=== PATIENT | female | born 1960 | race Caucasian/White ===

== ENCOUNTER 2016-07-19 10:26 | Day surgery (SDC) | payer MEDICARE, MEDICAID ==
[~2016-07-19] VITALS: Ht 152.4 cm; Wt 102.0 kg
[~2016-07-19 10:26] MED LIST: AMLO10 PO; ASPI1TAB69 PO; BUME1TAB PO; CALC667T PO; GABA100C4 PO; GLIP10TA6 PO; HYDR-3288 PO; ISOS10TA3 PO; LIPI20TA PO; METO25TA3 PO; SYNT88TA PO; ZOLP5TAB3 PO
[2016-07-19 11:06] VITALS: BP 187/70; PULSE 64; RESP 20; TEMP 98.4; O2SAT 90
[2016-07-19] MEDS ORDERED: ceFAZolin 1,000 MG/NS 100 ML IV SCH ×2 (11:30)
[2016-07-19] MEDS ORDERED: SODIUM CHLORIDE 5 ML FLUSH PRN IVF (11:30)
[2016-07-19] MEDS ORDERED: ceFAZolin 2 GM PREMIX 50 ML IV SCH (11:45)
[2016-07-19] MEDS ORDERED: MIDAZOLAM HCL 5 MG/5 ML VIAL ONE (12:39)
[2016-07-19] MEDS ORDERED: fentaNYL CITRATE 250 MCG/5 ML AMP ONE (12:39)
[2016-07-19] MEDS ORDERED: LIDOCAINE 1%/EPINEPHrine 1:100,000 SOLN 20 ML VIAL ONE (12:51)
--- NOTE | 2016-07-19 13:19 | PD.RAD ---
Post Procedure Progress Note Pre Procedure Diagnosis: (1) Acute kidney failure Post Procedure Diagnosis: (1) Acute kidney failure Procedure Date: Jul 19, 2016 Supervising Radiologist: Juan Smith Anesthesia: Conscious Sedation Plan of Activity Patient to Unit: Nursing Unit Patient Condition: Good See PACS Report for procedural detail/treatment Central Venous Access Device Procedure 1 Internal Jugular Hemodialysis Catheter Tunneled Exchange dual lumen Juan Smith MD Jul 19, 2016 13:19
[2016-07-19 13:25] VITALS: BP 150/55; PULSE 57; RESP 20; TEMP 98.2; O2SAT 92
[2016-07-19] MEDS ORDERED: HEPARIN SODIUM - IV 10,000 UNITS/10 ML VIAL IVF PRN (13:30)
[2016-07-19] MEDS ORDERED: SODIUM CHLORIDE 0.9% FLUSH 5 ML FLUSH IVF PRN (13:30)
[2016-07-19 13:40] VITALS: BP 157/92; PULSE 55; RESP 20; O2SAT 92
[2016-07-19 14:10] VITALS: BP 152/79; PULSE 58; RESP 20; O2SAT 94
--- NOTE | 2016-07-19 14:33 | RADRPT ---
EXAM DATE/TIME: 07/19/2016 12:32 INDICATIONS : Patient with history of ESRD in need of dialysis catheter exchange. MEDICAL HISTORY : ESRD, HTN, Diabetes, CAD, PVD, HLD, Hypothyroidism SURGICAL HISTORY : Permcath placement and removal, Right BKA ENCOUNTER: Subsequent ACUITY: 2 days PAIN SCORE: 0/10 FLUORO TIME: 0.7 minutes SEDATION TIME: 30minutes MEDICATION(S): 1.) 1 mg midazolam (Versed) IV 2.) 50 mcg fentanyl (Sublimaze) IV DEVICE(S): 1.) 15 Polish dual lumen 27 cm Turner II Plus catheter PROCEDURE: CENTRAL VENOUS CATHETER REPLACEMENT, LT 1. Fluoroscopically guided central venous catheter exchange. The risks, benefits and alternatives to the procedure were explained and verbal and written consent w as obtained. The site was prepped in sterile fashion. Full sterile technique was used, including ca p, mask, sterile gloves and gown and a large sterile sheet. Hand hygiene and 2% chlorhexidine and/or betadine/alcohol prep was utilized per protocol for cutaneous antisepsis. The skin and subcutaneous tissues were infiltrated with local anesthetic solution. With fluoroscopic guidance the previously placed central venous catheter was exchanged for the prescr ibed catheter as above. Post procedure image demonstrates satisfactory position of the tube. The cath eter was sutured in place. CONCLUSION: Uncomplicated venous catheter change as above. Juan Smith MD on July 19, 2016 at 14:32 Board Certified Radiologist. This report was verified electronically.
[2016-07-19 14:40] VITALS: BP 141/55; PULSE 61; RESP 20; O2SAT 94
[2016-07-19] MEDS ORDERED: SODIUM CHLORIDE 5 ML FLUSH BID IVF SCH (21:00)
== END 2016-07-19 15:05 | disposition home or self-care (01) ==
LOC: HROP 10:26 → HRIP 10:26 → HROP 15:05
PROVIDERS: ATTEND Internal Medicine Nephrology
DX: Z49.01 Encounter for fitting and adjustment of extracorporeal dialysis catheter (principal); N18.6 End stage renal disease; E11.9 Type 2 diabetes mellitus without complications; I10 Essential (primary) hypertension; Z99.2 Dependence on renal dialysis
CPT/HCPCS: 36558; 76937; 77001; 99152; 99153; C1750; C1769; J0690; J1644; J2250; J3010

== ENCOUNTER → 2016-09-01 | Outpatient (CLI) | payer MEDICARE, MEDICAID ==
[~2016-09-01] MED LIST changes: +ASPI81CH7 PO; +OXYC-392 PO
[2016-09-01 11:06] LABS: AUTOMATED NEUTROPHIL # 4.6 TH/MM3 (1.8-7.7); BASOPHIL # 0.1 TH/MM3 (0-0.2); BASOPHIL % 0.6 % (0.0-2.0); EOSINOPHIL # 0.3 TH/MM3 (0-0.4); EOSINOPHIL % 3.6 % (0.0-4.0); HEMATOCRIT 35.7 % (35.0-46.0); HEMO FLAGS DIFF FINAL; LYMPH % 33.9 % (9.0-44.0); LYMPHOCYTE # 2.9 TH/MM3 (1.0-4.8); MEAN CELL VOLUME 91.6 FL (80.0-100.0); MEAN CORPUSCULAR HEMOGLOBIN 29.6 PG (27.0-34.0); MEAN CORPUSCULAR HGB CONC 32.4 % (32.0-36.0); MONO % 8.9 % (0.0-8.0); PLATELET COUNT 214 TH/MM3 (150-450); RED CELL DISTRIBUTION WIDTH 14.2 % (11.6-17.2); WHITE BLOOD COUNT 8.6 TH/MM3 (4.0-11.0)
[2016-09-01 11:09] LABS: PROTHROMBIN TIME - PATIENT 10.8 SEC (9.8-11.6)
[2016-09-01 11:26] LABS: BICARBONATE 27.6 MEQ/L (21.0-32.0)
== END ==
LOC: CPRE 10:25
PROVIDERS: ATTEND Surgery
DX: Z01.812 Encounter for preprocedural laboratory examination (principal); N18.6 End stage renal disease
CPT/HCPCS: 36415; 80048; 85025; 85610

== ENCOUNTER 2016-09-07 03:53 | Emergency (ER) | payer MEDICARE, MEDICAID ==
[~2016-09-07] VITALS: Ht 152.4 cm; Wt 100.3 kg
[~2016-09-07 03:53] MED LIST changes: -ASPI81CH7 PO; -OXYC-392 PO
[2016-09-07 04:02] VITALS: BP 144/58; PULSE 58; RESP 16; TEMP 98; O2SAT 97
--- NOTE | 2016-09-07 04:24 | PD ---
HPI Chief Complaint: Bleeding Time Seen by Provider: 04:01 Travel History International Travel<30 days: No Contact w/Intl Traveler<30days: No Traveled to known affect area: No History of Present Illness HPI 55-year-old female with end-stage renal disease on dialysis, has a left subclavian permacath, is post to get a fistula done tomorrow, presents to the ER today because the cap loosened on her permacath overnight while she was sleeping and she had a significant amount of bleeding onto her bed. She reports being lightheaded currently. She denies any chest pains, shortness of breath, or any other symptoms. Modifying Factors: None Associated Signs & Symptoms: Bleeding from permacath secondary to loosened cap Risk Factors: None PFSH Past Medical History Anemia: Yes Arthritis: Yes (HANDS, TOES, FEET) Autoimmune Disease: No Cancer: No Cardiac Catheterization: No Cardiovascular Problems: No High Cholesterol: No Diabetes: Yes Patient Takes Glucophage: No Diminished Hearing: No Endocrine: No Genitourinary: No Hepatitis: No Hiatal Hernia: No Hypertension: Yes Immune Disorder: No Musculoskeletal: Yes (ARTHRITIS) Neurologic: No Psychiatric: No Reproductive: No Respiratory: No Myocardial Infarction: No Pneumonia: Yes Renal Failure: Yes Sleep Apnea: Yes Thyroid Disease: Yes Tetanus Vaccination: < 5 Years Influenza Vaccination: Yes PNEUMOCCOCAL Vaccine (Year): 2 Menopausal: Yes : 2 Para: 2 Miscarriage: 0 : 0 Tubal Ligation: Yes Past Surgical History Abdominal Surgery: No AICD: No Body Medical Devices: CAHT. LEFT CHEST Cardiac Surgery: No Section: Yes (X2) Coronary Artery Bypass Graft: No Ear Surgery: No Endocrine Surgery: No Eye Surgery: No Genitourinary Surgery: No Gynecologic Surgery: Yes (2 C-SECT.,) Joint Replacement: No Oral Surgery: No Pacemaker: No Thoracic Surgery: Yes (AV CATH X4 LEFT CHEST) Other Surgery: Yes (RIGHT FOOT AMPUTATION DECEMBER 2013) Social History Alcohol Use: No Tobacco Use: No (QUIT 1988) Substance Use: No Allergies-Medications (Allergen,Severity, Reaction): Coded Allergies: Vancomycin (Verified Allergy, Severe, KIDNEY INJURY, 09/07/16) PER Jasmin BROWN MD, DO NOT USE VANCO. SEVERE KIDNEY INJURY. Morphine (Unverified Allergy, Intermediate, 09/07/16) "ITCHING EVERYWHERE" Reported Meds & Prescriptions Reported Meds & Active Scripts Active Lipitor (Atorvastatin Calcium) 20 Mg Tab 20 Mg PO HS 30 Days Reported Calcium Acetate (Phosphate Binder) 667 Mg Tab 667 Mg PO TID Zolpidem (Zolpidem Tartrate) 5 Mg Tab 10 Mg PO HS PRN Metoprolol Tartrate 25 Mg Tab 25 Mg PO BID Bumetanide 1 Mg Tab 2 Mg PO BID Synthroid (Levothyroxine Sodium) 88 Mcg Tab 0.137 Mcg PO DAILY [place] (Hydrocodone-Acetaminophen) 7.5-325 mg Tab 2 Tab PO Q6H PRN Isosorbide Mononitrate 10 Mg Tab 10 Mg PO DAILY Take 2 doses 7 hours apart. Glipizide 10 Mg Tab 10 Mg PO BIDAC Take 30 minutes before a meal Aspirin 81 Mg Tabdr 81 Mg PO DAILY Norvasc (Amlodipine Besylate) 10 Mg Tab 10 Mg PO DAILY Gabapentin 100 Mg Cap 600 Mg PO HS Review of Systems Except as stated in HPI: all other systems reviewed are Neg Physical Exam Narrative GENERAL: Well-nourished, well-developed middle age white female patient in no acute distress. SKIN: Warm and dry. HEAD: Normocephalic. EYES: No scleral icterus. No injection or drainage. NECK: Supple, trachea midline. Left sided permacath appears to be in place. CARDIOVASCULAR: Regular rate and rhythm without murmurs, gallops, or rubs. RESPIRATORY: Breath sounds equal bilaterally. No accessory muscle use. GASTROINTESTINAL: Abdomen soft, non-tender, nondistended. MUSCULOSKELETAL: No cyanosis, or edema. BACK: Nontender without obvious deformity. No CVA tenderness. Data Data Last Documented VS Vital Signs Date Time Temp Pulse Resp B/P Pulse Ox O2 Delivery O2 Flow Rate FiO2 09/07/16 04:02 98.0 58 16 144/58 97 Orders Complete Blood Count With Diff (09/07/16 04:01) Basic Metabolic Panel (Bmp) (09/07/16 04:01) Prothrombin Time / Inr (Pt) (09/07/16 04:01) Act Partial Throm Time (Ptt) (09/07/16 04:01) Type And Screen (09/07/16 04:01) Potassium, Serum (K) (09/07/16 05:57) Labs Laboratory Tests Test 09/07/16 04:35 White Blood Count 11.3 TH/MM3 Red Blood Count 3.82 MIL/MM3 Hemoglobin 11.4 GM/DL Hematocrit 35.2 % Mean Corpuscular Volume 92.2 FL Mean Corpuscular Hemoglobin 29.7 PG Mean Corpuscular Hemoglobin 32.3 % Concent Red Cell Distribution Width 14.3 % Platelet Count 190 TH/MM3 Mean Platelet Volume 8.2 FL Neutrophils (%) (Auto) 74.4 % Lymphocytes (%) (Auto) 17.5 % Monocytes (%) (Auto) 6.5 % Eosinophils (%) (Auto) 1.3 % Basophils (%) (Auto) 0.3 % Neutrophils # (Auto) 8.4 TH/MM3 Lymphocytes # (Auto) 2.0 TH/MM3 Monocytes # (Auto) 0.7 TH/MM3 Eosinophils # (Auto) 0.1 TH/MM3 Basophils # (Auto) 0.0 TH/MM3 CBC Comment DIFF FINAL Differential Comment Prothrombin Time 10.6 SEC Prothromb Time International 1.0 RATIO Ratio Activated Partial 25.2 SEC Thromboplast Time Sodium Level 140 MEQ/L Potassium Level 5.9 MEQ/L Chloride Level 107 MEQ/L Carbon Dioxide Level 24.7 MEQ/L Anion Gap 8 MEQ/L Blood Urea Nitrogen 35 MG/DL Creatinine 4.04 MG/DL Estimat Glomerular Filtration 11 ML/MIN Rate Random Glucose 154 MG/DL Calcium Level 8.9 MG/DL Blood Type A POSITIVE Antibody Screen NEGATIVE MDM Medical Decision Making Medical Screen Exam Complete: Yes Emergency Medical Condition: Yes Medical Record Reviewed: Yes Interpretation(s) Laboratory Tests Test 09/07/16 04:35 White Blood Count 11.3 TH/MM3 (4.0-11.0) Red Blood Count 3.82 MIL/MM3 (4.00-5.30) Hemoglobin 11.4 GM/DL (11.6-15.3) Neutrophils (%) (Auto) 74.4 % (16.0-70.0) Neutrophils # (Auto) 8.4 TH/MM3 (1.8-7.7) Potassium Level 5.9 MEQ/L (3.5-5.1) Blood Urea Nitrogen 35 MG/DL (7-18) Creatinine 4.04 MG/DL (0.50-1.00) Estimat Glomerular Filtration 11 ML/MIN (>89) Rate Random Glucose 154 MG/DL (74-106) Differential Diagnosis Permacath malfunction, bleedingrule out anemia Narrative Course H&H is stable in the ER. Her lab work shows a hemolyzed potassium. Potassium was be sent. BUN/creatinine creatinine is elevated but this is likely to be secondary to her chronic renal issues. Physician Communication Physician Communication Case is signed out to Dr. Howard at 7 AM pending repeat potassium. If unremarkable, patient can be released with follow-up to dialysis. Diagnosis Primary Impression: Encounter for dialysis catheter care Condition: Stable Gary Toscano MD Sep 07, 2016 04:24
[2016-09-07 04:52] LABS: AUTOMATED NEUTROPHIL # 8.4 TH/MM3 (1.8-7.7); BASOPHIL % 0.3 % (0.0-2.0); EOSINOPHIL # 0.1 TH/MM3 (0-0.4); EOSINOPHIL % 1.3 % (0.0-4.0); HEMATOCRIT 35.2 % (35.0-46.0); HEMO FLAGS DIFF FINAL; LYMPH % 17.5 % (9.0-44.0); MEAN CELL VOLUME 92.2 FL (80.0-100.0); MEAN CORPUSCULAR HEMOGLOBIN 29.7 PG (27.0-34.0); MEAN CORPUSCULAR HGB CONC 32.3 % (32.0-36.0); MONO % 6.5 % (0.0-8.0); NEUT % 74.4 % (16.0-70.0); PLATELET COUNT 190 TH/MM3 (150-450); RED BLOOD COUNT 3.82 MIL/MM3 (4.00-5.30); RED CELL DISTRIBUTION WIDTH 14.3 % (11.6-17.2); WHITE BLOOD COUNT 11.3 TH/MM3 (4.0-11.0)
[2016-09-07 04:58] LABS: APTT (PATIENT) 25.2 SEC (24.3-30.1); PROTHROMBIN TIME - PATIENT 10.6 SEC (9.8-11.6)
[2016-09-07 05:12] LABS: BICARBONATE 24.7 MEQ/L (21.0-32.0)
[2016-09-07 05:23] LABS: POTASSIUM 5.9 MEQ/L (3.5-5.1)
[2016-09-07 07:45] VITALS: BP 142/63; PULSE 56; RESP 19; O2SAT 100
[2016-09-07 08:30] VITALS: BP 142/63; PULSE 50; RESP 16; O2SAT 9
--- NOTE | 2016-09-07 08:56 | PD ---
Physical Exam Narrative GENERAL: Well-nourished, well-developed patient. SKIN: Warm and dry. HEAD: Normocephalic and atraumatic. EYES: No injection or drainage. ENT: No nasal drainage noted. NECK: Supple, trachea midline. CARDIOVASCULAR: Regular rate and rhythm RESPIRATORY: no increased effort. No accessory muscle use. NEUROLOGICAL: Awake and alert. Motor and sensory grossly within normal limits. Normal speech. Data Data Last Documented VS Vital Signs Date Time Temp Pulse Resp B/P Pulse Ox O2 Delivery O2 Flow Rate FiO2 09/07/16 09:15 95 Room Air 09/07/16 09:00 55 18 156/67 09/07/16 08:30 2 09/07/16 04:02 98.0 Orders Complete Blood Count With Diff (09/07/16 04:01) Basic Metabolic Panel (Bmp) (09/07/16 04:01) Prothrombin Time / Inr (Pt) (09/07/16 04:01) Act Partial Throm Time (Ptt) (09/07/16 04:01) Type And Screen (09/07/16 04:01) Potassium, Serum (K) (09/07/16 05:57) ^ Blood Flow Rate (09/07/16 12:20) ^ Dialysate Flow Rate (09/07/16 12:20) ^ Dialyzer (09/07/16 12:20) ^ Concentrate (09/07/16 12:20) ^ Acid Concentrate (09/07/16 12:20) ^ Length Of Dialysis (09/07/16 12:20) ^ Frequency Of Dialysis (09/07/16 12:20) ^ Dialysis Obtain (09/07/16 12:20) ^ Needle Size (09/07/16 12:20) ^ Dialysis Schedule (09/07/16 12:20) Resp Oxygen Brendan C Titrat 1-4 L (09/07/16 ) ^ Dialysis Weight (09/07/16 12:20) ^ Obtain As Needed (09/07/16 12:20) Sodium Chlor 0.9% 1000 Ml Inj (Ns 1000 M (09/07/16 12:20) Heparin Inj (Heparin Inj) (09/07/16 12:30) Sodium Chlor 0.9% 1000 Ml Inj (Ns 1000 M (09/07/16 12:20) Sodium Chlor 0.9% 1000 Ml Inj (Ns 1000 M (09/07/16 12:20) Mannitol Inj (Mannitol Inj) (09/07/16 12:30) Albumin 25% Inj (Albumin 25% Inj) (09/07/16 12:30) Sodium Chloride 0.9% Flush (Ns Flush) (09/07/16 12:30) Heparin Inj (Heparin Inj) (09/07/16 12:30) Gentamicin (Dialysis) Inj (Gentamicin (D (09/07/16 12:30) Ondansetron Inj (Zofran Inj) (09/07/16 12:30) Acetaminophen (Tylenol) (09/07/16 12:30) Diphenhydramine (Benadryl) (09/07/16 12:30) Nitroglycerin Sl (Nitrostat Sl) (09/07/16 12:30) Clonidine (Catapres) (09/07/16 12:30) Gelatin 12 Mm/7 Mm Top (Gelfoam 12 Mm/7 (09/07/16 12:30) Labs Laboratory Tests Test 09/07/16 09/07/16 04:35 09:40 White Blood Count 11.3 TH/MM3 Red Blood Count 3.82 MIL/MM3 Hemoglobin 11.4 GM/DL Hematocrit 35.2 % Mean Corpuscular Volume 92.2 FL Mean Corpuscular Hemoglobin 29.7 PG Mean Corpuscular Hemoglobin 32.3 % Concent Red Cell Distribution Width 14.3 % Platelet Count 190 TH/MM3 Mean Platelet Volume 8.2 FL Neutrophils (%) (Auto) 74.4 % Lymphocytes (%) (Auto) 17.5 % Monocytes (%) (Auto) 6.5 % Eosinophils (%) (Auto) 1.3 % Basophils (%) (Auto) 0.3 % Neutrophils # (Auto) 8.4 TH/MM3 Lymphocytes # (Auto) 2.0 TH/MM3 Monocytes # (Auto) 0.7 TH/MM3 Eosinophils # (Auto) 0.1 TH/MM3 Basophils # (Auto) 0.0 TH/MM3 CBC Comment DIFF FINAL Differential Comment Prothrombin Time 10.6 SEC Prothromb Time International 1.0 RATIO Ratio Activated Partial 25.2 SEC Thromboplast Time Sodium Level 140 MEQ/L Potassium Level 5.9 MEQ/L 4.8 MEQ/L Chloride Level 107 MEQ/L Carbon Dioxide Level 24.7 MEQ/L Anion Gap 8 MEQ/L Blood Urea Nitrogen 35 MG/DL Creatinine 4.04 MG/DL Estimat Glomerular Filtration 11 ML/MIN Rate Random Glucose 154 MG/DL Calcium Level 8.9 MG/DL Blood Type A POSITIVE Antibody Screen NEGATIVE MDM Supervised Visit with MACEY: No Interpretation(s) CBC & BMP Diagram 09/07/16 04:35 Narrative Course Lab called about additional re-collect at 850 and I personally talked with them. They stated that it was above 6 with hemolysis and that it would need to be very collected again. They will come to re-collect and I will discuss with her photo offset printer as she is not due for dialysis again until as she is having a fistula surgery on her next dialysis stay of Tuesday. patient to have dialysis here on second floor and then will go home, Patient denies any new complaints, all questions answered. Patient knows that follow up is incumbent on them and to return to the emergency room immediately if new or worsening symptoms develop. Patient given strict return precautions, vitals reviewed and are normal, agrees to further workup as an outpatient. Physician Communication Physician Communication dr vivas gave me transfer report about recollect potassium dr rivera states at 855 will try to arrange dialysis for today and call me back when I discussed case with him dr rivera states patient will have dialysis on second floor here and then go home, no need for recollect potassium Diagnosis Primary Impression: Encounter for dialysis catheter care Additional Impression: Hyperkalemia Patient Instructions: General Instructions Additional Instruction: return as needed, follow with primary tomorrow for recheck Med/Other Pt SpecificInfo: No Change to Meds Disposition: 01 DISCHARGE HOME (after dialysis) Condition: Stable Luciana Howard MD Sep 07, 2016 08:56
[2016-09-07 09:00] VITALS: BP 156/67; PULSE 55; RESP 18; O2SAT 92
[2016-09-07 09:15] VITALS: O2SAT 95
[2016-09-07] MEDS ORDERED: SODIUM CHLOR 0.9% 1000 ML INJ 1,000 ML IV PRN ×3 (12:20)
[2016-09-07] MEDS ORDERED: MANNITOL 12.5 GM/50 ML VIAL IV PRN (12:30)
[2016-09-07] MEDS ORDERED: ONDANSETRON HCL 4 MG/2 ML VIAL IV PRN (12:30)
[2016-09-07] MEDS ORDERED: ACETAMINOPHEN 325 MG TAB PO PRN (12:30)
[2016-09-07] MEDS ORDERED: SODIUM CHLORIDE 0.9% FLUSH 5 ML FLUSH IVF PRN (12:30)
[2016-09-07] MEDS ORDERED: GELATIN 12 MM/7 MM FOAM TOP PRN (12:30)
[2016-09-07] MEDS ORDERED: HEPARIN SODIUM - IV 10,000 UNITS/10 ML VIAL IVF PRN (12:30)
[2016-09-07] MEDS ORDERED: diphenhydrAMINE HCL 25 MG CAP PO PRN (12:30)
[2016-09-07] MEDS ORDERED: NITROGLYCERIN 0.4 MG SL 25 TABS/BTL SL PRN (12:30)
[2016-09-07] MEDS ORDERED: cloNIDine HCL 0.1 MG TAB PO PRN (12:30)
[2016-09-07] MEDS ORDERED: HEPARIN SODIUM - IV 10,000 UNITS/10 ML VIAL PRN (12:30)
[2016-09-07] MEDS ORDERED: ALBUMIN HUMAN 25% 25 GM/100 ML BAGP IV PRN (12:30)
[2016-09-07] MEDS ORDERED: GENTAMICIN SULFATE (DIALYSIS USE ONLY) 20 MG/2 ML VIAL IV PRN (12:30)
== END 2016-09-07 14:43 | disposition home or self-care (01) ==
LOC: NEPC 03:53 → NEDAMB 14:43
DX: T82.41XA Breakdown (mechanical) of vascular dialysis catheter, initial encounter (principal); I12.0 Hypertensive chronic kidney disease with stage 5 chronic kidney disease or end stage renal disease; E11.22 Type 2 diabetes mellitus with diabetic chronic kidney disease; N18.6 End stage renal disease; Z99.2 Dependence on renal dialysis
CPT/HCPCS: 80048; 84132; 85025; 85610; 85730; 86850; 86900; 86901; 96374; 99284; G0257; 90935

== ENCOUNTER → 2016-09-08 | Day surgery (SDC) | payer MEDICARE, MEDICAID ==
[~2016-09-08] VITALS: Ht 152.4 cm; Wt 100.3 kg
[~2016-09-08] MED LIST changes: +*HYDROmorphone PF 1 MG VIAL PERIprocedural Use ONLY ONE; +ACETAMINOPHEN/HYDROcodone 325 MG/5 MG TAB PO PRN; +ASPI81CH7 PO; +BUPIVACAINE/EPINEPHRINE 0.5% PF 30 ML VIAL ONE; +FAMOTIDINE 20 MG/2 ML VIAL ONE; +HEPARIN SODIUM - IV 10,000 UNITS/10 ML VIAL ONE; +HEPARIN SODIUM - SQ 10,000 UNITS/ML VIAL ONE; +INSULIN HUMAN REGULAR 1,000 UNITS/10 ML VIAL SQ PRN; +LACTATED RINGER'S 1000 ML IV SCH; +METOPROLOL TARTRATE 25 MG TAB PO PRN; +MIDAZOLAM HCL 2 MG/2 ML VIAL ONE; +MORPHINE SULFATE 4 MG/ML INJ IV PRN; +NEOSTIGMINE 3 MG/3 ML SYR IV ONE; +ONDANSETRON HCL 4 MG/2 ML VIAL IV PUSH ONE; +OXYC-392 PO; +PHENYLEPH/NS 1000 MCG/10 ML SYR IV ONE; +PROPOFOL 200 MG/20 ML AMP IV ONE; +PROTAMINE SULFATE 50 MG/5 ML VIAL ONE; +Post-op Orders (for Pharmacy) MISC OTHER ONE; +SODIUM CHLORID 0.9% 500 ML IV SCH; +SODIUM CHLORIDE 0.9% FLUSH 5 ML FLUSH IV FLUSH PRN; +SODIUM CHLORIDE 0.9% FLUSH 5 ML FLUSH IV FLUSH SCH; +ceFAZolin 2 GM PREMIX 50 ML ONE; +ePHEDrine/NS 25 MG/5 ML SYR IV ONE
[2016-09-08 07:14] VITALS: BP 149/68; PULSE 54; RESP 18; TEMP 98.8; O2SAT 98
--- NOTE | 2016-09-08 07:48 | PD.VS.PN ---
Pre-operative Note Pre-operative diagnosis: ESRD need for HD access Planned procedure: LEFT brachiocephalic AVF Interval History: no changes that would preclude OR Labs: K pending Hct 35 plt 190 Blood: none needed Orders: npo Post-operative destination: PACU Operative site marked: Yes Consent: Informed consent has been obtained from Dori Spencer. I have explained the procedure in detail and discussed the risks, benefits, and potential complications. All questions have been answered. Patient contact information: daughter Nickolas Kim Sonia HOLLAND Sep 08, 2016 07:48
--- NOTE | 2016-09-08 09:37 | HHI.PR ---
Immediate Post Op Note Procedure Date: Sep 08, 2016 Pre Op Diagnosis: ESRD, need for HD access Post Op Diagnosis: ESRD, need for HD access Surgeon: Nickolas Kim Metal Milling Machine Operator(s): none Procedure: L brachiocephalic AVF Findings: 3mm vein, 2mm artery Complications: none + thrill and good Doppler signal at wrist at conclusion of case Specimen(s) removed: none Estimated blood loss: 25 mL Anesthesia: General Drains: None Fluids: 400 mL IVF Patient to: PACU Date/Time of Procedure: SEE SURGICAL CARE RECORD Nickolas Kim MD Sep 08, 2016 09:37
--- NOTE | 2016-09-08 10:41 | PD.VS.PN ---
Subjective POD #: 0 Procedure(s): L brachiocephalic AVF Subjective/Hospital Course resting comfortably, appropriate arm tenderness, hand ok Objective Vitals/I&O Date Time Temp Pulse Resp B/P Pulse Ox O2 Delivery O2 Flow Rate FiO2 09/08/16 07:14 98.8 54 18 149/68 98 09/08/16 09/08/16 09/08/16 07:00 15:00 23:00 Intake Total 450 ml Output Total 25 ml Balance 425 ml Exam: L UE incision c/d/i Tough to feel thrill but deep Hand warm Laboratory Laboratory Tests Test 09/08/16 07:28 Potassium Level 4.4 Assessment and Plan Plan s/p L BC AVF, doing well Discharge Planning today if feels ok I discussed this with patient pre-op and in PACU as well as the daughter. Nickolas Kim MD Sep 08, 2016 10:41
[2016-09-08 11:45] VITALS: BP 122/43; PULSE 50; RESP 16; TEMP 98.8; O2SAT 98
--- NOTE | 2016-09-09 10:27 | MP ---
cc: BERRY KIM MD DATE OF SURGERY 09/08/2016 PREOPERATIVE DIAGNOSIS End-stage renal disease needs dialysis access POSTOPERATIVE DIAGNOSIS End-stage renal disease needs dialysis access PROCEDURE Left brachiocephalic arteriovenous fistula ATTENDING SURGEON Berry Kim MD RESIDENT SURGEON None ANESTHESIA General INDICATIONS Ms. Spencer is a 55 year-old lady with end-stage renal disease who needs dialysis access. Preoperative imaging suggested she had adequate cephalic vein and she is right handed. She is taken to the operating room for this. DESCRIPTION OF PROCEDURE Informed consent was obtained from the patient. She was taken to the operating room, placed supine on the operating room table and appropriate time out was taken to assure the patient identify, operative site and planned procedure. The administration of two grams of Kefzol was initiated prior to the skin incision and will be discontinued after a single preoperative dose. Everyone in the room agreed with the time out and we proceeded. The left arm was prepped and draped and a transverse incision was made in the antecubital area and carried down through the subcutaneous tissue with electrocautery. The cephalic vein was identified and dissected free for several centimeters. The cephalic vein was dissected free, marked for orientation distally. It was clamped with a right angle, transected. The proximal end was temporarily clamped with Solitario bulldog and the distal end was oversewn with 3-0 silk. The brachial artery was identified in the medial aspect of the incision and dissected free for several centimeters. The patient was systemically heparinized with 3000 units of IV heparin. Proximal and distal control of the brachial artery obtained with profunda clamps and a longitudinal arteriotomy was made with an 11 blade and extended with Arvilla scissors. The cephalic vein was spatulated and sewn end-to-side with running 6-0 Prolene sutures. At the conclusion, this was flushed and noted to be hemostatic. There was a nice thrill in the fistula and a nice Doppler signal in the wrist. The wounds were made hemostatic and closed with 2-0 Polysorb, 3-0 Polysorb and 4-0 Monocryl. Prior to closing the wound, the wound was infiltrated with Marcaine. There were no complications. The sponge and needle counts were correct at the end of the case and I was present for the entire procedure. MD HAYLIE Bravo/WILLIAM /10:06 AM /9:56 AM MTDD
== END | disposition home or self-care (01) ==
LOC: HSDC 06:17
PROVIDERS: ATTEND Surgery
DX: N18.6 End stage renal disease (principal); Z99.2 Dependence on renal dialysis; Z94.0 Kidney transplant status; Z94.83 Pancreas transplant status
CPT/HCPCS: 01844; 36415; 36821; 84132; J0690; J1170; J1644; J2250; J2370; J2405; J2710; J2720; J3010

== ENCOUNTER 2016-12-08 09:40 | Observation (INO) | payer MEDICARE, MEDICAID ==
[~2016-12-08] VITALS: Ht 152.4 cm; Wt 106.2 kg
[~2016-12-08 09:40] MED LIST changes: -*HYDROmorphone PF 1 MG VIAL PERIprocedural Use ONLY ONE; -ACETAMINOPHEN/HYDROcodone 325 MG/5 MG TAB PO PRN; -ASPI81CH7 PO; -BUPIVACAINE/EPINEPHRINE 0.5% PF 30 ML VIAL ONE; -FAMOTIDINE 20 MG/2 ML VIAL ONE; -HEPARIN SODIUM - IV 10,000 UNITS/10 ML VIAL ONE; -HEPARIN SODIUM - SQ 10,000 UNITS/ML VIAL ONE; -INSULIN HUMAN REGULAR 1,000 UNITS/10 ML VIAL SQ PRN; -LACTATED RINGER'S 1000 ML IV SCH; -METOPROLOL TARTRATE 25 MG TAB PO PRN; -MIDAZOLAM HCL 2 MG/2 ML VIAL ONE; -MORPHINE SULFATE 4 MG/ML INJ IV PRN; -NEOSTIGMINE 3 MG/3 ML SYR IV ONE; -ONDANSETRON HCL 4 MG/2 ML VIAL IV PUSH ONE; -OXYC-392 PO; -PHENYLEPH/NS 1000 MCG/10 ML SYR IV ONE; -PROPOFOL 200 MG/20 ML AMP IV ONE; -PROTAMINE SULFATE 50 MG/5 ML VIAL ONE; -Post-op Orders (for Pharmacy) MISC OTHER ONE; -SODIUM CHLORID 0.9% 500 ML IV SCH; -SODIUM CHLORIDE 0.9% FLUSH 5 ML FLUSH IV FLUSH PRN; -SODIUM CHLORIDE 0.9% FLUSH 5 ML FLUSH IV FLUSH SCH; -ceFAZolin 2 GM PREMIX 50 ML ONE; -ePHEDrine/NS 25 MG/5 ML SYR IV ONE
[2016-12-08] MEDS ORDERED: ASPI81CH7 PO (10:30)
[2016-12-08 10:31] VITALS: BP 136/60; PULSE 49; RESP 20; TEMP 99; O2SAT 96
[2016-12-08 10:46] LABS: AUTOMATED NEUTROPHIL # 4.6 TH/MM3 (1.8-7.7); BASOPHIL # 0.1 TH/MM3 (0-0.2); BASOPHIL % 0.7 % (0.0-2.0); EOSINOPHIL # 0.3 TH/MM3 (0-0.4); EOSINOPHIL % 3.2 % (0.0-4.0); HEMO FLAGS DIFF FINAL; LYMPHOCYTE # 2.3 TH/MM3 (1.0-4.8); MEAN CELL VOLUME 98.1 FL (80.0-100.0); MEAN CORPUSCULAR HGB CONC 31.6 % (32.0-36.0); MONO % 10.3 % (0.0-8.0); NEUT % 56.8 % (16.0-70.0); PLATELET COUNT 222 TH/MM3 (150-450); RED BLOOD COUNT 3.77 MIL/MM3 (4.00-5.30); RED CELL DISTRIBUTION WIDTH 15.1 % (11.6-17.2); WHITE BLOOD COUNT 8.1 TH/MM3 (4.0-11.0)
[2016-12-08 10:51] LABS: BACTERIA, URINE RARE /hpf; BLOOD, URINE MOD (NEG); COMMENT (UR) CULT NOT INDICATED; CULTURE IF INDICATED CULT NOT INDICATED; GLUCOSE,URINE NEG (NEG); HYALINE CAST, URINE 1 /lpf (RARE); KETONE, URINE NEG (NEG); MUCUS URINE FEW /lpf (OCC); NITRITE,URINE NEG (NEG); PH, URINE 5.5 (5.0-8.5); SQUAMOUS EPITHELIAL CELL URINE 9 /hpf (0-5); URINE COLOR YELLOW (YELLW/STRAW)
--- NOTE | 2016-12-08 10:52 | RADRPT ---
EXAM DATE/TIME: 12/08/2016 10:10 [facility] COMPARISON: CHEST SINGLE AP, May 01, 2016, 13:57. INDICATIONS : Evaluate for pneumonia, pneumothorax, and communicable disease. Preop for left permacath. MEDICAL HISTORY : Hypertension. Peripheral vascular disease. Hypothyroidism. Hyperlipidemia. SURGICAL HISTORY : section. Tubal ligation. ENCOUNTER: Subsequent ACUITY: 1 day PAIN SCORE: 0/10 LOCATION: Bilateral chest FINDINGS: A single view of the chest demonstrates the lungs to be symmetrically aerated without evidence of mas s, infiltrate or effusion. The heart is mildly enlarged. A dialysis catheter overlies the left chest. Osseous structures are intact. CONCLUSION: Mild cardiomegaly. Clear lungs. Augusto Cárdenas Jr., MD on December 08, 2016 at 10:47 Board Certified Radiologist. This report was verified electronically.
[2016-12-08 10:54] LABS: APTT (PATIENT) 47.8 SEC (24.3-30.1)
[2016-12-08 11:00] LABS: BICARBONATE 26.2 MEQ/L (21.0-32.0); POTASSIUM 4.9 MEQ/L (3.5-5.1)
[2016-12-08] MEDS ORDERED: LACTATED RINGER'S 1000 ML IV PRN (11:00)
[2016-12-08] MEDS ORDERED: INSULIN HUMAN REGULAR 1,000 UNITS/10 ML VIAL SQ PRN (11:00)
[2016-12-08] MEDS ORDERED: CHLORHEXIDINE GLUCONATE 2 % 1 PACK (2 CLOTHS) TOPICAL PRN (11:00)
[2016-12-08] MEDS ORDERED: SODIUM CHLORID 0.9% 500 ML IV PRN (11:00)
[2016-12-08] MEDS ORDERED: METOPROLOL TARTRATE 25 MG TAB PO PRN (11:00)
[2016-12-08] MEDS ORDERED: POVIDONE IODINE 5% (ANTISEPSIS KIT) 4 APPLICATIONS EACH NARE PRN (11:00)
[2016-12-08] MEDS ORDERED: PROTAMINE SULFATE 50 MG/5 ML VIAL ONE (11:34)
[2016-12-08] MEDS ORDERED: THROMBIN (TOPICAL) 20,000 UNIT SPRAY KIT ONE (11:34)
[2016-12-08] MEDS ORDERED: BUPIVACAINE/EPINEPHRINE 0.5% PF 30 ML VIAL ONE (11:34)
[2016-12-08] MEDS ORDERED: HEPARIN SODIUM - IV 10,000 UNITS/10 ML VIAL ONE (11:34)
[2016-12-08] MEDS ORDERED: ePHEDrine/NS 25 MG/5 ML SYR IV ONE (12:00)
[2016-12-08] MEDS ORDERED: PROPOFOL 200 MG/20 ML AMP IV ONE (12:00)
[2016-12-08] MEDS ORDERED: ONDANSETRON HCL 4 MG/2 ML VIAL IV PUSH ONE (12:00)
[2016-12-08] MEDS ORDERED: FAMOTIDINE 20 MG/2 ML VIAL ONE (12:33)
[2016-12-08] MEDS ORDERED: MIDAZOLAM HCL 2 MG/2 ML VIAL ONE (12:33)
--- NOTE | 2016-12-08 13:13 | HHI.HP ---
History of Present Illness Chief Complaint: nonmaturing L UE AVF History of Present Illness 56 yo female with ESRD currently on HD; had L BC AVF placed 09/08/16 but it is deep and there is proximal stenosis. Never been used. Past/Family/Social History Past Medical History ESRD DM HTN MICHELET Past Surgical History L BC AVF Social History nonsmoker Family History NC Home Medications Active Scripts Atorvastatin (Lipitor)20 Mg Tab20 Mg PO HS 30 Days Ref 1 Prov:Manjula Daniels 04/04/16 Reported Medications Aspirin (Aspirin Children's)81 Mg Chew81 Mg PO DAILY Ref 0 12/08/16 Calcium Acetate (Phosphate Binder) 667 Mg Mvh160 Mg PO TID #90 TAB Ref 0 06/21/16 Zolpidem 5 Mg Tab10 Mg PO HS PRN (INSOMNIA) Ref 0 06/19/16 Metoprolol Tartrate 25 Mg Tab25 Mg PO BID #60 TAB Ref 0 06/19/16 Bumetanide 1 Mg Tab2 Mg PO BID #60 TAB Ref 0 06/19/16 Levothyroxine (Synthroid)88 Mcg Tab0.137 Mcg PO DAILY #30 TAB Ref 0 06/19/16 Hydrocodone-Acetaminophen ([place])7.5-325 mg Tab2 Tab PO Q6H PRN (PAIN) Ref 0 06/19/16 Isosorbide Mononitrate 10 Mg Tab10 Mg PO DAILY #60 TAB Take 2 doses 7 hours apart. 06/19/16 Glipizide 10 Mg Tab10 Mg PO BIDAC #60 TAB Ref 0 Take 30 minutes before a meal 06/19/16 Amlodipine (Norvasc)10 Mg Tab10 Mg PO DAILY #30 TAB Ref 0 06/19/16 Gabapentin 100 Mg Xng185 Mg PO HS 04/25/13 Coded Allergies: Vancomycin (Verified Allergy, Severe, KIDNEY INJURY, 12/08/16) PER Jasmin BROWN MD, DO NOT USE VANCO. SEVERE KIDNEY INJURY. Morphine (Unverified Allergy, Intermediate, 12/08/16) "ITCHING EVERYWHERE" Review of Systems Constitutional: DENIES: Fever, Chills, Change in appetite Cardiovascular: DENIES: Chest pain Physical Exam Vitals/I&O Date Time Temp Pulse Resp B/P Pulse Ox O2 Delivery O2 Flow Rate FiO2 12/08/16 10:31 99.0 49 20 136/60 96 Neuro: slightly somnolent, responsive appropriately though HEENT: NC/AT Neck: no JVD Heart: reg rate Lungs: nonlabored Abdomen: soft, NT Vascular: L UE BC AVF incision intact; pulsatile proximally Laboratory Tests Test 12/08/16 10:20 White Blood Count 8.1 Red Blood Count 3.77 Hemoglobin 11.7 Hematocrit 37.0 Mean Corpuscular Volume 98.1 Mean Corpuscular Hemoglobin 31.0 Mean Corpuscular Hemoglobin 31.6 Concent Red Cell Distribution Width 15.1 Platelet Count 222 Mean Platelet Volume 7.8 Neutrophils (%) (Auto) 56.8 Lymphocytes (%) (Auto) 29.0 Monocytes (%) (Auto) 10.3 Eosinophils (%) (Auto) 3.2 Basophils (%) (Auto) 0.7 Neutrophils # (Auto) 4.6 Lymphocytes # (Auto) 2.3 Monocytes # (Auto) 0.8 Eosinophils # (Auto) 0.3 Basophils # (Auto) 0.1 CBC Comment DIFF FINAL Differential Comment Prothrombin Time 11.0 Prothromb Time International 1.0 Ratio Activated Partial 47.8 Thromboplast Time Urine Color YELLOW Urine Turbidity HAZY Urine pH 5.5 Urine Specific [place] 1.014 Urine Protein 100 Urine Glucose (UA) NEG Urine Ketones NEG Urine Occult Blood MOD Urine Nitrite NEG Urine Bilirubin NEG Urine Urobilinogen LESS THAN 2.0 Urine Leukocyte Esterase SMALL Urine RBC 5 Urine WBC 4 Urine Squamous Epithelial 9 Cells Urine Amorphous Sediment RARE Urine Bacteria RARE Urine Hyaline Casts 1 Urine Mucus FEW Microscopic Urinalysis Comment CULT NOT INDICATED Sodium Level 141 Potassium Level 4.9 Chloride Level 106 Carbon Dioxide Level 26.2 Anion Gap 9 Blood Urea Nitrogen 36 Creatinine 3.36 Estimat Glomerular Filtration 14 Rate Random Glucose 184 Calcium Level 9.0 Blood Type A POSITIVE Antibody Screen NEGATIVE Last 48 hours Impressions Chest X-Ray 12/08/16 1006 Signed Impressions: Service Date/Time: Thursday, December 08, 2016 10:10 - CONCLUSION: Mild cardiomegaly. Clear lungs. Augusto Cárdenas Jr., MD Assessment and Plan Plan to OR for L UE access revision Nickolas Kim MD Dec 08, 2016 13:13
[2016-12-08] MEDS ORDERED: SODIUM CHLOR 0.9% 250 ML INJ 250 ML ONE (13:19)
[2016-12-08] MEDS ORDERED: VANCOMYCIN HCL 1000 MG VIAL ONE (13:19)
[2016-12-08] MEDS ORDERED: MORPHINE SULFATE 4 MG/ML INJ IV PRN (13:45)
[2016-12-08] MEDS ORDERED: PILL SPLITTER OTHER PRN (14:15)
[2016-12-08] MEDS ORDERED: ZOLPIDEM TARTRATE 10 MG TAB PO PRN (14:15)
--- NOTE | 2016-12-08 14:54 | HHI.PR ---
Immediate Post Op Note Procedure Date: Dec 08, 2016 Pre Op Diagnosis: nonmaturing L UE AVF Post Op Diagnosis: nonmaturing L UE AVF Surgeon: Nickolas Kim Master Automotive Technician(s): Jackie Chapman Procedure: L UE Access revision (patch angioplasty and superficialization) Findings: sclerotic proximal AVF, patched without difficulty Additional Information: + signal at wrist at conclusion of case Complications: none Specimen(s) removed: none Estimated blood loss: 30mL Anesthesia: General Fluids: 400mL IVF Patient to: PACU Patient Condition: Good Implant/Devices: SEE IMPLANT LOG (if applicable) Date/Time of Procedure: SEE SURGICAL CARE RECORD Nickolas Kim MD Dec 08, 2016 14:54
[2016-12-08] MEDS ORDERED: DO NOT ADM ANY ANTICOAGULANT DRUGS PRN (15:24)
[2016-12-08] MEDS ORDERED: *ENALAPRILAT 1.25 MG/ML VIAL PERIprocedural Use ONLY ONE (15:42)
[2016-12-08] MEDS ORDERED: *morphine SULFATE 8 MG/ML PERIprocedure ONLY ONE ×2 (15:55→16:33)
[2016-12-08] MEDS ORDERED: *diphenhydrAMINE HCL 50 MG/ML VIAL PERIprocedural Use ONLY ONE (15:55)
[2016-12-08] MEDS: glipiZIDE 10 MG TAB PO SCH (16:00)
[2016-12-08] MEDS ORDERED: SODIUM CHLOR 0.9% 1000 ML INJ 1,000 ML IV PRN ×3 (16:39)
[2016-12-08] MEDS ORDERED: MANNITOL 12.5 GM/50 ML VIAL IV PRN (16:45)
[2016-12-08] MEDS ORDERED: ACETAMINOPHEN 325 MG TAB PO PRN (16:45)
[2016-12-08] MEDS ORDERED: SODIUM CHLORIDE 0.9% FLUSH 10 ML FLUSH IV FLUSH PRN (16:45)
[2016-12-08] MEDS ORDERED: cloNIDine HCL 0.1 MG TAB PO PRN (16:45)
[2016-12-08] MEDS ORDERED: NITROGLYCERIN 0.4 MG SL 25 TABS/BTL SL PRN (16:45)
[2016-12-08] MEDS ORDERED: GELATIN 12 MM/7 MM FOAM TOP PRN (16:45)
[2016-12-08] MEDS ORDERED: ALBUMIN HUMAN 25% 25 GM/100 ML BAGP IV PRN (16:45)
[2016-12-08] MEDS ORDERED: diphenhydrAMINE HCL 25 MG CAP PO PRN (16:45)
[2016-12-08] MEDS ORDERED: ONDANSETRON HCL 4 MG/2 ML VIAL IV PRN (16:45)
[2016-12-08] MEDS ORDERED: GENTAMICIN SULFATE (DIALYSIS USE ONLY) 20 MG/2 ML VIAL IV PRN (16:45)
[2016-12-08] MEDS ORDERED: HEPARIN SODIUM - IV 10,000 UNITS/10 ML VIAL PRN (16:45)
[2016-12-08] MEDS ORDERED: HEPARIN SODIUM - IV 10,000 UNITS/10 ML VIAL IVF PRN (16:45)
--- NOTE | 2016-12-08 17:16 | PD.CONS ---
HPI Service Nephrology Consult Requested By Reason for Consult ESRD on HD Primary Care Physician Clifton Hernandez M.D. History of Present Illness This is a 56 y/o female who was admitted for left AVF revison/second step. She has a hx of ESRD on HD TTS. Also has HTN, anemia, metabolic bone disorder, and secondary hyperparathyroidism. She is seen in the PACU. Her heart rate is in 40s , the PACU nurse reports in preop she was also in sinus abhi. It is noted her Permcath was being used for IVF administration. She has no complaints today. The AVF (left brachiocephalic) has wound vac in place therefore a thrill and bruit were not able to be detected. We were consulted for dialysis management. She is a full code. (Ekta Vega) Review of Systems Constitutional: COMPLAINS OF: Fatigue Musculoskeletal: COMPLAINS OF: Muscle aches (Ekta Vega) Past Family Social History Allergies: Coded Allergies: Vancomycin (Verified Allergy, Severe, KIDNEY INJURY, 12/08/16) PER Jasmin BROWN MD, DO NOT USE VANCO. SEVERE KIDNEY INJURY. Morphine (Unverified Allergy, Intermediate, 12/08/16) "ITCHING EVERYWHERE" Past Medical History ESRD on HD TTS DM II HTN MICHELET hypothyroidism anemia metabolic bone disorder secondary hyperparathyroidism Past Surgical History left brachiocephalic AVF (10/2016) with revision/second step 12/08/16 right BKA PermCath placement (multiple) cesarian x 2 Reported Medications Atorvastatin (Lipitor)20 Mg Tab20 Mg PO HS 30 Days Ref 1 Aspirin (Aspirin Children's)81 Mg Chew81 Mg PO DAILY Ref 0 Calcium Acetate (Phosphate Binder) 667 Mg [id number] Mg PO TID #90 TAB Ref 0 Zolpidem 5 Mg Tab10 Mg PO HS PRN (INSOMNIA) Ref 0 Metoprolol Tartrate 25 Mg Tab25 Mg PO BID #60 TAB Ref 0 Bumetanide 1 Mg Tab2 Mg PO BID #60 TAB Ref 0 Levothyroxine (Synthroid)88 Mcg Tab0.137 Mcg PO DAILY #30 TAB Ref 0 Hydrocodone-Acetaminophen ([employer])7.5-325 mg Tab2 Tab PO Q6H PRN (PAIN) Ref 0 Isosorbide Mononitrate 10 Mg Tab10 Mg PO DAILY #60 TAB Take 2 doses 7 hours apart. Glipizide 10 Mg Tab10 Mg PO BIDAC #60 TAB Ref 0 Take 30 minutes before a meal Amlodipine (Norvasc)10 Mg Tab10 Mg PO DAILY #30 TAB Ref 0 Gabapentin 100 Mg [id number] Mg PO HS Active Ordered Medications Current Medications Medications (Trade) Dose Ordered Sig/Ezekiel Route Start Time Stop Time Status Last Admin Lactated Ringer's 1,000 ml @ 30 mls/hr Q24H PRN IV 12/08/16 11:00 12/11/16 10:59 (NS 500 ml Inj) 500 ml @ 30 mls/hr [id number] PRN IV 12/08/16 11:00 12/11/16 10:59 (Roxicodone) 5 mg Q4H PRN PO 12/08/16 13:45 (Morphine Inj) 2 mg Q1H PRN IV 12/08/16 13:45 UNV (Heparin Inj) 5,000 units Q8H SQ 12/08/16 13:45 UNV (Norvasc) 10 mg DAILY PO 12/09/16 09:00 (Aspirin Chew) 81 mg DAILY PO 12/09/16 09:00 (Lipitor) 20 mg HS PO 12/08/16 21:00 (Bumetanide) 2 mg BID PO 12/08/16 21:00 (Phoslo) 667 mg TID PO 12/08/16 18:00 (Neurontin) 600 mg HS PO 12/08/16 21:00 (Glucotrol) 10 mg BIDAC PO 12/08/16 16:00 (Ismo) 10 mg DAILY PO 12/09/16 09:00 (Synthroid) 0.137 mcg DAILY PO 12/09/16 09:00 UNV (Lopressor) 25 mg BID PO 12/08/16 21:00 (Ambien) 10 mg HS PRN PO 12/08/16 14:15 (Protonix) 20 mg DAILY PO 12/09/16 09:00 (Pill Splitter) 1 ea UNSCH PRN OTHER 12/08/16 14:15 Miscellaneous Information ALL NURSING DEPARTME... UNSCH PRN .XX 12/08/16 15:24 12/09/16 15:23 (NS 1000 ml Inj) 1,000 ml @ 0 mls/hr Q0M PRN IV 12/08/16 16:39 UNV Heparin Sodium (Porcine) 8000 units 8,000 units UNSCH PRN IVF 12/08/16 16:45 UNV Sodium Chloride 1,000 ml @ 200 mls/hr Q5H PRN IV 12/08/16 16:39 UNV (NS 1000 ml Inj) 1,000 ml @ 0 mls/hr Q0M PRN IV 12/08/16 16:39 UNV (Mannitol Inj) 12.5 gm UNSCH PRN IV 12/08/16 16:45 UNV (Albumin 25% Inj) 25 gm UNSCH PRN IV 12/08/16 16:45 UNV (NS Flush) 5 ml UNSCH PRN IV FLUSH 12/08/16 16:45 UNV (Heparin Inj) UNSCH PRN .XX 12/08/16 16:45 UNV (Gentamicin (Dialysis) Inj) 20 mg UNSCH PRN IV 12/08/16 16:45 UNV (Zofran Inj) 4 mg UNSCH PRN IV 12/08/16 16:45 UNV (Tylenol) 650 mg UNSCH PRN PO 12/08/16 16:45 UNV (Benadryl) 25 mg UNSCH PRN PO 12/08/16 16:45 UNV (Nitrostat Sl) 0.4 mg UNSCH PRN SL 12/08/16 16:45 UNV (Catapres) 0.1 mg UNSCH PRN PO 12/08/16 16:45 UNV (Gelfoam 12 Mm/7 Mm Top) 1 foam UNSCH PRN TOP 12/08/16 16:45 UNV Family History no hx of renal impairment Social History no smoking or ETOH by history , lives with has right BKA, she uses wheelchair 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 (Ekta Vega) Physical Exam Vital Signs Vital Signs Date Time Temp Pulse Resp B/P Pulse Ox O2 Delivery O2 Flow Rate FiO2 12/08/16 16:45 44 15 125/53 98 Nasal Cannula 2 12/08/16 16:30 44 16 139/58 97 Nasal Cannula 2 12/08/16 16:15 44 16 140/59 97 Nasal Cannula 2 12/08/16 16:00 46 16 132/62 97 Nasal Cannula 2 12/08/16 15:45 48 14 141/65 99 Nasal Cannula 2 12/08/16 15:30 53 14 210/84 98 Nasal Cannula 2 12/08/16 15:21 97.6 56 14 149/84 98 Simple Mask 12/08/16 10:31 99.0 49 20 136/60 96 Physical Exam Obese, disheveled Middle aged female sitting up in bed awake, oriented x 3, no neuro deficit noted, poor dentition CV: S1/S2, RRR no murmurs or rubs Lungs: CTA bilaterally, no coughing or wheezing Abd: obese, soft, non tender Ext: right BKA, healed: no edema noted Skin: intact Laboratory Laboratory Tests Test 12/08/16 10:20 White Blood Count 8.1 Red Blood Count 3.77 Hemoglobin 11.7 Hematocrit 37.0 Mean Corpuscular Volume 98.1 Mean Corpuscular Hemoglobin 31.0 Mean Corpuscular Hemoglobin 31.6 Concent Red Cell Distribution Width 15.1 Platelet Count 222 Mean Platelet Volume 7.8 Neutrophils (%) (Auto) 56.8 Lymphocytes (%) (Auto) 29.0 Monocytes (%) (Auto) 10.3 Eosinophils (%) (Auto) 3.2 Basophils (%) (Auto) 0.7 Neutrophils # (Auto) 4.6 Lymphocytes # (Auto) 2.3 Monocytes # (Auto) 0.8 Eosinophils # (Auto) 0.3 Basophils # (Auto) 0.1 CBC Comment DIFF FINAL Differential Comment Prothrombin Time 11.0 Prothromb Time International 1.0 Ratio Activated Partial 47.8 Thromboplast Time Urine Color YELLOW Urine Turbidity HAZY Urine pH 5.5 Urine Specific [place] 1.014 Urine Protein 100 Urine Glucose (UA) NEG Urine Ketones NEG Urine Occult Blood MOD Urine Nitrite NEG Urine Bilirubin NEG Urine Urobilinogen LESS THAN 2.0 Urine Leukocyte Esterase SMALL Urine RBC 5 Urine WBC 4 Urine Squamous Epithelial 9 Cells Urine Amorphous Sediment RARE Urine Bacteria RARE Urine Hyaline Casts 1 Urine Mucus FEW Microscopic Urinalysis Comment CULT NOT INDICATED Sodium Level 141 Potassium Level 4.9 Chloride Level 106 Carbon Dioxide Level 26.2 Anion Gap 9 Blood Urea Nitrogen 36 Creatinine 3.36 Estimat Glomerular Filtration 14 Rate Random Glucose 184 Calcium Level 9.0 Blood Type A POSITIVE Antibody Screen NEGATIVE (Ekta Vega) Result Diagram: 12/08/16 1020 12/08/16 1020 Imaging Last 72 hours Impressions Chest X-Ray 12/08/16 1006 Signed Impressions: Service Date/Time: Thursday, December 08, 2016 10:10 - CONCLUSION: Mild cardiomegaly. Clear lungs. Augusto Cárdenas Jr., MD (Ekta Vega) Assessment and Plan Problem List: (1) ESRD (end stage renal disease) Plan: resume TTS HD schedule, due tomorrow, no indication for extra treatment no acute renal/dialysis concerns her Permcath was used during the surgery, I have asked them to place peripheral IV and the HD nurses will dwell the catheter with gentamicin and heparin avoid using PermCath for anything other than HD unless it is an emergency avoid IVF, stop current fluids infusing Hb acceptable, epogen not required if cleared by surgery she can be discharged after dialysis, stable from renal perspective (2) Metabolic bone disease Plan: on Calcium Acetate with meals (3) Type 2 diabetes mellitus Plan: continue insulin, maintain glucose 140-180 mg/dL (4) Hypertension Plan: resume home medications, titrate to effectiveness (5) Asymptomatic bradycardia Plan: monitor rate I stopped the Metoprolol (Ekta Vega) Assessment and Plan patient was seen and examined. Agree with above assessment and plan. Dialysis on before discharge. (Ti Jalloh MD) Ekta Vega Dec 08, 2016 17:16 Ti Jalloh MD Dec 10, 2016 16:41
[2016-12-08 17:30] VITALS: PULSE 42
[2016-12-08] MEDS: CALCIUM ACETATE 667 MG CAP PO SCH (18:00)
[2016-12-08] MEDS ORDERED: CALCIUM ACETATE 667 MG CAP PO SCH (18:00)
[2016-12-08 18:25] LABS: BICARBONATE 26.3 MEQ/L (21.0-32.0); POTASSIUM 5.2 MEQ/L (3.5-5.1)
--- NOTE | 2016-12-08 19:54 | PD.VS.PN ---
Subjective POD #: 0 Procedure(s): L UE Access revision Subjective/Hospital Course doing well, wants more food, no nausea Pain at incision controlled Objective Vitals/I&O Date Time Temp Pulse Resp B/P Pulse Ox O2 Delivery O2 Flow Rate FiO2 12/08/16 17:30 42 12/08/16 17:00 43 16 124/55 98 Nasal Cannula 2 12/08/16 16:45 44 15 125/53 98 Nasal Cannula 2 12/08/16 16:30 44 16 139/58 97 Nasal Cannula 2 12/08/16 16:15 44 16 140/59 97 Nasal Cannula 2 12/08/16 16:00 46 16 132/62 97 Nasal Cannula 2 12/08/16 15:45 48 14 141/65 99 Nasal Cannula 2 12/08/16 15:30 53 14 210/84 98 Nasal Cannula 2 12/08/16 15:21 97.6 56 14 149/84 98 Simple Mask 12/08/16 10:31 99.0 49 20 136/60 96 Exam: L UE skin vac intact Hand ok Laboratory Laboratory Tests Test 12/08/16 12/08/16 10:20 16:45 White Blood Count 8.1 Red Blood Count 3.77 Hemoglobin 11.7 Hematocrit 37.0 Mean Corpuscular Volume 98.1 Mean Corpuscular Hemoglobin 31.0 Mean Corpuscular Hemoglobin 31.6 Concent Red Cell Distribution Width 15.1 Platelet Count 222 Mean Platelet Volume 7.8 Neutrophils (%) (Auto) 56.8 Lymphocytes (%) (Auto) 29.0 Monocytes (%) (Auto) 10.3 Eosinophils (%) (Auto) 3.2 Basophils (%) (Auto) 0.7 Neutrophils # (Auto) 4.6 Lymphocytes # (Auto) 2.3 Monocytes # (Auto) 0.8 Eosinophils # (Auto) 0.3 Basophils # (Auto) 0.1 CBC Comment DIFF FINAL Differential Comment Prothrombin Time 11.0 Prothromb Time International 1.0 Ratio Activated Partial 47.8 Thromboplast Time Urine Color YELLOW Urine Turbidity HAZY Urine pH 5.5 Urine Specific [place] 1.014 Urine Protein 100 Urine Glucose (UA) NEG Urine Ketones NEG Urine Occult Blood MOD Urine Nitrite NEG Urine Bilirubin NEG Urine Urobilinogen LESS THAN 2.0 Urine Leukocyte Esterase SMALL Urine RBC 5 Urine WBC 4 Urine Squamous Epithelial 9 Cells Urine Amorphous Sediment RARE Urine Bacteria RARE Urine Hyaline Casts 1 Urine Mucus FEW Microscopic Urinalysis Comment CULT NOT INDICATED Sodium Level 141 143 Potassium Level 4.9 5.2 Chloride Level 106 108 Carbon Dioxide Level 26.2 26.3 Anion Gap 9 9 Blood Urea Nitrogen 36 38 Creatinine 3.36 3.44 Estimat Glomerular Filtration 14 14 Rate Random Glucose 184 155 Calcium Level 9.0 8.3 Blood Type A POSITIVE Antibody Screen NEGATIVE Assessment and Plan Plan BMP ok Plan for HD in a.m. - appreciate nephrology help D/C after HD Discharge Planning tomorrow midday after HD Nickolas Kim MD Dec 08, 2016 19:54
[2016-12-08 20:00] VITALS: BP 112/64; PULSE 46; RESP 20; TEMP 98.3; O2SAT 98
[2016-12-08] MEDS: BUMETANIDE 1 MG TAB PO SCH (20:49)
[2016-12-08] MEDS ORDERED: METOPROLOL TARTRATE 25 MG TAB PO SCH (21:00)
[2016-12-08] MEDS ORDERED: GABAPENTIN 300 MG CAP PO SCH (21:00)
[2016-12-08] MEDS ORDERED: ATORVASTATIN 20 MG TAB PO SCH (21:00)
[2016-12-08 22:20] VITALS: O2SAT 96
[2016-12-09] VITALS (7 sets, daily range): BP systolic 103–123; BP diastolic 45–54; PULSE 50–58; RESP 18–20; TEMP 98.7–99.1; O2SAT 94–99
[2016-12-09] MEDS: HYDROmorphone HCL PF 1 MG/ML VIAL IV PRN ×3 (01:55→09:35)
[2016-12-09 05:56] LABS: HEMATOCRIT 35.1 % (35.0-46.0); MEAN CELL VOLUME 97.9 FL (80.0-100.0); MEAN CORPUSCULAR HEMOGLOBIN 30.7 PG (27.0-34.0); MEAN CORPUSCULAR HGB CONC 31.3 % (32.0-36.0); PLATELET COUNT 198 TH/MM3 (150-450); RED BLOOD COUNT 3.59 MIL/MM3 (4.00-5.30); RED CELL DISTRIBUTION WIDTH 15.2 % (11.6-17.2); REVIEW FLAG FINAL; WHITE BLOOD COUNT 9.5 TH/MM3 (4.0-11.0)
[2016-12-09 06:10] LABS: BICARBONATE 24.9 MEQ/L (21.0-32.0); POTASSIUM 5.6 MEQ/L (3.5-5.1)
[2016-12-09] MEDS: glipiZIDE 10 MG TAB PO SCH (07:00)
--- NOTE | 2016-12-09 07:52 | PD.VS.PN ---
Subjective POD #: 1 Procedure(s): L UE Access revision Subjective/Hospital Course pain controlled hand ok feels ready for d/c Objective Vitals/I&O Date Time Temp Pulse Resp B/P Pulse Ox O2 Delivery O2 Flow Rate FiO2 12/09/16 07:45 94 Nasal Cannula 2.00 12/09/16 05:40 16 12/09/16 04:30 98.7 50 18 103/51 99 12/09/16 04:00 50 12/09/16 00:20 50 12/09/16 00:00 99.1 50 18 123/45 99 12/08/16 22:20 96 Nasal Cannula 2.00 12/08/16 20:00 98.3 46 20 112/64 98 12/08/16 20:00 46 12/08/16 17:30 42 12/08/16 17:00 43 16 124/55 98 Nasal Cannula 2 12/08/16 16:45 44 15 125/53 98 Nasal Cannula 2 12/08/16 16:30 44 16 139/58 97 Nasal Cannula 2 12/08/16 16:15 44 16 140/59 97 Nasal Cannula 2 12/08/16 16:00 46 16 132/62 97 Nasal Cannula 2 12/08/16 15:45 48 14 141/65 99 Nasal Cannula 2 12/08/16 15:30 53 14 210/84 98 Nasal Cannula 2 12/08/16 15:21 97.6 56 14 149/84 98 Simple Mask 12/08/16 10:31 99.0 49 20 136/60 96 Exam: L UE incision covered with skin VAC Hand ok Good strength Laboratory Laboratory Tests Test 12/08/16 12/08/16 12/09/16 10:20 16:45 05:30 White Blood Count 8.1 9.5 Red Blood Count 3.77 3.59 Hemoglobin 11.7 11.0 Hematocrit 37.0 35.1 Mean Corpuscular Volume 98.1 97.9 Mean Corpuscular Hemoglobin 31.0 30.7 Mean Corpuscular Hemoglobin 31.6 31.3 Concent Red Cell Distribution Width 15.1 15.2 Platelet Count 222 198 Mean Platelet Volume 7.8 7.9 Neutrophils (%) (Auto) 56.8 Lymphocytes (%) (Auto) 29.0 Monocytes (%) (Auto) 10.3 Eosinophils (%) (Auto) 3.2 Basophils (%) (Auto) 0.7 Neutrophils # (Auto) 4.6 Lymphocytes # (Auto) 2.3 Monocytes # (Auto) 0.8 Eosinophils # (Auto) 0.3 Basophils # (Auto) 0.1 CBC Comment DIFF FINAL Differential Comment Prothrombin Time 11.0 Prothromb Time International 1.0 Ratio Activated Partial 47.8 Thromboplast Time Urine Color YELLOW Urine Turbidity HAZY Urine pH 5.5 Urine Specific [place] 1.014 Urine Protein 100 Urine Glucose (UA) NEG Urine Ketones NEG Urine Occult Blood MOD Urine Nitrite NEG Urine Bilirubin NEG Urine Urobilinogen LESS THAN 2.0 Urine Leukocyte Esterase SMALL Urine RBC 5 Urine WBC 4 Urine Squamous Epithelial 9 Cells Urine Amorphous Sediment RARE Urine Bacteria RARE Urine Hyaline Casts 1 Urine Mucus FEW Microscopic Urinalysis Comment CULT NOT INDICATED Sodium Level 141 143 142 Potassium Level 4.9 5.2 5.6 Chloride Level 106 108 106 Carbon Dioxide Level 26.2 26.3 24.9 Anion Gap 9 9 11 Blood Urea Nitrogen 36 38 42 Creatinine 3.36 3.44 4.41 Estimat Glomerular Filtration 14 14 10 Rate Random Glucose 184 155 117 Calcium Level 9.0 8.3 8.3 Blood Type A POSITIVE Antibody Screen NEGATIVE Hematology Comments Phosphorus Level 5.8 Assessment and Plan Plan HD this morning, then DC f/u 12/24 Pt to remove skin VAC in 5 day Discharge Planning tomorrow midday after HD Nickolas Kim MD Dec 09, 2016 07:52
[2016-12-09] MEDS: CALCIUM ACETATE 667 MG CAP PO SCH (08:10)
[2016-12-09] MEDS: BUMETANIDE 1 MG TAB PO SCH (08:11)
[2016-12-09] MEDS ORDERED: PANTOPRAZOLE SOD 20 MG DELAYED RELEASE TAB PO SCH (09:00)
[2016-12-09] MEDS ORDERED: ISOSORBIDE MONONITRATE 20 MG TAB PO SCH (09:00)
[2016-12-09] MEDS ORDERED: ASPIRIN 81 MG CHEW TAB PO SCH (09:00)
[2016-12-09] MEDS ORDERED: LEVOTHYROXINE SODIUM 88 MCG TAB PO SCH (09:00)
[2016-12-09] MEDS ORDERED: INFLUENZA VIRUS VACCINE (QUADRIVALENT) 0.5 ML SYR IM ONE (10:00)
[2016-12-09] MEDS ORDERED: OXYC-392 PO (10:32)
--- NOTE | 2016-12-09 10:40 | PD.VS.DC ---
Discharge Summary Admission Date: Dec 08, 2016 at 17:29 Discharge Date: Dec 09, 2016 Admission Diagnosis: (1) ESRD (end stage renal disease) (2) AVF (arteriovenous fistula) Discharge Diagnosis: (1) AVF (arteriovenous fistula) Status: Acute (2) End stage renal disease on dialysis Status: Acute Brief History from admission 56 yo female with ESRD currently on HD; had L BC AVF placed 09/08/16 but it is deep and there is proximal stenosis. Never been used. Procedure(s): L UE Access revision Significant Findings GENERAL: A&OX3, NAD, GCS15 SKIN: Warm and dry/ [place] wound vac intact to left UE, no hematoma CARDIOVASCULAR: +S1,S2 RRR RESPIRATORY: BS CTA + palpable L radial pulse BUE warm with motor intact Negative hand pain Hand with motor intact Laboratory Tests Test 12/08/16 12/08/16 12/09/16 10:20 16:45 05:30 Red Blood Count 3.77 MIL/MM3 3.59 MIL/MM3 (4.00-5.30) (4.00-5.30) Mean Corpuscular Hemoglobin 31.6 % 31.3 % Concent (32.0-36.0) (32.0-36.0) Monocytes (%) (Auto) 10.3 % (0.0-8.0) Activated Partial 47.8 SEC Thromboplast Time (24.3-30.1) Urine Turbidity HAZY (CLEAR) Urine Protein 100 mg/dL (NEG-TRACE) Urine Occult Blood MOD (NEG) Urine Leukocyte Esterase SMALL (NEG) Urine RBC 5 /hpf (0-3) Urine Bacteria RARE /hpf (NONE) Urine Mucus FEW /lpf (OCC) Blood Urea Nitrogen 36 MG/DL (7-18) 38 MG/DL (7-18) 42 MG/DL (7-18) Creatinine 3.36 MG/DL 3.44 MG/DL 4.41 MG/DL (0.50-1.00) (0.50-1.00) (0.50-1.00) Estimat Glomerular Filtration 14 ML/MIN (>89) 14 ML/MIN (>89) 10 ML/MIN (>89) Rate Random Glucose 184 MG/DL 155 MG/DL 117 MG/DL (74-106) (74-106) (74-106) Potassium Level 5.2 MEQ/L 5.6 MEQ/L (3.5-5.1) (3.5-5.1) Chloride Level 108 MEQ/L (98-107) Calcium Level 8.3 MG/DL 8.3 MG/DL (8.5-10.1) (8.5-10.1) Hemoglobin 11.0 GM/DL (11.6-15.3) Phosphorus Level 5.8 MG/DL (2.5-4.9) Hospital Course: Pt with ESRD on HD Hx of L BC AVF placed 09/08/16 L UE access revision done Pt w/o complications Allergies Coded Allergies Type Severity Reaction Last Updated Verified Vancomycin Allergy Severe KIDNEY INJURY 12/08/16 Yes Morphine Allergy Intermediate 12/08/16 No Recent Impressions Chest X-Ray 12/08/16 1006 Signed Impressions: Service Date/Time: Thursday, December 08, 2016 10:10 - CONCLUSION: Mild cardiomegaly. Clear lungs. Augusto Cárdenas Jr., MD / 06:00 18:00 06:00 18:00 06:00 18:00 Intake Total 720 ml Output Total 100 ml Balance 620 ml Intake Oral 720 ml Output Urine Total 100 ml # Voids 1 # Bowel Movements 0 Laboratory Tests Test 12/08/16 12/08/16 12/09/16 10:20 16:45 05:30 White Blood Count 8.1 TH/MM3 9.5 TH/MM3 Red Blood Count 3.77 MIL/MM3 3.59 MIL/MM3 Hemoglobin 11.7 GM/DL 11.0 GM/DL Hematocrit 37.0 % 35.1 % Mean Corpuscular Volume 98.1 FL 97.9 FL Mean Corpuscular Hemoglobin 31.0 PG 30.7 PG Mean Corpuscular Hemoglobin 31.6 % 31.3 % Concent Red Cell Distribution Width 15.1 % 15.2 % Platelet Count 222 TH/MM3 198 TH/MM3 Mean Platelet Volume 7.8 FL 7.9 FL Neutrophils (%) (Auto) 56.8 % Lymphocytes (%) (Auto) 29.0 % Monocytes (%) (Auto) 10.3 % Eosinophils (%) (Auto) 3.2 % Basophils (%) (Auto) 0.7 % Neutrophils # (Auto) 4.6 TH/MM3 Lymphocytes # (Auto) 2.3 TH/MM3 Monocytes # (Auto) 0.8 TH/MM3 Eosinophils # (Auto) 0.3 TH/MM3 Basophils # (Auto) 0.1 TH/MM3 CBC Comment DIFF FINAL Differential Comment Prothrombin Time 11.0 SEC Prothromb Time International 1.0 RATIO Ratio Activated Partial 47.8 SEC Thromboplast Time Urine Color YELLOW Urine Turbidity HAZY Urine pH 5.5 Urine Specific [place] 1.014 Urine Protein 100 mg/dL Urine Glucose (UA) NEG mg/dL Urine Ketones NEG mg/dL Urine Occult Blood MOD Urine Nitrite NEG Urine Bilirubin NEG Urine Urobilinogen LESS THAN 2.0 MG/DL Urine Leukocyte Esterase SMALL Urine RBC 5 /hpf Urine WBC 4 /hpf Urine Squamous Epithelial 9 /hpf Cells Urine Amorphous Sediment RARE Urine Bacteria RARE /hpf Urine Hyaline Casts 1 /lpf Urine Mucus FEW /lpf Microscopic Urinalysis Comment CULT NOT INDICATED Sodium Level 141 MEQ/L 143 MEQ/L 142 MEQ/L Potassium Level 4.9 MEQ/L 5.2 MEQ/L 5.6 MEQ/L Chloride Level 106 MEQ/L 108 MEQ/L 106 MEQ/L Carbon Dioxide Level 26.2 MEQ/L 26.3 MEQ/L 24.9 MEQ/L Anion Gap 9 MEQ/L 9 MEQ/L 11 MEQ/L Blood Urea Nitrogen 36 MG/DL 38 MG/DL 42 MG/DL Creatinine 3.36 MG/DL 3.44 MG/DL 4.41 MG/DL Estimat Glomerular Filtration 14 ML/MIN 14 ML/MIN 10 ML/MIN Rate Random Glucose 184 MG/DL 155 MG/DL 117 MG/DL Calcium Level 9.0 MG/DL 8.3 MG/DL 8.3 MG/DL Blood Type A POSITIVE Antibody Screen NEGATIVE Hematology Comments Phosphorus Level 5.8 MG/DL Procedure Category Date Status Time Complete Blood Count LAB 12/08/16 Complete With Diff 10:06 Basic Metabolic Panel LAB 12/08/16 Complete (Bmp) 10:06 Prothrombin Time / LAB 12/08/16 Complete Inr (Pt) 10:06 Act Partial Throm LAB 12/08/16 Complete Time (Ptt) 10:06 Type And Screen BBK 12/08/16 Complete 10:06 Urinalysis - C+S If LAB 12/08/16 Complete Indicated 10:06 Chest, Single Ap RADDIAG 12/08/16 Resulted 10:06 Lactated Ringer's MED 12/08/16 Complete 1000 Ml Inj (Lr 1000 M 11:00 Sodium Chlorid 0.9% MED 12/08/16 Complete 500 Ml Inj (Ns 500 M 11:00 Metoprolol Tartrate MED 12/08/16 Complete (Lopressor) 11:00 Povidone Iod 5% MED 12/08/16 In Process Antisepsis Kit 11:00 Chlorhexidine 2% MED 12/08/16 In Process Cloth (Chlorhexidine 11:00 Insulin Human Regular MED 12/08/16 In Process Inj (Novolin R Inj 11:00 Heparin Inj (Heparin MED 12/08/16 Complete Inj) 11:34 Bupivacaine-Epi Pf MED 12/08/16 Complete 0.5% Inj (Sensorcaine 11:34 Thrombin Top [place] MED 12/08/16 Complete (Thrombin Top [place]) 11:34 Protamine Sulfate Inj MED 12/08/16 Complete (Protamine Sulfate 11:34 Midazolam Inj (Versed MED 12/08/16 Complete Inj) 12:33 Famotidine Inj MED 12/08/16 Complete (Pepcid Inj) 12:33 Vancomycin Inj MED 12/08/16 Complete (Vancomycin Inj) 13:19 Sodium Chlor 0.9% 250 MED 12/08/16 Complete Ml Inj (Ns 250 Ml 13:19 Fentanyl Inj MED 12/08/16 Complete (Fentanyl Inj) 13:30 Code Status CODE 12/08/16 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 / [facility] 12/08/16 In Process Telemetry 13:39 Activity Oob Ad Agnes [facility] 12/08/16 In Process 13:39 Notify Parameters [facility] 12/08/16 In Process 13:39 ^ Precautions [facility] 12/08/16 In Process 13:39 Diet Heart Healthy DIET 12/08/16 Complete Lunch Basic Metabolic Panel LAB 12/09/16 Complete (Bmp) 06:00 Cbc No Diff, Includes LAB 12/09/16 Complete Plts 06:00 Consult Nephrology CONS 12/08/16 Transmitted Oxycodone (Roxicodone) MED 12/08/16 In Process 13:45 Morphine Inj MED 12/08/16 Pending (Morphine Inj) 13:45 Amlodipine (Norvasc) MED 12/09/16 In Process 09:00 Aspirin Chew (Aspirin MED 12/09/16 In Process Chew) 09:00 Atorvastatin (Lipitor) MED 12/08/16 In Process 21:00 Bumetanide MED 12/08/16 In Process (Bumetanide) 21:00 Calcium Acetate MED 12/08/16 Complete (Phoslo) 18:00 Glipizide (Glucotrol) MED 12/08/16 In Process 16:00 Isosorbide MED 12/09/16 In Process Mononitrate (Ismo) 09:00 Levothyroxine MED 12/09/16 Pending (Synthroid) 09:00 Metoprolol Tartrate MED 12/08/16 Complete (Lopressor) 21:00 Pantoprazole MED 12/09/16 In Process (Protonix) 09:00 Zolpidem (Ambien) MED 12/08/16 In Process 14:15 Gabapentin (Neurontin) MED 12/08/16 In Process 21:00 Pill Splitter (Pill MED 12/08/16 In Process Splitter) 14:15 (Hub Use Only)Inp Phy CONS 12/08/16 Transmitted Cons/Ref Place In Observation ADMITTING 12/08/16 Transmitted *Enalaprilat Inj MED 12/08/16 Complete (*Vasotec Inj 15:42 *Morphine Inj MED 12/08/16 Complete (*Morphine Inj 15:55 *Diphenhydramine Inj MED 12/08/16 Complete (*Benadryl Inj Lanny 15:55 Misc Nursing MED 12/08/16 In Process Information 15:24 *Morphine Inj MED 12/08/16 Complete (*Morphine Inj 16:33 Blood Flow Rate [facility] 12/08/16 In Process 16:39 Dialysate Flow Rate [facility] 12/08/16 In Process 16:39 Dialyzer [facility] 12/08/16 In Process 16:39 Concentrate [facility] 12/08/16 In Process 16:39 Acid Concentrate [facility] 12/08/16 In Process 16:39 Length Of Dialysis [facility] 12/08/16 In Process 16:39 Frequency Of Dialysis [facility] 12/08/16 In Process 16:39 Dialysis Obtain [facility] 12/08/16 In Process 16:39 Needle Size [facility] 12/08/16 In Process 16:39 Dialysis Schedule [facility] 12/08/16 In Process 16:39 Resp Oxygen Brendan C RSP 12/08/16 Logged Titrat 1-4 L Dialysis Weight [facility] 12/08/16 In Process 16:39 ^ Obtain As Needed [facility] 12/08/16 In Process 16:39 Sodium Chlor 0.9% MED 12/08/16 In Process 1000 Ml Inj (Ns 1000 M 16:39 Heparin Inj (Heparin MED 12/08/16 In Process Inj) 16:45 Sodium Chlor 0.9% MED 12/08/16 In Process 1000 Ml Inj (Ns 1000 M 16:39 Sodium Chlor 0.9% MED 12/08/16 In Process 1000 Ml Inj (Ns 1000 M 16:39 Mannitol Inj MED 12/08/16 In Process (Mannitol Inj) 16:45 Albumin 25% Inj MED 12/08/16 In Process (Albumin 25% Inj) 16:45 Sodium Chloride 0.9% MED 12/08/16 In Process Flush (Ns Flush) 16:45 Heparin Inj (Heparin MED 12/08/16 In Process Inj) 16:45 Gentamicin (Dialysis) MED 12/08/16 In Process Inj (Gentamicin (D 16:45 Ondansetron Inj MED 12/08/16 In Process (Zofran Inj) 16:45 Acetaminophen MED 12/08/16 In Process (Tylenol) 16:45 Diphenhydramine MED 12/08/16 In Process (Benadryl) 16:45 Nitroglycerin Sl MED 12/08/16 In Process (Nitrostat Sl) 16:45 Clonidine (Catapres) MED 12/08/16 In Process 16:45 Gelatin 12 Mm/7 Mm MED 12/08/16 In Process Top (Gelfoam 12 Mm/7 16:45 Sds Pre Op Care SDSC 12/08/16 Complete Phosphorus (Po4) LAB 12/09/16 Complete 06:00 Calcium Acetate MED 12/08/16 In Process (Phoslo) 18:00 Basic Metabolic Panel LAB 12/08/16 Complete (Bmp) 18:00 Class Iv [facility] 12[facility]16 Complete MIN General/Pacu [facility] 12/08/16 Complete Post Anesthesia Oxygen [facility] 12/08/16 Complete Diet Regular Basic DIET 12/08/16 Complete Dinner Heparin Inj (Heparin MED 12/10/16 In Process Inj) 02:00 Influenza (Quad) MED 12/09/16 Complete Vaccine Inj (Flu 10:00 Hydromorphone Pf Inj MED 12/09/16 In Process (Dilaudid Pf Inj) 01:00 Diet Regular Basic DIET 12/09/16 Transmitted Breakfast Attending Discharge DISCHARGE 12/09/16 Transmitted Order Vital Signs Date Time Temp Pulse Resp B/P Pulse Ox O2 Delivery O2 Flow Rate FiO2 12/09/16 07:45 94 Nasal Cannula 2.00 12/09/16 07:00 53 12/09/16 07:00 98.7 53 19 119/54 98 12/09/16 05:40 16 12/09/16 04:30 98.7 50 18 103/51 99 12/09/16 04:00 50 12/09/16 00:20 50 12/09/16 00:00 99.1 50 18 123/45 99 12/08/16 22:20 96 Nasal Cannula 2.00 12/08/16 20:00 98.3 46 20 112/64 98 12/08/16 20:00 46 12/08/16 17:30 42 12/08/16 17:00 43 16 124/55 98 Nasal Cannula 2 12/08/16 16:45 44 15 125/53 98 Nasal Cannula 2 12/08/16 16:30 44 16 139/58 97 Nasal Cannula 2 12/08/16 16:15 44 16 140/59 97 Nasal Cannula 2 12/08/16 16:00 46 16 132/62 97 Nasal Cannula 2 12/08/16 15:45 48 14 141/65 99 Nasal Cannula 2 12/08/16 15:30 53 14 210/84 98 Nasal Cannula 2 12/08/16 15:21 97.6 56 14 149/84 98 Simple Mask 12/08/16 10:31 99.0 49 20 136/60 96 Discharge Condition: Good Discharge Disposition: Discharge Home Discharge Instructions: Pt will be d/c with wound vac in place Pt will have wound vac removed in our out patient clinic on Tuesday12/13/16 Pt will keep post up F/U appointment on 12/24/16 @1100 Any questions or concerns: Call [facility] at [facility] [phone] Mercedes Stanton Dec 09, 2016 10:40
--- NOTE | 2016-12-09 10:43 | HHI.NPPN ---
Subjective Complaints: Obesity General Problems: Anemia Renal Failure: Chronic Interval History Seen in route to dialysis. She is to be discharged after treatment. (Ekta Vega) Review of Systems Musculoskeletal MS Remarks some pain left arm (Ekta Vega) Objective Data Data 12/08/16 12/09/16 19:00 07:00 Intake Total 720 ml Output Total 100 ml Balance 620 ml Intake Oral 720 ml Output Urine Total 100 ml # Voids 1 # Bowel Movements 0 Vital Signs Date Time Temp Pulse Resp B/P Pulse Ox O2 Delivery O2 Flow Rate FiO2 12/09/16 07:45 94 Nasal Cannula 2.00 12/09/16 07:00 53 12/09/16 07:00 98.7 53 19 119/54 98 12/09/16 05:40 16 12/09/16 04:30 98.7 50 18 103/51 99 12/09/16 04:00 50 12/09/16 00:20 50 12/09/16 00:00 99.1 50 18 123/45 99 12/08/16 22:20 96 Nasal Cannula 2.00 12/08/16 20:00 98.3 46 20 112/64 98 12/08/16 20:00 46 12/08/16 17:30 42 12/08/16 17:00 43 16 124/55 98 Nasal Cannula 2 12/08/16 16:45 44 15 125/53 98 Nasal Cannula 2 12/08/16 16:30 44 16 139/58 97 Nasal Cannula 2 12/08/16 16:15 44 16 140/59 97 Nasal Cannula 2 12/08/16 16:00 46 16 132/62 97 Nasal Cannula 2 12/08/16 15:45 48 14 141/65 99 Nasal Cannula 2 12/08/16 15:30 53 14 210/84 98 Nasal Cannula 2 12/08/16 15:21 97.6 56 14 149/84 98 Simple Mask (Ekta Vega) -: 12/09/16 0530 12/09/16 0530 Physical Exam General Appearance: Well Developed, Well Nourished, Comfortable (Ekta Vega) Throat Throat Exam: Oral Mucosa [place] & Moist (Ekta Vega) Pulmonary Resp Exam: Clear Bilaterally, Breath Sounds Equal (Ekta Vega) Cardiology CV Exam: Regular, Normal Sinus Rhythm (Ekta Vega) Gastrointestinal/Abdomen GI Exam: Soft, Non-Tender, Bowel Sounds Present (Ekta Vega) Musculoskeletal MS Exam: Normal Gait, Normal Tone, Good Strength MS Remarks hx of right BKA (Ekta Vega) Integumentary Skin Exam: Warm, Dry Skin Remarks left AC with wound vac (Ekta Vega) Extremeties Extremities Exam: No Edema, Pedal Pulses Palpable (Ekta Vega) Neurologic Neuro Exam: Alert, Awake, Oriented, Speech Clear, Moving All Extremities ( Ekta Vega) Assessment/Plan Discussed Condition With: Patient Assessment Summary: Anemia of CKD Problem List: (1) ESRD (end stage renal disease) Plan: due for dialysis today K 5.6, to be dialyzed on a 1K bach has Permcath for HD s/p revision of left arm AVF, to follow with vascular in 5 days, wound vac is in place she can resume outpatient HD beginning on Tuesday, stable from renal perspective (2) Metabolic bone disease Plan: on Calcium Acetate with meals (3) Type 2 diabetes mellitus Plan: continue insulin, maintain glucose 140-180 mg/dL (4) Hypertension Plan: resume home medications, titrate to effectiveness (5) Asymptomatic bradycardia Plan: persistent bradycardia, she should not be on a beta jessika Plan cleared for discharge today (Ekta Vega) Plan patient was seen and examined. Agree with above assessment. Underwent revision of AVF. (Ti Jalloh MD) Ekta Vega Dec 09, 2016 10:43 Ti Jalloh MD Dec 10, 2016 16:44
--- NOTE | 2016-12-09 13:26 | MP ---
cc: BERRY KIM MD DATE OF SURGERY 12/08/2016 PREOPERATIVE DIAGNOSIS Non-maturation of left upper extremity arteriovenous fistula. POSTOPERATIVE DIAGNOSIS Non-maturation of left upper extremity arteriovenous fistula. PROCEDURE Left upper extremity arteriovenous fistula revision (patch angioplasty proximally and superficialization). ATTENDING PHYSICIAN Berry Kim MD [employer] REPAIRER SURGEON Jackie Chapman ANESTHESIA General INDICATIONS Mrs. Spencer is a 56-year-old female with a history of end-stage renal disease currently getting dialyzed. She had a left brachiocephalic arteriovenous fistula placed several weeks ago and there was a proximal stenosis. Additionally, because of the patient's body habitus, the fistula is quite deep and she is brought to the operating room for revision. DESCRIPTION OF PROCEDURE Informed consent obtained from the patient. She was taken to the operating room, placed supine on the operating room table and an appropriate time-out was taken to ensure the patient's identity, operative site and planned procedure. The administration of a gram of vancomycin was initiated prior to the skin incision and will be discontinued after a single preoperative dose. Vancomycin was chosen because of the patient's end-stage renal disease. Everyone in the room agreed with the time-out and we proceeded. Her left arm was prepped and draped and an incision was made over the course of the fistula in the mid upper arm, carried down through the subcutaneous tissue with electrocautery. The cephalic vein was identified and dissected free. Side branches were ligated with 3-0 silk. We dissected the cephalic vein back to the proximal aspect and there was a clear stenosis. The patient was systemically heparinized with 3000 units of IV heparin. Proximal and distal control of fistula around the stenosis was obtained with profunda clamps and a longitudinal venotomy was made with an 11 blade and extended with [place] scissors. A bovine pericardial patch was brought up onto the field and sewn to the patch with running 6-0 Prolene sutures. At the completion it was flushed and noted to be hemostatic. There were repair sutures made. There was a nice thrill in the fistula. The entire fistula was then superficialized by closing a deeper layer of subcutaneous tissue with running 2-0 Polysorb suture and then a more superficial layer of 3-0 Polysorb interrupted suture and 4-0 Monocryl to close the skin. The wound was infiltrated with Marcaine and a sterile skin Vac dressing was placed. The patient was then awoken from anesthesia and transferred to the Recovery Room in stable condition. Prior to closing in the wound, there was a nice Doppler signal in the wrist and a nice Doppler signal in the fistula. The heparin was reversed with protamine. There were no complications. I was present and scrubbed for the entire procedure. MD HAYLIE Bravo/WILLIAM /8:00 PM /1:03 PM
[2016-12-10] MEDS ORDERED: HEPARIN SODIUM - SQ 10,000 UNITS/ML VIAL SQ SCH (02:00)
== END 2016-12-09 14:48 | disposition home or self-care (01) ==
LOC: HCVO 09:40 → HSDI 13:41 → UNDOADMIN 13:41 → EDSTATUS 14:30 → HSDI 17:29 → HCVR 17:29 → HCIS 12-09 10:20
PROVIDERS: ADMIT Surgery; ATTEND Surgery
DX: T82.858A Stenosis of other vascular prosthetic devices, implants and grafts, initial encounter (principal); I12.0 Hypertensive chronic kidney disease with stage 5 chronic kidney disease or end stage renal disease; N18.6 End stage renal disease; D63.1 Anemia in chronic kidney disease; E11.22 Type 2 diabetes mellitus with diabetic chronic kidney disease; R00.1 Bradycardia, unspecified; E03.9 Hypothyroidism, unspecified; E88.89 Other specified metabolic disorders; Y83.2 Surgical operation with anastomosis, bypass or graft as the cause of abnormal reaction of the patient, or of later complication, without mention of misadventure at the time of the procedure; E66.9 Obesity, unspecified; Z68.42 Body mass index [BMI] 45.0-49.9, adult; Z89.511 Acquired absence of right leg below knee; Z88.1 Allergy status to other antibiotic agents; Z88.5 Allergy status to narcotic agent; Z79.82 Long term (current) use of aspirin; Z79.84 Long term (current) use of oral hypoglycemic drugs
CPT/HCPCS: 36832; 71010; 76937; 80048; 81001; 84100; 85025; 85027; 85610; 85730; 86850; 86900; 86901; 96374; 96375; 96376; G0257; G0378; J1170; J1200; J1580; J1644; J2250; J2270; J2405; J2720; J3010; J3370; J7030; J7050; 90935

== ENCOUNTER 2017-01-29 13:04 | Emergency (ER) | payer OTHER, MEDICARE, MEDICAID ==
[~2017-01-29 13:04] MED LIST changes: -ASPI1TAB69 PO; +ASPI81CH7 PO; -HYDR-3288 PO; +OXYC-392 PO
[2017-01-29 13:16] VITALS: BP 188/77; PULSE 100; RESP 20; TEMP 98.4; O2SAT 96
[2017-01-29] MEDS ORDERED: HYDR1SOL6 (13:30)
[2017-01-29] MEDS ORDERED: HYDR-3580 PO (13:30)
[2017-01-29 13:35] VITALS: BP 121/72
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
[2017-01-29] MEDS ORDERED: ACETAMINOPHEN 325 MG TAB PO ONE (13:45)
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
[2017-01-29 15:03] VITALS: RESP 18
== END 2017-01-29 15:17 | disposition home or self-care (01) ==
LOC: PHED 13:04
DX: S20.211A Contusion of right front wall of thorax, initial encounter (principal); R00.0 Tachycardia, unspecified; N18.6 End stage renal disease; E11.9 Type 2 diabetes mellitus without complications; I12.0 Hypertensive chronic kidney disease with stage 5 chronic kidney disease or end stage renal disease; E07.9 Disorder of thyroid, unspecified; Z99.2 Dependence on renal dialysis; Z79.84 Long term (current) use of oral hypoglycemic drugs; Z89.511 Acquired absence of right leg below knee; Z86.2 Personal history of diseases of the blood and blood-forming organs and certain disorders involving the immune mechanism; Z87.39 Personal history of other diseases of the musculoskeletal system and connective tissue; V89.2XXA Person injured in unspecified motor-vehicle accident, traffic, initial encounter
CPT/HCPCS: 71101; 99283

== ENCOUNTER 2017-02-15 09:47 | Observation (INO) | payer MEDICARE, MEDICAID ==
[~2017-02-15] VITALS: Ht 152.4 cm; Wt 106.7 kg
[2017-02-15 09:47] VITALS: BP 138/63; PULSE 55; RESP 17; TEMP 98.1; O2SAT 56
[~2017-02-15 09:47] MED LIST changes: +HYDR1SOL6; -OXYC-392 PO
[2017-02-15 09:50] VITALS: O2SAT 100
--- NOTE | 2017-02-15 10:04 | PD ---
HPI Chief Complaint: altered mental status Time Seen by Provider: 10:04 Travel History International Travel<30 days: No Contact w/Intl Traveler<30days: No Traveled to known affect area: No History of Present Illness HPI 56-year-old female came to the emergency room brought by EMS since she was feeling weak and lethargic and missed her dialysis this morning. Patient has end-stage renal disease and hemodialysis dependent. Her last dialysis was Tuesday. She has not been feeling good. Patient says she feels dehydrated. She indeed look dehydrated. She keeps dozing off in the middle of the sentence. Vital signs are stable. Patient denies of any pain anywhere. Blood sugar was within normal limits en route. She told me that her physician office specialist was Dr. Jalloh. Patient kept having myoclonic jerks while she was trying to answer her questions and in between the sleep. [facility] Past Medical History Narrative Medical List of her past medical, surgical, social and family history is reviewed from the nursing note. Anemia: Yes Arthritis: Yes (HANDS, TOES, FEET) Autoimmune Disease: No Cancer: No Cardiac Catheterization: No Cardiovascular Problems: No High Cholesterol: No Diabetes: Yes Dialysis: Yes (tues thur sats) Diminished Hearing: No Endocrine: No Genitourinary: No Hepatitis: No Hiatal Hernia: No Hypertension: Yes Immune Disorder: No Musculoskeletal: Yes (ARTHRITIS) Neurologic: No Psychiatric: No Reproductive: No Respiratory: No Myocardial Infarction: No Pneumonia: Yes Renal Failure: Yes Sleep Apnea: Yes Thyroid Disease: Yes PNEUMOCCOCAL Vaccine (Year): 2 Menopausal: Yes : 2 Para: 2 Miscarriage: 0 : 0 Tubal Ligation: Yes Past Surgical History Abdominal Surgery: No AICD: No Body Medical Devices: CAHT. LEFT CHEST Cardiac Surgery: No Section: Yes (X2) Coronary Artery Bypass Graft: No Ear Surgery: No Endocrine Surgery: No Eye Surgery: No Genitourinary Surgery: No Gynecologic Surgery: Yes (2 C-SECT.,) Joint Replacement: No Oral Surgery: No Pacemaker: No Thoracic Surgery: Yes (AV CATH X4 LEFT CHEST) Other Surgery: Yes (RIGHT FOOT AMPUTATION DECEMBER 2013) Social History Alcohol Use: No Tobacco Use: No (QUIT 1988) Substance Use: No Allergies-Medications (Allergen,Severity, Reaction): Coded Allergies: vancomycin (Verified Allergy, Severe, KIDNEY INJURY, 02/15/17) PER Jasmin BROWN MD, DO NOT USE VANCO. SEVERE KIDNEY INJURY. morphine (Verified Allergy, Intermediate, 02/15/17) "ITCHING EVERYWHERE" Comments List of her allergies reviewed from the nursing note. Reported Meds & Prescriptions Reported Meds & Active Scripts Active Lipitor (Atorvastatin Calcium) 20 Mg Tab 20 Mg PO HS 30 Days Reported Hydrocodon-Acetamin 7.5-325/15 (Hydrocodone/Acetaminophen) 15 Ml Solution Aspirin Children's (Aspirin) 81 Mg Chew 81 Mg PO DAILY Calcium Acetate (Phosphate Binder) 667 Mg Tab 667 Mg PO TID Zolpidem (Zolpidem Tartrate) 5 Mg Tab 10 Mg PO HS PRN Bumetanide 1 Mg Tab 2 Mg PO BID Synthroid (Levothyroxine Sodium) 88 Mcg Tab 0.137 Mcg PO DAILY Isosorbide Mononitrate 10 Mg Tab 10 Mg PO DAILY Take 2 doses 7 hours apart. Glipizide 10 Mg Tab 10 Mg PO BIDAC Take 30 minutes before a meal Norvasc (Amlodipine Besylate) 10 Mg Tab 10 Mg PO DAILY Narrative Medication List of her home medications reviewed from the nursing note. Review of Systems Except as stated in HPI: all other systems reviewed are Neg Physical Exam Narrative GENERAL: Lethargic, answering questions appropriately, slightly slurred speech, myoclonic jerks SKIN: Focused skin assessment warm/dry. Pale, pealing skin HEAD: Atraumatic. Normocephalic. EYES: Pupils equal and round. No scleral icterus. Bilateral conjunctival injection. No eye discharge ENT: No nasal bleeding or discharge. Dry lips and mucous membrane, coated tongue NECK: Trachea midline. No JVD. CARDIOVASCULAR: Regular rate and rhythm. No murmur appreciated. RESPIRATORY: No accessory muscle use. Clear to auscultation. Breath sounds equal bilaterally. GASTROINTESTINAL: Abdomen soft, non-tender, nondistended. Hepatic and splenic margins not palpable. MUSCULOSKELETAL: No obvious deformities. No clubbing. No cyanosis. No edema. NEUROLOGICAL: Lethargic, GCS of 14. No obvious cranial nerve deficits. Motor grossly within normal limits. Normal speech. PSYCHIATRIC: Appropriate mood and affect; insight and judgment normal. Data Data Last Documented VS Vital Signs Date Time Temp Pulse Resp B/P Pulse Ox O2 Delivery O2 Flow Rate FiO2 02/15/17 11:00 98.1 92 18 147/86 99 Nasal Cannula 2 Orders Electrocardiogram (02/15/17 10:07) Ammonia (02/15/17 10:07) Complete Blood Count With Diff (02/15/17 10:07) Comprehensive Metabolic Panel (02/15/17 10:07) Creatine Kinase (Cpk) (02/15/17 10:07) Prothrombin Time / Inr (Pt) (02/15/17 10:07) Troponin I (02/15/17 10:07) Thyroid Stimulating Hormone (02/15/17 10:07) Urinalysis - C+S If Indicated (02/15/17 10:07) Lactic Acid Sepsis Protocol (02/15/17 10:07) Blood Culture (02/15/17 10:07) Chest, Single Ap (02/15/17 10:07) Blood Glucose (02/15/17 10:07) Ecg Monitoring (02/15/17 10:07) Iv Access Insert/Monitor (02/15/17 10:07) Oximetry (02/15/17 10:07) Sodium Chloride 0.9% Flush (Ns Flush) (02/15/17 10:15) Sodium Chlor 0.9% 1000 Ml Inj (Ns 1000 M (02/15/17 10:07) Vascular Access Team Consult/P PRN (02/15/17 11:06) Vascular Poc Ultrasound (02/15/17 ) Sodium Chlorid 0.9% 500 Ml Inj (Ns 500 M (02/15/17 11:30) Amlodipine (Norvasc) (02/16/17 09:00) Aspirin Chew (Aspirin Chew) (02/16/17 09:00) Atorvastatin (Lipitor) (02/15/17 21:00) Bumetanide (Bumetanide) (02/15/17 21:00) Calcium Acetate (Phoslo) (02/15/17 13:00) Gabapentin (Neurontin) (02/15/17 21:00) Glipizide (Glucotrol) (02/15/17 16:00) Isosorbide Mononitrate (Ismo) (02/16/17 09:00) Metoprolol Tartrate (Lopressor) (02/15/17 21:00) Place In Observation (02/15/17 ) Vital Signs (Adult) Q4H (02/15/17 11:59) Crimping Press Operator / Telemetry .CONTINUOUS (02/15/17 11:59) Diet 1800 Ada Cons Carb (02/15/17 Lunch) Diet Heart Healthy (02/15/17 Lunch) Sodium Chloride 0.9% Flush (Ns Flush) (02/15/17 12:00) Sodium Chloride 0.9% Flush (Ns Flush) (02/15/17 21:00) Basic Metabolic Panel (Bmp) (02/16/17 06:00) Complete Blood Count With Diff (02/16/17 06:00) Naloxone Inj (Narcan Inj) (02/15/17 12:00) Docusate Sodium-Senna (Lanny-Colace) (02/15/17 21:00) Magnesium Hydroxide Liq (Milk Of Magnesi (02/15/17 12:00) Sennosides (Senokot) (02/15/17 12:00) Bisacodyl Supp (Dulcolax Supp) (02/15/17 12:00) Lactulose Liq (Lactulose Liq) (02/15/17 12:00) Consult Nephrology (02/15/17 ) Admit Order (Ed Use Only) (02/15/17 12:05) Levothyroxine (Synthroid) (02/16/17 06:00) Labs Laboratory Tests Test 02/15/17 02/15/17 02/15/17 10:20 11:19 11:38 White Blood Count 8.3 TH/MM3 Red Blood Count 4.00 MIL/MM3 Hemoglobin 12.7 GM/DL Hematocrit 39.8 % Mean Corpuscular Volume 99.6 FL Mean Corpuscular Hemoglobin 31.7 PG Mean Corpuscular Hemoglobin 31.8 % Concent Red Cell Distribution Width 15.0 % Platelet Count 234 TH/MM3 Mean Platelet Volume 7.4 FL Neutrophils (%) (Auto) 71.1 % Lymphocytes (%) (Auto) 18.6 % Monocytes (%) (Auto) 8.4 % Eosinophils (%) (Auto) 1.6 % Basophils (%) (Auto) 0.3 % Neutrophils # (Auto) 5.9 TH/MM3 Lymphocytes # (Auto) 1.5 TH/MM3 Monocytes # (Auto) 0.7 TH/MM3 Eosinophils # (Auto) 0.1 TH/MM3 Basophils # (Auto) 0.0 TH/MM3 CBC Comment DIFF FINAL Differential Comment Prothrombin Time 10.8 SEC Prothromb Time International 1.0 RATIO Ratio Sodium Level 134 MEQ/L Potassium Level 4.7 MEQ/L Chloride Level 101 MEQ/L Carbon Dioxide Level 21.7 MEQ/L Anion Gap 11 MEQ/L Blood Urea Nitrogen 41 MG/DL Creatinine 9.72 MG/DL Estimat Glomerular Filtration 4 ML/MIN Rate Random Glucose 117 MG/DL Lactic Acid Level 1.5 mmol/L Calcium Level 8.7 MG/DL Total Bilirubin 0.4 MG/DL Aspartate Amino Transf 23 U/L (AST/SGOT) Alanine Aminotransferase 19 U/L (ALT/SGPT) Alkaline Phosphatase 79 U/L Total Creatine Kinase 117 U/L Troponin I 0.18 NG/ML Total Protein 7.7 GM/DL Albumin 3.7 GM/DL Thyroid Stimulating Hormone LESS THAN 3rd Gen 0.005 uIU/ML Urine Color YELLOW Urine Turbidity CLOUDY Urine pH 5.0 Urine Specific [place] 1.027 Urine Protein 100 mg/dL Urine Glucose (UA) NEG mg/dL Urine Ketones TRACE mg/dL Urine Occult Blood SMALL Urine Nitrite NEG Urine Bilirubin NEG Urine Urobilinogen 2.0 MG/DL Urine Leukocyte Esterase LARGE Urine RBC 7 /hpf Urine WBC 1 /hpf Urine Squamous Epithelial 1 /hpf Cells Urine Amorphous Sediment FEW Urine Bacteria OCC /hpf Urine Hyaline Casts 10 /lpf Urine Granular Casts 5 /lpf Microscopic Urinalysis Comment CATH-CULTURE IND Ammonia 12 MCMOL/L MDM Medical Decision Making Medical Screen Exam Complete: Yes Emergency Medical Condition: Yes Medical Record Reviewed: Yes Interpretation(s) Twelve-lead EKG was reviewed by me. Normal sinus rhythm, left axis deviation, bradycardia, left axis deviation, nonspecific ST-T wave changes, motion artifacts. Differential Diagnosis Dehydration, electrolyte abnormality, sepsis Narrative Course 12:10 PM most of the blood test results of back and within acceptable limits. Patient has elevated BUN and creatinine which is expected from her end-stage renal disease. Troponin is slightly elevated as well. Her mental status continues to be the same. She wakes up and answers questions but prefers to go back to sleep. I decided to admit her and I spoke with the hospitalist was accepted the case. I spoke with patient's daughter and son and they have been notified as well. I have put a call out for patient's physician office specialist and waiting to hear back from him so that he can be notified and dialysis can be arranged. 12:[address] Jalloh just call back and I let him know about the patient. He told me that 2 days ago the family had called to say that she was running a fever and because she has the indwelling catheter for the dialysis as per the protocol she was given IV vancomycin and Fortaz. However I did let him know that patient did not have a fever here and her white blood cell count and lactic acid are within normal range. Procedures EKG Prior to Arrival: No Diagnosis Primary Impression: Altered mental status Qualified Code: R40.0 - Somnolence Additional Impressions: Dehydration End stage renal disease Dependent on hemodialysis Admitting Information Admitting Physician Requests: Observation Scripts Carvedilol (Coreg)3.125 Mg Tab3.125 Mg PO Q12HR #60 TAB Ref 1 Prov:Manjula Daniels 02/16/17 Alan Carolina MD Feb 15, 2017 10:04
[2017-02-15] MEDS ORDERED: SODIUM CHLOR 0.9% 1000 ML INJ 1,000 ML IV SCH (10:07)
[2017-02-15] MEDS ORDERED: SODIUM CHLORIDE 0.9% FLUSH 5 ML FLUSH IV FLUSH PRN (10:15)
[2017-02-15 10:45] LABS: AUTOMATED NEUTROPHIL # 5.9 TH/MM3 (1.8-7.7); BASOPHIL % 0.3 % (0.0-2.0); EOSINOPHIL # 0.1 TH/MM3 (0-0.4); EOSINOPHIL % 1.6 % (0.0-4.0); HEMATOCRIT 39.8 % (35.0-46.0); HEMO FLAGS DIFF FINAL; LYMPH % 18.6 % (9.0-44.0); LYMPHOCYTE # 1.5 TH/MM3 (1.0-4.8); MEAN CELL VOLUME 99.6 FL (80.0-100.0); MEAN CORPUSCULAR HEMOGLOBIN 31.7 PG (27.0-34.0); MEAN CORPUSCULAR HGB CONC 31.8 % (32.0-36.0); MONO % 8.4 % (0.0-8.0); NEUT % 71.1 % (16.0-70.0); PLATELET COUNT 234 TH/MM3 (150-450); WHITE BLOOD COUNT 8.3 TH/MM3 (4.0-11.0)
[2017-02-15 10:51] LABS: PROTHROMBIN TIME - PATIENT 10.8 SEC (9.8-11.6)
[2017-02-15 10:58] LABS: ALT (GPT) 19 U/L (10-53)
[2017-02-15 11:00] VITALS: BP 147/86; PULSE 92; RESP 18; TEMP 98.1; O2SAT 99
[2017-02-15 11:00] LABS: ANION GAP 11 MEQ/L (5-15); AST (GOT) 23 U/L (15-37); BICARBONATE 21.7 MEQ/L (21.0-32.0); BLOOD UREA NITROGEN 41 MG/DL (7-18); CHLORIDE 101 MEQ/L (98-107); GLOMERULAR FILTRATION RATE 4 ML/MIN (>89); POTASSIUM 4.7 MEQ/L (3.5-5.1); SODIUM (NA) 134 MEQ/L (136-145)
[2017-02-15 11:08] LABS: ALKALINE PHOSPHATASE 79 U/L (45-117); CREATINE KINASE 117 U/L (26-192); TOTAL BILIRUBIN ADULT 0.4 MG/DL (0.2-1.0)
[2017-02-15] MEDS ORDERED: SODIUM CHLORID 0.9% 500 ML INJ 500 ML IV ONE (11:30)
[2017-02-15] MEDS ORDERED: SODIUM CHLORIDE 0.9% FLUSH 10 ML FLUSH IV FLUSH PRN ×2 (12:00→12:45)
[2017-02-15] MEDS ORDERED: MAGNESIUM HYDROXIDE SUSP 30 ML CUP PO PRN (12:00)
[2017-02-15] MEDS ORDERED: LACTULOSE SYRUP 20 GM/30 ML CUP PO PRN (12:00)
[2017-02-15] MEDS ORDERED: BISACODYL 10 MG SUPP RECTAL PRN (12:00)
[2017-02-15] MEDS ORDERED: SENNOSIDES 8.6 MG TAB PO PRN (12:00)
[2017-02-15] MEDS ORDERED: NALOXONE HCL 0.4 MG/ML AMP IV PRN (12:00)
--- NOTE | 2017-02-15 12:04 | RADRPT ---
EXAM DATE/TIME: 02/15/2017 10:23 [facility] COMPARISON: CHEST SINGLE AP, December 08, 2016, 10:10. INDICATIONS : General weakness. MEDICAL HISTORY : Renal failure, acute. SURGICAL HISTORY : Vas cath ENCOUNTER: Initial ACUITY: 1 day PAIN SCORE: 2/10 LOCATION: Bilateral chest FINDINGS: The heart is mildly prominent. The pulmonary vascular pattern is normal. The lungs are clear. Ther e is elevation of the right hemidiaphragm. A left internal jugular tunnel dialysis catheter has its tip in the right atrium. There is no pneumothorax. CONCLUSION: 1. Cardiomegaly. 2. No acute focal pulmonary infiltrate or pulmonary vascular congestion. Nickolas Toscano MD on February 15, 2017 at 11:05 Board Certified Radiologist. This report was verified electronically.
[2017-02-15] MEDS ORDERED: DEXTROSE 50% IN WATER 50 ML VIAL(D50) IV PRN (12:15)
[2017-02-15] MEDS ORDERED: GLUCAGON 1 MG/ML VIAL OTHER PRN (12:15)
[2017-02-15] MEDS ORDERED: SODIUM CHLOR 0.9% 1000 ML INJ 1,000 ML IV PRN ×3 (12:40)
--- NOTE | 2017-02-15 12:40 | PD.CONS ---
HPI Service Nephrology Consult Requested By Reason for Consult ESRD on HD Primary Care Physician Clifton Hernandez M.D. History of Present Illness This is a 56 y/o female patient who is on dialysis TTS. She came to ER after her family noticed mental status changes, and generalized twitching/ shaking. Seizure activity was not described, she did not lose consciousness. Her only newly prescribed medications are gabapentin and she is reporting Xanax. At this time she is not in distress. She has missed her outpatient HD therefore we were consulted for dialysis management. She is a full code. Othe PMH of DM II, HTN, metabolic bone disease, hypothyroidism, and hyperlipidemia. She has a Perm cath that is used for dialysis as her access in left arm is not ready for use. (Ekta Vega) Review of Systems Constitutional: COMPLAINS OF: Fatigue, Dizziness, DENIES: Weight gain, Weight loss, Change in appetite Cardiovascular: DENIES: Chest pain Gastrointestinal: DENIES: Abdominal pain Neurologic: COMPLAINS OF: Tremor, Poor Balance, DENIES: Abnormal gait, Headache, Seizures Psychiatric: COMPLAINS OF: Confusion, Mood changes (Ekta Vega) Past Family Social History Allergies: Coded Allergies: vancomycin (Verified Allergy, Severe, KIDNEY INJURY, 02/15/17) PER Jasmin BROWN MD, DO NOT USE VANCO. SEVERE KIDNEY INJURY. morphine (Verified Allergy, Intermediate, 02/15/17) "ITCHING EVERYWHERE" Past Medical History ESRD on HD TTS DM II HTN MICHELET hypothyroidism anemia metabolic bone disorder secondary hyperparathyroidism Past Surgical History left brachiocephalic AVF (10/2016) with revision/second step 12/08/16 right BKA PermCath placement (multiple) cesarian x 2 Reported Medications Lipitor (Atorvastatin Calcium) 20 Mg Tab 20 Mg PO HS 30 Days Hydrocodon-Acetamin 7.5-325/15 (Hydrocodone/Acetaminophen) 15 Ml Solution Aspirin Children's (Aspirin) 81 Mg Chew 81 Mg PO DAILY Calcium Acetate (Phosphate Binder) 667 Mg Tab 667 Mg PO TID Zolpidem (Zolpidem Tartrate) 5 Mg Tab 10 Mg PO HS PRN Metoprolol Tartrate 25 Mg Tab 25 Mg PO BID Bumetanide 1 Mg Tab 2 Mg PO BID Synthroid (Levothyroxine Sodium) 88 Mcg Tab 0.137 Mcg PO DAILY Isosorbide Mononitrate 10 Mg Tab 10 Mg PO DAILY Take 2 doses 7 hours apart. Glipizide 10 Mg Tab 10 Mg PO BIDAC Take 30 minutes before a meal Norvasc (Amlodipine Besylate) 10 Mg Tab 10 Mg PO DAILY Gabapentin 100 Mg Cap 600 Mg PO HS Active Ordered Medications Current Medications Medications (Trade) Dose Ordered Sig/Ezekiel Route Start Time Stop Time Status Last Admin IV Flush 2 ml 2 ml UNSCH PRN IV FLUSH 02/15/17 10:15 (NS 500 ml Inj) 500 ml @ 500 mls/hr BOLUS ONCE IV 02/15/17 11:30 02/15/17 12:29 02/15/17 12:12 (Norvasc) 10 mg DAILY PO 02/16/17 09:00 UNV (Aspirin Chew) 81 mg DAILY PO 02/16/17 09:00 UNV (Lipitor) 20 mg HS PO 02/15/17 21:00 UNV (Bumetanide) 2 mg BID PO 02/15/17 21:00 UNV (Phoslo) 667 mg TID PO 02/15/17 13:00 UNV (Ismo) 10 mg DAILY PO 02/16/17 09:00 UNV (Synthroid) 0.137 mcg DAILY PO 02/16/17 09:00 UNV (Lopressor) 25 mg BID PO 02/15/17 21:00 UNV (NS Flush) 2 ml UNSCH PRN IV FLUSH 02/15/17 12:00 UNV (NS Flush) 2 ml BID IV FLUSH 02/15/17 21:00 UNV (Narcan Inj) 0.4 mg UNSCH PRN IV 02/15/17 12:00 UNV (Lanny-Colace) 1 tab BID PO 02/15/17 21:00 UNV (Milk Of Magnesia Liq) 30 ml Q12H PRN PO 02/15/17 12:00 UNV (Senokot) 17.2 mg Q12H PRN PO 02/15/17 12:00 UNV (Dulcolax Supp) 10 mg DAILY PRN RECTAL 02/15/17 12:00 UNV (Lactulose Liq) 30 ml DAILY PRN PO 02/15/17 12:00 UNV (D50w (Vial) Inj) 50 ml UNSCH PRN IV 02/15/17 12:15 UNV (Glucagon Inj) 1 mg UNSCH PRN OTHER 02/15/17 12:15 UNV Family History no hx of renal disorders Social History no smoking or ETOH uses wheelchair lives with family full code disabled (Ekta Vega [place] MCDUFFIE) Physical Exam Vital Signs Vital Signs Date Time Temp Pulse Resp B/P Pulse Ox O2 Delivery O2 Flow Rate FiO2 02/15/17 09:50 100 Nasal Cannula 5 02/15/17 09:47 57 17 59 Room Air 02/15/17 09:47 98.1 55 17 138/63 56 Physical Exam Obese, disheveled Middle aged female sitting up in bed awake, oriented x 3, no neuro deficit noted, poor dentition periorbital edema noted CV: S1/S2, RRR no murmurs or rubs; Permcath on left Lungs: CTA bilaterally, no coughing or wheezing Abd: obese, soft, non tender Ext: right BKA, healed: no edema noted Skin: intact, incision healed left upper arm at site of AV HD access Laboratory Laboratory Tests Test 02/15/17 02/15/17 10:20 11:38 White Blood Count 8.3 Red Blood Count 4.00 Hemoglobin 12.7 Hematocrit 39.8 Mean Corpuscular Volume 99.6 Mean Corpuscular Hemoglobin 31.7 Mean Corpuscular Hemoglobin 31.8 Concent Red Cell Distribution Width 15.0 Platelet Count 234 Mean Platelet Volume 7.4 Neutrophils (%) (Auto) 71.1 Lymphocytes (%) (Auto) 18.6 Monocytes (%) (Auto) 8.4 Eosinophils (%) (Auto) 1.6 Basophils (%) (Auto) 0.3 Neutrophils # (Auto) 5.9 Lymphocytes # (Auto) 1.5 Monocytes # (Auto) 0.7 Eosinophils # (Auto) 0.1 Basophils # (Auto) 0.0 CBC Comment DIFF FINAL Differential Comment Prothrombin Time 10.8 Prothromb Time International 1.0 Ratio Sodium Level 134 Potassium Level 4.7 Chloride Level 101 Carbon Dioxide Level 21.7 Anion Gap 11 Blood Urea Nitrogen 41 Creatinine 9.72 Estimat Glomerular Filtration 4 Rate Random Glucose 117 Lactic Acid Level 1.5 Calcium Level 8.7 Total Bilirubin 0.4 Aspartate Amino Transf 23 (AST/SGOT) Alanine Aminotransferase 19 (ALT/SGPT) Alkaline Phosphatase 79 Total Creatine Kinase 117 Troponin I 0.18 Total Protein 7.7 Albumin 3.7 Thyroid Stimulating Hormone LESS THAN 3rd Gen 0.005 Ammonia 12 Date/Time Procedure Status Source Growth 02/15/17 11:30 Aerobic Blood Culture Received Blood Peripheral Pending 02/15/17 11:30 Anaerobic Blood Culture Received Blood Peripheral Pending (Ekta Vega) Result Diagram: 02/15/17 1020 02/15/17 1020 Assessment and Plan Problem List: (1) End stage renal disease Plan: continue TTS HD support, orders entered no acute electrolyte concerns Permcath for dialysis, her AVF is not mature as of now avoid IVF, gadolinium is contraindicated renal panel in AM (2) Type 2 diabetes mellitus Plan: her glipizide has been held, may require insulin therapy glucose goal 140-180 mg/dL (3) Hypertension Plan: home medications have been resumed follow blood pressure (4) Metabolic bone disease Plan: calcium acetate has been ordered monitor phosphorus level periodically (5) Twitching Plan: unsure of etiology she was started on gabapentin recently, she also reports Xanax being prescribed but it is not on medication list she is admitted as OBS for evaluation (Ekta Vega) Assessment and Plan patient was seen and examined. Seen at dialysis. Admitted with weakness, lethargy. Twitching is noted. Stop Gabapentin. Agree with above assessment and plan. (Ti Jalloh MD) Ekta Vega Feb 15, 2017 12:40 Ti Jalloh MD Feb 15, 2017 17:39
[2017-02-15 12:41] LABS: BACTERIA, URINE OCC /hpf; BLOOD, URINE SMALL (NEG); COMMENT (UR) CATH-CULTURE IND; CULTURE IF INDICATED CATH CULTURE IND; GLUCOSE,URINE NEG (NEG); GRANULAR CAST, URINE 5 /lpf; HYALINE CAST, URINE 10 /lpf (RARE); KETONE, URINE TRACE mg/dL (NEG); NITRITE,URINE NEG (NEG); SQUAMOUS EPITHELIAL CELL URINE 1 /hpf (0-5); URINE COLOR YELLOW (YELLW/STRAW)
[2017-02-15] MEDS ORDERED: ONDANSETRON HCL 4 MG/2 ML VIAL IV PRN (12:45)
[2017-02-15] MEDS ORDERED: cloNIDine HCL 0.1 MG TAB PO PRN (12:45)
[2017-02-15] MEDS ORDERED: HEPARIN SODIUM - IV 10,000 UNITS/10 ML VIAL IVF PRN (12:45)
[2017-02-15] MEDS ORDERED: GELATIN 12 MM/7 MM FOAM TOP PRN (12:45)
[2017-02-15] MEDS ORDERED: HEPARIN SODIUM - IV 10,000 UNITS/10 ML VIAL PRN (12:45)
[2017-02-15] MEDS ORDERED: diphenhydrAMINE HCL 25 MG CAP PO PRN (12:45)
[2017-02-15] MEDS ORDERED: NITROGLYCERIN 0.4 MG SL 25 TABS/BTL SL PRN (12:45)
[2017-02-15] MEDS ORDERED: GENTAMICIN SULFATE (DIALYSIS USE ONLY) 20 MG/2 ML VIAL IV PRN (12:45)
[2017-02-15] MEDS ORDERED: MANNITOL 12.5 GM/50 ML VIAL IV PRN (12:45)
[2017-02-15] MEDS ORDERED: ACETAMINOPHEN 325 MG TAB PO PRN (12:45)
[2017-02-15] MEDS ORDERED: ALBUMIN HUMAN 25% 25 GM/100 ML BAGP IV PRN (12:45)
--- NOTE | 2017-02-15 13:41 | EKG ---
Date Performed: 02/15/2017 Time Performed: 10:00:18 PTAGE: 56 years EKG: Baseline artifact present SINUS BRADYCARDIA MARKED LEFT AXIS DEVIATION PATTERN CONSISTENT W ITH PULMONARY DISEASE LEFT VENTRICULAR HYPERTROPHY AND ST-T CHANGE ABNORMAL ECG INTERPRETATION BASED ON A DEFAULT AGE OF 40 YEARS Compared to the PREVIOUS TRACING Rate has slowed and STT wave changes are less marked. PREVIOUS TRACIN04/20/2016 19.13 DOCTOR: Osiel Upton Interpretating Date/Time 02/15/2017 13:40:33
[2017-02-15] MEDS ORDERED: glipiZIDE 10 MG TAB PO SCH (16:00)
[2017-02-15] MEDS: INSULIN ASPART SUPPLEMENTAL SCALE SQ SCH ×2 (16:00→21:00)
--- NOTE | 2017-02-15 16:21 | HHI.HP ---
HPI Service [facility] Primary Care Physician Clifton Hernandez M.D. Admission Diagnosis dehydration, altered mental status Diagnoses: Chief Complaint: weak, altered mental status Travel History International Travel<30 Days: No Contact w/Intl Traveler <30 Da: No Traveled to Known Affected Are: No History of Present Illness This is a pleasant 56-year-old female with significant past medical history of end-stage renal disease that was restarted for a second time April 2016, she is on Tuesdays, and Tuesday. Also with past medical history of diabetes, previous right BKA, chronic pain, hypothyroid, peripheral neuropathy. Patient presented to the emergency room via EMS for altered mental status. Family indicated that the patient had been feeling weak and very lethargic and had missed dialysis this morning. Daughter indicated that she was noted twitching. endorses that she was like this for about 3 days and wasn't eating very much. Patient was evaluated in emergency room, laboratory workup was completed. BMP remarkable for elevated BUN and creatinine which is expected from her end-stage renal disease. Troponin mildly elevated. Dr. Jalloh was contacted and informed emergency room physician that the family had called him and indicated the patient was running a fever about 2 days ago. Patient has a permacath in place. She was given vancomycin and Fortaz at that time. Family denies any more fever, no chills. Patient underwent hemodialysis treatment today. She is not evaluated in her room, she is awake alert oriented 3. She is feeling better and is anxious to be discharged tomorrow morning. Denies any diarrhea, no abdominal pain, no cough, no sputum production. She still makes urine. She had cultures done in the emergency room. There was no leukocytosis, no fever on presentation. Lactic acid was normal. Urine culture is pending. She was given a 500 cc bolus. She is tolerating dinner well, no nausea, no vomiting. She was noted with myoclonic jerks while in the emergency room. No actual seizure activity noted. It appears the patient is on gabapentin which has been stopped per nephrology. Patient is admitted for further evaluation and treatment. Review of Systems Constitutional: COMPLAINS OF: Change in appetite, DENIES: Diaphoretic episodes , Fatigue, Fever, Weight gain, Weight loss, Chills, Dizziness, Night Sweats Endocrine: DENIES: Abnorml menstrual pattern, Heat/cold intolerance, Polydipsia , Polyuria, Polyphagia Eyes: DENIES: Blurred vision, Diplopia, Eye inflammation, Eye pain, Vision loss , Photosensitivity, Double Vision Ears, nose, mouth, throat: DENIES: Tinnitus, Hearing loss, Vertigo, Nasal discharge, Oral lesions, Throat pain, Hoarseness, Ear Pain, Running Nose, Epistaxis, Sinus Pain, Toothache, Odynophagia Respiratory: DENIES: Apneas, Cough, Snoring, Wheezing, Hemoptysis, Sputum production, Shortness of breath Cardiovascular: DENIES: Chest pain, Palpitations, Syncope, Dyspnea on Exertion , PND, Lower Extremity Edema, Orthopnea, Claudication Gastrointestinal: DENIES: Abdominal pain, Black stools, Bloody stools, Constipation, Diarrhea, Nausea, Vomiting, Difficulty Swallowing, Anorexia Genitourinary: DENIES: Abnormal vaginal bleeding, Dysmenorrhea, Dyspareunia, Sexual dysfunction, Urinary frequency, Urinary incontinence, Urgency, Hematuria , Dysuria, Nocturia, Vaginal discharge Musculoskeletal: COMPLAINS OF: Back pain, DENIES: Joint pain, Muscle aches, Stiffness, Joint Swelling, Neck pain Integumentary: DENIES: Abnormal pigmentation, Pruritus, Rash, Nail changes, Breast masses, Breast skin changes, Nipple discharge Hematologic/lymphatic: DENIES: Bruising, Lymphadenopathy Immunologic/allergic: DENIES: Eczema, Urticaria Neurologic: DENIES: Abnormal gait, Headache, Localized weakness, Paresthesias, Seizures, Speech Problems, Tremor, Poor Balance Psychiatric: DENIES: Anxiety, Confusion, Mood changes, Depression, Hallucinations, Agitation, Suicidal Ideation, Homicidal Ideation, Delusions Past Family Social History Past Medical History 1. CKD, was on dialysis in the past, recovered. Restarted back on HD 2015, schedule is Tuesday, , Sat. 2. History of respiratory failure in the past. 3. Diabetes 4. Hypertension 5. Hypothyroidism 6. Hyperlipidemia 7. Peripheral vascular disease 8. Cardiomyopathy echo in 2016, EF 40-45% Past Surgical History 1. History of vas cath placement 2. Right below-knee amputation 3. Revision of right below-knee amputation 4. In the past, right foot biopsy in 2012 cm and drainage of his amputation in 2012. 5. L BC AVF placed 09/08/[address] Kim. Underwent revision 12/08/2016 due to stenosis, Reported Medications Reported Meds & Active Scripts Active Lipitor (Atorvastatin Calcium) 20 Mg Tab 20 Mg PO HS 30 Days Reported Hydrocodon-Acetamin 7.5-325/15 (Hydrocodone/Acetaminophen) 15 Ml Solution Aspirin Children's (Aspirin) 81 Mg Chew 81 Mg PO DAILY Calcium Acetate (Phosphate Binder) 667 Mg Tab 667 Mg PO TID Zolpidem (Zolpidem Tartrate) 5 Mg Tab 10 Mg PO HS PRN Metoprolol Tartrate 25 Mg Tab 25 Mg PO BID Bumetanide 1 Mg Tab 2 Mg PO BID Synthroid (Levothyroxine Sodium) 88 Mcg Tab 0.137 Mcg PO DAILY Isosorbide Mononitrate 10 Mg Tab 10 Mg PO DAILY Take 2 doses 7 hours apart. Glipizide 10 Mg Tab 10 Mg PO BIDAC Take 30 minutes before a meal Norvasc (Amlodipine Besylate) 10 Mg Tab 10 Mg PO DAILY Gabapentin 100 Mg Cap 600 Mg PO HS Allergies: Coded Allergies: vancomycin (Verified Allergy, Severe, KIDNEY INJURY, 02/15/17) PER Jasmin BROWN MD, DO NOT USE VANCO. SEVERE KIDNEY INJURY. morphine (Verified Allergy, Intermediate, 02/15/17) "ITCHING EVERYWHERE" Active Ordered Medications Inpatient Medications Acetaminophen (Tylenol) 650 mg UNSCH PRN PO for headach, pain, temp > 101F; Start 02/15/17 at 12:45 Acetaminophen/ Hydrocodone Bitart ([place] 7.5-325 Mg) 1 tab Q6H PRN PO PAIN SCALE 4 TO 7; Start 02/15/17 at 18:15; Status UNV Albumin Human (Albumin 25% Inj) 25 gm UNSCH PRN IV WITH DIALYSIS; Start at 12:45 Amlodipine Besylate (Norvasc) 10 mg DAILY PO ; Start 02/16/17 at 09:00 Aspirin (Aspirin Chew) 81 mg DAILY PO ; Start 02/16/17 at 09:00 Atorvastatin Calcium (Lipitor) 20 mg HS PO ; Start 02/15/17 at 21:00 Bisacodyl (Dulcolax Supp) 10 mg DAILY PRN RECTAL SEVERE CONSITIPATION; Start at 12:00 Bumetanide (Bumetanide) 2 mg BID PO ; Start 02/15/17 at 21:00 Calcium Acetate (Phoslo) 667 mg TID PO Last administered on 02/15/17 17:42; Start 02/15/17 at 13:00 Clonidine (Catapres) 0.1 mg UNSCH PRN PO for BP > 180/100 X 2 readings; Start 02/15/17 at 12:45 Dextrose (D50w (Vial) Inj) 50 ml UNSCH PRN IV HYPOGLYCEMIA-SEE COMMENTS; Start 02/15/17 at 12:15 Diphenhydramine HCl (Benadryl) 25 mg UNSCH PRN PO for hives/itching/anaphylaxis ; Start 02/15/17 at 12:45 Gabapentin (Neurontin) 600 mg HS PO ; Start 02/15/17 at 21:00; Stop 02/15/17 at 21:00; Status DC Gelatin (Gelfoam 12 Mm/7 Mm Top) 1 foam UNSCH PRN TOP SEE LABEL COMMENTS; Start 02/15/17 at 12:45 Gentamicin Sulfate (Gentamicin (Dialysis) Inj) 20 mg UNSCH PRN IV WITH DIALYSIS Last administered on 02/15/17 13:08; Start 02/15/17 at 12:45 Glipizide (Glucotrol) 10 mg BIDAC PO ; Start 02/15/17 at 16:00; Stop 02/15/17 at 16:00; Status DC Glucagon (Glucagon Inj) 1 mg UNSCH PRN OTHER HYPOGLYCEMIA-SEE COMMENTS; Start 02/15/17 at 12:15 Heparin Sodium (Porcine) (Heparin Inj) UNSCH PRN .XX WITH DIALYSIS Last administered on 02/15/17 13:08; Start 02/15/17 at 12:45 Heparin Sodium (Porcine) 8000 units 8,000 units UNSCH PRN IVF WITH DIALYSIS; Start 02/15/17 at 12:45 Insulin Aspart (NovoLOG SUPPLEMENTAL SCALE) 1 ACHS SLIDING SCALE SQ ; Start at 16:00 Isosorbide Mononitrate (Ismo) 10 mg DAILY PO ; Start 02/16/17 at 09:00 IV Flush 2 ml 2 ml UNSCH PRN IV FLUSH FLUSH AFTER USING IV ACCESS; Start at 10:15; Stop 02/15/17 at 12:53; Status DC Lactulose (Lactulose Liq) 30 ml DAILY PRN PO SEVERE CONSITIPATION; Start at 12:00 Levothyroxine Sodium (Synthroid) 0.137 mcg DAILY PO ; Start 02/16/17 at 09:00; Status UNV Magnesium Hydroxide (Milk Of Magnmisti Liq) 30 ml Q12H PRN PO MILD - MODERATE CONSTIPATION; Start 02/15/17 at 12:00 Mannitol (Mannitol Inj) 12.5 gm UNSCH PRN IV WITH DIALYSIS; Start 02/15/17 at 12:45 Metoprolol Tartrate (Lopressor) 25 mg BID PO ; Start 02/15/17 at 21:00 Naloxone HCl (Narcan Inj) 0.4 mg UNSCH PRN IV SEE LABEL COMMENTS; Start at 12:00 Nitroglycerin (Nitrostat Sl) 0.4 mg UNSCH PRN SL CHEST PAIN; Start 02/15/17 at 12:45 Ondansetron HCl (Zofran Inj) 4 mg UNSCH PRN IV WITH DIALYSIS; Start 02/15/17 at 12:45 Senna/Docusate Sodium (Lanny-Colace) 1 tab BID PO ; Start 02/15/17 at 21:00 Sennosides (Senokot) 17.2 mg Q12H PRN PO MODERATE - SEVERE CONSTIPATION; Start 02/15/17 at 12:00 Sodium Chloride (NS 1000 ml Inj) 1,000 ml @ 0 mls/hr Q0M PRN IV WITH DIALYSIS; Start 02/15/17 at 12:40 Sodium Chloride (NS 500 ml Inj) 500 ml @ 500 mls/hr BOLUS ONCE IV Last administered on 02/15/17t 12:12; Start 02/15/17 at 11:30; Stop 02/15/17 at 12:29 ; Status DC Sodium Chloride (NS Flush) 5 ml UNSCH PRN IV FLUSH WITH DIALYSIS; Start at 12:45 Zolpidem Tartrate (Ambien) 10 mg HS PRN PO INSOMNIA; Start 02/15/17 at 18:15; Status UNV Family History Reviewed, Noncontributory Social History , has grown children Past smoking hx no ETOH No substance abuse Physical Exam Vital Signs Vital Signs Date Time Temp Pulse Resp B/P Pulse Ox O2 Delivery O2 Flow Rate FiO2 02/15/17 09:50 100 Nasal Cannula 5 02/15/17 09:47 57 17 59 Room Air 02/15/17 09:47 98.1 55 17 138/63 56 Physical Exam GENERAL: This is a well-nourished, well-developed patient, in no apparent distress. SKIN: No rashes, ecchymoses or lesions. Cool and dry. Permacath noted to the left chest wall. Site without any redness, no erythema, no drainage. HEAD: Atraumatic. Normocephalic. No temporal or scalp tenderness. EYES: Pupils equal round and reactive. Extraocular motions intact. No scleral icterus. No injection or drainage. ENT: Nose without bleeding, purulent drainage or septal hematoma. Throat without erythema, tonsillar hypertrophy or exudate. Uvula midline. Airway patent. NECK: Trachea midline. No JVD or lymphadenopathy. Supple, nontender, no meningeal signs. CARDIOVASCULAR: Regular rate and rhythm with soft murmur, no gallops, no rubs. RESPIRATORY: Clear to auscultation. Breath sounds equal bilaterally. No wheezes , rales, or rhonchi. GASTROINTESTINAL: Abdomen soft, non-tender, nondistended. No hepato-splenomegaly , or palpable masses. No guarding. MUSCULOSKELETAL: Right below the knee amputation. Left upper extremity with scar from left AV fistula formation. Incision is healing well, minimal redness. No other joint abnormality. Left pedal pulse 2+. NEUROLOGICAL: Awake, alert and oriented 3. No focal deficits. Laboratory Laboratory Tests Test 02/15/17 02/15/17 02/15/17 10:20 11:19 11:38 White Blood Count 8.3 Red Blood Count 4.00 Hemoglobin 12.7 Hematocrit 39.8 Mean Corpuscular Volume 99.6 Mean Corpuscular Hemoglobin 31.7 Mean Corpuscular Hemoglobin 31.8 Concent Red Cell Distribution Width 15.0 Platelet Count 234 Mean Platelet Volume 7.4 Neutrophils (%) (Auto) 71.1 Lymphocytes (%) (Auto) 18.6 Monocytes (%) (Auto) 8.4 Eosinophils (%) (Auto) 1.6 Basophils (%) (Auto) 0.3 Neutrophils # (Auto) 5.9 Lymphocytes # (Auto) 1.5 Monocytes # (Auto) 0.7 Eosinophils # (Auto) 0.1 Basophils # (Auto) 0.0 CBC Comment DIFF FINAL Differential Comment Prothrombin Time 10.8 Prothromb Time International 1.0 Ratio Sodium Level 134 Potassium Level 4.7 Chloride Level 101 Carbon Dioxide Level 21.7 Anion Gap 11 Blood Urea Nitrogen 41 Creatinine 9.72 Estimat Glomerular Filtration 4 Rate Random Glucose 117 Lactic Acid Level 1.5 Calcium Level 8.7 Total Bilirubin 0.4 Aspartate Amino Transf 23 (AST/SGOT) Alanine Aminotransferase 19 (ALT/SGPT) Alkaline Phosphatase 79 Total Creatine Kinase 117 Troponin I 0.18 Total Protein 7.7 Albumin 3.7 Thyroid Stimulating Hormone LESS THAN 3rd Gen 0.005 Urine Color YELLOW Urine Turbidity CLOUDY Urine pH 5.0 Urine Specific [place] 1.027 Urine Protein 100 Urine Glucose (UA) NEG Urine Ketones TRACE Urine Occult Blood SMALL Urine Nitrite NEG Urine Bilirubin NEG Urine Urobilinogen 2.0 Urine Leukocyte Esterase LARGE Urine RBC 7 Urine WBC 1 Urine Squamous Epithelial 1 Cells Urine Amorphous Sediment FEW Urine Bacteria OCC Urine Hyaline Casts 10 Urine Granular Casts 5 Microscopic Urinalysis Comment CATH-CULTURE IND Ammonia 12 Date/Time Procedure Status Source Growth 02/15/17 11:30 Aerobic Blood Culture Received Blood Peripheral Pending 02/15/17 11:30 Anaerobic Blood Culture Received Blood Peripheral Pending 02/15/17 11:19 Urine Culture Received Urine Catheterized Urine Pending Result Diagram: 02/15/17 1020 02/15/17 1020 Imaging Last Impressions Chest X-Ray 02/15/17 1007 Signed Impressions: Service Date/Time: Wednesday, February 15, 2017 10:23 - CONCLUSION: 1. Cardiomegaly. 2. No acute focal pulmonary infiltrate or pulmonary vascular congestion. Nickolas Toscano MD Assessment and Plan Problem List: (1) Altered mental status (2) Twitching (3) ESRD (end stage renal disease) (4) Dehydration (5) Anemia (6) Hypothyroidism (7) Hyperlipidemia (8) Anxiety (9) Hypertension (10) Type 2 diabetes mellitus (11) Cardiomyopathy Assessment and Plan Admit to Dr. Wynn 56-year-old female with history of end-stage renal disease on dialysis, diabetes. Presented to the emergency room with altered mental status, and twitching. Twitching, altered mental status. Likely multifactorial, possible medication induced, rule out infection, possibly due to dehydration. -Gabapentin has been stopped -Continue to monitor patient closely -The patient's mental status appears back to baseline End-stage renal disease on dialysis Appreciate nephrology input, continue with hemodialysis per schedule -Patient has a AV fistula in place, has not matured. Has a permacath in place Reported fever, none during this admission, WBC stable -Blood cultures have been completed, follow up on results -Urine culture pending -Hold off on starting antibiotics at this time Type 2 diabetes Accu-Cheks before meals and at bedtime with insulin therapy as needed -Hold glipizide at this time, random blood glucose 117. Elevated troponin, denies any chest pain Likely secondary to CKD -Monitor for any chest pain Hypertension, stable Continue home medications Hyperlipidemia, stable Continue home medication Cardiomyopathy, stable Continue home medications Home medications reviewed, initiated as indicated Plan of care has been discussed with the patient, attending and registered nurse. Further management of the patient will be dependent on the hospital course This patient was seen by myself and Dr. Wynn, this H&P is written on his behalf Problem Qualifiers (1) Altered mental status: Qualified Code: R40.0 - Somnolence (2) Anemia: Qualified Code: N18.6 - Anemia in chronic kidney disease, on chronic dialysis (3) Hypothyroidism: Qualified Code: E03.9 - Hypothyroidism, unspecified type (4) Hyperlipidemia: Qualified Code: E78.5 - Hyperlipidemia, unspecified hyperlipidemia type (5) Hypertension: Qualified Code: I10 - Essential hypertension (6) Type 2 diabetes mellitus: Qualified Code: E11.22 - Type 2 diabetes mellitus with chronic kidney disease on chronic dialysis, unspecified tip printer insulin use status (7) Cardiomyopathy: Qualified Code: I42.9 - Cardiomyopathy, unspecified type Manjula Daniels Feb 15, 2017 16:21
[2017-02-15 16:58] VITALS: BP 141/107; PULSE 70; RESP 20; TEMP 98.1; O2SAT 99
[2017-02-15] MEDS: CALCIUM ACETATE 667 MG CAP PO SCH (17:42)
[2017-02-15] MEDS ORDERED: ACETAMINOPHEN/HYDROcodone 325 MG/7.5 MG TAB PO PRN (18:15)
--- NOTE | 2017-02-15 19:59 | HP.UPD ---
H&P Update Note This is a 56-year-old female with a history of diabetes and end-stage renal disease. She was due for dialysis today. She was brought into the emergency department at [facility] with altered mental status diagnosis and chills. She was seen by the undersigned at the emergency department room E 56. She has been so nauseous she could not eat or drink for the last couple days. She is being admitted on observation, her associate drafter consulted, as been given 1 dose of daptomycin 600 mg for concern about line sepsis. full history of physical to follow Gagan Wynn MD Feb 15, 2017 19:57
[2017-02-15 20:00] VITALS: BP 132/60; PULSE 60; RESP 17; TEMP 98; O2SAT 95
[2017-02-15] MEDS ORDERED: ZOLPIDEM TARTRATE 10 MG TAB PO PRN (20:00)
[2017-02-15] MEDS ORDERED: ATORVASTATIN 20 MG TAB PO SCH (21:00)
[2017-02-15] MEDS ORDERED: DAPTOmycin INJ 600 MG in SODIUM CHLORIDE 0.9% INJ 100 ML IV ONE (21:00)
[2017-02-15] MEDS ORDERED: GABAPENTIN 100 MG CAP PO SCH (21:00)
[2017-02-15] MEDS: BUMETANIDE 1 MG TAB PO SCH (21:01)
[2017-02-15] MEDS: DOCUSATE SODIUM 50 MG/SENNA 8.6 MG TAB PO SCH (21:02)
[2017-02-15] MEDS: METOPROLOL TARTRATE 25 MG TAB PO SCH (21:02)
[2017-02-15] MEDS: SODIUM CHLORIDE 0.9% FLUSH 10 ML FLUSH IV FLUSH SCH (21:02)
[2017-02-16] VITALS: BP 129/60; PULSE 54; RESP 17; TEMP 97.9; O2SAT 94
[2017-02-16 04:30] VITALS: BP 122/55; PULSE 54; RESP 17; TEMP 97.6; O2SAT 97
[2017-02-16] MEDS ORDERED: LEVOTHYROXINE SODIUM 25 MCG TAB PO SCH (06:00)
[2017-02-16] MEDS ORDERED: LEVOTHYROXINE SODIUM 112 MCG TAB PO SCH (06:00)
[2017-02-16] MEDS: INSULIN ASPART SUPPLEMENTAL SCALE SQ SCH ×2 (06:24→10:56)
[2017-02-16 08:07] VITALS: BP 102/51; PULSE 55; RESP 20; TEMP 98.1; O2SAT 93
[2017-02-16] MEDS: METOPROLOL TARTRATE 25 MG TAB PO SCH (08:35)
[2017-02-16] MEDS: ISOSORBIDE MONONITRATE 20 MG TAB PO SCH ×2 (08:41→10:44)
[2017-02-16] MEDS: CALCIUM ACETATE 667 MG CAP PO SCH (08:50)
[2017-02-16] MEDS: BUMETANIDE 1 MG TAB PO SCH (08:51)
[2017-02-16] MEDS: DOCUSATE SODIUM 50 MG/SENNA 8.6 MG TAB PO SCH (08:51)
[2017-02-16] MEDS: SODIUM CHLORIDE 0.9% FLUSH 10 ML FLUSH IV FLUSH SCH (08:51)
[2017-02-16] MEDS ORDERED: ASPIRIN 81 MG CHEW TAB PO SCH (09:00)
[2017-02-16] MEDS ORDERED: CARVEDILOL 3.125 MG TAB PO SCH (09:15)
[2017-02-16 09:38] LABS: AUTOMATED NEUTROPHIL # 3.3 TH/MM3 (1.8-7.7); BASOPHIL % 0.6 % (0.0-2.0); EOSINOPHIL # 0.3 TH/MM3 (0-0.4); EOSINOPHIL % 4.8 % (0.0-4.0); HEMATOCRIT 31.8 % (35.0-46.0); HEMO FLAGS DIFF FINAL; LYMPH % 34.6 % (9.0-44.0); LYMPHOCYTE # 2.3 TH/MM3 (1.0-4.8); MEAN CORPUSCULAR HEMOGLOBIN 32.5 PG (27.0-34.0); MEAN CORPUSCULAR HGB CONC 33.5 % (32.0-36.0); PLATELET COUNT 185 TH/MM3 (150-450); RED BLOOD COUNT 3.28 MIL/MM3 (4.00-5.30); RED CELL DISTRIBUTION WIDTH 14.8 % (11.6-17.2); WHITE BLOOD COUNT 6.7 TH/MM3 (4.0-11.0)
[2017-02-16] MEDS ORDERED: INFLUENZA VIRUS VACCINE (QUADRIVALENT) 0.5 ML SYR IM ONE (10:00)
[2017-02-16 10:05] VITALS: PULSE 56
[2017-02-16] MEDS ORDERED: CARV3.125 PO (10:08)
--- NOTE | 2017-02-16 10:08 | HHI.DCPOC ---
Discharge Care Plan Diagnosis: (1) Altered mental status (2) Twitching Your Health Problems Are: Anxiety Difficulty with ADL Goals to Promote Your Health * To prevent worsening of your condition and complications * To maintain your health at the optimal level Directions to Meet Your Goals Take your medications as prescribed Follow your dietary instruction Follow activity as directed Keep your appointments as scheduled Take your immunizations and boosters as scheduled If your symptoms worsen call your PCP, if no PCP go to Urgent Care Center or Emergency Room Smoking is Dangerous to Your Health. Avoid second hand smoke Call the 24-hour hour crisis hotline for domestic abuse at Manjula Daniels [facility] Feb 16, 2017 10:08
--- NOTE | 2017-02-16 10:10 | HHI.PR ---
Subjective Remarks awake, oriented x 3 no dizziness no cp no sob HR 50s eating well anxious to go, has appointment with OP therapy no fever no twitching had HD yesterday Objective Objective Results - Vital Signs Date Time Temp Pulse Resp B/P Pulse Ox O2 Delivery O2 Flow Rate FiO2 02/16/17 10:05 56 02/16/17 08:07 98.1 55 20 102/51 93 02/16/17 04:30 97.6 54 17 122/55 97 02/16/17 00:00 97.9 54 17 129/60 94 02/15/17 20:00 98.0 60 17 132/60 95 02/15/17 16:58 98.1 70 20 141/107 99 02/15/17 11:00 98.1 92 18 147/86 99 Nasal Cannula 2 I/O 02/15/17 02/15/17 02/15/17 02/16/17 02/16/17 02/16/17 07:00 15:00 23:00 07:00 15:00 23:00 Intake Total 360 ml Output Total 0 ml Balance 0 ml 360 ml Intake Oral 360 ml Output Hemodialysis 0 ml # Voids 6 Result Diagram: 02/16/17 0833 02/15/17 1020 Imaging Last Impressions Chest X-Ray 02/15/17 1007 Signed Impressions: Service Date/Time: Wednesday, February 15, 2017 10:23 - CONCLUSION: 1. Cardiomegaly. 2. No acute focal pulmonary infiltrate or pulmonary vascular congestion. Nickolas Toscano MD Other Results Laboratory Tests Test 02/15/17 02/15/17 02/15/17 02/16/17 10:20 11:19 11:38 08:33 White Blood Count 8.3 6.7 Red Blood Count 4.00 3.28 Hemoglobin 12.7 10.7 Hematocrit 39.8 31.8 Mean Corpuscular Volume 99.6 97.0 Mean Corpuscular Hemoglobin 31.7 32.5 Mean Corpuscular Hemoglobin 31.8 33.5 Concent Red Cell Distribution Width 15.0 14.8 Platelet Count 234 185 Mean Platelet Volume 7.4 7.8 Neutrophils (%) (Auto) 71.1 49.0 Lymphocytes (%) (Auto) 18.6 34.6 Monocytes (%) (Auto) 8.4 11.0 Eosinophils (%) (Auto) 1.6 4.8 Basophils (%) (Auto) 0.3 0.6 Neutrophils # (Auto) 5.9 3.3 Lymphocytes # (Auto) 1.5 2.3 Monocytes # (Auto) 0.7 0.7 Eosinophils # (Auto) 0.1 0.3 Basophils # (Auto) 0.0 0.0 CBC Comment DIFF FINAL DIFF FINAL Differential Comment Prothrombin Time 10.8 Prothromb Time International 1.0 Ratio Sodium Level 134 Potassium Level 4.7 Chloride Level 101 Carbon Dioxide Level 21.7 Anion Gap 11 Blood Urea Nitrogen 41 Creatinine 9.72 Estimat Glomerular Filtration 4 Rate Random Glucose 117 Lactic Acid Level 1.5 Calcium Level 8.7 Total Bilirubin 0.4 Aspartate Amino Transf 23 (AST/SGOT) Alanine Aminotransferase 19 (ALT/SGPT) Alkaline Phosphatase 79 Total Creatine Kinase 117 Troponin I 0.18 Total Protein 7.7 Albumin 3.7 Thyroid Stimulating Hormone LESS THAN 3rd Gen 0.005 Urine Color YELLOW Urine Turbidity CLOUDY Urine pH 5.0 Urine Specific [place] 1.027 Urine Protein 100 Urine Glucose (UA) NEG Urine Ketones TRACE Urine Occult Blood SMALL Urine Nitrite NEG Urine Bilirubin NEG Urine Urobilinogen 2.0 Urine Leukocyte Esterase LARGE Urine RBC 7 Urine WBC 1 Urine Squamous Epithelial 1 Cells Urine Amorphous Sediment FEW Urine Bacteria OCC Urine Hyaline Casts 10 Urine Granular Casts 5 Microscopic Urinalysis Comment CATH-CULTURE IND Ammonia 12 Date/Time Procedure Status Source Growth 02/15/17 11:30 Aerobic Blood Culture Received Blood Peripheral Pending 02/15/17 11:30 Anaerobic Blood Culture Received Blood Peripheral Pending 02/15/17 11:19 Urine Culture Received Urine Catheterized Urine Pending ROS General: No: Fatigue, Weakness HEENT: No: Sore Throat, Dysphagia Cardiac: No: Chest Pain, Edema, Palpitations Pulmonary: No: Cough, SOB, Wheezing GI: No: Abdominal Pain, BM, Diarrhea, N/V /BINDING MACHINE OPERATOR: No: Dysuria, Urgency Neuro/MS: No: Lightheaded, Confusion Psych: No: Anxiety, Depression Skin: No: Itching, Rash Physical Exam Physical Exam GENERAL: This is a well-nourished, well-developed patient, in no apparent distress. SKIN: No rashes, ecchymoses or lesions. Cool and dry. Permacath noted to the left chest wall. Site without any redness, no erythema, no drainage. HEAD: Atraumatic. Normocephalic. No temporal or scalp tenderness. EYES: Pupils equal round and reactive. Extraocular motions intact. No scleral icterus. No injection or drainage. ENT: Nose without bleeding, purulent drainage or septal hematoma. Throat without erythema, tonsillar hypertrophy or exudate. Uvula midline. Airway patent. NECK: Trachea midline. No JVD or lymphadenopathy. Supple, nontender, no meningeal signs. CARDIOVASCULAR: Regular rate and rhythm with soft murmur, no gallops, no rubs. RESPIRATORY: Clear to auscultation. Breath sounds equal bilaterally. No wheezes , rales, or rhonchi. GASTROINTESTINAL: Abdomen soft, non-tender, nondistended. No hepato-splenomegaly , or palpable masses. No guarding. MUSCULOSKELETAL: Right below the knee amputation. Left upper extremity with scar from left AV fistula formation. Incision is healing well, minimal redness. No other joint abnormality. Left pedal pulse 2+. NEUROLOGICAL: Awake, alert and oriented 3. No focal deficits. Urinary Catheter: No Vascular Central Line Catheter: No A/P Diagnosis: (1) Altered mental status (2) Twitching (3) ESRD (end stage renal disease) (4) Dehydration (5) Anemia (6) Hypothyroidism (7) Hyperlipidemia (8) Anxiety (9) Hypertension (10) Type 2 diabetes mellitus (11) Cardiomyopathy Assessment and Plan 56-year-old female with history of end-stage renal disease on dialysis, diabetes. Presented to the emergency room with altered mental status, and twitching. Twitching, altered mental status. Likely multifactorial, possible medication induced, rule out infection, possibly due to dehydration. -back to baseline, no twitching -d/w renal, recommends to dc Gabapentin. End-stage renal disease on dialysis Appreciate nephrology input, continue with hemodialysis per schedule -Patient has a AV fistula in place, has not matured. Has a permacath in place Reported fever, none during this admission, WBC stable -Blood cultures have been completed, follow up on results -Urine culture pending -did receive one dose of Dapto, cultures negative -f/u culture with nephrology Type 2 diabetes Accu-Cheks before meals and at bedtime with insulin therapy as needed Elevated troponin, denies any chest pain Likely secondary to CKD -Monitor for any chest pain -no cp, stable Hypertension, stable Continue home medications -sangeetha moe/w Dr. Jalloh, recommends to stop Lopressor and use Coreg low dose instead Hyperlipidemia, stable Continue home medication Cardiomyopathy, stable Continue home medications stable, awake, oriented x 3 no fever ok for dc per Dr. Jalloh f/u Dr. Jalloh Diet-diabetic Activity-as tolerated d/w RN d/w Dr. Wynn d/w Dr. Jalloh d/w pt This patient was seen by myself and Dr. Wynn, this note is written on his behalf Discharge Planning 40 Problem Qualifiers (1) Altered mental status: Qualified Code: R40.0 - Somnolence (2) Anemia: Qualified Code: N18.6 - Anemia in chronic kidney disease, on chronic dialysis (3) Hypothyroidism: Qualified Code: E03.9 - Hypothyroidism, unspecified type (4) Hyperlipidemia: Qualified Code: E78.5 - Hyperlipidemia, unspecified hyperlipidemia type (5) Hypertension: Qualified Code: I10 - Essential hypertension (6) Type 2 diabetes mellitus: Qualified Code: E11.22 - Type 2 diabetes mellitus with chronic kidney disease on chronic dialysis, unspecified detention insulin use status (7) Cardiomyopathy: Qualified Code: I42.9 - Cardiomyopathy, unspecified type Manjula Daniels Feb 16, 2017 10:10
[2017-02-16 10:13] LABS: BICARBONATE 29.9 MEQ/L (21.0-32.0); POTASSIUM 3.4 MEQ/L (3.5-5.1)
--- NOTE | 2017-02-16 14:46 | HHI.NPPN ---
Subjective General Problems: Anemia Renal Failure: Chronic, End Stage Renal Disease Interval History Dialyzed yesterday without fluid removal. Her tremors have improved. Seen today at 1000. (Ekta Vega) Review of Systems Neuro Neuro Remarks shaking (Ekta Vega) Objective Data Data 02/15/17 02/16/17 18:59 06:59 Intake Total 360 ml Output Total 0 ml Balance 0 ml 360 ml Intake Oral 360 ml Output Hemodialysis 0 ml # Voids 6 Vital Signs Date Time Temp Pulse Resp B/P Pulse Ox O2 Delivery O2 Flow Rate FiO2 02/16/17 10:05 56 02/16/17 08:07 98.1 55 20 102/51 93 02/16/17 04:30 97.6 54 17 122/55 97 02/16/17 00:00 97.9 54 17 129/60 94 02/15/17 20:00 98.0 60 17 132/60 95 02/15/17 16:58 98.1 70 20 141/107 99 (Ekta Vega) -: 02/16/17 0833 02/16/17 0833 Imaging Last 72 hours Impressions Chest X-Ray 02/15/17 1007 Signed Impressions: Service Date/Time: Wednesday, February 15, 2017 10:23 - CONCLUSION: 1. Cardiomegaly. 2. No acute focal pulmonary infiltrate or pulmonary vascular congestion. Nickolas Toscano MD Tubes & Lines: Perma-Cath (Ekta Vega) Physical Exam General Appearance: No Acute Distress, Comfortable, Malnourished (Ekta Vega) Throat Throat Exam: Oral Mucosa Murdock & Moist (Ekta Vega) Pulmonary Resp Exam: Clear Bilaterally, Breath Sounds Equal (Ekta Vega) Cardiology CV Exam: Normal Sinus Rhythm, Good Perfusion, Bradycardia (Ekta Vega) Gastrointestinal/Abdomen GI Exam: Soft, Non-Tender, Bowel Sounds Present (Ekta Vega) Musculoskeletal MS Exam: Normal Tone MS Remarks right BKA (Ekta Vega) Integumentary Skin Exam: Warm, Dry Skin Remarks AVF right upper ext, + thrill/bruit (Ekta Vega) Neurologic Neuro Exam: Alert, Awake, Oriented, Speech Clear, Moving All Extremities ( Ekta Vega) Psychiatric Psych Exam: Appropriate Responses (Ekta Vega) Assessment/Plan Discussed Condition With: Patient Assessment Summary: Anemia of CKD, Hypertension, End Stage Renal Disease Problem List: (1) End stage renal disease Plan: dialyzed yesterday, no fluid removal thought she was dehydrated, given IVF in ER She is stable today, cleared for discharge Permcath for dialysis, her AVF is not mature as of now (2) Type 2 diabetes mellitus Plan: to be discharged on prior regimen, including glipizide (3) Hypertension Plan: she is bradycardic metoprolol changed to coreg, to be given at discharge (4) Metabolic bone disease Plan: resumed calcium acetate (5) Twitching Plan: advised to stop gabapentin she already feels improvement (Ekta Vega) Plan patient was seen and examined. Agree with above assessment and plan. Metoprolol changed to Carvedilol. Gabapentin to be stopped. Discussed with the patient. ( Ti Jalloh MD) Problem Qualifiers (1) Type 2 diabetes mellitus: Qualified Code: E11.22 - Type 2 diabetes mellitus with chronic kidney disease on chronic dialysis, unspecified intermodal customer service insulin use status (2) Hypertension: Qualified Code: I10 - Essential hypertension Ekta Vega Feb 16, 2017 14:46 Ti Jalloh MD Feb 16, 2017 20:08
== END 2017-02-16 11:15 | disposition home or self-care (01) ==
LOC: NEPE 09:47 → NEDA 12:07 → N05A 16:33
PROVIDERS: ADMIT Specialist; ATTEND Specialist
DX: N18.6 End stage renal disease (principal); I12.0 Hypertensive chronic kidney disease with stage 5 chronic kidney disease or end stage renal disease; E11.22 Type 2 diabetes mellitus with diabetic chronic kidney disease; D63.1 Anemia in chronic kidney disease; I42.9 Cardiomyopathy, unspecified; R41.82 Altered mental status, unspecified; G47.33 Obstructive sleep apnea (adult) (pediatric); R94.31 Abnormal electrocardiogram [ECG] [EKG]; E11.42 Type 2 diabetes mellitus with diabetic polyneuropathy; E03.9 Hypothyroidism, unspecified; E86.0 Dehydration; G25.3 Myoclonus; E88.89 Other specified metabolic disorders; F41.9 Anxiety disorder, unspecified; I73.9 Peripheral vascular disease, unspecified; R56.9 Unspecified convulsions; E78.5 Hyperlipidemia, unspecified; Z79.4 Long term (current) use of insulin; Z99.2 Dependence on renal dialysis; Z87.891 Personal history of nicotine dependence; Z89.511 Acquired absence of right leg below knee
CPT/HCPCS: 71010; 76937; 80048; 80053; 81001; 82140; 82550; 82948; 83605; 84443; 84484; 85025; 85610; 87040; 87086; 93005; 96374; 99285; G0257; G0378; J0878; J1580; J1644; J7030; J7040; 90935

== ENCOUNTER → 2017-03-30 | Day surgery (SDC) | payer MEDICARE, MEDICAID ==
[~2017-03-30] VITALS: Ht 149.9 cm; Wt 102.5 kg
[~2017-03-30] MED LIST changes: +*HYDROmorphone PF 1 MG VIAL PERIprocedural Use ONLY ONE; +ACETAMINOPHEN 1000 MG/100 ML 100 ML IV ONE; +ACETAMINOPHEN 325 MG TAB PO PRN; +ALBUMIN HUMAN 25% 25 GM/100 ML BAGP IV PRN; +BUPIVACAINE HCL PF 0.5% 30 ML VIAL ONE; +CARV3.125 PO; +CHLORHEXIDINE GLUCONATE 2 % 1 PACK (2 CLOTHS) TOPICAL PRN; +DO NOT ADM ANY ANTICOAGULANT DRUGS PRN; +FAMOTIDINE 20 MG/2 ML VIAL ONE; -GABA100C4 PO; +GELATIN 12 MM/7 MM FOAM TOP PRN; +GENTAMICIN SULFATE (DIALYSIS USE ONLY) 20 MG/2 ML VIAL OTHER PRN; +HEPARIN SODIUM - IV 10,000 UNITS/10 ML VIAL IV FLUSH PRN; +HEPARIN SODIUM - IV 10,000 UNITS/10 ML VIAL ONE; +HEPARIN SODIUM - IV 10,000 UNITS/10 ML VIAL PRN; +HEPARIN-NS/PF INJ 500 ML ONE; +INSULIN HUMAN REGULAR 1,000 UNITS/10 ML VIAL SQ PRN; +IOHEXOL 300 MG/ML 50 ML BTL (for RAD DIAG) IVCONTRAST ONE; +IOHEXOL 350 MG/ML 100 ML BTL (for RAD DIAG) IVCONTRAST ONE; +LACTATED RINGER'S 1000 ML IV PRN; +LIDOCAINE HCL 1% PF 5 ML AMPULE OTHER ONE; +MANNITOL 12.5 GM/50 ML VIAL IV PRN; -METO25TA3 PO; +METOPROLOL TARTRATE 25 MG TAB PO PRN; +MIDAZOLAM HCL 2 MG/2 ML VIAL ONE; +NITROGLYCERIN 0.4 MG SL 25 TABS/BTL SL PRN; +ONDANSETRON HCL 4 MG/2 ML VIAL IV PUSH ONE; +ONDANSETRON HCL 4 MG/2 ML VIAL IV PUSH PRN; +POVIDONE IODINE 5% (ANTISEPSIS KIT) 4 APPLICATIONS EACH NARE PRN; +PROPOFOL 200 MG/20 ML AMP IV ONE; +PROTAMINE SULFATE 50 MG/5 ML VIAL ONE; +ROCURONIUM INJ 50 MG/5 ML SYRINGE IV PUSH ONE; +SEVELAMER CARBONATE 800 MG TAB PO SCH; +SODIUM CHLOR 0.9% 1000 ML INJ 1,000 ML IV PRN; +SODIUM CHLOR 0.9% 1000 ML INJ 1,000 ML OTHER PRN; +SODIUM CHLOR 0.9% 250 ML INJ 250 ML IV ONE; +SODIUM CHLORID 0.9% 500 ML IV PRN; +SODIUM CHLORIDE 0.9% FLUSH 10 ML FLUSH IV FLUSH PRN; +SUGAMMADEX SODIUM 200 MG/2 ML VIAL IV PUSH ONE; +THROMBIN (TOPICAL) 20,000 UNIT SPRAY KIT ONE; +ceFAZolin 2 GM PREMIX 50 ML ONE; +cloNIDine HCL 0.1 MG TAB PO PRN; +diphenhydrAMINE HCL 25 MG CAP PO PRN; +ePHEDrine/NS 25 MG/5 ML SYR IV ONE
--- NOTE | 2017-03-30 11:13 | RADRPT ---
EXAM DATE/TIME: 03/30/2017 10:35 [facility] COMPARISON: CHEST SINGLE AP, February 15, 2017, 10:23. INDICATIONS : Pre op revision of fistula repair. Evaluate for pneumonia, pneumothorax, or communicable diseases. MEDICAL HISTORY : Renal failure, acute, History of ESRD, HTN, DM, CAD, PVD, hypothyroidism, hyperlipidemia SURGICAL HISTORY : section. Tubal ligation, History of permacath placement and removal, right BKA with later re vision, ENCOUNTER: Initial ACUITY: 1 day PAIN SCORE: 0/10 LOCATION: Bilateral chest FINDINGS: A single view of the chest demonstrates the lungs to be symmetrically aerated without evidence of mas s, infiltrate or effusion. Stable left IJ dialysis catheter in place. The cardiomediastinal contours are unremarkable. Osseous structures are intact. CONCLUSION: 1. No acute cardiopulmonary disease. Jamie Pitts MD on March 30, 2017 at 11:10 Board Certified Radiologist. This report was verified electronically.
[2017-03-30 11:40] LABS: AUTOMATED NEUTROPHIL # 5.6 TH/MM3 (1.8-7.7); BASOPHIL # 0.1 TH/MM3 (0-0.2); BASOPHIL % 0.7 % (0.0-2.0); EOSINOPHIL # 0.3 TH/MM3 (0-0.4); EOSINOPHIL % 3.6 % (0.0-4.0); HEMO FLAGS DIFF FINAL; LYMPH % 22.5 % (9.0-44.0); LYMPHOCYTE # 1.9 TH/MM3 (1.0-4.8); MEAN CELL VOLUME 97.4 FL (80.0-100.0); MEAN CORPUSCULAR HEMOGLOBIN 31.8 PG (27.0-34.0); MEAN CORPUSCULAR HGB CONC 32.7 % (32.0-36.0); MONO % 7.4 % (0.0-8.0); NEUT % 65.8 % (16.0-70.0); PLATELET COUNT 219 TH/MM3 (150-450); WHITE BLOOD COUNT 8.5 TH/MM3 (4.0-11.0)
[2017-03-30 11:53] LABS: APTT (PATIENT) 21.5 SEC (24.3-30.1); INTERNATIONAL NORMALIZED RATIO 0.9 RATIO; PROTHROMBIN TIME - PATIENT 10.4 SEC (9.8-11.6)
--- NOTE | 2017-03-30 12:09 | HHI.HP ---
History of Present Illness Chief Complaint: Failing L UE AVF History of Present Illness 56 yo female with L UE BC AVF, failed revision. On HD. No F/C/N/V and ready for angio/access revision. Past/Family/Social History Past Medical History MICHELET OA Hypercholesterolemia HTN DM ESRD Past Surgical History L BC AVF September 2016 Revision (proximal patch angioplasty and superficialization) December 2016 Social History - Family History NC Home Medications Active Scripts Carvedilol (Coreg) 3.125 Mg Tab, 3.125 MG PO Q12HR for Blood Pressure Management , #60 TAB 1 Refill Prov:Manjula Daniels 02/16/17 Atorvastatin (Lipitor) 20 Mg Tab, 20 MG PO HS for Cholesterol Management for 30 Days, TAB 1 Refill Prov:Manjula Daniels 04/04/16 Reported Medications Hydrocodone/Acetaminophen (Hydrocodon-Acetamin 7.5-325/15) 15 Ml Solution 01/29/17 Aspirin (Aspirin Children's) 81 Mg Chew, 81 MG PO DAILY, TAB 0 Refills 12/08/16 Calcium Acetate (Phosphate Binder) (Calcium Acetate (Phosphate Binder)) 667 Mg Tab, 667 MG PO TID for Hyperphosphatemia, #90 TAB 0 Refills 06/21/16 Zolpidem (Zolpidem) 5 Mg Tab, 10 MG PO HS Y for INSOMNIA, TAB 0 Refills 06/19/16 Bumetanide (Bumetanide) 1 Mg Tab, 2 MG PO BID, #60 TAB 0 Refills 06/19/16 Levothyroxine (Synthroid) 88 Mcg Tab, 0.137 MCG PO DAILY for Thyroid, #30 TAB 0 Refills 06/19/16 Isosorbide Mononitrate (Isosorbide Mononitrate) 10 Mg Tab, 10 MG PO DAILY for Prevent Chest Pain, #60 TAB Take 2 doses 7 hours apart. 06/19/16 Glipizide (Glipizide) 10 Mg Tab, 10 MG PO BIDAC for Blood Sugar Management, #60 TAB 0 Refills Take 30 minutes before a meal 06/19/16 Amlodipine (Norvasc) 10 Mg Tab, 10 MG PO DAILY for Blood Pressure Management, # 30 TAB 0 Refills 06/19/16 Coded Allergies: vancomycin (Verified Allergy, Severe, KIDNEY INJURY, 02/15/17) PER Jasmin BROWN MD, DO NOT USE VANCO. SEVERE KIDNEY INJURY. morphine (Verified Allergy, Intermediate, 02/15/17) "ITCHING EVERYWHERE" Review of Systems Constitutional: DENIES: Fever, Chills Cardiovascular: DENIES: Chest pain Physical Exam Vitals/I&O Date Time Temp Pulse Resp B/P (MAP) Pulse Ox O2 Delivery O2 Flow Rate FiO2 03/30/17 11:12 99.2 55 18 149/54 (85) 98 Neuro: alert, oriented HEENT: anicteric sclera Neck: No JVD Heart: reg rate, no M Lungs: clear B Vascular: + L UE thrill, small hematoma around upper arm hand ok Laboratory Tests Test 03/30/17 11:23 White Blood Count 8.5 Red Blood Count 3.80 Hemoglobin 12.1 Hematocrit 37.0 Mean Corpuscular Volume 97.4 Mean Corpuscular Hemoglobin 31.8 Mean Corpuscular Hemoglobin Concent 32.7 Red Cell Distribution Width 15.0 Platelet Count 219 Mean Platelet Volume 7.7 Neutrophils (%) (Auto) 65.8 Lymphocytes (%) (Auto) 22.5 Monocytes (%) (Auto) 7.4 Eosinophils (%) (Auto) 3.6 Basophils (%) (Auto) 0.7 Neutrophils # (Auto) 5.6 Lymphocytes # (Auto) 1.9 Monocytes # (Auto) 0.6 Eosinophils # (Auto) 0.3 Basophils # (Auto) 0.1 CBC Comment DIFF FINAL Differential Comment Prothrombin Time 10.4 Prothromb Time International Ratio 0.9 Activated Partial Thromboplast Time 21.5 Last 48 hours Impressions Chest X-Ray 03/30/17 0000 Signed Impressions: Service Date/Time: Thursday, March 30, 2017 10:35 - CONCLUSION: 1. No acute cardiopulmonary disease. Jamie Pitts MD Captor VTE Risk Assessment Caprini VTE Risk Assessment: Mod/High Risk (score >= 2) Caprini Risk Assessment Model Point Value = 1 Point Value = 2 Point Value = 3 Point Value = 5 Age 41-60 Minor surgery BMI > 25 kg/m2 Swollen legs Varicose veins or History of unexplained or recurrent spontaneous Oral contraceptives or hormone replacement Sepsis (< 1 month) Serious lung disease, including pneumonia (< 1 month) Abnormal pulmonary function Acute myocardial infarction Congestive heart failure (< 1 month) History of inflammatory bowel disease Medical patient at bed rest Age 61-74 Arthroscopic surgery Major open surgery (> 45 min) Laparoscopic surgery (> 45 min) Malignancy Confined to bed (> 72 hours) Immobilizing plaster cast Central venous access Age >= 75 History of VTE Family history of VTE Factor V Leiden Prothrombin [id number] Lupus anticoagulant Anticardiolipin antibodies Elevated serum homocysteine Heparin-induced thrombocytopenia Other congenital or acquired thrombophilia Stroke (< 1 month) Elective arthroplasty Hip, pelvis, or leg fracture Acute spinal cord injury (< 1 month) Prophylaxis Regimen Total Risk Factor Score Risk Level Prophylaxis Regimen 0-1 Low Early ambulation 2 Moderate Order ONE of the following: *Sequential Compression Device (SCD) *Heparin 5000 units SQ BID 3-4 Higher Order ONE of the following medications: *Heparin 5000 units SQ TID *Enoxaparin/Lovenox 40 mg SQ daily (WT < 150 kg, CrCl > 30 mL/min) *Enoxaparin/Lovenox 30 mg SQ daily (WT < 150 kg, CrCl > 10-29 mL/min) *Enoxaparin/Lovenox 30 mg SQ BID (WT < 150 kg, CrCl > 30 mL/min) AND/OR *Sequential Compression Device (SCD) 5 or more Highest Order ONE of the following medications: *Heparin 5000 units SQ TID (Preferred with Epidurals) *Enoxaparin/Lovenox 40 mg SQ daily (WT < 150 kg, CrCl > 30 mL/min) *Enoxaparin/Lovenox 30 mg SQ daily (WT < 150 kg, CrCl > 10-29 mL/min) *Enoxaparin/Lovenox 30 mg SQ BID (WT < 150 kg, CrCl > 30 mL/min) AND *Sequential Compression Device (SCD) Assessment and Plan Plan L UE Access revision Operative site marked To OR Nickolas Kim MD Mar 30, 2017 12:09
[2017-03-30 12:22] LABS: BICARBONATE 25.3 MEQ/L (21.0-32.0); POTASSIUM 4.8 MEQ/L (3.5-5.1)
--- NOTE | 2017-03-30 12:31 | PD.CONS ---
[facility] Service Nephrology Consult Requested By Reason for Consult ESRD on HD Primary Care Physician Clifton Hernandez M.D. History of Present Illness This is a 56 y/o female who was admitted for left AVF revison. She has a hx of ESRD on HD TTS. Also has HTN, anemia, metabolic bone disorder, and secondary hyperparathyroidism. She is seen in preparation for surgery today, has no complaints. Her dialysis was uneventful yesterday, is a full code. (Ekta Vega) Review of Systems Constitutional: DENIES: Fatigue, Weight gain, Change in appetite Musculoskeletal: DENIES: Joint pain Neurologic: DENIES: Abnormal gait (Ekta Vega) Past Family Social History Allergies: Coded Allergies: vancomycin (Verified Allergy, Severe, KIDNEY INJURY, 02/15/17) PER Jasmin BROWN MD, DO NOT USE VANCO. SEVERE KIDNEY INJURY. morphine (Verified Allergy, Intermediate, 02/15/17) "ITCHING EVERYWHERE" Past Medical History ESRD on HD TTS DM II HTN MICHELET hypothyroidism anemia metabolic bone disorder secondary hyperparathyroidism Past Surgical History left brachiocephalic AVF (10/2016) with revision/second step 12/08/16 right BKA PermCath placement (multiple) cesarian x 2 Reported Medications Carvedilol (Coreg) 3.125 Mg Tab, 3.125 MG PO Q12HR for Blood Pressure Management , #60 TAB 1 Refill Prov:Manjula Daniels 02/16/17 Atorvastatin (Lipitor) 20 Mg Tab, 20 MG PO HS for Cholesterol Management for 30 Days, TAB 1 Refill Prov:Manjula Daniels 04/04/16 Reported Medications Hydrocodone/Acetaminophen (Hydrocodon-Acetamin 7.5-325/15) 15 Ml Solution 01/29/17 Aspirin (Aspirin Children's) 81 Mg Chew, 81 MG PO DAILY, TAB 0 Refills 12/08/16 Calcium Acetate (Phosphate Binder) (Calcium Acetate (Phosphate Binder)) 667 Mg Tab, 667 MG PO TID for Hyperphosphatemia, #90 TAB 0 Refills 06/21/16 Zolpidem (Zolpidem) 5 Mg Tab, 10 MG PO HS Y for INSOMNIA, TAB 0 Refills 06/19/16 Bumetanide (Bumetanide) 1 Mg Tab, 2 MG PO BID, #60 TAB 0 Refills 06/19/16 Levothyroxine (Synthroid) 88 Mcg Tab, 0.137 MCG PO DAILY for Thyroid, #30 TAB 0 Refills 06/19/16 Isosorbide Mononitrate (Isosorbide Mononitrate) 10 Mg Tab, 10 MG PO DAILY for Prevent Chest Pain, #60 TAB Take 2 doses 7 hours apart. 06/19/16 Glipizide (Glipizide) 10 Mg Tab, 10 MG PO BIDAC for Blood Sugar Management, #60 TAB 0 Refills Take 30 minutes before a meal 06/19/16 Amlodipine (Norvasc) 10 Mg Tab, 10 MG PO DAILY for Blood Pressure Management, # 30 TAB 0 Refills 06/19/16 Active Ordered Medications Current Medications Medications (Trade) Dose Ordered Sig/Ezekiel Route Start Time Stop Time Status Last Admin Lactated Ringer's 1,000 ml @ 30 mls/hr Q24H PRN IV 03/30/17 11:00 04/02/17 10:59 Sodium Chloride 500 ml @ 30 mls/hr [id number] PRN IV 03/30/17 11:00 04/02/17 10:59 03/30/17 11:25 (Lopressor) 25 mg INTELLIGENCE SPECIALIST PRN PO 03/30/17 11:00 04/02/17 10:59 (Betadine 5% Antisepsis Kit) 1 applic INTELLIGENCE SPECIALIST PRN EACH NARE 03/30/17 11:00 04/02/17 10:59 03/30/17 11:33 (Chlorhexidine 2% Cloth) 3 pack INTELLIGENCE SPECIALIST PRN TOPICAL 03/30/17 11:00 04/02/17 10:59 03/30/17 10:40 (NovoLIN R INJ) See Protocol Table ... 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 (Ekta Vega) Physical Exam Vital Signs Vital Signs Date Time Temp Pulse Resp B/P (MAP) Pulse Ox O2 Delivery O2 Flow Rate FiO2 03/30/17 11:12 99.2 55 18 149/54 (85) 98 Physical Exam Obese, disheveled Middle aged female sitting up in bed awake, oriented x 3, no neuro deficit noted, poor dentition CV: S1/S2, RRR no murmurs or rubs Lungs: CTA bilaterally, no coughing or wheezing Abd: obese, soft, non tender Ext: right BKA, healed: no edema noted Skin: intact left arm with large healed incision PC left chest Laboratory Laboratory Tests Test 03/30/17 11:23 White Blood Count 8.5 Red Blood Count 3.80 Hemoglobin 12.1 Hematocrit 37.0 Mean Corpuscular Volume 97.4 Mean Corpuscular Hemoglobin 31.8 Mean Corpuscular Hemoglobin Concent 32.7 Red Cell Distribution Width 15.0 Platelet Count 219 Mean Platelet Volume 7.7 Neutrophils (%) (Auto) 65.8 Lymphocytes (%) (Auto) 22.5 Monocytes (%) (Auto) 7.4 Eosinophils (%) (Auto) 3.6 Basophils (%) (Auto) 0.7 Neutrophils # (Auto) 5.6 Lymphocytes # (Auto) 1.9 Monocytes # (Auto) 0.6 Eosinophils # (Auto) 0.3 Basophils # (Auto) 0.1 CBC Comment DIFF FINAL Differential Comment Prothrombin Time 10.4 Prothromb Time International Ratio 0.9 Activated Partial Thromboplast Time 21.5 Blood Urea Nitrogen 28 Creatinine 4.60 Random Glucose 200 Calcium Level 9.2 Sodium Level 136 Potassium Level 4.8 Chloride Level 104 Carbon Dioxide Level 25.3 Anion Gap 7 Estimat Glomerular Filtration Rate 10 (Ekta Vega) Result Diagram: 03/30/17 1123 03/30/17 1123 Imaging Last Impressions Chest X-Ray 03/30/17 0000 Signed Impressions: Service Date/Time: Thursday, March 30, 2017 10:35 - CONCLUSION: 1. No acute cardiopulmonary disease. Jamie Pitts MD (Ekta Vega) Assessment and Plan Problem List: (1) ESRD (end stage renal disease) ICD Codes: N18.6 - ESRD (end stage renal disease) Status: Acute Plan: We will plan to dialyze her TTS while admitted, orders entered stable from renal perspective avoid IVF obtain renal panel in AM using permcath for HD access high protein diet when able to eat (2) Anemia ICD Codes: D64.9 - Anemia, unspecified Status: Acute Plan: Hb stable no epogen required (3) Type 2 diabetes mellitus ICD Codes: E11.9 - Type 2 diabetes mellitus Status: Acute Plan: Insulin if needed maintain glucose 140-180 mg/dL while hospitalized (4) Hypertension ICD Codes: I10 - Hypertension Status: Acute Plan: resume home medications (5) Metabolic bone disease ICD Codes: E88.9 - Metabolic disorder, unspecified; M90.80 - Osteopathy in diseases classified elsewhere, unspecified site Status: Acute Plan: check phosphorus level in AM start renvela with meals (Ekta Vega) Assessment and Plan patient was seen and examined. Agree with above assessment and plan. (Ti Jalloh MD) Ekta Vega Mar 30, 2017 12:31 Ti Jalloh MD Mar 31, 2017 17:39
--- NOTE | 2017-03-30 14:28 | EKG ---
Date Performed: 03/30/2017 Time Performed: 11:27:07 PTAGE: 56 years EKG: SINUS BRADYCARDIA MARKED LEFT AXIS DEVIATION VOLTAGE CRITERIA FOR LVH MODERATE T-WAVE ABNOR MALITY ABNORMAL ECG PREVIOUS TRACING : 02/15/2017 10.00 Compared to prior tracing no significant change DOCTOR: Philip Davis Interpretating Date/Time 03/30/2017 14:26:57
--- NOTE | 2017-03-30 14:33 | HHI.PR ---
Immediate Post Op Note Procedure Date: Mar 30, 2017 Pre Op Diagnosis: failing L UE AVF Post Op Diagnosis: same Surgeon: Nickolas Kim Asphalt Paving Superintendent(s): none Procedure: 1. Thoracic aortogram w/ L UE angiogram 2. AVF SHELVING SUPERVISOR to 6mm 3. R PIPING ENGINEER Angioseal Findings: 1. 4cm long stenosis proximally, excellent result with SHELVING SUPERVISOR (6mm) 2. Focal stenosis in upper arm, SHELVING SUPERVISOR (6mm) Complications: none Specimen(s) removed: none Estimated blood loss: 10mL Anesthesia: General Drains: None Fluids: 300mL IVF Patient to: PACU Date/Time of Procedure: SEE SURGICAL CARE RECORD Nickolas Kim MD Mar 30, 2017 14:33
[2017-03-30 16:10] VITALS: BP 109/50; PULSE 53; RESP 20; TEMP 98.3; O2SAT 93
--- NOTE | 2017-03-31 06:46 | MP ---
cc: NICKOLAS KIM MD DATE OF SURGERY 03/30/2017 PREOPERATIVE DIAGNOSIS Failure of left upper extremity fistula. POSTOPERATIVE DIAGNOSIS Failure of left upper extremity fistula. PROCEDURE 1. Thoracic aortogram, left extremity angiogram. 2. Fistulogram with angioplasty of fistula x2 6 mm ATTENDING SURGEON Nickolas Kim MD ANESTHESIA General INDICATIONS Ms. Spencer is a 56-year-old female with end-stage renal disease who had a left brachiocephalic that was revised proximally. She has a residual stenosis and was taken to the operating room for surgical revision. Intraoperatively, it was found she had a focal stenosis of the anastomosis. The decision was made to attempt to angioplasty this. Upon angioplasty, we had an excellent technical result and there is no need for surgical revision. DESCRIPTION OF THE PROCEDURE Informed consent was obtained from the patient. She was taken to the operating room, placed supine on the operating table. An appropriate time-out was taken to ensure the patient's identity, operative site and planned procedure. The administration of 2 grams of Kefzol was initiated prior to the skin incision and will be discontinued after a single preoperative dose. Everyone in the room agreed with the time-out and we proceeded. Her bilateral groins and left arm were prepped and draped. A 21 gauge micropuncture needle was used to access the right common femoral artery. This was exchanged using Seldinger technique with a micropuncture sheath through which a 0.025 Glidewire was introduced and the micropuncture sheath was exchanged for a 5-Maori sheath. The Glidewire was passed into the ascending aorta and a pigtail catheter was placed over this and a thoracic aortogram was obtained. The Glidewire was reintroduced and the pigtail was exchanged for a vertebral catheter and the vertebral was used to select at the left subclavian artery and proximal brachial artery. A left upper extremity angiogram was obtained. The patient was systemically heparinized with 3000 units of IV heparin. A 0.035 Glidewire was introduced and the vertebral catheter was exchanged for a long vertebral catheter that was 120 cm in length. Using this vertebral catheter and Glidewire, we were able to navigate down the brachial artery and into the fistula itself. The Glidewire was placed in the central venous outflow of the fistula. The catheter was advanced over this and the glide was exchanged for a STORQ wire. The catheter and 5-Maori sheath were removed and the 6-Maori 90 cm sheath was introduced. Over the STORQ wire, a 5 and then 6-mm angioplasty balloon was used to angioplasty both the proximal and distal stenoses. The completion angiogram showed excellent result under recoil extravasation and there was no residual stenosis. The wire catheter and sheath were removed and the groin was closed with and Angio-Seal. There were no complications. I was present, scrubbed and performed the entire procedure. INTERPRETATION The patient has a bovine arch, but a patent left subclavian, axillary, antegrade vertebral flow and a patent brachial artery with a brachiocephalic fistula. There is a proximal stenosis and a distal stenosis both of which were successfully angioplasty without any difficulty. MD HAYLIE Bravo/WILLIAM /2:35 PM /6:33 AM
== END | disposition home or self-care (01) ==
LOC: HCVO 10:20
PROVIDERS: ATTEND Surgery
DX: T82.598A Other mechanical complication of other cardiac and vascular devices and implants, initial encounter (principal); I13.2 Hypertensive heart and chronic kidney disease with heart failure and with stage 5 chronic kidney disease, or end stage renal disease; N18.6 End stage renal disease; E11.22 Type 2 diabetes mellitus with diabetic chronic kidney disease; I50.9 Heart failure, unspecified; D64.9 Anemia, unspecified; E88.9 Metabolic disorder, unspecified
CPT/HCPCS: 01916; 36902; 71010; 75710; 80048; 85025; 85610; 85730; 86850; 86900; 86901; 93005; C1725; C1769; J0131; J0690; J1170; J1644; J2250; J2405; J2720; J3010; J7040; J7050; Q9967

== ENCOUNTER 2017-07-11 08:44 | Emergency (ER) | payer MEDICARE, MEDICAID ==
[~2017-07-11] VITALS: Ht 152.4 cm; Wt 101.0 kg
[~2017-07-11 08:44] MED LIST changes: -*HYDROmorphone PF 1 MG VIAL PERIprocedural Use ONLY ONE; -ACETAMINOPHEN 1000 MG/100 ML 100 ML IV ONE; -ACETAMINOPHEN 325 MG TAB PO PRN; -ALBUMIN HUMAN 25% 25 GM/100 ML BAGP IV PRN; -BUPIVACAINE HCL PF 0.5% 30 ML VIAL ONE; -CHLORHEXIDINE GLUCONATE 2 % 1 PACK (2 CLOTHS) TOPICAL PRN; -DO NOT ADM ANY ANTICOAGULANT DRUGS PRN; -FAMOTIDINE 20 MG/2 ML VIAL ONE; -GELATIN 12 MM/7 MM FOAM TOP PRN; -GENTAMICIN SULFATE (DIALYSIS USE ONLY) 20 MG/2 ML VIAL OTHER PRN; -HEPARIN SODIUM - IV 10,000 UNITS/10 ML VIAL IV FLUSH PRN; -HEPARIN SODIUM - IV 10,000 UNITS/10 ML VIAL ONE; -HEPARIN SODIUM - IV 10,000 UNITS/10 ML VIAL PRN; -HEPARIN-NS/PF INJ 500 ML ONE; -INSULIN HUMAN REGULAR 1,000 UNITS/10 ML VIAL SQ PRN; -IOHEXOL 300 MG/ML 50 ML BTL (for RAD DIAG) IVCONTRAST ONE; -IOHEXOL 350 MG/ML 100 ML BTL (for RAD DIAG) IVCONTRAST ONE; -LACTATED RINGER'S 1000 ML IV PRN; -LIDOCAINE HCL 1% PF 5 ML AMPULE OTHER ONE; -MANNITOL 12.5 GM/50 ML VIAL IV PRN; -METOPROLOL TARTRATE 25 MG TAB PO PRN; -MIDAZOLAM HCL 2 MG/2 ML VIAL ONE; -NITROGLYCERIN 0.4 MG SL 25 TABS/BTL SL PRN; -ONDANSETRON HCL 4 MG/2 ML VIAL IV PUSH ONE; -ONDANSETRON HCL 4 MG/2 ML VIAL IV PUSH PRN; -POVIDONE IODINE 5% (ANTISEPSIS KIT) 4 APPLICATIONS EACH NARE PRN; -PROPOFOL 200 MG/20 ML AMP IV ONE; -PROTAMINE SULFATE 50 MG/5 ML VIAL ONE; -ROCURONIUM INJ 50 MG/5 ML SYRINGE IV PUSH ONE; -SEVELAMER CARBONATE 800 MG TAB PO SCH; -SODIUM CHLOR 0.9% 1000 ML INJ 1,000 ML IV PRN; -SODIUM CHLOR 0.9% 1000 ML INJ 1,000 ML OTHER PRN; -SODIUM CHLOR 0.9% 250 ML INJ 250 ML IV ONE; -SODIUM CHLORID 0.9% 500 ML IV PRN; -SODIUM CHLORIDE 0.9% FLUSH 10 ML FLUSH IV FLUSH PRN; -SUGAMMADEX SODIUM 200 MG/2 ML VIAL IV PUSH ONE; -THROMBIN (TOPICAL) 20,000 UNIT SPRAY KIT ONE; -ceFAZolin 2 GM PREMIX 50 ML ONE; -cloNIDine HCL 0.1 MG TAB PO PRN; -diphenhydrAMINE HCL 25 MG CAP PO PRN; -ePHEDrine/NS 25 MG/5 ML SYR IV ONE
[2017-07-11 08:46] VITALS: BP 163/72; PULSE 63; RESP 16; TEMP 98.3; O2SAT 98
--- NOTE | 2017-07-11 09:26 | PD ---
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 She says she woke up this morning and is having vaginal bleeding. She is having some lower abdominal cramping pain. He has not had a period for about 5 years. She has not been sexually active for several years. There is no history of trauma and nothing is been in her vagina recently. She has had a tubal ligation. She has had section but is not aware of any other surgery. She had an amputation of her right leg in 2013 area and she has been on dialysis for 1-1/2 years. She has borderline diabetes. PFS Past Medical History Anemia: Yes Arthritis: Yes (HANDS, TOES, FEET) Autoimmune Disease: No Cancer: No Cardiac Catheterization: No Cardiovascular Problems: No High Cholesterol: No Diabetes: Yes Dialysis: Yes ([facility]) Diminished Hearing: No Endocrine: No Genitourinary: No Hepatitis: No Hiatal Hernia: No Hypertension: Yes Immune Disorder: No Musculoskeletal: Yes (ARTHRITIS) Neurologic: No Psychiatric: No Reproductive: No Respiratory: No Myocardial Infarction: No Pneumonia: Yes Renal Failure: Yes Sleep Apnea: Yes Thyroid Disease: Yes PNEUMOCCOCAL Vaccine (Year): 2 Menopausal: Yes : 2 Para: 2 Miscarriage: 0 : 0 Tubal Ligation: Yes Past Surgical History Abdominal Surgery: No AICD: No Body Medical Devices: CAHT. LEFT CHEST Cardiac Surgery: No Section: Yes (X2) Coronary Artery Bypass Graft: No Ear Surgery: No Endocrine Surgery: No Eye Surgery: No Genitourinary Surgery: No Gynecologic Surgery: Yes (2 C-SECT.,) Joint Replacement: No Oral Surgery: No Pacemaker: No Thoracic Surgery: Yes (AV CATH X4 LEFT CHEST) Other Surgery: Yes (RIGHT FOOT AMPUTATION DECEMBER 2013) Social History Alcohol Use: No Tobacco Use: No (QUIT 1988) Substance Use: No Allergies-Medications (Allergen,Severity, Reaction): Coded Allergies: vancomycin (Verified Allergy, Severe, KIDNEY INJURY, 07/11/17) PER Jasmin BROWN MD, DO NOT USE VANCO. SEVERE KIDNEY INJURY. morphine (Verified Allergy, Intermediate, 07/11/17) "ITCHING EVERYWHERE" Reported Meds & Prescriptions Reported Meds & Active Scripts Active [progestin] 10 Mg PO DAILY 5 Days Coreg (Carvedilol) 3.125 Mg Tab 3.125 Mg PO Q12HR Lipitor (Atorvastatin Calcium) 20 Mg Tab 20 Mg PO HS 30 Days Reported Hydrocodon-Acetamin 7.5-325/15 (Hydrocodone/Acetaminophen) 15 Ml Solution Aspirin Children's (Aspirin) 81 Mg Chew 81 Mg PO DAILY Calcium Acetate (Phosphate Binder) 667 Mg Tab 667 Mg PO TID Zolpidem (Zolpidem Tartrate) 5 Mg Tab 10 Mg PO HS PRN Bumetanide 1 Mg Tab 2 Mg PO BID Synthroid (Levothyroxine Sodium) 88 Mcg Tab 0.137 Mcg PO DAILY Isosorbide Mononitrate 10 Mg Tab 10 Mg PO DAILY Take 2 doses 7 hours apart. Glipizide 10 Mg Tab 10 Mg PO BIDAC Take 30 minutes before a meal Norvasc (Amlodipine Besylate) 10 Mg Tab 10 Mg PO DAILY Review of Systems General / Constitutional: No: Fever, Chills Eyes: No: Diploplia, Blurred Vision HENT: No: Headaches Respiratory: No: Cough Gastrointestinal: No: Nausea, Vomiting Genitourinary: Positive: Vaginal Bleeding, No: Frequency Musculoskeletal: No: Myalgias, Arthralgias Skin: No Rash, No Itching Neurologic: No: Weakness, Dizziness Hematologic/Lymphatic: No: Easy Bruising Physical Exam Narrative GENERAL: [-] SKIN: Focused skin assessment warm/dry. HEAD: Atraumatic. Normocephalic. EYES: Pupils equal and round. No scleral icterus. No injection or drainage. ENT: No nasal bleeding or discharge. Mucous membranes pink and moist. NECK: Trachea midline. No JVD. CARDIOVASCULAR: Regular rate and rhythm. No murmur appreciated. RESPIRATORY: No accessory muscle use. Clear to auscultation. Breath sounds equal bilaterally. GASTROINTESTINAL: Abdomen soft, non-tender, nondistended. Hepatic and splenic margins not palpable. 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 The cervical os is not seen. On bimanual exam I' m not able to feel the cervix. She has been told that her cervix is very high MUSCULOSKELETAL: No obvious deformities. No clubbing. No cyanosis. No edema. She has a right below-knee amputation NEUROLOGICAL: Awake and alert. No obvious cranial nerve deficits. Motor grossly within normal limits. Normal speech. PSYCHIATRIC: Appropriate mood and affect; insight and judgment normal. Data Data Last Documented VS Vital Signs Date Time Temp Pulse Resp B/P (MAP) Pulse Ox O2 Delivery O2 Flow Rate FiO2 07/11/17 10:03 58 17 145/58 (87) 96 Room Air 07/11/17 08:46 98.3 Orders Orders Complete Blood Count With Diff (07/11/17 09:16) Basic Metabolic Panel (Bmp) (07/11/17 09:16) Prothrombin Time / Inr (Pt) (07/11/17 09:16) Act Partial Throm Time (Ptt) (07/11/17 09:16) Type And Screen (07/11/17 09:16) Sodium Chlor 0.9% 1000 Ml Inj (Ns 1000 M (07/11/17 09:30) Ondansetron Inj (Zofran Inj) (07/11/17 09:30) Morphine Inj (Morphine Inj) (07/11/17 09:30) Morphine Inj (Morphine Inj) (07/11/17 09:30) Diphenhydramine Inj (Benadryl Inj) (07/11/17 09:30) Us Pelvis Comp W Transvaginal (07/11/17 09:16) Progesterone Inj (Progesterone Inj) (07/11/17 12:00) Labs Laboratory Tests Test 07/11/17 09:40 White Blood Count 13.6 TH/MM3 Red Blood Count 3.77 MIL/MM3 Hemoglobin 11.8 GM/DL Hematocrit 36.5 % Mean Corpuscular Volume 96.8 FL Mean Corpuscular Hemoglobin 31.3 PG Mean Corpuscular Hemoglobin Concent 32.3 % Red Cell Distribution Width 13.9 % Platelet Count 266 TH/MM3 Mean Platelet Volume 7.6 FL Neutrophils (%) (Auto) 77.0 % Lymphocytes (%) (Auto) 15.0 % Monocytes (%) (Auto) 4.7 % Eosinophils (%) (Auto) 2.2 % Basophils (%) (Auto) 1.1 % Neutrophils # (Auto) 10.6 TH/MM3 Lymphocytes # (Auto) 2.0 TH/MM3 Monocytes # (Auto) 0.6 TH/MM3 Eosinophils # (Auto) 0.3 TH/MM3 Basophils # (Auto) 0.1 TH/MM3 CBC Comment DIFF FINAL Differential Comment Prothrombin Time 10.2 SEC Prothromb Time International Ratio 1.0 RATIO Activated Partial Thromboplast Time 23.9 SEC Blood Urea Nitrogen 70 MG/DL Creatinine 6.20 MG/DL Random Glucose 225 MG/DL Calcium Level 9.2 MG/DL Sodium Level 137 MEQ/L Potassium Level 5.0 MEQ/L Chloride Level 102 MEQ/L Carbon Dioxide Level 26.0 MEQ/L Anion Gap 9 MEQ/L Estimat Glomerular Filtration Rate 7 ML/MIN MDM Medical Decision Making Medical Screen Exam Complete: Yes Emergency Medical Condition: Yes Medical Record Reviewed: Yes Differential Diagnosis Differential includes vaginal tear, postmenopausal bleeding Narrative Course Hemoglobin is 11.8. Coagulation is normal. An ultrasound was obtained. It is a limited exam as the patient did not tolerate the transvaginal exam. There is a small fibroid uterus with prominent endometrium at 10 mm. I have discussed the case with Dr. Quiles. He will follow the patient in the office. He recommends we initiate progestin 10 mg daily Diagnosis Primary Impression: Postmenopausal bleeding Referrals: Jean Claude Quiles MD Scripts [progestin] No Conflict Check 10 MG PO DAILY for 5 Days Prov: Joe Nieves MD 07/11/17 Disposition: 01 DISCHARGE HOME Condition: Stable Joe Nieves MD Jul 11, 2017 09:26
[2017-07-11] MEDS ORDERED: SODIUM CHLOR 0.9% 1000 ML INJ 1,000 ML IV SCH (09:30)
[2017-07-11] MEDS ORDERED: MORPHINE SULFATE 2 MG/ML INJ IV PUSH ONE ×2 (09:30)
[2017-07-11] MEDS ORDERED: diphenhydrAMINE HCL 50 MG/ML VIAL IV PUSH ONE (09:30)
[2017-07-11] MEDS ORDERED: ONDANSETRON HCL 4 MG/2 ML VIAL IV PUSH ONE (09:30)
[2017-07-11 09:52] LABS: AUTOMATED NEUTROPHIL # 10.6 TH/MM3 (1.8-7.7); BASOPHIL # 0.1 TH/MM3 (0-0.2); BASOPHIL % 1.1 % (0.0-2.0); EOSINOPHIL # 0.3 TH/MM3 (0-0.4); EOSINOPHIL % 2.2 % (0.0-4.0); HEMATOCRIT 36.5 % (35.0-46.0); HEMOGLOBIN 11.8 GM/DL (11.6-15.3); MEAN CELL VOLUME 96.8 FL (80.0-100.0); MEAN CORPUSCULAR HEMOGLOBIN 31.3 PG (27.0-34.0); MEAN CORPUSCULAR HGB CONC 32.3 % (32.0-36.0); MEAN PLATELET VOLUME 7.6 FL (7.0-11.0); MONO % 4.7 % (0.0-8.0); MONOCYTE # 0.6 TH/MM3 (0-0.9); PLATELET COUNT 266 TH/MM3 (150-450); RED BLOOD COUNT 3.77 MIL/MM3 (4.00-5.30); RED CELL DISTRIBUTION WIDTH 13.9 % (11.6-17.2); WHITE BLOOD COUNT 13.6 TH/MM3 (4.0-11.0)
[2017-07-11 10:03] VITALS: BP 145/58; PULSE 58; RESP 17; O2SAT 96
[2017-07-11 10:07] LABS: CALCIUM 9.2 MG/DL (8.5-10.1); PROTHROMBIN TIME - PATIENT 10.2 SEC (9.8-11.6)
[2017-07-11 10:11] LABS: CREATININE 6.2 MG/DL (0.50-1.00)
--- NOTE | 2017-07-11 11:20 | RADRPT ---
EXAM DATE/TIME: 07/11/2017 15:15 [facility] COMPARISON: No previous studies available for comparison. INDICATIONS : Bleeding for 1 day. MEDICAL HISTORY : Hypertension. Stage 5 renal disease. Dialysis. Diabetes. SURGICAL HISTORY : Tubal ligation. section. Right below knee amputation. AV cath. AV fistula, left arm. ENCOUNTER: Initial ACUITY: 1 day PAIN SCORE: 0/10 LOCATION: Bilateral pelvis MEASUREMENTS: TRANSABDOMINAL: UTERUS: 8.0 x 4.1 x 4.2 cm ENDOMETRIAL STRIPE: 10 mm RIGHT OVARY: Non visualized LEFT OVARY: 2.5 x 1.4 x 2.1 cm FINDINGS: Patient unable to tolerate transvaginal exam. UTERUS: Probable small uterine fibroid calcification with prominent endometrium RIGHT OVARY: Unable to visualize LEFT OVARY: Unremarkable MISCELLANEOUS: No free fluid. CONCLUSION: Limited exam. Patient could not tolerate transvaginal Probable small fibroid uterus with prominent endometrium at 10 mm. Rodriguez Hou MD FACR on July 11, 2017 at 11:16 Board Certified Radiologist. This report was verified electronically.
[2017-07-11] MEDS ORDERED: [UNRECOGNIZED DRUG - OTHER] PO (11:45)
[2017-07-11] MEDS ORDERED: PROGESTERONE IM ONE (12:00)
[2017-07-11] MEDS ORDERED: MEDR10TA7 PO (13:01)
[2017-07-25] MEDS ORDERED: HYDR-3580 PO (13:01)
[2017-07-25] MEDS ORDERED: ASPI-516 CHEW (13:02)
== END 2017-07-11 12:24 | disposition home or self-care (01) ==
LOC: PHED 08:44
DX: N95.0 Postmenopausal bleeding (principal); M19.90 Unspecified osteoarthritis, unspecified site; I12.0 Hypertensive chronic kidney disease with stage 5 chronic kidney disease or end stage renal disease; E11.22 Type 2 diabetes mellitus with diabetic chronic kidney disease; N18.6 End stage renal disease; Z99.2 Dependence on renal dialysis; Z87.891 Personal history of nicotine dependence; Z89.511 Acquired absence of right leg below knee
CPT/HCPCS: 76830; 76856; 80048; 85025; 85610; 85730; 86850; 86900; 86901; 96374; 96375; 99285; J1200; J2270; J2405; J7030

== ENCOUNTER 2017-07-12 11:05 | Observation (INO) | payer MEDICARE, MEDICAID ==
[~2017-07-12 11:05] MED LIST changes: +MEDR10TA7 PO; +[UNRECOGNIZED DRUG - OTHER] PO
[2017-07-12 11:06] VITALS: BP 172/68; PULSE 60; RESP 16; TEMP 99; O2SAT 96
--- NOTE | 2017-07-12 13:33 | PD ---
HPI . 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 She was seen yesterday in the [facility] ED for the same problem. Yesterday the pelvic exam was limited due to high placement of cervix. An ultrasound was limited exam as the patient did not tolerate the transvaginal exam but demonstrated a small fibroid uterus with prominent endometrial stripe at 10 mm. She was give 10mg progestin and a referral for an obgyn (Dr. Quiles). Unfortunately she reports the office informed her they are unable to take her insurance. She was scheduled for dialysis this am but the center refused to proceed due to her bleeding and she was referred here. Her last dialysis was Tuesday. The bleeding started yesterday morning when she woke up in a puddle of dark red and bright red blood per vagina. She is soaking one tampon every 30 minutes of bright red blood. She reports mild to moderate cramping but denies any other symptoms including fever/chills or abdominal pain. Her LMP was 6 years ago during which time she was experience hot flashes. Historically her periods lasted 2-3 days but were never to this degree of bleeding. She has had two c- sections and a tubal ligation but denies any other abdominal/pelvic surgery. She reports no family history of endometrial cancer or breast cancer. She reports taking no hormone products/soy, trauma, or recent intercourse. PFSH Past Medical History Anemia: Yes Arthritis: Yes (HANDS, TOES, FEET) Autoimmune Disease: No Cancer: No Cardiac Catheterization: No Cardiovascular Problems: No High Cholesterol: No Diabetes: Yes Patient Takes Glucophage: Yes (glipzide ) Dialysis: Yes ([facility]) Diminished Hearing: No Endocrine: No Genitourinary: No Hepatitis: No Hiatal Hernia: No Hypertension: Yes Immune Disorder: No Musculoskeletal: Yes (ARTHRITIS) Neurologic: No Psychiatric: No Reproductive: No Respiratory: No Myocardial Infarction: No Pneumonia: Yes Renal Failure: Yes Sleep Apnea: Yes Thyroid Disease: Yes PNEUMOCCOCAL Vaccine (Year): 2 Menopausal: Yes : 2 Para: 2 Miscarriage: 0 : 0 Tubal Ligation: Yes Past Surgical History Abdominal Surgery: No AICD: No Body Medical Devices: CAHT. LEFT CHEST Cardiac Surgery: No Section: Yes (X2) Coronary Artery Bypass Graft: No Ear Surgery: No Endocrine Surgery: No Eye Surgery: No Genitourinary Surgery: No Gynecologic Surgery: Yes (2 C-SECT.,) Joint Replacement: No Oral Surgery: No Pacemaker: No Thoracic Surgery: Yes (AV CATH X4 LEFT CHEST) Other Surgery: Yes (RIGHT BKA AMPUTATION DECEMBER 2013, Fistula left arm) Social History Alcohol Use: No Tobacco Use: No (QUIT 1988) Substance Use: No Allergies-Medications (Allergen,Severity, Reaction): Coded Allergies: vancomycin (Verified Allergy, Severe, KIDNEY INJURY, 07/12/17) PER Jasmin HERNANDEZ MD, DO NOT USE VANCO. SEVERE KIDNEY INJURY. morphine (Verified Allergy, Intermediate, 07/12/17) "ITCHING EVERYWHERE" Reported Meds & Prescriptions Reported Meds & Active Scripts Active Medroxyprogesterone Acetate 10 Mg Tab 10 Mg PO DAILY Start day 21 [progestin] 10 Mg PO DAILY 5 Days Coreg (Carvedilol) 3.125 Mg Tab 3.125 Mg PO Q12HR Lipitor (Atorvastatin Calcium) 20 Mg Tab 20 Mg PO HS 30 Days Reported Hydrocodon-Acetamin 7.5-325/15 (Hydrocodone/Acetaminophen) 15 Ml Solution Calcium Acetate (Phosphate Binder) 667 Mg Tab 667 Mg PO TID Zolpidem (Zolpidem Tartrate) 5 Mg Tab 10 Mg PO HS PRN Bumetanide 1 Mg Tab 2 Mg PO BID Synthroid (Levothyroxine Sodium) 88 Mcg Tab 0.137 Mcg PO DAILY Isosorbide Mononitrate 10 Mg Tab 10 Mg PO DAILY Take 2 doses 7 hours apart. Glipizide 10 Mg Tab 10 Mg PO BIDAC Take 30 minutes before a meal Norvasc (Amlodipine Besylate) 10 Mg Tab 10 Mg PO DAILY Review of Systems Except as stated in HPI: all other systems reviewed are Neg General / Constitutional: No: Fever, Chills Genitourinary: Positive: Pelvic Pain, Vaginal Bleeding, No: Hematuria, Dyspareunia, Discharge Physical Exam Narrative General: alert and oriented overweight middle aged female in no acute distress laying back in bed with dried blood on left foot HEENT: Atraumatic, normocephalic. Pupils equal and reactive. No injection. Hair on upper lip Cardiovascular: Regular sinus rhythm. No rubs, murmurs or gallops. Capillary refill <3 sec Pulmonary: Clear to auscultation bilaterally. No wheezes, rales, rhonchi Abdomen: Soft, tender to palpation in bilateral lower quadrants. No rebound tenderness. Skin: warm and dry Extremities: Right BKA, left foot with dried blood, fistula in left arm with good pulsation Neuro: No obvious cranial defects Data Data Last Documented VS Vital Signs Date Time Temp Pulse Resp B/P (MAP) Pulse Ox O2 Delivery O2 Flow Rate FiO2 07/12/17 11:06 99.0 60 16 172/68 (102) 96 Orders Orders Complete Blood Count With Diff (07/12/17 11:18) Basic Metabolic Panel (Bmp) (07/12/17 17:03) Consult Gynecology (07/12/17 ) Consult Nephrology (07/12/17 ) Diet Renal (07/12/17 Dinner) Labs Laboratory Tests Test 07/12/17 14:10 White Blood Count 10.4 TH/MM3 Red Blood Count 3.32 MIL/MM3 Hemoglobin 11.2 GM/DL Hematocrit 32.4 % Mean Corpuscular Volume 97.7 FL Mean Corpuscular Hemoglobin 33.6 PG Mean Corpuscular Hemoglobin Concent 34.4 % Red Cell Distribution Width 14.2 % Platelet Count 224 TH/MM3 Mean Platelet Volume 7.9 FL Neutrophils (%) (Auto) 71.2 % Lymphocytes (%) (Auto) 20.9 % Monocytes (%) (Auto) 5.6 % Eosinophils (%) (Auto) 1.8 % Basophils (%) (Auto) 0.5 % Neutrophils # (Auto) 7.4 TH/MM3 Lymphocytes # (Auto) 2.2 TH/MM3 Monocytes # (Auto) 0.6 TH/MM3 Eosinophils # (Auto) 0.2 TH/MM3 Basophils # (Auto) 0.1 TH/MM3 CBC Comment DIFF FINAL Differential Comment MDM Medical Decision Making Medical Screen Exam Complete: Yes Emergency Medical Condition: Yes Differential Diagnosis post-menopausal bleeding, endometrial cancer, uterine polyps, vaginal trauma, endometrial hyperplasia, adenomyosis, endometriosis Narrative Course Patient reported to ED with cc of profuse vaginal bleeding. She was seen yesterday in [place] for same problem. Yesterday the pelvic exam was limited due to high placement of the cervix and an transvaginal ultrasound was limited exam as the patient was unable to tolerate. It demonstrated a small fibroid uterus with prominent endometrium at 10 mm. The patient has been changing her tampon about every hour here in the emergency department. 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 Physician Communication Physician Communication Dr. Arreola or one of her partners will plan to do a D&C tomorrow. She has asked that the patient be admitted to medicine her many comorbidities. Dr. Cerrato will admit. Dr. Hernandez, nephrology, has been consulted. Diagnosis Primary Impression: Vaginal bleeding Admitting Information Admitting Physician Requests: Admit Condition: Stable Lisa Henao MD Jul 12, 2017 13:33
[2017-07-12 16:21] LABS: AUTOMATED NEUTROPHIL # 7.4 TH/MM3 (1.8-7.7); BASOPHIL # 0.1 TH/MM3 (0-0.2); BASOPHIL % 0.5 % (0.0-2.0); EOSINOPHIL # 0.2 TH/MM3 (0-0.4); EOSINOPHIL % 1.8 % (0.0-4.0); HEMATOCRIT 32.4 % (35.0-46.0); HEMOGLOBIN 11.2 GM/DL (11.6-15.3); LYMPH % 20.9 % (9.0-44.0); LYMPHOCYTE # 2.2 TH/MM3 (1.0-4.8); MEAN CELL VOLUME 97.7 FL (80.0-100.0); MEAN CORPUSCULAR HEMOGLOBIN 33.6 PG (27.0-34.0); MEAN CORPUSCULAR HGB CONC 34.4 % (32.0-36.0); MEAN PLATELET VOLUME 7.9 FL (7.0-11.0); MONO % 5.6 % (0.0-8.0); MONOCYTE # 0.6 TH/MM3 (0-0.9); NEUT % 71.2 % (16.0-70.0); PLATELET COUNT 224 TH/MM3 (150-450); RED BLOOD COUNT 3.32 MIL/MM3 (4.00-5.30); RED CELL DISTRIBUTION WIDTH 14.2 % (11.6-17.2); WHITE BLOOD COUNT 10.4 TH/MM3 (4.0-11.0)
[2017-07-12] MEDS ORDERED: NALOXONE HCL 0.4 MG/ML AMP IV PUSH PRN (17:30)
[2017-07-12] MEDS ORDERED: BISACODYL 10 MG SUPP RECTAL PRN (17:30)
[2017-07-12] MEDS ORDERED: ACETAMINOPHEN 325 MG TAB PO PRN (17:30)
[2017-07-12] MEDS ORDERED: SODIUM CHLORIDE 0.9% FLUSH 10 ML FLUSH IV FLUSH PRN (17:30)
[2017-07-12 17:44] VITALS: BP 198/78; PULSE 61; RESP 18; O2SAT 94
[2017-07-12] MEDS ORDERED: ONDANSETRON HCL 4 MG/2 ML VIAL IVP PRN (18:00)
[2017-07-12] MEDS ORDERED: LACTULOSE SYRUP 20 GM/30 ML CUP PO PRN (18:00)
--- NOTE | 2017-07-12 18:46 | HHI.HP ---
HPI Chief Complaint postmenopausal bleeding Travel History International Travel<30 Days: No Contact w/Intl Traveler<30Days: No Known Affected Area: No History of Present Illness HPI 56 yo postmenopausal female with a 2 day history of postmenopausal bleeding. She first noted bleeding yesterday and presented to [facility] ED for evaluation. She states that she was changing a soaked tampon q 30 min. She Had a TAUS (could not tolerate tvus) that noted and [id number] uterus, small fibroid, ES 10mm, ROV not seen , left ovary without abnormality. Pt was discussed w Dr. Quiles and she was started on Progesterone 10mg daily; she has had 2 doses. She continued to change pad every 30min- 1hour until she went to bed. She had very heavy bleeding at 3 am and has been changing her tampon hourly. She has not had a tampon in this last hour and has not had significant bleeding. Menarche was age 11, q 4 wk, duration of 3 days and light. Ten years ago she did have an episode of heavy VB and required a D&C. She was started on ocp after that. She went through menopause 6 years ago. Recalls having spotting for a couple of days 3 years ago; did not seek any evaluation. She denies a fam hx of uterine, ov, breast, colon cancer. Associated symptoms are cramping blq pain. She deneis sob, palpitations, fatigue. No fevers, chills , early satiety. she has not been sexually active in 10 years and has difficulty tolerating pelvic exam. She has a PMH that is significant for Renal failure, on dialysis since Apr 2016 , DM, R BKA, hypertension, hyperlipidemia, sleep apnea (not on cpap). She receives dialysis on . She did not go to dialysis today due to bleeding. BP 198/78 during pt evaluation, normal HR. Para: 2 : 2 History Past Medical History Narrative Medical Renal failure, on dialysis since Apr 2016 (previously on dialysis in 2013 after BKA due to kidney injury from vancomycin), DM, R BKA (non healing heal foot), hypertension, hyperlipidemia, sleep apnea (does not tolerate cpap). Obstetric History Obstetric History 2 ftcd Past Surgical History Narrative Surgical D&C 10 years ago, CDx2 and btl, R BKA 2013, Av fistula permacath (heart cath and cardiomyopathy on previous H&P with EF 40-45% in 2016; pt denies knowledge of cardiomyopathy or heart cath) Family History Family History: Negative Social History Alcohol Use: No Tobacco Use: No (former) Substance Abuse: No Allergies-Medications (Allergen,Severity, Reaction): Coded Allergies: vancomycin (Verified Allergy, Severe, KIDNEY INJURY, 07/12/17) PER Jasmin BROWN MD, DO NOT USE VANCO. SEVERE KIDNEY INJURY. morphine (Verified Allergy, Intermediate, 07/12/17) "ITCHING EVERYWHERE" Home Meds Active Scripts Medroxyprogesterone Acetate (Medroxyprogesterone Acetate) 10 Mg Tab, 10 MG PO DAILY for Uterine bleeding, #5 TAB 0 Refills Start day 21 Prov:Joe Nieves MD 07/11/17 [progestin] No Conflict Check, 10 MG PO DAILY for 5 Days Prov:Joe Nieves MD 07/11/17 Carvedilol (Coreg) 3.125 Mg Tab, 3.125 MG PO Q12HR for Blood Pressure Management , #60 TAB 1 Refill Prov:Manjula Daniels 02/16/17 Atorvastatin (Lipitor) 20 Mg Tab, 20 MG PO HS for Cholesterol Management for 30 Days, TAB 1 Refill Prov:Manjula Daniels 04/04/16 Reported Medications Hydrocodone/Acetaminophen (Hydrocodon-Acetamin 7.5-325/15) 15 Ml Solution 01/29/17 Aspirin (Aspirin Children's) 81 Mg Chew, 81 MG PO DAILY, TAB 0 Refills 12/08/16 Calcium Acetate (Phosphate Binder) (Calcium Acetate (Phosphate Binder)) 667 Mg Tab, 667 MG PO TID for Hyperphosphatemia, #90 TAB 0 Refills 06/21/16 Zolpidem (Zolpidem) 5 Mg Tab, 10 MG PO HS Y for INSOMNIA, TAB 0 Refills 06/19/16 Bumetanide (Bumetanide) 1 Mg Tab, 2 MG PO BID, #60 TAB 0 Refills 06/19/16 Levothyroxine (Synthroid) 88 Mcg Tab, 0.137 MCG PO DAILY for Thyroid, #30 TAB 0 Refills 06/19/16 Isosorbide Mononitrate (Isosorbide Mononitrate) 10 Mg Tab, 10 MG PO DAILY for Prevent Chest Pain, #60 TAB Take 2 doses 7 hours apart. 06/19/16 Glipizide (Glipizide) 10 Mg Tab, 10 MG PO BIDAC for Blood Sugar Management, #60 TAB 0 Refills Take 30 minutes before a meal 06/19/16 Amlodipine (Norvasc) 10 Mg Tab, 10 MG PO DAILY for Blood Pressure Management, # 30 TAB 0 Refills 06/19/16 Review of Systems General / Constitutional: No: Fever, Weight Gain, Chills, Other Eyes: No: Diploplia, Blurred Vision, Visual changes, Pain, Photophobia, Other HENT: No: Headaches, Vertigo, Dental Difficulties, Lightheadedness, Other Cardiovascular: No: Irregular Rhythm, Chest Pain or Discomfort, Palpitations, Tachycardia, Syncope, Varicosities, Edema, Cyanosis, Other Respiratory: No: Cough, Short of Breath, Wheezing, Other Gastrointestinal: Abdominal Pain, No: Nausea, Vomiting, Diarrhea, Hematemesis, Hematochezia, Constipation, Changes in Bowel Habits, Indigestion, Loss of Appetite, Other Genitourinary: Pelvic Pain, Vaginal Bleeding, No: Urgency, Frequency, Dysuria, Nocturia, Hematuria, Decreased Urinary Output, Oliguria, Hesitancy, Dribbling, Incontinence, Dyspareunia, Discharge, Menorrhagia, Other Musculoskeletal: Other (periph neuropathy) Skin: No Rash, No Itching, No Dryness, No Lumps, No Change in Pigmentation, No Change in Nails, No Alopecia, No Lesions, No Breast Lumps, No Breast Tenderness , No Breast Swelling, No Other Neurologic: Other (periph neuropathy) Hematologic/Lymphatic: No Easy Bruising, No Lymph Node Enlargement, No Other Physical Exam Vital Signs Date Time Temp Pulse Resp B/P (MAP) Pulse Ox O2 Delivery O2 Flow Rate FiO2 07/12/17 17:44 61 18 198/78 (118) 94 Room Air 07/12/17 11:06 99.0 60 16 172/68 (102) 96 Narrative GENERAL: Morbidly obese, SKIN: Warm and dry.hirsute HEAD: Normocephalic and atraumatic. EYES: No scleral icterus. No injection or drainage. ENT: No nasal drainage noted. Mucous membranes pink. Airway patent. NECK: Supple, trachea midline. CARDIOVASCULAR: Regular rate and rhythm without murmurs, gallops, or rubs. RESPIRATORY: Breath sounds equal bilaterally. No accessory muscle use. ABDOMEN/GI: Abdomen soft,min ttp w deep palpation in blq, bowel sounds present, no rebound, no guarding GENITOURINARY: External Genitalia: intact and normal in appearance. Atrophy, narrow introitus. Pt intolerant of digital exam. Min blood on gloves, no bleeding on pad EXTREMITIES: No cyanosis or edema. RBKA. left arm fistula BACK: Nontender without obvious deformity. No CVA tenderness. NEUROLOGICAL: Awake and alert. Normal speech. Caprini VTE Risk Assessment Caprini VTE Risk Assessment: Mod/High Risk (score >= 2) VTE Pharm Contraindication: High risk for bleeding Caprini Risk Assessment Model Point Value = 1 Point Value = 2 Point Value = 3 Point Value = 5 Age 41-60 Minor surgery BMI > 25 kg/m2 Swollen legs Varicose veins or History of unexplained or recurrent spontaneous Oral contraceptives or hormone replacement Sepsis (< 1 month) Serious lung disease, including pneumonia (< 1 month) Abnormal pulmonary function Acute myocardial infarction Congestive heart failure (< 1 month) History of inflammatory bowel disease Medical patient at bed rest Age 61-74 Arthroscopic surgery Major open surgery (> 45 min) Laparoscopic surgery (> 45 min) Malignancy Confined to bed (> 72 hours) Immobilizing plaster cast Central venous access Age >= 75 History of VTE Family history of VTE Factor V Leiden Prothrombin [id number] Lupus anticoagulant Anticardiolipin antibodies Elevated serum homocysteine Heparin-induced thrombocytopenia Other congenital or acquired thrombophilia Stroke (< 1 month) Elective arthroplasty Hip, pelvis, or leg fracture Acute spinal cord injury (< 1 month) Prophylaxis Regimen Total Risk Factor Score Risk Level Prophylaxis Regimen 0-1 Low Early ambulation 2 Moderate Order ONE of the following: *Sequential Compression Device (SCD) *Heparin 5000 units SQ BID 3-4 Higher Order ONE of the following medications: *Heparin 5000 units SQ TID *Enoxaparin/Lovenox 40 mg SQ daily (WT < 150 kg, CrCl > 30 mL/min) *Enoxaparin/Lovenox 30 mg SQ daily (WT < 150 kg, CrCl > 10-29 mL/min) *Enoxaparin/Lovenox 30 mg SQ BID (WT < 150 kg, CrCl > 30 mL/min) AND/OR *Sequential Compression Device (SCD) 5 or more Highest Order ONE of the following medications: *Heparin 5000 units SQ TID (Preferred with Epidurals) *Enoxaparin/Lovenox 40 mg SQ daily (WT < 150 kg, CrCl > 30 mL/min) *Enoxaparin/Lovenox 30 mg SQ daily (WT < 150 kg, CrCl > 10-29 mL/min) *Enoxaparin/Lovenox 30 mg SQ BID (WT < 150 kg, CrCl > 30 mL/min) AND *Sequential Compression Device (SCD) Data Data Vital Signs Reviewed: Yes Orders Orders Complete Blood Count With Diff (07/12/17 11:18) Basic Metabolic Panel (Bmp) (07/12/17 17:03) Consult Gynecology (07/12/17 ) Consult Nephrology (07/12/17 ) Diet Renal (07/12/17 Dinner) Admit Order (Ed Use Only) (07/12/17 ) Place In Observation (07/12/17 ) Vital Signs (Adult) Q4H (07/12/17 17:19) Activity Oob With Assistance (07/12/17 17:19) Sodium Chloride 0.9% Flush (Ns Flush) (07/12/17 17:30) Sodium Chloride 0.9% Flush (Ns Flush) (07/12/17 21:00) Acetaminophen (Tylenol) (07/12/17 17:30) Ondansetron Inj (Zofran Inj) (07/12/17 18:00) Basic Metabolic Panel (Bmp) (07/13/17 06:00) Complete Blood Count With Diff (07/13/17 06:00) Scd Bilateral/Knee High MAGUI.BID (07/12/17 17:19) Naloxone Inj (Narcan Inj) (07/12/17 17:30) Magnesium Hydroxide Liq (Milk Of Magnesi (07/12/17 21:00) Sennosides (Senokot) (07/12/17 21:00) Bisacodyl Supp (Dulcolax Supp) (07/12/17 17:30) Lactulose Liq (Lactulose Liq) (07/12/17 18:00) Tramadol (Ultram) (07/12/17 22:00) (Hub Use Only)Inp Phy Cons/Ref (07/12/17 ) (Hub Use Only)Inp Phy Cons/Ref (07/12/17 ) Labs Laboratory Tests Test 07/12/17 14:10 White Blood Count 10.4 Red Blood Count 3.32 Hemoglobin 11.2 Hematocrit 32.4 Mean Corpuscular Volume 97.7 Mean Corpuscular Hemoglobin 33.6 Mean Corpuscular Hemoglobin Concent 34.4 Red Cell Distribution Width 14.2 Platelet Count 224 Mean Platelet Volume 7.9 Neutrophils (%) (Auto) 71.2 Lymphocytes (%) (Auto) 20.9 Monocytes (%) (Auto) 5.6 Eosinophils (%) (Auto) 1.8 Basophils (%) (Auto) 0.5 Neutrophils # (Auto) 7.4 Lymphocytes # (Auto) 2.2 Monocytes # (Auto) 0.6 Eosinophils # (Auto) 0.2 Basophils # (Auto) 0.1 CBC Comment DIFF FINAL Differential Comment Assessment/Plan Problem List: (1) Postmenopausal bleeding ICD Codes: N95.0 - Postmenopausal bleeding Assessment and Plan 56 yo postmenopausal female with PMB x 2 days. She has been tentatively placed on OR schedule for EUA, HSC, and D&C as an add on case for tomorrow, npo after midnight. Will continue Progesterone. At time that I evaluated patient, bleeding seems to have decreased. Discussed alternative of in office bx, may be difficult due to pt intolerance of pelvic exam as she has been sexually inactive for 10 years and has atrophic changes. PT was taken to dialysis prior to being able to sign consents. These will need to be signed tomorrow. She will be admitted to hospitalist team to manage her comorbidities with civil engineering intern consultation. Alma Arreola MD Jul 12, 2017 18:46
[2017-07-12] MEDS ORDERED: GLUCAGON 1 MG/ML VIAL OTHER PRN (19:45)
[2017-07-12] MEDS ORDERED: ZOLPIDEM TARTRATE 10 MG TAB PO PRN (19:45)
[2017-07-12] MEDS ORDERED: DEXTROSE 50% IN WATER 50 ML VIAL(D50) IV PUSH PRN (19:45)
[2017-07-12] MEDS ORDERED: ATORVASTATIN 20 MG TAB PO SCH (21:00)
[2017-07-12] MEDS: SODIUM CHLORIDE 0.9% FLUSH 10 ML FLUSH IV FLUSH SCH (21:00)
[2017-07-12] MEDS ORDERED: MAGNESIUM HYDROXIDE SUSP 30 ML CUP PO PRN (21:00)
[2017-07-12] MEDS ORDERED: SENNOSIDES 8.6 MG TAB PO PRN (21:00)
[2017-07-12] MEDS: CARVEDILOL 3.125 MG TAB PO SCH (22:43)
[2017-07-12] MEDS: BUMETANIDE 1 MG TAB PO SCH (22:44)
[2017-07-12] MEDS: INSULIN ASPART SUPPLEMENTAL SCALE SQ SCH (22:44)
[2017-07-12] MEDS: traMADol HCL 50 MG TAB PO PRN (22:45)
[2017-07-12 23:18] VITALS: BP 127/64; PULSE 67; RESP 16; TEMP 98; O2SAT 94
--- NOTE | 2017-07-12 23:42 | HHI.HP ---
[facility] Clifton Hernandez M.D. Admission Diagnosis postmenopausal vaginal bleeding Diagnoses: (1) Postmenopausal bleeding (2) Type 2 diabetes mellitus (3) ESRD (end stage renal disease) Chief Complaint: pelvic cramping and excessive vaginal bleeding Travel History International Travel<30 Days: No Contact w/Intl Traveler <30 Da: No Traveled to Known Affected Are: No History of Present Illness Ms. Spencer is a 56-year-old female with a past medical history of end-stage renal disease on hemodialysis, diabetes mellitus, right BKA with chronic phantom pain, obstructive sleep apnea not on CPAP, hypertension, and hyperlipidemia who presented to the emergency room to be evaluated for postmenopausal excessive vaginal bleeding on 07/12/2017. The patient is seen in the CDU. She reports a 2 day history of severe vaginal bleeding with tampon saturation occurring about every 30 minutes. She attempted to have dialysis today but was unable given the amount of times he had disconnected from the machine to change her tampon. She reports that she's had accompanying feelings of lightheadedness and nausea but denies any syncope, chest pain, shortness of breath, vomiting, diarrhea, black stool, or bloody stool. She does report a history of panic attacks. She was seen and evaluated by Dr. Arreola, gynecology, and was able to undergo hemodialysis here at the hospital with 4 L fluid removed. She is a patient of Dr. Jasmin Hernandez. . Review of Systems Except as stated in HPI: all other systems reviewed are Neg Past Family Social History Past Medical History end-stage renal disease on hemodialysis, diabetes mellitus, right BKA with chronic phantom pain, obstructive sleep apnea not on CPAP, hypertension, and hyperlipidemia . Past Surgical History Right leg BKA BTL AV fistulas Vas-Cath insertion left chest . Reported Medications Reported Meds & Active Scripts Active Medroxyprogesterone Acetate 10 Mg Tab 10 Mg PO DAILY Start day 21 [progestin] 10 Mg PO DAILY 5 Days Coreg (Carvedilol) 3.125 Mg Tab 3.125 Mg PO Q12HR Lipitor (Atorvastatin Calcium) 20 Mg Tab 20 Mg PO HS 30 Days Reported Hydrocodon-Acetamin 7.5-325/15 (Hydrocodone/Acetaminophen) 15 Ml Solution Aspirin Children's (Aspirin) 81 Mg Chew 81 Mg PO DAILY Calcium Acetate (Phosphate Binder) 667 Mg Tab 667 Mg PO TID Zolpidem (Zolpidem Tartrate) 5 Mg Tab 10 Mg PO HS PRN Bumetanide 1 Mg Tab 2 Mg PO BID Synthroid (Levothyroxine Sodium) 88 Mcg Tab 0.137 Mcg PO DAILY Isosorbide Mononitrate 10 Mg Tab 10 Mg PO DAILY Take 2 doses 7 hours apart. Glipizide 10 Mg Tab 10 Mg PO BIDAC Take 30 minutes before a meal Norvasc (Amlodipine Besylate) 10 Mg Tab 10 Mg PO DAILY . Allergies: Coded Allergies: vancomycin (Verified Allergy, Severe, KIDNEY INJURY, 07/12/17) PER Jasmin HERNANDEZ MD, DO NOT USE VANCO. SEVERE KIDNEY INJURY. morphine (Verified Allergy, Intermediate, 07/12/17) "ITCHING EVERYWHERE" Active Ordered Medications Current Medications Sodium Chloride (NS Flush) 2 ml UNSCH PRN IV FLUSH FLUSH AFTER USING IV ACCESS ; Start 07/12/17 at 17:30 Sodium Chloride (NS Flush) 2 ml BID IV FLUSH ; Start 07/12/17 at 21:00 Acetaminophen (Tylenol) 650 mg Q4H PRN PO Fever, headache, pain 1-4; Start 07/12 at 17:30 Ondansetron HCl (Zofran Inj) 4 mg Q6H PRN IVP NAUSEA OR VOMITING; Start at 18:00 Naloxone HCl (Narcan Inj) 0.4 mg UNSCH PRN IV PUSH SEE LABEL COMMENTS; Start at 17:30 Magnesium Hydroxide (Milk Of Magnesia Liq) 30 ml Q12HR PRN PO Mild constipation ; Start 07/12/17 at 21:00 Sennosides (Senokot) 17.2 mg Q12H PRN PO Moderate constipation; Start 07/12/17 at 21:00 Bisacodyl (Dulcolax Supp) 10 mg DAILY PRN RECTAL SEVERE CONSITIPATION; Start at 17:30 Lactulose (Lactulose Liq) 30 ml DAILY PRN PO SEVERE CONSITIPATION; Start at 18:00 Tramadol HCl (Ultram) 50 mg Q8HR PRN PO PAIN SCALE 3 TO 5 Last administered on 07/12/17at 22:45; Start 07/12/17 at 22:00 Medroxyprogesterone Acetate (Provera) 10 mg DAILY PO ; Start 07/13/17 at 09:00 Amlodipine Besylate (Norvasc) 10 mg DAILY PO ; Start 07/13/17 at 09:00 Atorvastatin Calcium (Lipitor) 20 mg HS PO Last administered on 07/12/17at 22:43 ; Start 07/12/17 at 21:00 Bumetanide (Bumetanide) 2 mg BID PO Last administered on 07/12/17at 22:44; Start 07/12/17 at 21:00 Calcium Acetate (Phoslo) 667 mg TID PO ; Start 07/13/17 at 09:00 Carvedilol (Coreg) 3.125 mg Q12HR PO Last administered on 07/12/17at 22:43; Start 07/12/17 at 21:00 Isosorbide Mononitrate (Ismo) 10 mg DAILY PO ; Start 07/13/17 at 09:00 Levothyroxine Sodium (Synthroid) 0.112 mcg DAILY@0600 PO ; Start 07/13/17 at 06: 00 Zolpidem Tartrate (Ambien) 10 mg HS PRN PO INSOMNIA Last administered on at 22:45; Start 07/12/17 at 19:45 Dextrose (D50w (Vial) Inj) 50 ml UNSCH PRN IV PUSH HYPOGLYCEMIA-SEE COMMENTS; Start 07/12/17 at 19:45 Glucagon (Glucagon Inj) 1 mg UNSCH PRN OTHER HYPOGLYCEMIA-SEE COMMENTS; Start 07/12/17 at 19:45 Insulin Aspart (NovoLOG SUPPLEMENTAL SCALE) 1 ACHS SLIDING SCALE SQ Last administered on 07/12/17at 22:44; Start 07/12/17 at 21:00 Levothyroxine Sodium (Synthroid) 25 mcg DAILY@0600 PO ; Start 07/13/17 at 06:00 Acetaminophen/ Hydrocodone Bitart ([place] 7.5-325 Mg) 1 tab Q6H PRN PO pain 6 - 10; Start 07/12/17 at 23:45 . Family History Heart disease/PA - father, mother, sister . Social History Tobacco: Denies Alcohol: Denies Illicit Drugs: Denied . Physical Exam Vital Signs Vital Signs Date Time Temp Pulse Resp B/P (MAP) Pulse Ox O2 Delivery O2 Flow Rate FiO2 07/12/17 23:18 98.0 67 16 127/64 (85) 94 07/12/17 21:22 07/12/17 17:44 61 18 198/78 (118) 94 Room Air 07/12/17 11:06 99.0 60 16 172/68 (102) 96 Physical Exam GENERAL: This is a pale appearing female patient, in no apparent distress. SKIN: No rashes. Cool and dry. HEAD: Atraumatic. Normocephalic. EYES: No scleral icterus. No injection or drainage. ENT: Nose without bleeding, purulent drainage. NECK: Trachea midline. No JVD or lymphadenopathy. CARDIOVASCULAR: Regular rate and rhythm without murmurs, gallops, or rubs. RESPIRATORY: Clear to auscultation. Breath sounds equal bilaterally. No wheezes , rales, or rhonchi. GASTROINTESTINAL: Abdomen soft, non-tender, nondistended. No guarding. MUSCULOSKELETAL: Extremities without clubbing, cyanosis, or edema. No calf tenderness. Right BKA. NEUROLOGICAL: Awake and alert. Motor and sensory grossly within normal limits. Normal speech. . Laboratory Laboratory Tests Test 07/12/17 14:10 White Blood Count 10.4 Red Blood Count 3.32 Hemoglobin 11.2 Hematocrit 32.4 Mean Corpuscular Volume 97.7 Mean Corpuscular Hemoglobin 33.6 Mean Corpuscular Hemoglobin Concent 34.4 Red Cell Distribution Width 14.2 Platelet Count 224 Mean Platelet Volume 7.9 Neutrophils (%) (Auto) 71.2 Lymphocytes (%) (Auto) 20.9 Monocytes (%) (Auto) 5.6 Eosinophils (%) (Auto) 1.8 Basophils (%) (Auto) 0.5 Neutrophils # (Auto) 7.4 Lymphocytes # (Auto) 2.2 Monocytes # (Auto) 0.6 Eosinophils # (Auto) 0.2 Basophils # (Auto) 0.1 CBC Comment DIFF FINAL Differential Comment Result Diagram: 07/12/17 1410 Imaging Patient was unable to tolerate transvaginal ultrasound which on limited exam showed probable small fibroid uterus with prominent endometrium at 10 mm. . Caprini VTE Risk Assessment Caprini VTE Risk Assessment: Mod/High Risk (score >= 2) VTE Pharm Contraindication: High risk for bleeding Caprini Risk Assessment Model Point Value = 1 Point Value = 2 Point Value = 3 Point Value = 5 Age 41-60 Minor surgery BMI > 25 kg/m2 Swollen legs Varicose veins or History of unexplained or recurrent spontaneous Oral contraceptives or hormone replacement Sepsis (< 1 month) Serious lung disease, including pneumonia (< 1 month) Abnormal pulmonary function Acute myocardial infarction Congestive heart failure (< 1 month) History of inflammatory bowel disease Medical patient at bed rest Age 61-74 Arthroscopic surgery Major open surgery (> 45 min) Laparoscopic surgery (> 45 min) Malignancy Confined to bed (> 72 hours) Immobilizing plaster cast Central venous access Age >= 75 History of VTE Family history of VTE Factor V Leiden Prothrombin [id number] Lupus anticoagulant Anticardiolipin antibodies Elevated serum homocysteine Heparin-induced thrombocytopenia Other congenital or acquired thrombophilia Stroke (< 1 month) Elective arthroplasty Hip, pelvis, or leg fracture Acute spinal cord injury (< 1 month) Prophylaxis Regimen Total Risk Factor Score Risk Level Prophylaxis Regimen 0-1 Low Early ambulation 2 Moderate Order ONE of the following: *Sequential Compression Device (SCD) *Heparin 5000 units SQ BID 3-4 Higher Order ONE of the following medications: *Heparin 5000 units SQ TID *Enoxaparin/Lovenox 40 mg SQ daily (WT < 150 kg, CrCl > 30 mL/min) *Enoxaparin/Lovenox 30 mg SQ daily (WT < 150 kg, CrCl > 10-29 mL/min) *Enoxaparin/Lovenox 30 mg SQ BID (WT < 150 kg, CrCl > 30 mL/min) AND/OR *Sequential Compression Device (SCD) 5 or more Highest Order ONE of the following medications: *Heparin 5000 units SQ TID (Preferred with Epidurals) *Enoxaparin/Lovenox 40 mg SQ daily (WT < 150 kg, CrCl > 30 mL/min) *Enoxaparin/Lovenox 30 mg SQ daily (WT < 150 kg, CrCl > 10-29 mL/min) *Enoxaparin/Lovenox 30 mg SQ BID (WT < 150 kg, CrCl > 30 mL/min) AND *Sequential Compression Device (SCD) Assessment and Plan Problem List: (1) Postmenopausal bleeding ICD Code: N95.0 - Postmenopausal bleeding (2) ESRD (end stage renal disease) ICD Code: N18.6 - ESRD (end stage renal disease) Status: Acute (3) Type 2 diabetes mellitus ICD Code: E11.9 - Type 2 diabetes mellitus Status: Acute Assessment and Plan Ms. Spencer is a 56-year-old female with a past medical history of end-stage renal disease on hemodialysis, diabetes mellitus, right BKA with chronic phantom pain, obstructive sleep apnea not on CPAP, hypertension, and hyperlipidemia who presented to the emergency room to be evaluated for postmenopausal excessive vaginal bleeding on 07/12/2017. Postmenopausal bleeding - repeat H&H to trend; transfuse if necessary - lens generating machine tender consulted - appreciate Dr. Arreola's assistance - NPO after midnight for probable EUA with D&C - We'll continue patient's home pain medications - and evaluate effectiveness pain management End-stage renal disease on hemodialysis - Consult nephrology - assistance appreciated - Renal diet until nothing by mouth - Hemodialysis underwent here at the hospital with 4000 cc out Type 2 Diabetes Mellitus - Hold home glipizide until tolerating diet following surgery - Accu-Cheks before meals and at bedtime with low-dose NovoLog sliding scale coverage - Hypoglycemia protocol - Monitor trends and blood glucose readings and adjust treatments as indicated - Discussed with the patient DVT prophylaxis - SCDs/TEDs . Discussed Condition With patient, patient's RN, and Veronica Fountain Jul 12, 2017 23:42
[2017-07-12] MEDS ORDERED: ACETAMINOPHEN/HYDROcodone 325 MG/7.5 MG TAB PO PRN (23:45)
[2017-07-13 01:16] LABS: HEMATOCRIT 32.6 % (35.0-46.0); HEMOGLOBIN 10.9 GM/DL (11.6-15.3)
[2017-07-13 03:47] VITALS: BP 124/59; PULSE 63; RESP 16; TEMP 98.9; O2SAT 96
[2017-07-13] MEDS ORDERED: LEVOTHYROXINE SODIUM 25 MCG TAB PO SCH (06:00)
[2017-07-13] MEDS ORDERED: LEVOTHYROXINE SODIUM 112 MCG TAB PO SCH (06:00)
[2017-07-13 07:06] LABS: AUTOMATED NEUTROPHIL # 5.4 TH/MM3 (1.8-7.7); BASOPHIL % 0.4 % (0.0-2.0); EOSINOPHIL # 0.3 TH/MM3 (0-0.4); EOSINOPHIL % 3.6 % (0.0-4.0); HEMATOCRIT 34.3 % (35.0-46.0); HEMOGLOBIN 11.4 GM/DL (11.6-15.3); LYMPH % 28.7 % (9.0-44.0); LYMPHOCYTE # 2.6 TH/MM3 (1.0-4.8); MEAN CELL VOLUME 97.4 FL (80.0-100.0); MEAN CORPUSCULAR HEMOGLOBIN 32.4 PG (27.0-34.0); MEAN CORPUSCULAR HGB CONC 33.3 % (32.0-36.0); MEAN PLATELET VOLUME 7.3 FL (7.0-11.0); MONO % 7.7 % (0.0-8.0); MONOCYTE # 0.7 TH/MM3 (0-0.9); NEUT % 59.6 % (16.0-70.0); PLATELET COUNT 199 TH/MM3 (150-450); RED BLOOD COUNT 3.52 MIL/MM3 (4.00-5.30); RED CELL DISTRIBUTION WIDTH 14.2 % (11.6-17.2); WHITE BLOOD COUNT 9.1 TH/MM3 (4.0-11.0)
[2017-07-13 07:28] LABS: CREATININE 4.81 MG/DL (0.50-1.00)
[2017-07-13 07:40] VITALS: BP 112/55; PULSE 57; RESP 18; TEMP 98; O2SAT 95
[2017-07-13] MEDS: INSULIN ASPART SUPPLEMENTAL SCALE SQ SCH ×2 (08:00→12:00)
[2017-07-13] MEDS: CARVEDILOL 3.125 MG TAB PO SCH (08:55)
[2017-07-13] MEDS: traMADol HCL 50 MG TAB PO PRN (08:55)
[2017-07-13] MEDS: CALCIUM ACETATE 667 MG CAP PO SCH ×2 (08:56→14:24)
[2017-07-13] MEDS: BUMETANIDE 1 MG TAB PO SCH (08:57)
[2017-07-13] MEDS: SODIUM CHLORIDE 0.9% FLUSH 10 ML FLUSH IV FLUSH SCH (08:57)
[2017-07-13] MEDS ORDERED: medroxyPROGESTERone ACETATE 10 MG TAB PO SCH (09:00)
[2017-07-13] MEDS ORDERED: ISOSORBIDE MONONITRATE 20 MG TAB PO SCH (09:00)
[2017-07-13] MEDS ORDERED: SODIUM CHLOR 0.9% 1000 ML INJ 1,000 ML OTHER PRN ×2 (09:16)
[2017-07-13] MEDS ORDERED: SODIUM CHLOR 0.9% 1000 ML INJ 1,000 ML IV PRN (09:16)
[2017-07-13] MEDS ORDERED: ONDANSETRON HCL 4 MG/2 ML VIAL IV PUSH PRN (09:30)
[2017-07-13] MEDS ORDERED: ACETAMINOPHEN 325 MG TAB PO PRN (09:30)
[2017-07-13] MEDS ORDERED: diphenhydrAMINE HCL 25 MG CAP PO PRN ×2 (09:30→14:15)
[2017-07-13] MEDS ORDERED: cloNIDine HCL 0.1 MG TAB PO PRN (09:30)
[2017-07-13] MEDS ORDERED: HEPARIN SODIUM - IV 10,000 UNITS/10 ML VIAL IV FLUSH PRN (09:30)
[2017-07-13] MEDS ORDERED: HEPARIN SODIUM - IV 10,000 UNITS/10 ML VIAL PRN (09:30)
[2017-07-13] MEDS ORDERED: MANNITOL 12.5 GM/50 ML VIAL IV PRN (09:30)
[2017-07-13] MEDS ORDERED: GENTAMICIN SULFATE (DIALYSIS USE ONLY) 20 MG/2 ML VIAL OTHER PRN (09:30)
[2017-07-13] MEDS ORDERED: GELATIN 12 MM/7 MM FOAM TOP PRN (09:30)
[2017-07-13] MEDS ORDERED: SODIUM CHLORIDE 0.9% FLUSH 10 ML FLUSH IV FLUSH PRN ×2 (09:30→14:15)
[2017-07-13] MEDS ORDERED: ALBUMIN 25% INJ 100 ML IV PRN (09:30)
[2017-07-13] MEDS ORDERED: NITROGLYCERIN 0.4 MG SL 25 TABS/BTL SL PRN (09:30)
[2017-07-13] MEDS ORDERED: ceFAZolin 2 GM PREMIX 50 ML ONE (11:31)
[2017-07-13] MEDS ORDERED: OXYTOCIN 10 UNIT/ML AMP ONE ×2 (11:35→11:38)
[2017-07-13] MEDS ORDERED: METHYLERGONOVINE MALEATE 0.2 MG/ML VIAL ONE (11:36)
[2017-07-13] MEDS ORDERED: ONDANSETRON HCL 4 MG/2 ML VIAL IV ONE (12:00)
[2017-07-13] MEDS ORDERED: DEXAMETHASONE SOD PHOS 4 MG/ML VIAL IV ONE (12:00)
[2017-07-13] MEDS ORDERED: LIDOCAINE HCL 1% PF 5 ML SYRINGE OTHER ONE (12:00)
[2017-07-13] MEDS ORDERED: PROPOFOL 200 MG/20 ML AMP IV ONE (12:00)
[2017-07-13] MEDS ORDERED: DO NOT ADM ANY ANTICOAGULANT DRUGS PRN (12:40)
--- NOTE | 2017-07-13 12:48 | HHI.PR ---
Subjective Remarks Immediate postop note; Procedure EUA, Hysteroscopy, dilation and curettage Findings; Marked atrophic changes;NO focal abnormality seen. Pathology; endometrial biopsy EBL; 50cc Anesthesia: GA/LMA Objective Vital Signs Vital Signs Date Time Temp Pulse Resp B/P (MAP) Pulse Ox O2 Delivery O2 Flow Rate FiO2 07/13/17 07:40 98.0 57 18 112/55 (74) 95 07/13/17 03:47 98.9 63 16 124/59 (80) 96 07/12/17 23:18 98.0 67 16 127/64 (85) 94 07/12/17 21:22 07/12/17 17:44 61 18 198/78 (118) 94 Room Air I/O 07/12/17 07/12/17 07/12/17 07/13/17 07/13/17 07/13/17 07:00 15:00 23:00 07:00 15:00 23:00 Intake Total 200 ml Output Total 4000 ml 25 ml Balance -4000 ml 175 ml Intake IV Total 200 ml Output Hemodialysis 4000 ml Estimated Blood Loss 25 ml # Voids 3 Result Diagram: 07/13/17 0629 07/13/17 0629 Objective Remarks Atrophic exam, no focal abnormality seen Await pathology report. A/P Assessment and Plan Post menopausal bleeding. Continue provera 10 mg daily. Can be discharged today once SDS criteria met. Return to my office in 2 weeks.. Jean Claude Quiles MD Jul 13, 2017 12:48
[2017-07-13] MEDS ORDERED: oxyCODONE/ACETAMINOPHEN 5 MG/325 MG TAB PO PRN ×2 (13:00)
[2017-07-13] MEDS ORDERED: IBUPROFEN 600 MG TAB PO PRN (13:00)
[2017-07-13] MEDS ORDERED: *HYDROmorphone PF 1 MG VIAL PERIprocedural Use ONLY ONE (13:09)
--- NOTE | 2017-07-13 13:45 | HHI.PR ---
Subjective Remarks seen- post-op. she's resting comfortably with no distress. has mild abdominal cramps. no nausea or vomiting. d/w the RN and no post-op issues. Objective Vitals Vital Signs Date Time Temp Pulse Resp B/P (MAP) Pulse Ox O2 Delivery O2 Flow Rate FiO2 07/13/17 07:40 98.0 57 18 112/55 (74) 95 07/13/17 03:47 98.9 63 16 124/59 (80) 96 07/12/17 23:18 98.0 67 16 127/64 (85) 94 07/12/17 21:22 07/12/17 17:44 61 18 198/78 (118) 94 Room Air I/O 07/12/17 07/12/17 07/12/17 07/13/17 07/13/17 07/13/17 07:00 15:00 23:00 07:00 15:00 23:00 Intake Total 200 ml Output Total 4000 ml 25 ml Balance -4000 ml 175 ml Intake IV Total 200 ml Output Hemodialysis 4000 ml Estimated Blood Loss 25 ml # Voids 3 Result Diagram: 07/13/1762807/13/17 06 Objective Remarks GENERAL: This is a well-nourished, well-developed patient, in no apparent distress. CARDIOVASCULAR: Regular rate and regular rhythm without murmurs, gallops, or rubs. RESPIRATORY: Clear to auscultation. Breath sounds equal bilaterally. No wheezes , rales, or rhonchi. GASTROINTESTINAL: Abdomen soft, non-tender, nondistended. Normal, active bowel sounds MUSCULOSKELETAL: Extremities without clubbing, cyanosis, or edema. NEURO: Alert & Oriented x4 to person, place, time, situation. Moves all ext x4 Medications and IVs Inpatient Medications Acetaminophen (Tylenol) 650 mg UNSCH PRN PO for headach, pain, temp > 101F; Start 07/13/17 at 09:30 Acetaminophen/ Hydrocodone Bitart ([place] 7.5-325 Mg) 1 tab Q6H PRN PO pain 6 - 10; Start 07/12/17 at 23:45 Albumin Human 100 ml @ 60 mls/hr UNSCH PRN IV WITH DIALYSIS; Start 07/13/17 at 09:30 Amlodipine Besylate (Norvasc) 10 mg DAILY PO Last administered on 07/13/17at 08: 54; Start 07/13/17 at 09:00 Atorvastatin Calcium (Lipitor) 20 mg HS PO Last administered on 07/12/17at 22:43 ; Start 07/12/17 at 21:00 Bisacodyl (Dulcolax Supp) 10 mg DAILY PRN RECTAL SEVERE CONSITIPATION; Start at 17:30 Bumetanide (Bumetanide) 2 mg BID PO Last administered on 07/13/17at 08:57; Start 07/12/17 at 21:00 Calcium Acetate (Phoslo) 667 mg TID PO ; Start 07/13/17 at 09:00 Carvedilol (Coreg) 3.125 mg Q12HR PO Last administered on 07/13/17at 08:55; Start 07/12/17 at 21:00 Clonidine (Catapres) 0.1 mg UNSCH PRN PO for BP > 180/100 X 2 readings; Start 07/13/17 at 09:30 Dextrose (D50w (Vial) Inj) 50 ml UNSCH PRN IV PUSH HYPOGLYCEMIA-SEE COMMENTS; Start 07/12/17 at 19:45 Diphenhydramine HCl (Benadryl) 25 mg Q6H PRN PO ITCHING; Start 07/13/17 at 13: 00; Status UNV Gelatin (Gelfoam 12 Mm/7 Mm Top) 1 foam UNSCH PRN TOP SEE LABEL COMMENTS; Start 07/13/17 at 09:30 Gentamicin Sulfate (Gentamicin (Dialysis) Inj) 20 mg UNSCH PRN OTHER WITH DIALYSIS; Start 07/13/17 at 09:30 Glucagon (Glucagon Inj) 1 mg UNSCH PRN OTHER HYPOGLYCEMIA-SEE COMMENTS; Start 07/12/17 at 19:45 Heparin Sodium (Porcine) (Heparin Inj) UNSCH PRN .XX WITH DIALYSIS; Start 04/20 at 09:30 Ibuprofen (Motrin) 600 mg Q6H PRN PO PAIN 1-10 AND/OR FEVER >101F; Start at 13:00; Status UNV Insulin Aspart (NovoLOG SUPPLEMENTAL SCALE) 1 ACHS SLIDING SCALE SQ Last administered on 07/12/17at 22:44; Start 07/12/17 at 21:00 Isosorbide Mononitrate (Ismo) 10 mg DAILY PO Last administered on 07/13/17at 08: 56; Start 07/13/17 at 09:00 Lactated Ringer's 1,000 ml @ 125 mls/hr Q8H IV ; Start 07/13/17 at 12:48; Status UNV Lactulose (Lactulose Liq) 30 ml DAILY PRN PO SEVERE CONSITIPATION; Start at 18:00 Levothyroxine Sodium (Synthroid) 25 mcg DAILY@0600 PO Last administered on 07/13at 05:54; Start 07/13/17 at 06:00 Magnesium Hydroxide (Milk Of Magnesia Liq) 30 ml Q12HR PRN PO Mild constipation ; Start 07/12/17 at 21:00 Mannitol (Mannitol Inj) 12.5 gm UNSCH PRN IV WITH DIALYSIS; Start 07/13/17 at 09:30 Medroxyprogesterone Acetate (Provera) 10 mg DAILY PO Last administered on at 08:54; Start 07/13/17 at 09:00 Naloxone HCl (Narcan Inj) 0.4 mg UNSCH PRN IV PUSH SEE LABEL COMMENTS; Start at 17:30 Nitroglycerin (Nitrostat Sl) 0.4 mg UNSCH PRN SL CHEST PAIN; Start 07/13/17 at 09:30 Ondansetron HCl (Zofran Inj) 4 mg Q6H PRN IVP NAUSEA OR VOMITING; Start at 13:00; Status UNV Oxycodone/ Acetaminophen (Percocet 5-325 Mg) 2 tab Q4H PRN PO PAIN SCALE 6 TO 10; Start 07/13/17 at 13:00; Status UNV Sennosides (Senokot) 17.2 mg Q12H PRN PO Moderate constipation; Start 07/12/17 at 21:00 Sodium Chloride (NS Flush) 2 ml BID IV FLUSH ; Start 07/13/17 at 13:00; Status UNV Tramadol HCl (Ultram) 50 mg Q8HR PRN PO PAIN SCALE 3 TO 5 Last administered on 07/13/17at 08:55; Start 07/12/17 at 22:00 Zolpidem Tartrate (Ambien) 10 mg HS PRN PO INSOMNIA Last administered on at 22:45; Start 07/12/17 at 19:45 A/P Problem List: (1) Postmenopausal bleeding ICD Code: N95.0 - Postmenopausal bleeding (2) ESRD (end stage renal disease) ICD Code: N18.6 - ESRD (end stage renal disease) Status: Acute (3) Type 2 diabetes mellitus ICD Code: E11.9 - Type 2 diabetes mellitus Status: Acute Assessment and Plan A/P Postmenopausal bleeding s/p EUA, Hysteroscopy, dilation and curettage cleared for discharge per BILLBOARD ERECTOR and f/u as outpatient. End-stage renal disease on hemodialysis - Renal diet until nothing by mouth -HD per nephrology Type 2 Diabetes Mellitus - Hold home glipizide until tolerating diet following surgery - Accu-Cheks before meals and at bedtime with low-dose NovoLog sliding scale coverage - Hypoglycemia protocol - Monitor trends and blood glucose readings and adjust treatments as indicated - Discussed with the patient DVT prophylaxis - SCDs/TEDs Discharge Planning dc home-later today if stable. nephrology will be notified of the plan. f/u; pcp, BILLBOARD ERECTOR and nephrology. Cheko Singletary MD Jul 13, 2017 13:45
--- NOTE | 2017-07-13 13:55 | HHI.DCPOC ---
Discharge Care Plan Diagnosis: (1) Postmenopausal bleeding (2) Vaginal bleeding Goals to Promote Your Health * To prevent worsening of your condition and complications * To maintain your health at the optimal level Directions to Meet Your Goals Take your medications as prescribed Follow your dietary instruction Follow activity as directed Keep your appointments as scheduled Take your immunizations and boosters as scheduled If your symptoms worsen call your PCP, if no PCP go to Urgent Care Center or Emergency Room Smoking is Dangerous to Your Health. Avoid second hand smoke Call the 24-hour hour crisis hotline for domestic abuse at Roshni Riojas PA-C Jul 13, 2017 13:54
[2017-07-13 13:58] VITALS: BP 122/55; PULSE 59; RESP 18; TEMP 98.2; O2SAT 95
[2017-07-13] MEDS ORDERED: SODIUM CHLORIDE 0.9% FLUSH 10 ML FLUSH IV FLUSH SCH (14:15)
[2017-07-13] MEDS ORDERED: ONDANSETRON HCL 4 MG/2 ML VIAL IVP PRN (14:15)
[2017-07-13] MEDS ORDERED: LACTATED RINGER'S 1000 ML INJ 1,000 ML IV SCH (14:15)
--- NOTE | 2017-07-13 14:47 | PD.CONS ---
HPI Service Nephrology Consult Requested By Reason for Consult ESRD on HD Primary Care Physician Clifton Hernandez M.D. History of Present Illness This is a 56 y/o female patient who is on HD TTS. She was admitted for heavy vaginal bleeding, had a D&C this morning. She is seen in the ER post procedure, is eating and doing well. PMH listed below includes DM II, anemia, metabolic bone disorder. She has been cleared for discharge, is to follow up with BRAKE REPAIR SUPERVISOR after discharge. Her AVF has been used 4 times successfully, still has CVC in place on right. She had dialysis yesterday, 4 liters UF. (Ekta Vega) Review of Systems Cardiovascular: DENIES: Chest pain Gastrointestinal: DENIES: Abdominal pain Genitourinary: COMPLAINS OF: Abnormal vaginal bleeding, Dysmenorrhea, DENIES: Dyspareunia, Sexual dysfunction, Vaginal discharge (Ekta Vega) Past Family Social History Allergies: Coded Allergies: vancomycin (Verified Allergy, Severe, KIDNEY INJURY, 07/12/17) PER Jasmin BROWN MD, DO NOT USE VANCO. SEVERE KIDNEY INJURY. morphine (Verified Allergy, Intermediate, 07/12/17) "ITCHING EVERYWHERE" Past Medical History ESRD on HD TTS DM II HTN MICHELET hypothyroidism anemia metabolic bone disorder secondary hyperparathyroidism Past Surgical History D&C this admission left brachiocephalic AVF (10/2016) with revision/second step 12/08/16 right BKA PermCath placement (multiple) cesarian x 2 Reported Medications Medroxyprogesterone Acetate 10 Mg Tab 10 Mg PO DAILY Start day 21 [progestin] 10 Mg PO DAILY 5 Days Coreg (Carvedilol) 3.125 Mg Tab 3.125 Mg PO Q12HR Lipitor (Atorvastatin Calcium) 20 Mg Tab 20 Mg PO HS 30 Days Reported Hydrocodon-Acetamin 7.5-325/15 (Hydrocodone/Acetaminophen) 15 Ml Solution Aspirin Children's (Aspirin) 81 Mg Chew 81 Mg PO DAILY Calcium Acetate (Phosphate Binder) 667 Mg Tab 667 Mg PO TID Zolpidem (Zolpidem Tartrate) 5 Mg Tab 10 Mg PO HS PRN Bumetanide 1 Mg Tab 2 Mg PO BID Synthroid (Levothyroxine Sodium) 88 Mcg Tab 0.137 Mcg PO DAILY Isosorbide Mononitrate 10 Mg Tab 10 Mg PO DAILY Take 2 doses 7 hours apart. Glipizide 10 Mg Tab 10 Mg PO BIDAC Take 30 minutes before a meal Norvasc (Amlodipine Besylate) 10 Mg Tab 10 Mg PO DAILY Active Ordered Medications Current Medications Medications (Trade) Dose Ordered Sig/Ezekiel Route Start Time Stop Time Status Last Admin (Tylenol) 650 mg Q4H PRN PO 07/12/17 17:30 (Narcan Inj) 0.4 mg UNSCH PRN IV PUSH 07/12/17 17:30 (Milk Of Magnesia Liq) 30 ml Q12HR PRN PO 07/12/17 21:00 (Senokot) 17.2 mg Q12H PRN PO 07/12/17 21:00 (Dulcolax Supp) 10 mg DAILY PRN RECTAL 07/12/17 17:30 (Lactulose Liq) 30 ml DAILY PRN PO 07/12/17 18:00 (Ultram) 50 mg Q8HR PRN PO 07/12/17 22:00 07/13/17 08:55 (Provera) 10 mg DAILY PO 07/13/17 09:00 07/13/17 08:54 (Norvasc) 10 mg DAILY PO 07/13/17 09:00 07/13/17 08:54 (Lipitor) 20 mg HS PO 07/12/17 21:00 07/12/17 22:43 (Bumetanide) 2 mg BID PO 07/12/17 21:00 07/13/17 08:57 (Phoslo) 667 mg TID PO 07/13/17 09:00 07/13/17 14:24 (Coreg) 3.125 mg Q12HR PO 07/12/17 21:00 07/13/17 08:55 (Ismo) 10 mg DAILY PO 07/13/17 09:00 07/13/17 08:56 (Synthroid) 0.112 mcg DAILY@0600 PO 07/13/17 06:00 07/13/17 05:54 (Ambien) 10 mg HS PRN PO 07/12/17 19:45 07/12/17 22:45 (D50w (Vial) Inj) 50 ml UNSCH PRN IV PUSH 07/12/17 19:45 (Glucagon Inj) 1 mg UNSCH PRN OTHER 07/12/17 19:45 (NovoLOG SUPPLEMENTAL SCALE) 1 ACHS SLIDING SCALE SQ 07/12/17 21:00 07/13/17 12:00 (Synthroid) 25 mcg DAILY@0600 PO 07/13/17 06:00 07/13/17 05:54 ([place] 7.5-325 Mg) 1 tab Q6H PRN PO 07/12/17 23:45 Sodium Chloride 1,000 ml @ 0 mls/hr Q0M PRN OTHER 07/13/17 09:16 (Heparin Inj) 8,000 units UNSCH PRN IV FLUSH 07/13/17 09:30 Sodium Chloride 1,000 ml @ 200 mls/hr Q5H PRN IV 07/13/17 09:16 Sodium Chloride 1,000 ml @ 0 mls/hr Q0M PRN OTHER 07/13/17 09:16 (Mannitol Inj) 12.5 gm UNSCH PRN IV 07/13/17 09:30 Albumin Human 100 ml @ 60 mls/hr UNSCH PRN IV 07/13/17 09:30 (NS Flush) 5 ml UNSCH PRN IV FLUSH 07/13/17 09:30 (Heparin Inj) UNSCH PRN .XX 07/13/17 09:30 (Gentamicin (Dialysis) Inj) 20 mg UNSCH PRN OTHER 07/13/17 09:30 (Zofran Inj) 4 mg UNSCH PRN IV PUSH 07/13/17 09:30 (Tylenol) 650 mg UNSCH PRN PO 07/13/17 09:30 (Benadryl) 25 mg UNSCH PRN PO 07/13/17 09:30 (Nitrostat Sl) 0.4 mg UNSCH PRN SL 07/13/17 09:30 (Catapres) 0.1 mg UNSCH PRN PO 07/13/17 09:30 (Gelfoam 12 Mm/7 Mm Top) 1 foam UNSCH PRN TOP 07/13/17 09:30 Lactated Ringer's 1,000 ml @ 125 mls/hr Q8H IV 07/13/17 14:15 (NS Flush) 2 ml UNSCH PRN IV FLUSH 07/13/17 14:15 (NS Flush) 2 ml BID IV FLUSH 07/13/17 14:15 (Motrin) 600 mg Q6H PRN PO 07/13/17 13:00 UNV (Percocet 5-325 Mg) 1 tab Q4H PRN PO 07/13/17 13:00 UNV (Percocet 5-325 Mg) 2 tab Q4H PRN PO 07/13/17 13:00 UNV (Benadryl) 25 mg Q6H PRN PO 07/13/17 14:15 (Zofran Inj) 4 mg Q6H PRN IVP 07/13/17 14:15 Miscellaneous Information ALL NURSING DEPARTME... 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 (Ekta Vega) Physical Exam Vital Signs Vital Signs Date Time Temp Pulse Resp B/P (MAP) Pulse Ox O2 Delivery O2 Flow Rate FiO2 07/13/17 13:58 98.2 59 18 122/55 (77) 95 07/13/17 07:40 98.0 57 18 112/55 (74) 95 07/13/17 03:47 98.9 63 16 124/59 (80) 96 07/12/17 23:18 98.0 67 16 127/64 (85) 94 07/12/17 21:22 07/12/17 17:44 61 18 198/78 (118) 94 Room Air Physical Exam Obese, disheveled Middle aged female sitting up in bed eating awake, oriented x 3, no neuro deficit noted, poor dentition CV: S1/S2, RRR no murmurs or rubs Lungs: CTA bilaterally, no coughing or wheezing Abd: obese, soft, non tender Ext: right BKA, healed: no edema noted Skin: intact left arm with large healed incision PC right chest Laboratory Laboratory Tests Test 07/13/17 01:06 07/13/17 06:29 Hemoglobin 10.9 11.4 Hematocrit 32.6 34.3 White Blood Count 9.1 Red Blood Count 3.52 Mean Corpuscular Volume 97.4 Mean Corpuscular Hemoglobin 32.4 Mean Corpuscular Hemoglobin Concent 33.3 Red Cell Distribution Width 14.2 Platelet Count 199 Mean Platelet Volume 7.3 Neutrophils (%) (Auto) 59.6 Lymphocytes (%) (Auto) 28.7 Monocytes (%) (Auto) 7.7 Eosinophils (%) (Auto) 3.6 Basophils (%) (Auto) 0.4 Neutrophils # (Auto) 5.4 Lymphocytes # (Auto) 2.6 Monocytes # (Auto) 0.7 Eosinophils # (Auto) 0.3 Basophils # (Auto) 0.0 CBC Comment DIFF FINAL Differential Comment Blood Urea Nitrogen 54 Creatinine 4.81 Random Glucose 92 Calcium Level 9.0 Sodium Level 139 Potassium Level 3.9 Chloride Level 101 Carbon Dioxide Level 29.0 Anion Gap 9 Estimat Glomerular Filtration Rate 9 (Ekta Vega) Result Diagram: 07/13/1762807/13/17628 Assessment and Plan Problem List: (1) ESRD (end stage renal disease) ICD Codes: N18.6 - ESRD (end stage renal disease) Status: Acute Plan: TTS, had 4 liters fluid removal yesterday Cleared for discharge, has outpatient HD arrangements for tomorrow AM stable from renal perspective will be discharged with PC in place High protein diet encouraged , binders discussed Epogen not required (2) Postmenopausal bleeding ICD Codes: N95.0 - Postmenopausal bleeding Plan: s/p D&C, stable can follow with BRAKE REPAIR SUPERVISOR after discharge PRN pain control (3) Type 2 diabetes mellitus ICD Codes: E11.9 - Type 2 diabetes mellitus Status: Acute Plan: Goal 140-180 mg/dL glucose, insulin as ordered (4) Hypertension ICD Codes: I10 - Hypertension Status: Acute Plan: Continue home meds after discharge (Ekta Vega) Assessment and Plan patient was seen and examined. Agree with above assessment and plan. (Ti Jalloh MD) Ekta Vega Jul 13, 2017 14:47 Ti Jalloh MD Jul 13, 2017 18:52
--- NOTE | 2017-07-14 07:07 | MP ---
cc: ROBERT MCCOLLUM DATE OF SURGERY 07/13/2017 DATE OF 1960 PREOPERATIVE DIAGNOSIS Patient with postmenopausal bleeding, menorrhagia. PROCEDURE Exam under anesthesia, diagnostic hysteroscopy with simple endometrial curettage, endometrial biopsy. POSTOPERATIVE DIAGNOSIS Patient with postmenopausal bleeding, menorrhagia, atrophic findings. SPECIMEN Included endometrial curettings. ESTIMATED BLOOD LOSS Less than 50 cc OPERATIVE FINDINGS The patient had markedly atrophic pelvic genitalia. Cervix was serially cephalad to the apex of the vagina. Cervix was small without any focal abnormality. The endometrial cavity was atrophic in appearance, small amount of blood clot, but no evidence of a focal mass or lesion. INDICATIONS FOR THE PROCEDURE The patient was seen through the emergency department in [place] on 07/11/2017. Evaluation was limited due to patient habitus and ultrasound revealed an anteverted uterus with an endometrial stripe measuring 10 mm. The patient's hemoglobin was stable at 10-1/2. The patient was discharge on Provera daily. She returned to the [facility] emergency apartment on 07/12/2017 with similar symptoms. She is a dialysis patient, had received heparin that day for her dialysis in her AV fistula which precipitated another episode of heavy vaginal bleeding. Again, findings were the same. The patient's hemoglobin on admission was 11.2. After reviewing the options and concerns for postmenopausal bleeding, recommendation is to proceed with exam under anesthesia and hysteroscope corrected biopsy. PROCEDURE The patient was taken to the operating room. She received Ancef 2 grams prophylactically. She underwent general anesthesia with LMA placement. She was carefully positioned using candy-cane stirrups on her left lower extremity. Her right lower extremity was notable for a [id number] amputation and this was supported by the certified registered dental assistant after she was draped. After she was prepped and draped, a time-out was conducted, agreed by all present in the room. Examination was described above. A simple bivalve speculum was used to examine the cervix which was secured with a single-tooth tenaculum. Uterine sound was placed, anteverted to about 9 cm. The cervix was then dilated to accommodate a rigid 5 mm hysteroscope which was used to examine the cavity. Findings were as described above. A simple curettage of the endometrium was then performed and then the instrumentation was removed. There was no active bleeding at the end of the case and final count was correct. The patient was stable. She was taken to the recovery room on room air. MD ARASH Fisher/WILLIAM /12:50 PM /6:40 AM
== END 2017-07-13 16:11 | disposition home or self-care (01) ==
LOC: NEPD 11:05 → UNDOADMOB 17:18 → NEDA 17:18 → NEPFCDU 21:34
PROVIDERS: ADMIT Internal Medicine; ATTEND Internal Medicine
DX: N95.0 Postmenopausal bleeding (principal); N85.4 Malposition of uterus; N95.2 Postmenopausal atrophic vaginitis; I12.0 Hypertensive chronic kidney disease with stage 5 chronic kidney disease or end stage renal disease; E11.22 Type 2 diabetes mellitus with diabetic chronic kidney disease; N18.6 End stage renal disease; G47.33 Obstructive sleep apnea (adult) (pediatric); F41.0 Panic disorder [episodic paroxysmal anxiety]; E78.5 Hyperlipidemia, unspecified; E03.9 Hypothyroidism, unspecified; N25.81 Secondary hyperparathyroidism of renal origin; Z87.891 Personal history of nicotine dependence; Z99.2 Dependence on renal dialysis; Z89.511 Acquired absence of right leg below knee; Z79.899 Other long term (current) drug therapy; Z79.82 Long term (current) use of aspirin; Z88.1 Allergy status to other antibiotic agents; Z88.5 Allergy status to narcotic agent
CPT/HCPCS: 00952; 58558; 80048; 82948; 85014; 85018; 85025; 88305; 96372; 99285; G0257; G0378; J0690; J1100; J1170; J1815; J2210; J2405; J2590; 90935

== ENCOUNTER 2017-07-19 18:31 | Emergency (ER) | payer MEDICARE, MEDICAID ==
[~2017-07-19] VITALS: Ht 152.4 cm; Wt 119.2 kg
[~2017-07-19 18:31] MED LIST changes: -ASPI81CH7 PO
[2017-07-19 18:51] VITALS: BP 142/73; PULSE 58; RESP 18; TEMP 98.5; O2SAT 96
[2017-07-19] MEDS ORDERED: GABA100C4 PO (19:20)
--- NOTE | 2017-07-19 20:02 | PD ---
HPI Chief Complaint: Numbness/Tingling Time Seen by Provider: 19:47 Travel History International Travel<30 days: No Contact w/Intl Traveler<30days: No Traveled to known affect area: No History of Present Illness HPI Patient is a 48-year-old female presents emergency department for evaluation of numbness and tingling to her entire left hand which is currently nearly resolved and leaving only some minimal numbness and tingling over the pinky finger on the left. Patient states that she had dialysis today through a catheter in the left side of her chest, she states that currently she is having a fistula matured in the left arm and she states that this numbness and tingling has been going on and off ever since initial surgery some months ago. Denies any chest pain shortness of breath abdominal pain fevers cough congestion or injury. She states symptoms are moderate, started during dialysis today, for the past few hours, nearly resolved, context and associated signs symptoms as above. PFSH Past Medical History Anemia: Yes Arthritis: Yes (HANDS, TOES, FEET) Autoimmune Disease: No Cancer: No Cardiac Catheterization: No Cardiovascular Problems: Yes High Cholesterol: No Diabetes: Yes Patient Takes Glucophage: No Dialysis: Yes (verónica weeks sats) Diminished Hearing: No Endocrine: Yes Genitourinary: No Hepatitis: No Hiatal Hernia: No Hypertension: Yes Immune Disorder: No Neurologic: Yes (phantom pain) Psychiatric: No Reproductive: No Respiratory: No Myocardial Infarction: No Pneumonia: Yes Renal Failure: Yes Sleep Apnea: Yes Thyroid Disease: Yes PNEUMOCCOCAL Vaccine (Year): 2 ?: Not Menopausal: Yes : 2 Para: 2 Miscarriage: 0 : 0 Tubal Ligation: Yes Past Surgical History Abdominal Surgery: No AICD: No Body Medical Devices: CAHT. LEFT CHEST Cardiac Surgery: No Section: Yes (X2) Coronary Artery Bypass Graft: No Ear Surgery: No Endocrine Surgery: No Eye Surgery: No Genitourinary Surgery: No Gynecologic Surgery: Yes (2 C-SECT.,) Joint Replacement: No Oral Surgery: No Pacemaker: No Thoracic Surgery: Yes (AV CATH X4 LEFT CHEST) Other Surgery: Yes (RIGHT BKA AMPUTATION DECEMBER 2013, Fistula left arm) Social History Alcohol Use: No Tobacco Use: No (former) Substance Use: No Allergies-Medications (Allergen,Severity, Reaction): Coded Allergies: vancomycin (Verified Allergy, Severe, KIDNEY INJURY, 1/16/18) PER Jasmin BROWN MD, DO NOT USE VANCO. SEVERE KIDNEY INJURY. morphine (Verified Allergy, Intermediate, 07/19/17) "ITCHING EVERYWHERE" Reported Meds & Prescriptions Reported Meds & Active Scripts Active Coreg (Carvedilol) 3.125 Mg Tab 3.125 Mg PO Q12HR Lipitor (Atorvastatin Calcium) 20 Mg Tab 20 Mg PO HS 30 Days Reported Hydrocodon-Acetamin 7.5-325/15 (Hydrocodone/Acetaminophen) 15 Ml Solution Calcium Acetate (Phosphate Binder) 667 Mg Tab 667 Mg PO TID Zolpidem (Zolpidem Tartrate) 5 Mg Tab 10 Mg PO HS PRN Bumetanide 1 Mg Tab 2 Mg PO BID Synthroid (Levothyroxine Sodium) 88 Mcg Tab 0.137 Mcg PO DAILY Isosorbide Mononitrate 10 Mg Tab 10 Mg PO DAILY Take 2 doses 7 hours apart. Glipizide 10 Mg Tab 10 Mg PO BIDAC Take 30 minutes before a meal Norvasc (Amlodipine Besylate) 10 Mg Tab 10 Mg PO DAILY Gabapentin 100 Mg Cap 100 Mg PO HS Review of Systems Except as stated in HPI: all other systems reviewed are Neg Physical Exam Narrative GENERAL: Well-nourished, well-developed patient. SKIN: Focused skin assessment warm/dry. HEAD: Normocephalic. EYES: No scleral icterus. No injection or drainage. NECK: Supple, trachea midline. No JVD or lymphadenopathy. CARDIOVASCULAR: Regular rate and rhythm without murmurs, gallops, or rubs. RESPIRATORY: Breath sounds equal bilaterally. No accessory muscle use. GASTROINTESTINAL: Abdomen soft, non-tender, nondistended. MUSCULOSKELETAL: As post BKA, AV fistula present on the left brachial, patient has 5 out of 5 strength in pleat patternmaker wrist flexion and extension bilaterally. Reports subjective difference in light touch sensation to the palmar aspect of the pinkies. However this sensation is intact. Cap refill is brisk in all 4 extremities, bounding pulse in the left upper extremity, 2+ in the right. Signs of adequate perfusion. BACK: Nontender without obvious deformity. No CVA tenderness. Data Data Last Documented VS Vital Signs Date Time Temp Pulse Resp B/P (MAP) Pulse Ox O2 Delivery O2 Flow Rate FiO2 07/19/17 18:51 98.5 58 18 142/73 (96) 96 Orders Orders Oxycodone-Acetamin 5-325 Mg (Percocet (07/19/17 20:15) Ed Discharge Order (07/19/17 20:02) Oxycodone (Roxicodone) (07/19/17 20:30) [facility] Medical Decision Making Medical Screen Exam Complete: Yes Emergency Medical Condition: Yes Differential Diagnosis Diabetic neuropathy, nerve injury unlikely, fracture unlikely. Narrative Course Patient roomed emerged permit, atraumatic numbness and tingling to the left hand nearly resolved, probably secondary to chronic neuropathy, I see no evidence to support infarction nerve injury or motor dysfunction. Is no indication further workup at this time, pain medication given, she is stable for discharge to follow-up with her vascular surgeon and primary care physician. Discussed return to ED criteria. Diagnosis Primary Impression: Left hand paresthesia Disposition: 01 DISCHARGE HOME Condition: Stable Nickolas Mg MD Jul 19, 2017 20:02
[2017-07-19] MEDS ORDERED: oxyCODONE/ACETAMINOPHEN 5 MG/325 MG TAB PO ONE (20:15)
[2017-07-25] MEDS ORDERED: HYDR-3580 PO (13:01)
[2017-07-25] MEDS ORDERED: ASPI-516 CHEW (13:02)
== END 2017-07-19 20:57 | disposition home or self-care (01) ==
LOC: PHEFT 18:31
DX: R20.2 Paresthesia of skin (principal); E11.9 Type 2 diabetes mellitus without complications; I10 Essential (primary) hypertension; M13.842 Other specified arthritis, left hand; M13.841 Other specified arthritis, right hand; Z99.2 Dependence on renal dialysis; Z79.84 Long term (current) use of oral hypoglycemic drugs
CPT/HCPCS: 99282

== ENCOUNTER → 2017-07-25 | Day surgery (SDC) | payer MEDICARE, MEDICAID ==
[~2017-07-25] VITALS: Ht 152.4 cm; Wt 102.5 kg
[~2017-07-25] MED LIST changes: +*HYDROmorphone PF 1 MG VIAL PERIprocedural Use ONLY ONE; +ASPI-516 CHEW; +BUPIVACAINE HCL PF 0.5% 10 ML VIAL ONE; +CHLORHEXIDINE GLUCONATE 2 % 1 PACK (2 CLOTHS) TOPICAL PRN; +DO NOT ADM ANY ANTICOAGULANT DRUGS PRN; +FAMOTIDINE 20 MG/2 ML VIAL ONE; +GABA100C4 PO; +HEPARIN SODIUM - IV 10,000 UNITS/10 ML VIAL ONE; +HEPARIN-NS/PF INJ 500 ML ONE; +HYDR-3580 PO; +IOHEXOL 300 MG/ML 100 ML BTL (for Rad CT) OTHER ONE; +LACTATED RINGER'S 1000 ML IV PRN; +LIDOCAINE HCL 1% PF 5 ML SYRINGE OTHER ONE; -MEDR10TA7 PO; +METOPROLOL TARTRATE 25 MG TAB PO PRN; +MIDAZOLAM HCL 2 MG/2 ML VIAL ONE; +POVIDONE IODINE 5% (ANTISEPSIS KIT) 4 APPLICATIONS EACH NARE PRN; +PROPOFOL 200 MG/20 ML AMP IV ONE; +PROTAMINE SULFATE 50 MG/5 ML VIAL ONE; +SODIUM CHLORID 0.9% 500 ML IV PRN; -[UNRECOGNIZED DRUG - OTHER] PO
[2017-07-25 13:21] LABS: AUTOMATED NEUTROPHIL # 5.7 TH/MM3 (1.8-7.7); BASOPHIL # 0.1 TH/MM3 (0-0.2); BASOPHIL % 0.6 % (0.0-2.0); EOSINOPHIL # 0.3 TH/MM3 (0-0.4); EOSINOPHIL % 3.1 % (0.0-4.0); HEMATOCRIT 31.3 % (35.0-46.0); HEMOGLOBIN 10.3 GM/DL (11.6-15.3); LYMPH % 31.6 % (9.0-44.0); LYMPHOCYTE # 3.2 TH/MM3 (1.0-4.8); MEAN CELL VOLUME 97.3 FL (80.0-100.0); MEAN CORPUSCULAR HEMOGLOBIN 32.2 PG (27.0-34.0); MEAN PLATELET VOLUME 8.1 FL (7.0-11.0); MONO % 7.7 % (0.0-8.0); MONOCYTE # 0.8 TH/MM3 (0-0.9); PLATELET COUNT 253 TH/MM3 (150-450); RED BLOOD COUNT 3.21 MIL/MM3 (4.00-5.30); RED CELL DISTRIBUTION WIDTH 13.7 % (11.6-17.2)
[2017-07-25 13:34] LABS: PROTHROMBIN TIME - PATIENT 10.2 SEC (9.8-11.6)
[2017-07-25 13:43] LABS: BICARBONATE 21.1 MEQ/L (21.0-32.0); CALCIUM 8.7 MG/DL (8.5-10.1); CREATININE 5.54 MG/DL (0.50-1.00)
--- NOTE | 2017-07-25 14:10 | HHI.HP ---
History of Present Illness Chief Complaint: L UE access related hand ischemia History of Present Illness 56 yo female with ESRD currently on HD via L UE AVF. Has access related hand ischemia and hand pain at night. No motor dysfunction. Presents for angio for evaluation for decision for access salvage or ligation. Past/Family/Social History Past Medical History ESRD OA DM XOL PAD hypothyroidism Past Surgical History R BKA Social History nonsmoker Family History NC Home Medications Active Scripts Carvedilol (Coreg) 3.125 Mg Tab, 3.125 MG PO Q12HR for Blood Pressure Management , #60 TAB 1 Refill Prov:Manjula Daniels 02/16/17 Atorvastatin (Lipitor) 20 Mg Tab, 20 MG PO HS for Cholesterol Management for 30 Days, TAB 1 Refill Prov:Manjula DanielsP 04/04/16 Reported Medications Aspirin (Aspirin) 81 Mg Chew, 81 MG CHEW DAILY, TAB 0 Refills 07/25/17 Hydrocodone-Acetaminophen (Hydrocodone-Acetaminophen) 7.5 Mg-325 Mg Tab, 1 TAB PO DAILY Y for PAIN, TAB 0 Refills 07/25/17 Gabapentin (Gabapentin) 100 Mg Cap, 100 MG PO HS, #30 CAP 0 Refills 07/19/17 Calcium Acetate (Phosphate Binder) (Calcium Acetate (Phosphate Binder)) 667 Mg Tab, 667 MG PO TID for Hyperphosphatemia, #90 TAB 0 Refills 06/21/16 Zolpidem (Zolpidem) 5 Mg Tab, 10 MG PO HS Y for INSOMNIA, TAB 0 Refills 06/19/16 Bumetanide (Bumetanide) 1 Mg Tab, 2 MG PO BID, #60 TAB 0 Refills 06/19/16 Levothyroxine (Synthroid) 88 Mcg Tab, 0.137 MCG PO DAILY for Thyroid, #30 TAB 0 Refills 06/19/16 Isosorbide Mononitrate (Isosorbide Mononitrate) 10 Mg Tab, 10 MG PO DAILY for Prevent Chest Pain, #60 TAB Take 2 doses 7 hours apart. 06/19/16 Glipizide (Glipizide) 10 Mg Tab, 10 MG PO BIDAC for Blood Sugar Management, #60 TAB 0 Refills Take 30 minutes before a meal 06/19/16 Amlodipine (Norvasc) 10 Mg Tab, 10 MG PO DAILY for Blood Pressure Management, # 30 TAB 0 Refills 06/19/16 Discontinued Reported Medications Hydrocodone/Acetaminophen (Hydrocodon-Acetamin 7.5-325/15) 15 Ml Solution 01/29/17 Discontinued Scripts Medroxyprogesterone Acetate (Medroxyprogesterone Acetate) 10 Mg Tab, 10 MG PO DAILY for Uterine bleeding, #5 TAB 0 Refills Start day 21 Prov:Joe Nieves MD 07/11/17 [progestin] No Conflict Check, 10 MG PO DAILY for 5 Days Prov:Joe Nieves MD 07/11/17 Coded Allergies: vancomycin (Verified Allergy, Severe, KIDNEY INJURY, 07/19/17) PER Jasmin BROWN MD, DO NOT USE VANCO. SEVERE KIDNEY INJURY. morphine (Verified Allergy, Intermediate, 07/19/17) "ITCHING EVERYWHERE" Review of Systems Constitutional: DENIES: Weight gain, Chills Cardiovascular: DENIES: Chest pain Physical Exam Vitals/I&O Date Time Temp Pulse Resp B/P (MAP) Pulse Ox O2 Delivery O2 Flow Rate FiO2 07/25/17 12:55 99.0 58 20 117/45 (69) 98 Neuro: alert, oriented HEENT: NC/AT; anicteric sclera Neck: no JVD Heart: reg rate Lungs: clear B Abdomen: obese, NT Vascular: + L UE thrill Extremities: good strength L UE Laboratory Tests Test 07/25/17 13:10 White Blood Count 10.0 Red Blood Count 3.21 Hemoglobin 10.3 Hematocrit 31.3 Mean Corpuscular Volume 97.3 Mean Corpuscular Hemoglobin 32.2 Mean Corpuscular Hemoglobin Concent 33.0 Red Cell Distribution Width 13.7 Platelet Count 253 Mean Platelet Volume 8.1 Neutrophils (%) (Auto) 57.0 Lymphocytes (%) (Auto) 31.6 Monocytes (%) (Auto) 7.7 Eosinophils (%) (Auto) 3.1 Basophils (%) (Auto) 0.6 Neutrophils # (Auto) 5.7 Lymphocytes # (Auto) 3.2 Monocytes # (Auto) 0.8 Eosinophils # (Auto) 0.3 Basophils # (Auto) 0.1 CBC Comment DIFF FINAL Differential Comment Prothrombin Time 10.2 Prothromb Time International Ratio 1.0 Blood Urea Nitrogen 51 Creatinine 5.54 Random Glucose 153 Calcium Level 8.7 Sodium Level 137 Potassium Level 4.7 Chloride Level 106 Carbon Dioxide Level 21.1 Anion Gap 10 Estimat Glomerular Filtration Rate 8 Caprini VTE Risk Assessment Caprini VTE Risk Assessment: No/Low Risk (score <= 1) Caprini Risk Assessment Model Point Value = 1 Point Value = 2 Point Value = 3 Point Value = 5 Age 41-60 Minor surgery BMI > 25 kg/m2 Swollen legs Varicose veins or History of unexplained or recurrent spontaneous Oral contraceptives or hormone replacement Sepsis (< 1 month) Serious lung disease, including pneumonia (< 1 month) Abnormal pulmonary function Acute myocardial infarction Congestive heart failure (< 1 month) History of inflammatory bowel disease Medical patient at bed rest Age 61-74 Arthroscopic surgery Major open surgery (> 45 min) Laparoscopic surgery (> 45 min) Malignancy Confined to bed (> 72 hours) Immobilizing plaster cast Central venous access Age >= 75 History of VTE Family history of VTE Factor V Leiden Prothrombin [id number] Lupus anticoagulant Anticardiolipin antibodies Elevated serum homocysteine Heparin-induced thrombocytopenia Other congenital or acquired thrombophilia Stroke (< 1 month) Elective arthroplasty Hip, pelvis, or leg fracture Acute spinal cord injury (< 1 month) Prophylaxis Regimen Total Risk Factor Score Risk Level Prophylaxis Regimen 0-1 Low Early ambulation 2 Moderate Order ONE of the following: *Sequential Compression Device (SCD) *Heparin 5000 units SQ BID 3-4 Higher Order ONE of the following medications: *Heparin 5000 units SQ TID *Enoxaparin/Lovenox 40 mg SQ daily (WT < 150 kg, CrCl > 30 mL/min) *Enoxaparin/Lovenox 30 mg SQ daily (WT < 150 kg, CrCl > 10-29 mL/min) *Enoxaparin/Lovenox 30 mg SQ BID (WT < 150 kg, CrCl > 30 mL/min) AND/OR *Sequential Compression Device (SCD) 5 or more Highest Order ONE of the following medications: *Heparin 5000 units SQ TID (Preferred with Epidurals) *Enoxaparin/Lovenox 40 mg SQ daily (WT < 150 kg, CrCl > 30 mL/min) *Enoxaparin/Lovenox 30 mg SQ daily (WT < 150 kg, CrCl > 10-29 mL/min) *Enoxaparin/Lovenox 30 mg SQ BID (WT < 150 kg, CrCl > 30 mL/min) AND *Sequential Compression Device (SCD) Assessment and Plan Plan L UE angiogram D/C later today Discharge Planning Today Daughter [phone] Nickolas Kim MD Jul 25, 2017 14:10
--- NOTE | 2017-07-25 15:06 | HHI.PR ---
cc: Nickolas Kim MD Immediate Post Op Note Procedure Date: Jul 25, 2017 Pre Op Diagnosis: L UE access related hand ischemia Post Op Diagnosis: L UE access related hand ischemia Surgeon: Nickolas Kim Laundry Technician(s): none Procedure: 1. Thoracic aortogram 2. L UE angiogram 3. R ANTIQUE REPAIRER Angioseal Findings: 1. Patent 3 vessel arcch 2. Patent brach-ax configuration with no AVF stenosis 3. Minimal perfusion to L UE distal to brachial anastomosis Additional Information: needs surgical revision, likely proximalization (will schedule) Complications: none Specimen(s) removed: none Estimated blood loss: 10mL Anesthesia: MAC Drains: None Patient to: PACU Patient Condition: Good Implant/Devices: SEE IMPLANT LOG (if applicable) Date/Time of Procedure: SEE SURGICAL CARE RECORD Nickolas Kim MD Jul 25, 2017 15:06
[2017-07-25 17:00] VITALS: BP 108/61; PULSE 63; RESP 18; TEMP 98; O2SAT 96
--- NOTE | 2017-07-26 15:51 | MP ---
cc: NICKOLAS KIM MD DATE OF SURGERY: 07/25/2017 PREOPERATIVE DIAGNOSIS: Access related hand ischemia left upper extremity. POSTOPERATIVE DIAGNOSIS Access related hand ischemia left upper extremity. PROCEDURE 1. Thoracic aortogram. 2. Left upper extremity angiogram. 3. Right common femoral artery Angio-Seal. ATTENDING SURGEON: Nickolas Kim MD. ANESTHESIA Local with sedation. INDICATIONS Ms. Spencer is a 56-year-old lady who has a left upper extremity access. She has access related hand ischemia manifesting as rest pain. She is taken to the operating room for angiographic evaluation. There is no prior cath based imaging upon my review. DESCRIPTION OF PROCEDURE: Informed consent was obtained from the patient. She was taken to the operating room, placed supine on the operating room table. An appropriate timeout was taken to ensure the patient's identity, the operative site and planned procedure. Antibiotics were not necessary as this was a clean procedure without implantation of any foreign object. Everyone in the room agreed to time-out and we proceeded. Her bilateral groins were prepped and draped and the right groin was anesthetize with 1% lidocaine. A 21 gauge micropuncture needle was used to access the right common femoral artery. This was exchanged using Seldinger technique micropuncture sheath through which a 0.035 Glidewire was used. The micropuncture sheath was changed for a 5-Kiswahili sheath and pigtail catheter was placed over the wire into the sheath, and a pigtail catheter was advanced to the ascending aorta. A thoracic aortogram was obtained. The Glidewire was reintroduced. The pigtail was exchanged for vertebral catheter and the vertebral catheter and Glidewire was used to navigate into the subclavian, axillary, and proximal brachial arteries and left upper extremity angiogram was obtained. Wire catheter and sheath removed and the groin was closed with AngioSeal. There were no complications. I was present and scrubbed for the entire procedure. INTERPRETATION: The patient has a patent three-vessel arch without any arch occlusive disease of hemodynamic significance. The patient's subclavian, axillary and brachial arteries are widely patent. There is a brachial artery based access and the fistula appears widely patent without any stenosis nor central vein stenosis. There is minimal forearm perfusion with most of the opacification being retrograde up into the access. MD RHODA Bravo /5:57 PM /3:33 PM
== END | disposition home or self-care (01) ==
LOC: HSDC 10:38
PROVIDERS: ATTEND Surgery
DX: I99.8 Other disorder of circulatory system (principal); N18.6 End stage renal disease; M79.642 Pain in left hand; E11.22 Type 2 diabetes mellitus with diabetic chronic kidney disease; I73.9 Peripheral vascular disease, unspecified; E03.9 Hypothyroidism, unspecified; M19.90 Unspecified osteoarthritis, unspecified site; E83.39 Other disorders of phosphorus metabolism; G47.00 Insomnia, unspecified; Z89.511 Acquired absence of right leg below knee; Z79.82 Long term (current) use of aspirin
CPT/HCPCS: 01916; 36217; 75625; 80048; 85025; 85610; C1769; J1170; J1644; J2250; J3010; J7040; Q9967; J2720

== ENCOUNTER 2017-08-01 10:36 | Observation (INO) | payer MEDICARE, MEDICAID ==
[~2017-08-01] VITALS: Ht 152.4 cm; Wt 102.0 kg
[~2017-08-01 10:36] MED LIST changes: -*HYDROmorphone PF 1 MG VIAL PERIprocedural Use ONLY ONE; -BUPIVACAINE HCL PF 0.5% 10 ML VIAL ONE; +CALC1CAP PO; -CALC667T PO; -CHLORHEXIDINE GLUCONATE 2 % 1 PACK (2 CLOTHS) TOPICAL PRN; -DO NOT ADM ANY ANTICOAGULANT DRUGS PRN; -FAMOTIDINE 20 MG/2 ML VIAL ONE; -HEPARIN SODIUM - IV 10,000 UNITS/10 ML VIAL ONE; -HEPARIN-NS/PF INJ 500 ML ONE; -HYDR1SOL6; -IOHEXOL 300 MG/ML 100 ML BTL (for Rad CT) OTHER ONE; -LACTATED RINGER'S 1000 ML IV PRN; -LIDOCAINE HCL 1% PF 5 ML SYRINGE OTHER ONE; -METOPROLOL TARTRATE 25 MG TAB PO PRN; -MIDAZOLAM HCL 2 MG/2 ML VIAL ONE; -POVIDONE IODINE 5% (ANTISEPSIS KIT) 4 APPLICATIONS EACH NARE PRN; -PROPOFOL 200 MG/20 ML AMP IV ONE; -PROTAMINE SULFATE 50 MG/5 ML VIAL ONE; -SODIUM CHLORID 0.9% 500 ML IV PRN
[2017-08-01] MEDS ORDERED: INSULIN HUMAN REGULAR 1,000 UNITS/10 ML VIAL SQ PRN (12:00)
[2017-08-01] MEDS ORDERED: CHLORHEXIDINE GLUCONATE 2 % 1 PACK (2 CLOTHS) TOPICAL PRN (12:00)
[2017-08-01] MEDS ORDERED: LACTATED RINGER'S 1000 ML IV PRN (12:00)
[2017-08-01] MEDS ORDERED: METOPROLOL TARTRATE 25 MG TAB PO PRN (12:00)
[2017-08-01] MEDS ORDERED: POVIDONE IODINE 5% (ANTISEPSIS KIT) 4 APPLICATIONS EACH NARE PRN (12:00)
[2017-08-01] MEDS ORDERED: SODIUM CHLORID 0.9% 500 ML IV PRN (12:00)
[2017-08-01] MEDS ORDERED: Hemodialysis Vas Access Cath PRN NS Lock Flush IV FLUSH (13:00)
[2017-08-01] MEDS ORDERED: Hemodialysis Vas Acc Cath PRN Heparin 1000 unit/ml Flush IV FLUSH (13:00)
[2017-08-01] MEDS ORDERED: HEPARIN SODIUM - IV 10,000 UNITS/10 ML VIAL ONE (13:52)
[2017-08-01] MEDS ORDERED: BUPIVACAINE HCL PF 0.5% 10 ML VIAL ONE (13:52)
[2017-08-01] MEDS ORDERED: THROMBIN (TOPICAL) 20,000 UNIT SPRAY KIT ONE (13:52)
[2017-08-01] MEDS ORDERED: PROTAMINE SULFATE 50 MG/5 ML VIAL ONE (13:52)
[2017-08-01] MEDS ORDERED: HEPARIN-NS/PF INJ 500 ML ONE (13:52)
--- NOTE | 2017-08-01 13:55 | PD.VS.PN ---
Pre-operative Note Pre-operative diagnosis: Access related hand ischemia LEFT arm Planned procedure: L UE Access revision Interval History: PT feeling well; lyubov HD Labs: Laboratory Results Test 08/01/17 12:07 Potassium Level 4.6 MEQ/L (3.5-5.1) Blood: T&S Imaging: reviewed Orders: NPO Ancef 2g IV OCTOR Post-operative destination: PACU Operative site marked: Yes Consent: Informed consent has been obtained from Dori Spencer. I have explained the procedure in detail and discussed the risks, benefits, and potential complications. All questions have been answered. Patient contact information: [phone] Nickolas Kim MD Aug 01, 2017 13:55
[2017-08-01] MEDS ORDERED: VANCOMYCIN HCL 1000 MG VIAL ONE (14:56)
[2017-08-01] MEDS ORDERED: ZOLPIDEM TARTRATE 10 MG TAB PO PRN (16:15)
--- NOTE | 2017-08-01 16:15 | HHI.PR ---
cc: Nickolas Kim MD Immediate Post Op Note Procedure Date: Aug 01, 2017 Pre Op Diagnosis: access-related hand ischemia , ESRD Post Op Diagnosis: access-related hand ischemia , ESRD Surgeon: Nickolas Kim Crown Wheel Assembler(s): none Procedure: L UE Access revision (proximalization with 6mm PTFE) Findings: + thrill in AVG; good Doppler signal in wrist Complications: none Specimen(s) removed: none Estimated blood loss: 50mL Anesthesia: General Drains: None Fluids: 500 IVF Patient to: PACU Patient Condition: Good Implant/Devices: SEE IMPLANT LOG (if applicable) Date/Time of Procedure: SEE SURGICAL CARE RECORD Nickolas Kim MD Aug 01, 2017 16:15
[2017-08-01] MEDS ORDERED: HYDROmorphone HCL PF 2 MG/ML VIAL ONE ×2 (16:37→17:12)
[2017-08-01] MEDS ORDERED: DO NOT ADM ANY ANTICOAGULANT DRUGS PRN (17:15)
[2017-08-01] MEDS ORDERED: hydrALAZINE HCL 20 MG/ML VIAL IV PUSH PRN (17:15)
[2017-08-01] MEDS ORDERED: CALCIUM ACETATE 667 MG CAP PO SCH (18:00)
[2017-08-01 20:22] VITALS: BP 107/41; PULSE 76; RESP 18; TEMP 97.5; O2SAT 96
[2017-08-01] MEDS ORDERED: GABAPENTIN 300 MG CAP PO SCH (21:00)
[2017-08-01] MEDS ORDERED: CARVEDILOL 3.125 MG TAB PO SCH (21:00)
[2017-08-01] MEDS ORDERED: ATORVASTATIN 20 MG TAB PO SCH (21:00)
[2017-08-01] MEDS ORDERED: BUMETANIDE 1 MG TAB PO SCH (21:00)
[2017-08-01] MEDS ORDERED: RESP: ALBUTEROL 2.5 MG/3 ML NEB (PRN) INH (21:15)
[2017-08-01 21:27] VITALS: O2SAT 94
[2017-08-01] MEDS: HYDROmorphone HCL 2 MG TAB PO PRN (22:11)
[2017-08-02 00:36] VITALS: BP 118/51; PULSE 46; RESP 17; TEMP 97.2; O2SAT 99
[2017-08-02 04:09] VITALS: BP 136/59; PULSE 46; RESP 18; TEMP 97.3; O2SAT 98
[2017-08-02] MEDS: HYDROmorphone HCL 2 MG TAB PO PRN (04:43)
[2017-08-02] MEDS ORDERED: LEVOTHYROXINE SODIUM 112 MCG TAB PO SCH ×2 (06:00)
[2017-08-02] MEDS ORDERED: LEVOTHYROXINE SODIUM 25 MCG TAB PO SCH (06:00)
[2017-08-02] MEDS ORDERED: glipiZIDE 10 MG TAB PO SCH (07:00)
[2017-08-02 07:11] LABS: BICARBONATE 17.9 MEQ/L (21.0-32.0); CALCIUM 8.4 MG/DL (8.5-10.1); CREATININE 7.36 MG/DL (0.50-1.00)
[2017-08-02 08:00] VITALS: BP 130/61; PULSE 50; RESP 18; TEMP 96.7; O2SAT 99
[2017-08-02] MEDS ORDERED: SODIUM CHLOR 0.9% 1000 ML INJ 1,000 ML OTHER PRN ×2 (08:33)
[2017-08-02] MEDS ORDERED: SODIUM CHLOR 0.9% 1000 ML INJ 1,000 ML IV PRN (08:33)
[2017-08-02] MEDS ORDERED: SODIUM CHLORIDE 0.9% FLUSH 10 ML FLUSH IV FLUSH PRN (08:45)
[2017-08-02] MEDS ORDERED: ACETAMINOPHEN 325 MG TAB PO PRN (08:45)
[2017-08-02] MEDS ORDERED: HEPARIN SODIUM - IV 10,000 UNITS/10 ML VIAL IV FLUSH PRN (08:45)
[2017-08-02] MEDS ORDERED: ONDANSETRON HCL 4 MG/2 ML VIAL IV PUSH PRN (08:45)
[2017-08-02] MEDS ORDERED: MANNITOL 12.5 GM/50 ML VIAL IV PRN (08:45)
[2017-08-02] MEDS ORDERED: cloNIDine HCL 0.1 MG TAB PO PRN (08:45)
[2017-08-02] MEDS ORDERED: ALBUMIN 25% INJ 100 ML IV PRN (08:45)
[2017-08-02] MEDS ORDERED: HEPARIN SODIUM - IV 10,000 UNITS/10 ML VIAL PRN (08:45)
[2017-08-02] MEDS ORDERED: GENTAMICIN SULFATE 20 MG/2 ML VIAL OTHER PRN (08:45)
[2017-08-02] MEDS ORDERED: EPOETIN ALFA 10,000 UNITS/ML VIAL IV PUSH PRN (08:45)
[2017-08-02] MEDS ORDERED: NITROGLYCERIN 0.4 MG SL 25 TABS/BTL SL PRN (08:45)
[2017-08-02] MEDS ORDERED: diphenhydrAMINE HCL 25 MG CAP PO PRN (08:45)
[2017-08-02] MEDS ORDERED: GELATIN 12 MM/7 MM FOAM TOP PRN (08:45)
[2017-08-02] MEDS ORDERED: ISOSORBIDE DINITRATE 10 MG TAB PO SCH (09:00)
[2017-08-02] MEDS ORDERED: ASPIRIN 81 MG CHEW TAB PO SCH (09:00)
--- NOTE | 2017-08-02 09:57 | PD.VS.PN ---
Subjective POD #: 1 Procedure(s): L UE Access revision (proximalization with 6mm PTFE) Subjective/Hospital Course Pt in HD Doing well Pt reports improved hand pain Pain controlled Objective Vitals/I&O Date Time Temp Pulse Resp B/P (MAP) Pulse Ox O2 Delivery O2 Flow Rate FiO2 08/02/17 08:00 96.7 50 18 130/61 (84) 99 08/02/17 04:09 97.3 46 18 136/59 (84) 98 08/02/17 00:36 97.2 46 17 118/51 (73) 99 08/01/17 21:27 94 Nasal Cannula 4.00 08/01/17 20:22 97.5 76 18 107/41 (63) 96 08/01/17 17:45 98.3 58 13 114/54 (74) 97 Nasal Cannula 3 08/01/17 17:30 57 13 139/63 (88) 95 08/01/17 17:15 56 14 140/63 (88) 96 Nasal Cannula 3 08/01/17 17:00 51 19 156/67 (96) 98 08/01/17 16:45 55 20 174/76 (108) 94 Simple Mask 6 08/01/17 16:34 98.3 67 16 195/80 (118) 97 Simple Mask 6 08/01/17 11:57 98.6 44 18 14/55 (41) 97 08/02/17 08/02/17 08/02/17 06:59 14:59 22:59 Intake Total 360 ml Balance 360 ml Exam: GENERAL: A&Ox3,GCS 15, NAD SKIN: UE Warm and dry w/ motor intact Left UE incisions intact with surgical glue, erythema at the incision line with mild ecchymosis + thrill near L AVF Denied hand pain Laboratory Laboratory Tests Test 08/01/17 12:07 08/02/17 05:50 Potassium Level 4.6 6.3 Blood Urea Nitrogen 53 Creatinine 7.36 Random Glucose 296 Calcium Level 8.4 Sodium Level 134 Chloride Level 104 Carbon Dioxide Level 17.9 Anion Gap 12 Estimat Glomerular Filtration Rate 6 Assessment and Plan Assessment: (1) AVF (arteriovenous fistula) Status: Acute (2) End stage renal disease on dialysis Status: Acute Plan Pt s/p L UE Access revision Doing well w/ improved hand pain (LEFT) Plan D/C today after HD Arranged out pt F/U Mercedes Stanton NP [facility] [phone] Discharge Planning Today after HD Mercedes Stanton [facility] Aug 02, 2017 09:57
[2017-08-02] MEDS ORDERED: OXYC1CAP PO (10:00)
--- NOTE | 2017-08-02 10:10 | PD.VS.DC ---
Discharge Summary Admission Date: Aug 01, 2017 at 16:18 Discharge Date: Aug 02, 2017 Admission Diagnosis: (1) access related hand ischemia (2) End stage renal disease (3) AVF (arteriovenous fistula) Discharge Diagnosis: (1) AVF (arteriovenous fistula) ICD Codes: I77.0 - Arteriovenous fistula, acquired Status: Acute (2) End stage renal disease on dialysis ICD Codes: N18.6 - End stage renal disease; Z99.2 - Dependence on renal dialysis Status: Acute Brief History from admission 56/F w/ ESRD on HD Hx of access related hand ischemia times a few weeks Procedure(s): L UE Access revision (proximalization with 6mm PTFE) Significant Findings GENERAL: A&Ox3,GCS 15, NAD SKIN: UE Warm and dry w/ motor intact Left UE incisions intact with surgical glue, erythema at the incision line with mild ecchymosis + thrill near L AVF Denied hand pain Laboratory Tests Test 08/01/17 12:07 08/02/17 05:50 Blood Urea Nitrogen 53 MG/DL (7-18) Creatinine 7.36 MG/DL (0.50-1.00) Random Glucose 296 MG/DL (74-106) Calcium Level 8.4 MG/DL (8.5-10.1) Sodium Level 134 MEQ/L (136-145) Potassium Level 6.3 MEQ/L (3.5-5.1) Carbon Dioxide Level 17.9 MEQ/L (21.0-32.0) Estimat Glomerular Filtration Rate 6 ML/MIN (>89) Hospital Course: 56/F w/ ESRD on HD Hx of access related hand ischemia times a few weeks Pt S/P LEFT Upper Extremity Access Revision POD 1 Doing well Pain controlled Incisions intact + thrill near L AVF Pt w/o hand pain, reports improvement Pt to be D/C after HD Arranged out pt f/u in 2W with a surveillance WBI Allergies Coded Allergies Type Severity Reaction Last Updated Verified vancomycin Allergy Severe KIDNEY INJURY 07/19/17 Yes morphine Allergy Intermediate 07/19/17 Yes 1/28/18 1/28/18 08/01/17 08/01/17 08/02/17 08/02/17 05:59 17:59 05:59 17:59 05:59 17:59 Intake Total 500 ml 360 ml 360 ml Output Total 50 ml Balance 450 ml 360 ml 360 ml Intake Oral 360 ml 360 ml Other 500 ml Output Estimated Blood Loss 50 ml # Voids 0 1 # Bowel Movements 0 0 Laboratory Tests Test 08/01/17 12:07 08/02/17 05:50 Potassium Level 4.6 MEQ/L 6.3 MEQ/L Blood Urea Nitrogen 53 MG/DL Creatinine 7.36 MG/DL Random Glucose 296 MG/DL Calcium Level 8.4 MG/DL Sodium Level 134 MEQ/L Chloride Level 104 MEQ/L Carbon Dioxide Level 17.9 MEQ/L Anion Gap 12 MEQ/L Estimat Glomerular Filtration Rate 6 ML/MIN Orders Procedure Category Date Status Time Potassium, Serum (K) LAB 08/01/17 Complete 11:46 Lactated Ringer's MED 08/01/17 Complete 1000 Ml Inj (Lr 1000 M 12:00 Sodium Chlorid 0.9% MED 08/01/17 Complete 500 Ml Inj (Ns 500 M 12:00 Metoprolol Tartrate MED 08/01/17 Complete (Lopressor) 12:00 Povidone Iod 5% MED 08/01/17 Complete Antisepsis Kit 12:00 Chlorhexidine 2% MED 08/01/17 Complete Cloth (Chlorhexidine 12:00 Insulin Human Regular MED 08/01/17 Complete Inj (Novolin R Inj 12:00 Sodium Chloride 0.9% MED 08/01/17 In Process Flush (Ns Flush) 13:00 Heparin Inj (Heparin MED 08/01/17 In Process Inj) 13:00 Protamine Sulfate Inj MED 08/01/17 Complete (Protamine Sulfate 13:52 Heparin Inj (Heparin MED 08/01/17 Complete Inj) 13:52 Bupivacaine Pf 0.5% MED 08/01/17 Complete Inj (Marcaine Pf 0.5 13:52 Thrombin Top Mchenry MED 08/01/17 Complete (Thrombin Top Mchenry) 13:52 Heparin-Ns/Pf Inj MED 08/01/17 Complete (Heparin-Ns/Pf Inj) 13:52 Vancomycin Inj MED 08/01/17 Complete (Vancomycin Inj) 14:56 Place In Observation ADMITTING 08/01/17 Transmitted Code Status CODE 08/01/17 Transmitted 16:15 Vital Signs (Adult) MAGUI 08/01/17 Complete 16:15 Sewer Tapper / MAGUI 08/01/17 In Process Telemetry 16:15 Activity Oob Ad Agnes MAGUI 08/01/17 In Process 16:15 Notify Parameters MAGUI 08/01/17 In Process 16:15 Precautions MAGUI 08/01/17 In Process 16:15 Basic Metabolic Panel LAB 08/02/17 Complete (Bmp) 06:00 Consult Nephrology CONS 08/01/17 Transmitted Aspirin Chew (Aspirin MED 08/02/17 In Process Chew) 09:00 Oxycodone (Roxicodone) MED 08/01/17 In Process 16:15 Hydromorphone MED 08/01/17 In Process (Dilaudid) 16:15 Scd Bilateral/Knee MAGUI 08/01/17 In Process High 16:15 Amlodipine (Norvasc) MED 08/02/17 In Process 09:00 Atorvastatin (Lipitor) MED 08/01/17 In Process 21:00 Bumetanide MED 08/01/17 In Process (Bumetanide) 21:00 Calcium Acetate MED 08/01/17 In Process (Phoslo) 18:00 Carvedilol (Coreg) MED 08/01/17 In Process 21:00 Glipizide (Glucotrol) MED 08/02/17 In Process 07:00 Hydromorphone Pf Inj MED 08/01/17 Complete (Dilaudid Pf Inj) 16:37 Gabapentin (Neurontin) MED 08/01/17 In Process 21:00 Isosorbide Dinitrate MED 08/02/17 In Process (Isordil) 09:00 Levothyroxine MED 08/02/17 Complete (Synthroid) 06:00 Zolpidem (Ambien) MED 08/01/17 In Process 16:15 Levothyroxine MED 08/02/17 In Process (Synthroid) 06:00 Heparin Inj (Heparin MED 08/02/17 In Process Inj) 16:00 Levothyroxine MED 08/02/17 In Process (Synthroid) 06:00 Misc Nursing MED 08/01/17 In Process Information 17:15 (Hub Use Only)Inp Phy CONS 08/01/17 Transmitted Cons/Ref Diet Regular Basic DIET 08/01/17 Transmitted Dinner Hydralazine Inj MED 08/01/17 Complete (Apresoline Inj) 17:15 Hydromorphone Pf Inj MED 08/01/17 Complete (Dilaudid Pf Inj) 17:12 Sds Pre Op Care [facility] 08/01/17 Complete Class [facility] Complete MIN General/Pacu [facility] 08/01/17 Complete [facility] Complete Aerosol Albuterol Neb MED 08/01/17 In Process (Albuterol Neb) 21:15 Blood Flow Rate [facility] 08/02/17 In Process 08:33 Dialysate Flow Rate [facility] 08/02/17 In Process 08:33 Dialyzer [facility] 08/02/17 In Process 08:33 Concentrate [facility] 08/02/17 In Process 08:33 Acid Concentrate [facility] 08/02/17 In Process 08:33 Length Of Dialysis [facility] 08/02/17 In Process 08:33 Frequency Of Dialysis [facility] 08/02/17 In Process 08:33 Dialysis Obtain [facility] 08/02/17 In Process 08:33 Needle Size [facility] 08/02/17 In Process 08:33 Dialysis Schedule [facility] 08/02/17 In Process 08:33 Resp Oxygen Brendan C RSP 08/02/17 Logged Titrat 1-4 L Dialysis Weight [facility] 08/02/17 In Process 08:33 ^ Obtain As Needed [facility] 08/02/17 In Process 08:33 Sodium Chlor 0.9% MED 08/02/17 In Process 1000 Ml Inj (Ns 1000 M 08:33 Heparin Inj (Heparin MED 08/02/17 In Process Inj) 08:45 Sodium Chlor 0.9% MED 08/02/17 In Process 1000 Ml Inj (Ns 1000 M 08:33 Sodium Chlor 0.9% MED 08/02/17 In Process 1000 Ml Inj (Ns 1000 M 08:33 Mannitol Inj MED 08/02/17 In Process (Mannitol Inj) 08:45 Albumin 25% Inj MED 08/02/17 In Process (Albumin 25% Inj) 08:45 Sodium Chloride 0.9% MED 08/02/17 In Process Flush (Ns Flush) 08:45 Heparin Inj (Heparin MED 08/02/17 In Process Inj) 08:45 Gentamicin Inj MED 08/02/17 In Process (Gentamicin Inj) 08:45 Ondansetron Inj MED 08/02/17 In Process (Zofran Inj) 08:45 Acetaminophen MED 08/02/17 In Process (Tylenol) 08:45 Diphenhydramine MED 08/02/17 In Process (Benadryl) 08:45 Nitroglycerin Sl MED 08/02/17 In Process (Nitrostat Sl) 08:45 Clonidine (Catapres) MED 08/02/17 In Process 08:45 Epoetin Hernandez Inj MED 08/02/17 In Process (Epogen Inj) 08:45 Gelatin 12 Mm/7 Mm MED 08/02/17 In Process Top (Gelfoam 12 Mm/7 08:45 Attending Discharge DISCHARGE 08/02/17 Transmitted Order Vital Signs Date Time Temp Pulse Resp B/P (MAP) Pulse Ox O2 Delivery O2 Flow Rate FiO2 08/02/17 08:00 96.7 50 18 130/61 (84) 99 08/02/17 04:09 97.3 46 18 136/59 (84) 98 08/02/17 00:36 97.2 46 17 118/51 (73) 99 08/01/17 21:27 94 Nasal Cannula 4.00 08/01/17 20:22 97.5 76 18 107/41 (63) 96 08/01/17 17:45 98.3 58 13 114/54 (74) 97 Nasal Cannula 3 08/01/17 17:30 57 13 139/63 (88) 95 08/01/17 17:15 56 14 140/63 (88) 96 Nasal Cannula 3 08/01/17 17:00 51 19 156/67 (96) 98 08/01/17 16:45 55 20 174/76 (108) 94 Simple Mask 6 08/01/17 16:34 98.3 67 16 195/80 (118) 97 Simple Mask 6 08/01/17 11:57 98.6 44 18 14/55 (41) 97 Discharge Condition: Good Discharge Disposition: Discharge Home Discharge Instructions: Resume a dialysis diet Activities as tolerated NO heavy lifting (LEFT upper extremity) over a gallon of milk for 10 days May shower then lightly pat dry incisions leave incisions open to air Do not apply any creams or ointments to incisions as it may loosen the surgical glue Call to report any increased redness, drainage, swelling or hand pain You were prescribed a narcotic pain medication that may causes constipation- Take with an over the counter stool softener Any questions or concerns: Call [facility] [phone] Mercedes Stanton Aug 02, 2017 10:10
--- NOTE | 2017-08-02 10:16 | PD.CONS ---
HPI Service Nephrology Consult Requested By Reason for Consult ESRD on HD Primary Care Physician Clifton Hernandez M.D. History of Present Illness This is our 56 y/o dialysis patient who has had multiple revisions of her left upper extremity AVF. She had ischemic pain in her hand therefore require vascular intervention. She has a Permcath on the left for HD. Other PMH is listed below includes anemia, DM II, and HTN. She is seen during dialysis (on a 1K), noted to be hyperkalemic today, and is scheduled to be discharged after treatment. She is a full code. (Ekta Vega) Review of Systems Constitutional: COMPLAINS OF: Fatigue Musculoskeletal: COMPLAINS OF: Joint pain, Muscle aches, Stiffness (Ekta Vega) Past Family Social History Allergies: Coded Allergies: vancomycin (Verified Allergy, Severe, KIDNEY INJURY, 07/19/17) PER Jasmin BROWN MD, DO NOT USE VANCO. SEVERE KIDNEY INJURY. morphine (Verified Allergy, Intermediate, 07/19/17) "ITCHING EVERYWHERE" Past Medical History ESRD on HD TTS DM II HTN MICHELET hypothyroidism anemia metabolic bone disorder secondary hyperparathyroidism Past Surgical History recent D&C this admission left brachiocephalic AVF (10/2016) with revision/second step 12/08/16 right BKA PermCath placement (multiple) cesarian x 2 Reported Medications Coreg (Carvedilol) 3.125 Mg Tab 3.125 Mg PO Q12HR Lipitor (Atorvastatin Calcium) 20 Mg Tab 20 Mg PO HS 30 Days Reported Hydrocodon-Acetamin 7.5-325/15 (Hydrocodone/Acetaminophen) 15 Ml Solution Aspirin Children's (Aspirin) 81 Mg Chew 81 Mg PO DAILY Calcium Acetate (Phosphate Binder) 667 Mg Tab 667 Mg PO TID Zolpidem (Zolpidem Tartrate) 5 Mg Tab 10 Mg PO HS PRN Bumetanide 1 Mg Tab 2 Mg PO BID Synthroid (Levothyroxine Sodium) 88 Mcg Tab 0.137 Mcg PO DAILY Isosorbide Mononitrate 10 Mg Tab 10 Mg PO DAILY Take 2 doses 7 hours apart. Glipizide 10 Mg Tab 10 Mg PO BIDAC Take 30 minutes before a meal Norvasc (Amlodipine Besylate) 10 Mg Tab 10 Mg PO DAILY Active Ordered Medications Current Medications Medications (Trade) Dose Ordered Sig/Ezekiel Route Start Time Stop Time Status Last Admin (NS Flush) 5 ml UNSCH PRN IV FLUSH 08/01/17 13:00 (Heparin Inj) 2,000 units UNSCH PRN IV FLUSH 08/01/17 13:00 (Aspirin Chew) 81 mg DAILY PO 08/02/17 09:00 (Roxicodone) 5 mg Q4H PRN PO 08/01/17 16:15 (Dilaudid) 2 mg Q4H PRN PO 08/01/17 16:15 08/02/17 04:43 (Heparin Inj) 5,000 units Q8H SQ 08/02/17 16:00 (Norvasc) 10 mg DAILY PO 08/02/17 09:00 (Lipitor) 20 mg HS PO 08/01/17 21:00 08/01/17 22:10 (Bumetanide) 2 mg BID PO 08/01/17 21:00 08/01/17 22:11 (Phoslo) 2,001 mg TID PO 08/01/17 18:00 (Coreg) 3.125 mg Q12HR PO 08/01/17 21:00 08/01/17 22:11 (Neurontin) 300 mg HS PO 08/01/17 21:00 08/01/17 22:11 (Glucotrol) 10 mg BIDAC PO 08/02/17 07:00 08/02/17 05:35 (Isordil) 10 mg DAILY PO 08/02/17 09:00 (Ambien) 10 mg HS PRN PO 08/01/17 16:15 08/01/17 22:11 (Synthroid) 25 mcg DAILY@0600 PO 08/02/17 06:00 08/02/17 05:34 (Synthroid) 112 mcg DAILY@0600 PO 08/02/17 06:00 08/02/17 05:34 Miscellaneous Information ALL NURSING DEPARTME... UNSCH PRN .XX 08/01/17 17:15 08/02/17 17:14 (Albuterol Neb) 2.5 mg Q6HR NEB PRN INH 08/01/17 21:15 08/01/17 21:27 Sodium Chloride 1,000 ml @ 0 mls/hr Q0M PRN OTHER 08/02/17 08:33 (Heparin Inj) 8,000 units UNSCH PRN IV FLUSH 08/02/17 08:45 Sodium Chloride 1,000 ml @ 200 mls/hr Q5H PRN IV 08/02/17 08:33 Sodium Chloride 1,000 ml @ 0 mls/hr Q0M PRN OTHER 08/02/17 08:33 (Mannitol Inj) 12.5 gm UNSCH PRN IV 08/02/17 08:45 Albumin Human 100 ml @ 60 mls/hr UNSCH PRN IV 08/02/17 08:45 (NS Flush) 5 ml UNSCH PRN IV FLUSH 08/02/17 08:45 (Heparin Inj) UNSCH PRN .XX 08/02/17 08:45 08/02/17 09:31 (Gentamicin Inj) 20 mg UNSCH PRN OTHER 08/02/17 08:45 (Zofran Inj) 4 mg UNSCH PRN IV PUSH 08/02/17 08:45 (Tylenol) 650 mg UNSCH PRN PO 08/02/17 08:45 (Benadryl) 25 mg UNSCH PRN PO 08/02/17 08:45 (Nitrostat Sl) 0.4 mg UNSCH PRN SL 08/02/17 08:45 (Catapres) 0.1 mg UNSCH PRN PO 08/02/17 08:45 (Epogen Inj) 10,000 units UNSCH PRN IV PUSH 08/02/17 08:45 08/02/17 09:32 (Gelfoam 12 Mm/7 Mm Top) 1 foam UNSCH PRN TOP 08/02/17 08:45 Family History Non contributory Social History former smoker; no ETOH by history , lives with has right BKA, she uses wheelchair 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 (Ekta Vega) Physical Exam Vital Signs Vital Signs Date Time Temp Pulse Resp B/P (MAP) Pulse Ox O2 Delivery O2 Flow Rate FiO2 08/02/17 08:00 96.7 50 18 130/61 (84) 99 08/02/17 04:09 97.3 46 18 136/59 (84) 98 08/02/17 00:36 97.2 46 17 118/51 (73) 99 08/01/17 21:27 94 Nasal Cannula 4.00 08/01/17 20:22 97.5 76 18 107/41 (63) 96 08/01/17 17:45 98.3 58 13 114/54 (74) 97 Nasal Cannula 3 08/01/17 17:30 57 13 139/63 (88) 95 08/01/17 17:15 56 14 140/63 (88) 96 Nasal Cannula 3 08/01/17 17:00 51 19 156/67 (96) 98 08/01/17 16:45 55 20 174/76 (108) 94 Simple Mask 6 08/01/17 16:34 98.3 67 16 195/80 (118) 97 Simple Mask 6 08/01/17 11:57 98.6 44 18 14/55 (41) 97 Physical Exam Obese, disheveled Middle aged female lying in bed receiving dialysis. awake, oriented x 3, no neuro deficit noted, poor dentition CV: S1/S2, RRR no murmurs or rubs Lungs: CTA bilaterally, no coughing or wheezing Abd: obese, soft, non tender Ext: right BKA, healed: no edema noted Skin: intact left arm with large healed incision PC left chest Laboratory Laboratory Tests Test 08/01/17 12:07 08/02/17 05:50 Potassium Level 4.6 6.3 Blood Urea Nitrogen 53 Creatinine 7.36 Random Glucose 296 Calcium Level 8.4 Sodium Level 134 Chloride Level 104 Carbon Dioxide Level 17.9 Anion Gap 12 Estimat Glomerular Filtration Rate 6 (Ekta Vega) Result Diagram: 08/02/17 0550 Assessment and Plan Problem List: (1) End stage renal disease on dialysis ICD Codes: N18.6 - End stage renal disease; Z99.2 - Dependence on renal dialysis Status: Acute Plan: Seen during dialysis today on a 1K, 350 BFR, goal 3.5L Can resume outpatient HD if discharged. Low K diet discussed. Fluid restriction advised. (2) AVF (arteriovenous fistula) ICD Codes: I77.0 - Arteriovenous fistula, acquired Status: Acute Plan: Vascular following, s/p revision Can follow outpatient (3) Type 2 diabetes mellitus ICD Codes: E11.9 - Type 2 diabetes mellitus Status: Acute Plan: Insulin as needed, maintain glucose 140-180 mg/dL. (4) Anemia ICD Codes: D64.9 - Anemia, unspecified Status: Acute Plan: Epogen with dialysis (5) Metabolic bone disease ICD Codes: E88.9 - Metabolic disorder, unspecified; M90.80 - Osteopathy in diseases classified elsewhere, unspecified site Status: Acute Plan: Advised binder compliance if discharged. Assessment and Plan She is cleared for discharge from renal perspective. We will follow in dialysis clinic. (Ekta Vega) Assessment and Plan patient was seen and examined. Agree with above assessment and plan. (Ti Jalloh MD) Ekta Vega Aug 02, 2017 10:16 Ti Jalloh MD Aug 03, 2017 08:35
[2017-08-02] MEDS ORDERED: HEPARIN SODIUM - SQ 10,000 UNITS/ML VIAL SQ SCH (16:00)
--- NOTE | 2017-08-02 22:24 | MP ---
cc: BERRY KIM DATE OF SURGERY 08/01/17 PREOPERATIVE DIAGNOSIS Left upper extremity access related hand ischemia. POSTOPERATIVE DIAGNOSIS Left upper extremity access related hand ischemia. PROCEDURE Left upper extremity access revision (proximal lesion was 6 mm PTFE) ATTENDING SURGEON Osei Kim MD ANESTHESIA General. INDICATIONS Ms. Spencer is a 56-year-old lady who has end-stage renal disease and currently on dialysis. She has a left upper extremity AV fistula and access related hand ischemia. Because of her history of PAD and a right below-knee amputation, I thought a DRIL bypass was not the best opportunity to improve her hand perfusion an so proximalization was offered. PROCEDURE IN DETAIL Informed consent was obtained from the patient. She was taken to the operating room and placed supine on the operating table. Appropriate time-out was taken to ensure the patient's identity and the operative site and planned procedure. The administration of 1 gram of vancomycin was initiated prior to the skin incision, will be discontinued after a single preoperative dose. Vancomycin was chosen because of the patient's end-stage renal disease. Everyone in the room agreed with time-out and we proceeded. Her left arm was prepped and draped. An incision was made at the proximal aspect of the upper arm carried down to the subcutaneous tissue with electrocautery. The axillary artery was identified and dissected free for several centimeters. A longitudinal incision was made over the patient's distal upper arm down at the antecubital, carried down through subcutaneous tissue with electrocautery. The proximal aspect of the brachial based access was identified, encircled with vessel loops, dissected free for several centimeters. With this access clamped, there was a nice Doppler signal in the wrist. A tunnels was created between these two and the patient was systemically heparinized. Proximal and distal control of the axillary artery was obtained with Profunda clamps and a longitudinal arteriotomy was made below the blade and extended with José Miguel scissors. A PTFE was passed through the tunnel, spatulated and sewn end-to-side with running 5-0 [place] suture. At the completion, it was flushed and noted to be hemostatic. The clamps were released from the axillary artery and a Miriam soft jaw was placed on the PTFE. This was passed through the tunnel taking caution not to twist it. The proximal aspect of the old AV graft was clamped, ligated and proximally was oversewn with 4-0 Prolene and hemo-clips. The distal end was spatulated and the PTFE was spatulated. We then sewed the new graft to the old fistula in end-to-end fashion with running 5-0 [place] suture. At the completion, it was flushed and noted to be hemostatic with a nice thrill in the fistula and a Doppler signal in the wrist. The heparin was reversed with protamine. The wounds were perforated with Marcaine, irrigated and made hemostatic and closed with 2-0 Polysorb, 3-0 Polysorb and 4-0 Monocryl. The sponge, needle counts were correct at the end of the case. I was present and scrubbed and performed the entire procedure. MD HAYLIE Bravo/ /7:13 PM /9:48 PM
== END 2017-08-02 14:42 | disposition home or self-care (01) ==
LOC: HSDC 10:36 → HSDI 16:18 → N06B 18:01
PROVIDERS: ADMIT Surgery; ATTEND Surgery
DX: T82.898A Other specified complication of vascular prosthetic devices, implants and grafts, initial encounter (principal); Z99.2 Dependence on renal dialysis; N18.6 End stage renal disease; Z89.511 Acquired absence of right leg below knee
CPT/HCPCS: 01844; 36821; 80048; 84132; 94664; G0378; J1170; J1644; J2720; J3370; J7120; J7613; Q4081; 90935; 96374; 96375; G0257

== ENCOUNTER 2017-08-21 00:43 | Emergency (ER) | payer MEDICARE, MEDICAID ==
[~2017-08-21] VITALS: Ht 152.4 cm; Wt 102.5 kg
[~2017-08-21 00:43] MED LIST changes: -HYDR-3580 PO; +OXYC1CAP PO
[2017-08-21 00:46] VITALS: BP 164/73; PULSE 65; RESP 18; TEMP 98.3; O2SAT 95
--- NOTE | 2017-08-21 01:07 | PD ---
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 They do not use a dialysis catheter in and was scheduled to come out on Tuesday. In bed at approximately 12 midnight she rolled over and found her dialysis catheter was lying in the bed. There was no bleeding, chest pain, shortness of breath, hemoptysis or any other pain. She is not on any anticoagulants. PFSH Past Medical History Anemia: Yes Arthritis: Yes (HANDS, TOES, FEET) Autoimmune Disease: No Cancer: No Cardiac Catheterization: No Cardiovascular Problems: No High Cholesterol: No Diabetes: Yes Dialysis: Yes (tues thur sats) Diminished Hearing: No Endocrine: Yes Genitourinary: No Hepatitis: No Hiatal Hernia: No Hypertension: Yes Immune Disorder: No Neurologic: Yes (phantom pain RIGHT LEG AMPUTATION, NO SENSATION IN LEFT ARM) Psychiatric: No Reproductive: No Respiratory: No Myocardial Infarction: No Pneumonia: Yes Renal Failure: Yes Sleep Apnea: Yes Thyroid Disease: Yes PNEUMOCCOCAL Vaccine (Year): 2 Menopausal: Yes : 2 Para: 2 Miscarriage: 0 : 0 Tubal Ligation: Yes Past Surgical History Abdominal Surgery: No AICD: No Body Medical Devices: CAth LEFT CHEST Cardiac Surgery: No Section: Yes (X2) Coronary Artery Bypass Graft: No Ear Surgery: No Endocrine Surgery: No Eye Surgery: No Genitourinary Surgery: No Gynecologic Surgery: Yes (2 C-SECT WITH SUBSEQUENT TUBAL., D&C) Joint Replacement: No Oral Surgery: No Pacemaker: No Thoracic Surgery: Yes (AV CATH X4 LEFT CHEST) Other Surgery: Yes (RIGHT BKA AMPUTATION DECEMBER 2013, Fistula left arm) Social History Alcohol Use: No Tobacco Use: No (former) Substance Use: No Allergies-Medications (Allergen,Severity, Reaction): Coded Allergies: vancomycin (Verified Allergy, Severe, KIDNEY INJURY, 07/19/17) PER Jasmin BROWN MD, DO NOT USE VANCO. SEVERE KIDNEY INJURY. morphine (Verified Allergy, Intermediate, 07/19/17) "ITCHING EVERYWHERE" Reported Meds & Prescriptions Reported Meds & Active Scripts Active Oxycodone (Oxycodone HCl) 5 Mg Cap 5 Mg PO Q4H PRN 7 Days Coreg (Carvedilol) 3.125 Mg Tab 3.125 Mg PO Q12HR Lipitor (Atorvastatin Calcium) 20 Mg Tab 20 Mg PO HS 30 Days Reported Calcium Acetate (Phosphate Binder) 667 Mg Cap 2,001 Mg PO TID TAKES EXTRA CAPS FOR EACH SNACK PER DAY ALSO Aspirin 81 Mg Chew 81 Mg CHEW DAILY Gabapentin 100 Mg Cap 300 Mg PO HS Zolpidem (Zolpidem Tartrate) 5 Mg Tab 10 Mg PO HS PRN Bumetanide 1 Mg Tab 2 Mg PO BID Synthroid (Levothyroxine Sodium) 88 Mcg Tab 0.137 Mcg PO DAILY Isosorbide Mononitrate 10 Mg Tab 10 Mg PO DAILY Take 2 doses 7 hours apart. Glipizide 10 Mg Tab 10 Mg PO BIDAC Take 30 minutes before a meal Norvasc (Amlodipine Besylate) 10 Mg Tab 10 Mg PO DAILY Review of Systems Except as stated in HPI: all other systems reviewed are Neg Physical Exam Narrative GENERAL: Well-nourished, well-developed patient in no apparent distress. Her vital signs are normal except for blood pressure 160/73. SKIN: Focused skin assessment warm/dry. There is no bleeding or hematoma formation around the dialysis catheter site. HEAD: Normocephalic. EYES: No scleral icterus. No injection or drainage. NECK: Supple, trachea midline. No JVD or lymphadenopathy. CARDIOVASCULAR: Regular rate and rhythm without murmurs, gallops, or rubs. RESPIRATORY: Breath sounds equal bilaterally. No accessory muscle use. Lungs clear to auscultation bilaterally. GASTROINTESTINAL: Abdomen soft, non-tender, nondistended. MUSCULOSKELETAL: No cyanosis, or edema. BACK: Nontender without obvious deformity. No CVA tenderness. Data Data Last Documented VS Vital Signs Date Time Temp Pulse Resp B/P (MAP) Pulse Ox O2 Delivery O2 Flow Rate FiO2 08/21/17 00:46 98.3 65 18 164/73 (103) 95 MDM Medical Decision Making Medical Screen Exam Complete: Yes Emergency Medical Condition: Yes Medical Record Reviewed: Yes Differential Diagnosis Dialysis catheter removal with: External bleeding, internal bleeding, pneumothorax, no complications Narrative Course The patient accidentally removed her dialysis catheter without any apparent complication. She should call her dialysis people about this Freddie morning. She should return to emergency department if she develops any bleeding, shortness of breath, fullness in her chest. She does not need her dialysis catheter, she has a shunt which is being used now for her dialysis. Additional Instructions: Call your dialysis people tomorrow morning and tell him what happened. If you have any problems, return to the emergency department. Med/Other Pt SpecificInfo: No Change to Meds Disposition: 01 DISCHARGE HOME Condition: Stable Kenton Freire MD Aug 21, 2017 01:07
== END 2017-08-21 01:35 | disposition home or self-care (01) ==
LOC: PHED 00:43
DX: E11.22 Type 2 diabetes mellitus with diabetic chronic kidney disease (principal); I12.0 Hypertensive chronic kidney disease with stage 5 chronic kidney disease or end stage renal disease; D63.1 Anemia in chronic kidney disease; N18.6 End stage renal disease; Z99.2 Dependence on renal dialysis; M19.049 Primary osteoarthritis, unspecified hand; M19.079 Primary osteoarthritis, unspecified ankle and foot; G47.30 Sleep apnea, unspecified; E07.9 Disorder of thyroid, unspecified
CPT/HCPCS: 99281

== ENCOUNTER 2017-11-23 16:19 | Inpatient (IN) | payer MEDICARE, MEDICAID ==
[~2017-11-23] VITALS: Ht 152.4 cm; Wt 105.8 kg
[2017-11-23] VITALS (7 sets, daily range): BP systolic 123–189; BP diastolic 53–85; PULSE 72–93; RESP 18–20; TEMP 101.8–103.6; O2SAT 90–98
[2017-11-23] MEDS ORDERED: SODIUM CHLOR 0.9% 1000 ML INJ 1,000 ML IV SCH (16:41)
[2017-11-23] MEDS ORDERED: ONDANSETRON ODT 4 MG TAB PO ONE (16:45)
[2017-11-23] MEDS ORDERED: ACETAMINOPHEN 325 MG TAB PO ONE (16:45)
--- NOTE | 2017-11-23 16:49 | PD ---
HPI Chief Complaint: Fever Time Seen by Provider: 16:41 Travel History International Travel<30 days: No Contact w/Intl Traveler<30days: No Traveled to known affect area: No History of Present Illness HPI 57-year-old female with history of end-stage renal disease on dialysis TRS, diabetes and hypertension. She presents for evaluation of fever. Symptoms started 2-3 days ago. Associated generalized body pain, fatigue, nausea, sore throat and dry cough. She reports that yesterday at dialysis she was given a dose of IV vancomycin and blood cultures were obtained. Registered Occupational Therapist is Dr. Jalloh. She has been seeing Dr. Sherman for a chronic wound on her left arm and she was sent here for further evaluation of the fever. Symptoms are moderate, no aggravating or relieving factors. No other complaints. PFSH Past Medical History Anemia: Yes Arthritis: Yes (HANDS, TOES, FEET) Autoimmune Disease: No Cancer: No Cardiac Catheterization: No Cardiovascular Problems: No High Cholesterol: No Diabetes: Yes Patient Takes Glucophage: No Dialysis: Yes ([facility]) Diminished Hearing: No Endocrine: Yes Gastrointestinal Disorders: No Genitourinary: Yes (DIALYSIS) Hepatitis: No Hiatal Hernia: No Hypertension: Yes Immune Disorder: No Implanted Vascular Access Dvce: No Medical other: Yes (vascath left chest) Neurologic: Yes (phantom pain RIGHT LEG AMPUTATION, NO SENSATION IN LEFT ARM) Psychiatric: No Reproductive: No Respiratory: No Myocardial Infarction: No Pneumonia: Yes Renal Failure: Yes Sleep Apnea: Yes Thyroid Disease: Yes PNEUMOCCOCAL Vaccine (Year): 2 Menopausal: Yes : 2 Para: 2 Miscarriage: 0 : 0 Tubal Ligation: Yes Past Surgical History Abdominal Surgery: No AICD: No Body Medical Devices: CAth LEFT CHEST Cardiac Surgery: No Section: Yes (X2) Coronary Artery Bypass Graft: No Ear Surgery: No Endocrine Surgery: No Eye Surgery: No Genitourinary Surgery: No Gynecologic Surgery: Yes (2 C-SECT WITH SUBSEQUENT TUBAL., D&C) Joint Replacement: No Neurologic Surgery: No Oral Surgery: No Pacemaker: No Thoracic Surgery: Yes (AV CATH X4 LEFT CHEST) Other Surgery: Yes (RIGHT BKA AMPUTATION DECEMBER 2013, Fistula left arm) Social History Alcohol Use: No Tobacco Use: No (former) Substance Use: No Allergies-Medications (Allergen,Severity, Reaction): Coded Allergies: morphine (Verified Allergy, Intermediate, 08/21/17) "ITCHING EVERYWHERE" Reported Meds & Prescriptions Reported Meds & Active Scripts Active Oxycodone (Oxycodone HCl) 5 Mg Cap 5 Mg PO Q4H PRN 7 Days Coreg (Carvedilol) 3.125 Mg Tab 3.125 Mg PO Q12HR Lipitor (Atorvastatin Calcium) 20 Mg Tab 20 Mg PO HS 30 Days Reported Calcium Acetate (Phosphate Binder) 667 Mg Cap 2,001 Mg PO TID TAKES EXTRA CAPS FOR EACH SNACK PER DAY ALSO Aspirin 81 Mg Chew 81 Mg CHEW DAILY Gabapentin 100 Mg Cap 300 Mg PO HS Zolpidem (Zolpidem Tartrate) 5 Mg Tab 10 Mg PO HS PRN Bumetanide 1 Mg Tab 2 Mg PO BID Synthroid (Levothyroxine Sodium) 88 Mcg Tab 0.137 Mcg PO DAILY Isosorbide Mononitrate 10 Mg Tab 10 Mg PO DAILY Take 2 doses 7 hours apart. Glipizide 10 Mg Tab 10 Mg PO BIDAC Take 30 minutes before a meal Norvasc (Amlodipine Besylate) 10 Mg Tab 10 Mg PO DAILY Review of Systems Except as stated in HPI: all other systems reviewed are Neg Physical Exam Narrative GENERAL: This is a chronically ill-appearing female who is in no acute distress. She is febrile. SKIN: Warm and dry. There is a chronic appearing packed wounds of the proximal left arm. There is no erythema or foul smell. HEAD: Atraumatic. Normocephalic. EYES: Pupils equal and round. No scleral icterus. No injection or drainage. ENT: No nasal bleeding or discharge. Mucous membranes pink and moist. No oral pharyngeal erythema or exudate. NECK: Trachea midline. No JVD. No lymphadenopathy. Neck supple. CARDIOVASCULAR: Regular rate and rhythm. No murmur appreciated. RESPIRATORY: No accessory muscle use. Clear to auscultation. Breath sounds equal bilaterally. No crackles. GASTROINTESTINAL: Abdomen soft, generalized tenderness to palpation. MUSCULOSKELETAL: No obvious deformities. Right BKA. Left upper extremity AV fistula in place with palpable thrill. NEUROLOGICAL: Awake and alert. No obvious cranial nerve deficits. Motor grossly within normal limits. Normal speech. PSYCHIATRIC: Appropriate mood and affect; insight and judgment normal. Data Data Last Documented VS Vital Signs Date Time Temp Pulse Resp B/P (MAP) Pulse Ox O2 Delivery O2 Flow Rate FiO2 5/23/18 19:48 78 20 123/53 (76) 95 Room Air 11/23/17 16:26 103.6 Orders Orders Sepsis Workup Initiated (11/23/17 ) Electrocardiogram (11/23/17 16:41) Complete Blood Count With Diff (11/23/17 16:41) Comprehensive Metabolic Panel (11/23/17 16:41) Lactic Acid Sepsis Protocol (11/23/17 16:41) Magnesium (Mg) (11/23/17 16:41) Lipase (11/23/17 16:41) Urinalysis - C+S If Indicated (11/23/17 16:41) Influenzae A/B Antigen (11/23/17 16:41) Blood Culture (11/23/17 16:41) Chest, Pa & Lat (11/23/17 16:41) Blood Glucose (11/23/17 16:41) Ecg Monitoring (11/23/17 16:41) Iv Access Insert/Monitor (11/23/17 16:41) Oximetry (11/23/17 16:41) Oxygen Administration (11/23/17 16:41) Acetaminophen (Tylenol) (11/23/17 16:45) Ct Abd/Pel W/O Iv Contrast (11/23/17 16:41) Sodium Chlor 0.9% 1000 Ml Inj (Ns 1000 M (11/23/17 16:41) Ondansetron Odt (Zofran Odt) (11/23/17 16:45) Acetamin-Hydrocod 325-5 Mg (Hubbard 5-325 (11/23/17 18:00) Piperacil-Tazo 2.25 Gm Premix (Zosyn 2.2 (11/23/17 18:30) Vancomycin Inj (Vancomycin Inj) (11/23/17 18:30) Urine Culture (11/23/17 17:57) Diet Diabetic (11/24/17 Breakfast) Admit Order (Ed Use Only) (11/23/17 19:50) Labs Laboratory Tests Test 11/23/17 16:50 11/23/17 17:57 White Blood Count 12.4 TH/MM3 Red Blood Count 3.69 MIL/MM3 Hemoglobin 11.6 GM/DL Hematocrit 36.0 % Mean Corpuscular Volume 97.7 FL Mean Corpuscular Hemoglobin 31.4 PG Mean Corpuscular Hemoglobin Concent 32.1 % Red Cell Distribution Width 14.3 % Platelet Count 202 TH/MM3 Mean Platelet Volume 8.2 FL Neutrophils (%) (Auto) 79.9 % Lymphocytes (%) (Auto) 10.6 % Monocytes (%) (Auto) 9.2 % Eosinophils (%) (Auto) 0.1 % Basophils (%) (Auto) 0.2 % Neutrophils # (Auto) 9.9 TH/MM3 Lymphocytes # (Auto) 1.3 TH/MM3 Monocytes # (Auto) 1.1 TH/MM3 Eosinophils # (Auto) 0.0 TH/MM3 Basophils # (Auto) 0.0 TH/MM3 CBC Comment DIFF FINAL Differential Comment Blood Urea Nitrogen 46 MG/DL Creatinine 5.67 MG/DL Random Glucose 236 MG/DL Total Protein 7.9 GM/DL Albumin 3.3 GM/DL Calcium Level 8.4 MG/DL Magnesium Level 1.9 MG/DL Alkaline Phosphatase 57 U/L Aspartate Amino Transf (AST/SGOT) 15 U/L Alanine Aminotransferase (ALT/SGPT) 16 U/L Total Bilirubin 0.5 MG/DL Sodium Level 135 MEQ/L Potassium Level 5.0 MEQ/L Chloride Level 98 MEQ/L Carbon Dioxide Level 26.2 MEQ/L Anion Gap 11 MEQ/L Estimat Glomerular Filtration Rate 8 ML/MIN Lactic Acid Level 1.7 mmol/L Lipase 217 U/L Urine Color YELLOW Urine Turbidity HAZY Urine pH 5.5 Urine Specific [place] 1.021 Urine Protein 100 mg/dL Urine Glucose (UA) NEG mg/dL Urine Ketones NEG mg/dL Urine Occult Blood TRACE Urine Nitrite NEG Urine Bilirubin NEG Urine Urobilinogen LESS THAN 2.0 MG/DL Urine Leukocyte Esterase TRACE Urine RBC 2 /hpf Urine WBC 5 /hpf Urine Squamous Epithelial Cells 17 /hpf Urine Bacteria RARE /hpf Urine Hyaline Casts 8 /lpf Microscopic Urinalysis Comment CATH-CULTURE IND MDM Medical Decision Making Medical Screen Exam Complete: Yes Emergency Medical Condition: Yes Medical Record Reviewed: Yes Differential Diagnosis Pneumonia, UTI, diverticulitis, appendicitis, pyelonephritis, sepsis Narrative Course Lab work, chest x-ray, CT abdomen and pelvis, urinalysis ordered. Blood cultures, lactic acid broad-spectrum antibiotics ordered. CBC reveals WBC count of 12.4, CMP reveals a GFR of 8, glucose 236, lactic acid within normal limits, CT abdomen and pelvis reveals a dense focal airspace consolidation in the right lung consistent with pneumonia and this would be consistent with her history of cough. The patient will be admitted for sepsis and pneumonia. Sepsis Criteria SIRS Criteria (2 or more): Temp > 100.9 or < 96.8, Heart rate over 90 Sepsis Criteria (SIRS+source): Infect source susp/known Diagnosis Primary Impression: Pneumonia Additional Impression: Sepsis Admitting Information Admitting Physician Requests: Admit Srini Frances November 23, 2017 16:49
[2017-11-23 17:05] LABS: AUTOMATED NEUTROPHIL # 9.9 TH/MM3 (1.8-7.7); BASOPHIL % 0.2 % (0.0-2.0); EOSINOPHIL % 0.1 % (0.0-4.0); HEMOGLOBIN 11.6 GM/DL (11.6-15.3); LYMPH % 10.6 % (9.0-44.0); LYMPHOCYTE # 1.3 TH/MM3 (1.0-4.8); MEAN CELL VOLUME 97.7 FL (80.0-100.0); MEAN CORPUSCULAR HEMOGLOBIN 31.4 PG (27.0-34.0); MEAN CORPUSCULAR HGB CONC 32.1 % (32.0-36.0); MEAN PLATELET VOLUME 8.2 FL (7.0-11.0); MONO % 9.2 % (0.0-8.0); MONOCYTE # 1.1 TH/MM3 (0-0.9); NEUT % 79.9 % (16.0-70.0); PLATELET COUNT 202 TH/MM3 (150-450); RED BLOOD COUNT 3.69 MIL/MM3 (4.00-5.30); RED CELL DISTRIBUTION WIDTH 14.3 % (11.6-17.2); WHITE BLOOD COUNT 12.4 TH/MM3 (4.0-11.0)
--- NOTE | 2017-11-23 17:20 | RADRPT ---
EXAM DATE: 11/23/2017 5:14 PM EDT AGE/SEX: 57 years / Female INDICATIONS: Fever. CLINICAL DATA: This is the patient's initial encounter. Patient reports that signs and symptoms have been present for 1 day and indicates a pain score of 3/10. MEDICAL/SURGICAL HISTORY: . Renal failure, acute, History of ESRD, HTN, DM, CAD, PVD, hypothyro idism, hyperlipidemia . Below knee amputation. COMPARISON: [facility] – [place], CHEST PA & LAT, 03/15/2013. . FINDINGS: PA and lateral views of the chest demonstrate the lungs to be symmetrically aerated without evidence of mass, infiltrate or effusion. The cardiomediastinal contours are unremarkable. Osseous structures are intact. CONCLUSION: No acute abnormality is seen. Electronically signed by: Hipolito Ramírez MD 11/23/2017 5:18 PM EDT
[2017-11-23 17:21] LABS: ALBUMIN 3.3 GM/DL (3.4-5.0); ALKALINE PHOSPHATASE 57 U/L (45-117); ALT (GPT) 16 U/L (10-53); AST (GOT) 15 U/L (15-37); BICARBONATE 26.2 MEQ/L (21.0-32.0); BLOOD UREA NITROGEN 46 MG/DL (7-18); CALCIUM 8.4 MG/DL (8.5-10.1); CHLORIDE 98 MEQ/L (98-107); CREATININE 5.67 MG/DL (0.50-1.00); GLOMERULAR FILTRATION RATE 8 ML/MIN (>89); GLUCOSE,RANDOM 236 MG/DL (74-106); MAGNESIUM 1.9 MG/DL (1.5-2.5); SODIUM (NA) 135 MEQ/L (136-145); TOTAL BILIRUBIN ADULT 0.5 MG/DL (0.2-1.0); TOTAL PROTEIN 7.9 GM/DL (6.4-8.2)
[2017-11-23] MEDS ORDERED: ACETAMINOPHEN/HYDROcodone 325 MG/5 MG TAB PO ONE (18:00)
[2017-11-23] MEDS ORDERED: PIPERACIL-TAZO 2.25 GM PREMIX 50 ML IV ONE (18:30)
[2017-11-23] MEDS ORDERED: VANCOMYCIN INJ 1,000 MG in SODIUM CHLOR 0.9% 250 ML INJ 250 ML IV ONE (18:30)
[2017-11-23 18:45] LABS: BACTERIA, URINE RARE /hpf; BLOOD, URINE TRACE (NEG); GLUCOSE,URINE NEG (NEG); HYALINE CAST, URINE 8 /lpf (RARE); KETONE, URINE NEG (NEG); NITRITE,URINE NEG (NEG); PH, URINE 5.5 (5.0-8.5); SQUAMOUS EPITHELIAL CELL URINE 17 /hpf (0-5); URINE COLOR YELLOW (YELLW/STRAW); URINE LEUKOCYTE ESTERASE TRACE (NEG)
[2017-11-23 18:47] LABS: BILIRUBIN, URINE NEG (NEG)
--- NOTE | 2017-11-23 19:33 | RADRPT ---
EXAM DATE: 11/23/2017 7:15 PM EDT AGE/SEX: 57 years / Female INDICATIONS: Abdominal pain CLINICAL DATA: This is the patient's initial encounter. Patient reports that signs and symptoms have been present for 1 day and indicates a pain score of 3/10. MEDICAL/SURGICAL HISTORY: Hypertension. Cardiovascular disease. Renal disease. Diabetes, ane damian, dialysis Tubal ligation. section. RADIATION DOSE: 16.99 CTDI (mGy) ; Patient body habitus COMPARISON: [facility] – [place], CT ABDOMEN & PELVIS W/O CONTRAST, 04/14/2013. . TECHNIQUE: Multiple contiguous axial images were obtained through the abdomen. Images were obtained using multiple row detector helical technique. Using dose reduction techniques, radiation dose was ke pt as low as reasonably achievable to obtain optimal diagnostic quality images. FINDINGS: LOWER LUNGS: Focal dense airspace consolidation with air bronchograms in the right lung base. LIVER: The liver has a homogeneous density without space-occupying lesion. There is no dilation of t he biliary tree. SPLEEN: Homogeneous density without enlargement. PANCREAS: Unremarkable without mass or calcification. KIDNEYS: Kidneys demonstrate symmetrical size without evidence for radiopaque renal calculi or hydro nephrosis. ADRENAL GLANDS: Unremarkable. AORTA: Melisa-aneurysmal. BOWEL/MESENTERY: The bowel loops are grossly unremarkable. The cecum and sigmoid colon have a isa l configuration. Appendix is visualized and normal in appearance. ABDOMINAL WALL: Stable large 11 x 13 cm left lateral abdominal wall and 5.2 cm right adductor muscul ature lipomas. RETROPERITONEUM: No evidence of adenopathy in the retrocrural, para-aortic, or deep pelvic regions. BLADDER: Negative completely decompressed. REPRODUCTIVE: Calcified myometrial masses consistent with calcified leiomyomas. BONY STRUCTURES: Unremarkable. CONCLUSION: 1. Dense focal airspace consolidation with air bronchograms in the right lung base consistent with p neumonia or aspiration in the appropriate clinical setting. 2. No acute CT abnormality in the abdomen or pelvis to explain patient's abdominal pain. Specificall y, no radiopaque renal calculi or obstructive uropathy. Normal appendix. 3. Stable ancillary findings, as above. Electronically signed by: Jamie Pitts MD 11/23/2017 7:31 PM EDT
[2017-11-23] MEDS ORDERED: NALOXONE HCL 0.4 MG/ML AMP IV PUSH PRN (20:00)
[2017-11-23] MEDS ORDERED: SODIUM CHLORIDE 0.9% FLUSH 10 ML FLUSH IV FLUSH PRN (20:00)
--- NOTE | 2017-11-23 20:37 | HHI.HP ---
[facility] Clifton [facility] M.D. Admission Diagnosis Pneumonia, sepsis Diagnoses: Chief Complaint: Fever Travel History International Travel<30 Days: No Contact w/Intl Traveler <30 Da: No Traveled to Known Affected Are: No Sepsis Criteria SIRS Criteria (2 or more): Temp > 100.9 or < 96.8, WBC > 20990, < 4000 or > 10 % bands Sepsis Criteria (SIRS+source): Infect source susp/known History of Present Illness Ms. Spencer is a 57-year-old female with a history of ESRD, diabetes mellitus, hypertension who presents to the emergency department due to fever. Her symptoms started approximately 2-3 days ago with associated body pain, fatigue, nausea as well as sore throat with dry cough. She received 1 dose of vancomycin during dialysis on 11/22/2017. She denies any dysphagia or odynophagia that would put her at higher risk for aspiration pneumonia. Denies any changes in bowel or bladder habits. On arrival temperature 103.6F, pulse 89, respiration 20, blood pressure 189/85. WBC 12.4, lactic acid 1.7. Chest x- ray unremarkable. However, CT abdomen pelvis shows dense focal airspace consolidation with air bronchograms in the right lung base consistent with pneumonia. Of note, she has received both flu shot as well as pneumococcal vaccine. Review of Systems Except as stated in HPI: all other systems reviewed are Neg Past Family Social History Past Medical History Arthritis, ESRD, diabetes mellitus, sleep apnea, thyroid disorder. Past Surgical History , tubal ligation, right-sided below-knee amputation Reported Medications Oxycodone (Oxycodone HCl) 5 Mg Cap 5 Mg PO Q4H PRN 7 Days Coreg (Carvedilol) 3.125 Mg Tab 3.125 Mg PO Q12HR Lipitor (Atorvastatin Calcium) 20 Mg Tab 20 Mg PO HS 30 Days Reported Calcium Acetate (Phosphate Binder) 667 Mg Cap 2,001 Mg PO TID TAKES EXTRA CAPS FOR EACH SNACK PER DAY ALSO Aspirin 81 Mg Chew 81 Mg CHEW DAILY Gabapentin 100 Mg Cap 300 Mg PO HS Zolpidem (Zolpidem Tartrate) 5 Mg Tab 10 Mg PO HS PRN Bumetanide 1 Mg Tab 2 Mg PO BID Synthroid (Levothyroxine Sodium) 88 Mcg Tab 0.137 Mcg PO DAILY Isosorbide Mononitrate 10 Mg Tab 10 Mg PO DAILY Take 2 doses 7 hours apart. Glipizide 10 Mg Tab 10 Mg PO BIDAC Take 30 minutes before a meal Norvasc (Amlodipine Besylate) 10 Mg Tab 10 Mg PO DAILY Allergies: Coded Allergies: morphine (Verified Allergy, Intermediate, 08/21/17) "ITCHING EVERYWHERE" Family History Mother and sister with diabetes mellitus, father with heart disease. Social History Alcohol Use: No Tobacco Use: No (former) Substance Use: No Physical Exam Vital Signs Vital Signs Date Time Temp Pulse Resp B/P (MAP) Pulse Ox O2 Delivery O2 Flow Rate FiO2 11/23/17 20:22 20 11/23/17 20:20 101.8 11/23/17 19:48 78 20 123/53 (76) 95 Room Air 11/23/17 16:46 97 Room Air 11/23/17 16:33 Room Air 11/23/17 16:26 103.6 89 20 189/85 (119) 98 Physical Exam GENERAL: This is a well-nourished, well-developed patient, in no apparent distress. SKIN: No rashes, ecchymoses or lesions. Warm and dry. HEAD: Atraumatic. Normocephalic. No temporal or scalp tenderness. EYES: Pupils equal round and reactive. No injection or drainage. ENT: Nose without bleeding, purulent drainage or septal hematoma. Airway patent. NECK: Trachea midline. No lymphadenopathy. Supple, nontender, no meningeal signs. CARDIOVASCULAR: Regular rate and rhythm without murmurs, gallops, or rubs. No JVD. RESPIRATORY: Clear to auscultation. Breath sounds equal bilaterally. No wheezes , rales, or rhonchi. GASTROINTESTINAL: Abdomen soft, non-tender, nondistended. No guarding. MUSCULOSKELETAL: Extremities without clubbing, cyanosis, or edema. NEUROLOGICAL: Awake and alert. Cranial nerves II through XII intact. No focal neurological deficits. Normal speech. Laboratory Laboratory Tests Test 11/23/17 16:50 11/23/17 17:57 White Blood Count 12.4 Red Blood Count 3.69 Hemoglobin 11.6 Hematocrit 36.0 Mean Corpuscular Volume 97.7 Mean Corpuscular Hemoglobin 31.4 Mean Corpuscular Hemoglobin Concent 32.1 Red Cell Distribution Width 14.3 Platelet Count 202 Mean Platelet Volume 8.2 Neutrophils (%) (Auto) 79.9 Lymphocytes (%) (Auto) 10.6 Monocytes (%) (Auto) 9.2 Eosinophils (%) (Auto) 0.1 Basophils (%) (Auto) 0.2 Neutrophils # (Auto) 9.9 Lymphocytes # (Auto) 1.3 Monocytes # (Auto) 1.1 Eosinophils # (Auto) 0.0 Basophils # (Auto) 0.0 CBC Comment DIFF FINAL Differential Comment Blood Urea Nitrogen 46 Creatinine 5.67 Random Glucose 236 Total Protein 7.9 Albumin 3.3 Calcium Level 8.4 Magnesium Level 1.9 Alkaline Phosphatase 57 Aspartate Amino Transf (AST/SGOT) 15 Alanine Aminotransferase (ALT/SGPT) 16 Total Bilirubin 0.5 Sodium Level 135 Potassium Level 5.0 Chloride Level 98 Carbon Dioxide Level 26.2 Anion Gap 11 Estimat Glomerular Filtration Rate 8 Lactic Acid Level 1.7 Lipase 217 Urine Color YELLOW Urine Turbidity HAZY Urine pH 5.5 Urine Specific [place] 1.021 Urine Protein 100 Urine Glucose (UA) NEG Urine Ketones NEG Urine Occult Blood TRACE Urine Nitrite NEG Urine Bilirubin NEG Urine Urobilinogen LESS THAN 2.0 Urine Leukocyte Esterase TRACE Urine RBC 2 Urine WBC 5 Urine Squamous Epithelial Cells 17 Urine Bacteria RARE Urine Hyaline Casts 8 Microscopic Urinalysis Comment CATH-CULTURE IND Date/Time Source Procedure Growth Status 11/23/17 16:50 Blood Peripheral Aerobic Blood Culture Pending Received 11/23/17 16:50 Blood Peripheral Anaerobic Blood Culture Pending Received 11/23/17 16:50 Nasal Aspirate Influenza Types A,B Antigen (JOSÉ MANUEL) - Final NEGATIVE FOR FLU A AND B ANTIGEN.... Complete 11/23/17 17:57 Urine Catheterized Urine Urine Culture Pending Received Result Diagram: 11/23/17 1650 11/23/17 1650 Imaging Last Impressions Chest X-Ray 11/23/17 1641 Signed Impressions: CONCLUSION: No acute abnormality is seen. Abdomen/Pelvis CT 11/23/17 1641 Signed Impressions: CONCLUSION: 1. Dense focal airspace consolidation with air bronchograms in the right lung base consistent with pneumonia or aspiration in the appropriate clinical settin g. 2. No acute CT abnormality in the abdomen or pelvis to explain patient's abdom inal pain. Specifically, no radiopaque renal calculi or obstructive uropathy. N ormal appendix. 3. Stable ancillary findings, as above. Caprini VTE Risk Assessment Caprini VTE Risk Assessment: Mod/High Risk (score >= 2) Caprini Risk Assessment Model Point Value = 1 Point Value = 2 Point Value = 3 Point Value = 5 Age 41-60 Minor surgery BMI > 25 kg/m2 Swollen legs Varicose veins or History of unexplained or recurrent spontaneous Oral contraceptives or hormone replacement Sepsis (< 1 month) Serious lung disease, including pneumonia (< 1 month) Abnormal pulmonary function Acute myocardial infarction Congestive heart failure (< 1 month) History of inflammatory bowel disease Medical patient at bed rest Age 61-74 Arthroscopic surgery Major open surgery (> 45 min) Laparoscopic surgery (> 45 min) Malignancy Confined to bed (> 72 hours) Immobilizing plaster cast Central venous access Age >= 75 History of VTE Family history of VTE Factor V Leiden Prothrombin [id number] Lupus anticoagulant Anticardiolipin antibodies Elevated serum homocysteine Heparin-induced thrombocytopenia Other congenital or acquired thrombophilia Stroke (< 1 month) Elective arthroplasty Hip, pelvis, or leg fracture Acute spinal cord injury (< 1 month) Prophylaxis Regimen Total Risk Factor Score Risk Level Prophylaxis Regimen 0-1 Low Early ambulation 2 Moderate Order ONE of the following: *Sequential Compression Device (SCD) *Heparin 5000 units SQ BID 3-4 Higher Order ONE of the following medications: *Heparin 5000 units SQ TID *Enoxaparin/Lovenox 40 mg SQ daily (WT < 150 kg, CrCl > 30 mL/min) *Enoxaparin/Lovenox 30 mg SQ daily (WT < 150 kg, CrCl > 10-29 mL/min) *Enoxaparin/Lovenox 30 mg SQ BID (WT < 150 kg, CrCl > 30 mL/min) AND/OR *Sequential Compression Device (SCD) 5 or more Highest Order ONE of the following medications: *Heparin 5000 units SQ TID (Preferred with Epidurals) *Enoxaparin/Lovenox 40 mg SQ daily (WT < 150 kg, CrCl > 30 mL/min) *Enoxaparin/Lovenox 30 mg SQ daily (WT < 150 kg, CrCl > 10-29 mL/min) *Enoxaparin/Lovenox 30 mg SQ BID (WT < 150 kg, CrCl > 30 mL/min) AND *Sequential Compression Device (SCD) Assessment and Plan Problem List: (1) Sepsis ICD Code: A41.9 - Sepsis, unspecified organism Status: Acute (2) Pneumonia ICD Code: J18.9 - Pneumonia, unspecified organism Status: Acute (3) Type 2 diabetes mellitus ICD Code: E11.9 - Type 2 diabetes mellitus Status: Acute (4) ESRD (end stage renal disease) ICD Code: N18.6 - ESRD (end stage renal disease) Status: Acute Assessment and Plan Ms. Spencer is a pleasant 57-year-old female with a history of ESRD, diabetes mellitus who presents to the emergency department due to fever and chills. She reports generalized body ache but no runny nose. She also reports some dry cough. Denies any risk factors for aspiration pneumonia including dysphagia or odynophagia. CT abdomen pelvis indicated right-sided pneumonia. Sepsis (patient meets SIRS criteria with fever, leukocytosis and known infection pneumonia) Right-sided pneumonia -We will keep patient on Zosyn renally dosed. Also start azithromycin for atypical coverage. -Blood cultures pending. If fever is persistent, will consider infectious disease consultation. -Flu screen negative. However, flu screen sensitivity is around 50-70%. If fever remains persistent, consider Tamiflu. -Acetaminophen and naproxen for fever ESRD - Consult Nephrology (Dr. Jalloh) for HD. Diabetes mellitus - Sliding scale insulin and Levemir 7 units QHS. Hypertension Hyperlipidemia Hypothyroidism - Continue amlodipine 10 mg daily, atorvastatin 20 mg nightly, levothyroxine 137 mcg p.o. daily Full code. Heparin subcutaneous. Physician Certification 2 Midnight Certification Type: Admission for Inpatient Services Order for Inpatient Services The services are ordered in accordance with Medicare regulations or non- Medicare payer requirements, as applicable. In the case of services not specified as inpatient-only, they are appropriately provided as inpatient services in accordance with the 2-midnight benchmark. Estimated LOS (days): 2 days is the estimated time the patient will need to remain in the hospital, assuming treatment plan goals are met and no additional complications. Post-Hospital Plan: Home Aliza Cerrato DO November 23, 2017 20:37
[2017-11-23] MEDS ORDERED: MORPHINE SULFATE 4 MG/ML INJ IV PUSH PRN (21:00)
[2017-11-23] MEDS ORDERED: BISACODYL 10 MG SUPP RECTAL PRN (21:00)
[2017-11-23] MEDS ORDERED: SENNOSIDES 8.6 MG TAB PO PRN (21:00)
[2017-11-23] MEDS ORDERED: MAGNESIUM HYDROXIDE SUSP 30 ML CUP PO PRN (21:00)
[2017-11-23] MEDS ORDERED: LACTULOSE SYRUP 20 GM/30 ML CUP PO PRN (21:00)
[2017-11-23] MEDS ORDERED: NAPROXEN 375 MG TAB PO PRN (21:00)
[2017-11-23] MEDS: SODIUM CHLORIDE 0.9% FLUSH 10 ML FLUSH IV FLUSH SCH (21:47)
[2017-11-23] MEDS: ACETAMINOPHEN 325 MG TAB PO PRN (21:48)
[2017-11-23] MEDS: ATORVASTATIN 20 MG TAB PO SCH (21:48)
[2017-11-23] MEDS: GABAPENTIN 300 MG CAP PO SCH (21:48)
[2017-11-23] MEDS: HEPARIN SODIUM - SQ 10,000 UNITS/ML VIAL SQ SCH (21:49)
[2017-11-23] MEDS ORDERED: AZITHROMYCIN 250 MG TAB PO SCH (22:00)
[2017-11-23] MEDS: ZOLPIDEM TARTRATE 10 MG TAB PO PRN (22:45)
[2017-11-24] VITALS (10 sets, daily range): BP systolic 101–140; BP diastolic 55–99; PULSE 65–94; RESP 16–22; TEMP 97.5–101.6; O2SAT 81–100
[2017-11-24] MEDS ORDERED: DEXTROSE 50% IN WATER 50 ML VIAL(D50) IV PUSH PRN (01:30)
[2017-11-24] MEDS ORDERED: GLUCAGON 1 MG/ML VIAL OTHER PRN (01:30)
[2017-11-24] MEDS: PIPERACIL-TAZO 2.25 GM PREMIX 50 ML IV SCH ×3 (04:40→20:21)
[2017-11-24] MEDS: LEVOTHYROXINE SODIUM 25 MCG TAB PO SCH (05:11)
[2017-11-24] MEDS: LEVOTHYROXINE SODIUM 112 MCG TAB PO SCH (05:11)
[2017-11-24] MEDS ORDERED: LEVOTHYROXINE SODIUM 100 MCG TAB PO SCH (06:00)
[2017-11-24] MEDS: OSELTAMIVIR PHOSPHATE 75 MG CAP PO SCH ×2 (07:48→20:25)
[2017-11-24] MEDS: HEPARIN SODIUM - SQ 10,000 UNITS/ML VIAL SQ SCH ×2 (07:48→20:24)
[2017-11-24] MEDS: SODIUM CHLORIDE 0.9% FLUSH 10 ML FLUSH IV FLUSH SCH ×2 (07:54→20:21)
[2017-11-24] MEDS ORDERED: SODIUM CHLOR 0.9% 1000 ML INJ 1,000 ML OTHER PRN ×2 (07:55)
[2017-11-24] MEDS ORDERED: SODIUM CHLOR 0.9% 1000 ML INJ 1,000 ML IV PRN (07:55)
[2017-11-24] MEDS ORDERED: ACETAMINOPHEN 325 MG TAB PO PRN (08:00)
[2017-11-24] MEDS ORDERED: NITROGLYCERIN 0.4 MG SL 25 TABS/BTL SL PRN (08:00)
[2017-11-24] MEDS ORDERED: SODIUM CHLORIDE 0.9% FLUSH 10 ML FLUSH IV FLUSH PRN (08:00)
[2017-11-24] MEDS ORDERED: HEPARIN SODIUM - IV 10,000 UNITS/10 ML VIAL IV FLUSH PRN (08:00)
[2017-11-24] MEDS ORDERED: HEPARIN SODIUM - IV 10,000 UNITS/10 ML VIAL PRN (08:00)
[2017-11-24] MEDS ORDERED: diphenhydrAMINE HCL 25 MG CAP PO PRN (08:00)
[2017-11-24] MEDS: INSULIN ASPART SUPPLEMENTAL SCALE SQ SCH ×4 (08:00→20:27)
[2017-11-24] MEDS ORDERED: cloNIDine HCL 0.1 MG TAB PO PRN (08:00)
[2017-11-24] MEDS ORDERED: GELATIN 12 MM/7 MM FOAM TOP PRN (08:00)
[2017-11-24] MEDS ORDERED: GENTAMICIN SULFATE 20 MG/2 ML VIAL OTHER PRN (08:00)
[2017-11-24] MEDS ORDERED: MANNITOL 12.5 GM/50 ML VIAL IV PRN (08:00)
[2017-11-24] MEDS ORDERED: ALBUMIN 25% INJ 100 ML IV PRN (08:00)
[2017-11-24 08:07] LABS: AUTOMATED NEUTROPHIL # 10.4 TH/MM3 (1.8-7.7); BASOPHIL # 0.1 TH/MM3 (0-0.2); BASOPHIL % 0.5 % (0.0-2.0); HEMATOCRIT 35.1 % (35.0-46.0); HEMOGLOBIN 11.1 GM/DL (11.6-15.3); LYMPH % 10.4 % (9.0-44.0); LYMPHOCYTE # 1.4 TH/MM3 (1.0-4.8); MEAN CORPUSCULAR HEMOGLOBIN 31.4 PG (27.0-34.0); MEAN CORPUSCULAR HGB CONC 31.7 % (32.0-36.0); MEAN PLATELET VOLUME 8.5 FL (7.0-11.0); MONO % 9.2 % (0.0-8.0); MONOCYTE # 1.2 TH/MM3 (0-0.9); NEUT % 79.9 % (16.0-70.0); PLATELET COUNT 174 TH/MM3 (150-450); RED BLOOD COUNT 3.54 MIL/MM3 (4.00-5.30)
[2017-11-24 08:22] LABS: BICARBONATE 20.2 MEQ/L (21.0-32.0); CALCIUM 7.7 MG/DL (8.5-10.1); CREATININE 6.58 MG/DL (0.50-1.00)
--- NOTE | 2017-11-24 09:38 | PD.CONS ---
HPI Service Nephrology Consult Requested By Reason for Consult ESRD on HD Primary Care Physician Clifton Hernandez M.D. History of Present Illness This is a 57 y/o female with ESRD with whom we follow in outpatient setting. She noticed body aches and subjective fevers during dialysis on Tuesday , was given Vancomycin with treatment. She is admitted for pneumonia, endorsed decreased appetite, rigors, body aches and pleuritic chest pain. PMH listed below includes HTN, DM II, anemia, metabolic bone disorder. She has required multiple access revisions but her AVF left arm is working well, and is seen during dialysis today. (Ekta Vega) Review of Systems Constitutional: COMPLAINS OF: Fever, Chills, Change in appetite Respiratory: COMPLAINS OF: Cough, Shortness of breath (Ekta Vega) Past Family Social History Allergies: Coded Allergies: morphine (Verified Allergy, Intermediate, 08/21/17) "ITCHING EVERYWHERE" Past Medical History ESRD on HD TTS DM II HTN MICHELET hypothyroidism anemia metabolic bone disorder secondary hyperparathyroidism Past Surgical History D&C left brachiocephalic AVF (10/2016) with revision/second step 12/08/16 right BKA PermCath placement (multiple) with removal cesarian x 2 Reported Medications Oxycodone (Oxycodone HCl) 5 Mg Cap 5 Mg PO Q4H PRN 7 Days Coreg (Carvedilol) 3.125 Mg Tab 3.125 Mg PO Q12HR Lipitor (Atorvastatin Calcium) 20 Mg Tab 20 Mg PO HS 30 Days Calcium Acetate (Phosphate Binder) 667 Mg Cap 2,001 Mg PO TID TAKES EXTRA CAPS FOR EACH SNACK PER DAY ALSO Aspirin 81 Mg Chew 81 Mg CHEW DAILY Gabapentin 100 Mg Cap 300 Mg PO HS Zolpidem (Zolpidem Tartrate) 5 Mg Tab 10 Mg PO HS PRN Bumetanide 1 Mg Tab 2 Mg PO BID Synthroid (Levothyroxine Sodium) 88 Mcg Tab 0.137 Mcg PO DAILY Isosorbide Mononitrate 10 Mg Tab 10 Mg PO DAILY Take 2 doses 7 hours apart. Glipizide 10 Mg Tab 10 Mg PO BIDAC Take 30 minutes before a meal Norvasc (Amlodipine Besylate) 10 Mg Tab 10 Mg PO DAILY Active Ordered Medications Current Medications Medications (Trade) Dose Ordered Sig/Ezekiel Route Start Time Stop Time Status Last Admin (NS Flush) 2 ml UNSCH PRN IV FLUSH 11/23/17 20:00 (NS Flush) 2 ml BID IV FLUSH 11/23/17 21:00 11/24/17 07:54 (Tylenol) 650 mg Q4H PRN PO 11/23/17 21:00 11/23/17 21:48 (Heparin Inj) 5,000 units Q12HR SQ 11/23/17 21:00 11/24/17 07:48 (Narcan Inj) 0.4 mg UNSCH PRN IV PUSH 11/23/17 20:00 (Milk Of Magnesia Liq) 30 ml Q12HR PRN PO 11/23/17 21:00 (Senokot) 17.2 mg Q12HR PRN PO 11/23/17 21:00 (Dulcolax Supp) 10 mg DAILY PRN RECTAL 11/23/17 21:00 (Lactulose Liq) 30 ml DAILY PRN PO 11/23/17 21:00 Piperacillin Sod/ Tazobactam Sod 50 ml @ 100 mls/hr Q8H IV 11/24/17 04:00 11/24/17 04:40 (Zithromax) 500 mg Q24H PO 11/23/17 22:00 11/23/17 21:48 (Norvasc) 10 mg DAILY PO 11/24/17 09:00 (Lipitor) 20 mg HS PO 11/23/17 21:00 11/23/17 21:48 (Neurontin) 300 mg HS PO 11/23/17 21:30 11/23/17 21:48 (Ambien) 10 mg HS PRN PO 11/23/17 21:00 11/23/17 22:45 (Roxicodone) 5 mg Q6H PRN PO 11/23/17 21:00 11/24/17 05:11 (Naprosyn) 375 mg Q8H PRN PO 11/23/17 21:00 11/23/17 23:46 (Synthroid) 112 mcg DAILY@0600 PO 11/24/17 06:00 11/24/17 05:11 (Synthroid) 25 mcg DAILY@0600 PO 11/24/17 06:00 11/24/17 05:11 (D50w (Vial) Inj) 50 ml UNSCH PRN IV PUSH 11/24/17 01:30 (Glucagon Inj) 1 mg UNSCH PRN OTHER 11/24/17 01:30 (NovoLOG SUPPLEMENTAL SCALE) 1 ACHS SLIDING SCALE SQ 11/24/17 08:00 (Levemir Inj) 7 units HS SQ 11/24/17 21:00 (Tamiflu) 75 mg BID PO 11/24/17 09:00 11/29/17 08:59 11/24/17 07:48 Sodium Chloride 1,000 ml @ 0 mls/hr Q0M PRN OTHER 11/24/17 07:55 (Heparin Inj) 8,000 units UNSCH PRN IV FLUSH 11/24/17 08:00 Sodium Chloride 1,000 ml @ 200 mls/hr Q5H PRN IV 11/24/17 07:55 Sodium Chloride 1,000 ml @ 0 mls/hr Q0M PRN OTHER 11/24/17 07:55 (Mannitol Inj) 12.5 gm UNSCH PRN IV 11/24/17 08:00 Albumin Human 100 ml @ 60 mls/hr UNSCH PRN IV 11/24/17 08:00 (NS Flush) 5 ml UNSCH PRN IV FLUSH 11/24/17 08:00 (Heparin Inj) UNSCH PRN .XX 11/24/17 08:00 (Gentamicin Inj) 20 mg UNSCH PRN OTHER 11/24/17 08:00 (Tylenol) 650 mg UNSCH PRN PO 11/24/17 08:00 (Benadryl) 25 mg UNSCH PRN PO 11/24/17 08:00 (Nitrostat Sl) 0.4 mg UNSCH PRN SL 11/24/17 08:00 (Catapres) 0.1 mg UNSCH PRN PO 11/24/17 08:00 (Epogen Inj) 4,000 units UNSCH PRN IV PUSH 11/24/17 08:00 (Gelfoam 12 Mm/7 Mm Top) 1 foam UNSCH PRN TOP 11/24/17 08:00 Family History DM II, HTN multiple members Social History former smoker; no ETOH by history , lives with has right BKA, she uses wheelchair 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 (Ekta Vega) Physical Exam Vital Signs Vital Signs Date Time Temp Pulse Resp B/P (MAP) Pulse Ox O2 Delivery O2 Flow Rate FiO2 11/24/17 07:24 98.2 65 18 119/62 (81) 100 11/24/17 04:00 98.0 68 22 121/59 (79) 100 11/24/17 02:31 100.5 11/24/17 00:00 101.6 71 22 140/63 (88) 96 11/23/17 23:47 103.1 72 18 127/58 (81) 95 11/23/17 23:25 Nasal Cannula 2.00 11/23/17 23:24 103.5 18 95 11/23/17 21:42 103.1 93 20 144/78 (100) 90 11/23/17 20:22 20 11/23/17 20:20 101.8 11/23/17 19:48 78 20 123/53 (76) 95 Room Air 11/23/17 16:46 97 Room Air 11/23/17 16:33 Room Air 11/23/17 16:26 103.6 89 20 189/85 (119) 98 Physical Exam Obese, disheveled Middle aged female lying in bed receiving dialysis. Shivering awake, oriented x 3, no neuro deficit noted, poor dentition CV: S1/S2, RRR no murmurs or rubs Lungs: scattered rales and rhonchi, not on oxygen, not actively coughing Abd: obese, soft, non tender Ext: right BKA, healed: no edema noted Skin: intact left arm with large healed incision, AVF patent, accessed during HD Laboratory Laboratory Tests Test 11/23/17 16:50 11/23/17 17:57 11/24/17 06:32 White Blood Count 12.4 13.0 Red Blood Count 3.69 3.54 Hemoglobin 11.6 11.1 Hematocrit 36.0 35.1 Mean Corpuscular Volume 97.7 99.0 Mean Corpuscular Hemoglobin 31.4 31.4 Mean Corpuscular Hemoglobin Concent 32.1 31.7 Red Cell Distribution Width 14.3 14.0 Platelet Count 202 174 Mean Platelet Volume 8.2 8.5 Neutrophils (%) (Auto) 79.9 79.9 Lymphocytes (%) (Auto) 10.6 10.4 Monocytes (%) (Auto) 9.2 9.2 Eosinophils (%) (Auto) 0.1 0.0 Basophils (%) (Auto) 0.2 0.5 Neutrophils # (Auto) 9.9 10.4 Lymphocytes # (Auto) 1.3 1.4 Monocytes # (Auto) 1.1 1.2 Eosinophils # (Auto) 0.0 0.0 Basophils # (Auto) 0.0 0.1 CBC Comment DIFF FINAL DIFF FINAL Differential Comment Blood Urea Nitrogen 46 53 Creatinine 5.67 6.58 Random Glucose 236 154 Total Protein 7.9 Albumin 3.3 Calcium Level 8.4 7.7 Magnesium Level 1.9 Alkaline Phosphatase 57 Aspartate Amino Transf (AST/SGOT) 15 Alanine Aminotransferase (ALT/SGPT) 16 Total Bilirubin 0.5 Sodium Level 135 135 Potassium Level 5.0 4.9 Chloride Level 98 101 Carbon Dioxide Level 26.2 20.2 Anion Gap 11 14 Estimat Glomerular Filtration Rate 8 6 Lactic Acid Level 1.7 Lipase 217 Urine Color YELLOW Urine Turbidity HAZY Urine pH 5.5 Urine Specific [place] 1.021 Urine Protein 100 Urine Glucose (UA) NEG Urine Ketones NEG Urine Occult Blood TRACE Urine Nitrite NEG Urine Bilirubin NEG Urine Urobilinogen LESS THAN 2.0 Urine Leukocyte Esterase TRACE Urine RBC 2 Urine WBC 5 Urine Squamous Epithelial Cells 17 Urine Bacteria RARE Urine Hyaline Casts 8 Microscopic Urinalysis Comment CATH-CULTURE IND Date/Time Source Procedure Growth Status 11/23/17 16:50 Blood Peripheral Aerobic Blood Culture Pending Received 11/23/17 16:50 Blood Peripheral Anaerobic Blood Culture Pending Received 11/23/17 16:50 Nasal Aspirate Influenza Types A,B Antigen (JOSÉ MANUEL) - Final NEGATIVE FOR FLU A AND B ANTIGEN.... Complete 11/23/17 17:57 Urine Catheterized Urine Urine Culture Pending Received (Ekta Vega [facility]) Result Diagram: 11/24/17 0632 11/24/17 0632 Imaging Last 72 hours Impressions Chest X-Ray 11/23/17 1641 Signed Impressions: CONCLUSION: No acute abnormality is seen. Abdomen/Pelvis CT 11/23/17 1641 Signed Impressions: CONCLUSION: 1. Dense focal airspace consolidation with air bronchograms in the right lung base consistent with pneumonia or aspiration in the appropriate clinical settin g. 2. No acute CT abnormality in the abdomen or pelvis to explain patient's abdom inal pain. Specifically, no radiopaque renal calculi or obstructive uropathy. N ormal appendix. 3. Stable ancillary findings, as above. (Ekta Vega) Assessment and Plan Problem List: (1) ESRD (end stage renal disease) ICD Codes: N18.6 - ESRD (end stage renal disease) Status: Acute Plan: Seen during dialysis today on a 2K, 350 BFR, goal 2L Continue HD TTS Avoid IVF administration, received one liter of NS in ER Protect left arm from procedures Obtain intermittent metabolic profile. Mild acidosis is noted, should improve with dialysis. (2) Pneumonia ICD Codes: J18.9 - Pneumonia, unspecified organism Status: Acute Plan: Given vancomycin On PO Zithromax and IV Zosyn Monitor the patient clinically Flu negative, however Tamiflu started empirically blood cultures have been drawn (3) Type 2 diabetes mellitus ICD Codes: E11.9 - Type 2 diabetes mellitus Status: Acute Plan: Maintain glucose 140-180 mg/dL while hospitalized. (4) Anemia ICD Codes: D64.9 - Anemia, unspecified Status: Acute Plan: Epogen per protocol (5) Metabolic bone disease ICD Codes: E88.9 - Metabolic disorder, unspecified; M90.80 - Osteopathy in diseases classified elsewhere, unspecified site Status: Acute Plan: Calcium acetate with meals has been ordered Intermittently monitor phosphorous (6) Hypertension ICD Codes: I10 - Hypertension Status: Acute Plan: Home medications were resumed (Ekta Vega) Assessment and Plan patient was seen and examined. Agree with above assessment and plan. Dialysis TTS. Possible pneumonia, on antibiotics. (Ti Jalloh MD) Ekta Vega November 24, 2017 09:38 Ti Jalloh MD November 24, 2017 16:05
--- NOTE | 2017-11-24 11:35 | HHI.PR ---
Subjective Remarks Follow-up pneumonia. Denies shortness of breath but has generalized pain. States she was wheezing earlier. She has right BKA gets around with wheelchair or walker Objective Vitals Vital Signs Date Time Temp Pulse Resp B/P (MAP) Pulse Ox O2 Delivery O2 Flow Rate FiO2 11/24/17 07:47 97 21 11/24/17 07:24 98.2 65 18 119/62 (81) 100 11/24/17 04:00 98.0 68 22 121/59 (79) 100 11/24/17 02:31 100.5 11/24/17 00:00 101.6 71 22 140/63 (88) 96 11/23/17 23:47 103.1 72 18 127/58 (81) 95 11/23/17 23:25 Nasal Cannula 2.00 11/23/17 23:24 103.5 18 95 11/23/17 21:42 103.1 93 20 144/78 (100) 90 11/23/17 20:22 20 11/23/17 20:20 101.8 11/23/17 19:48 78 20 123/53 (76) 95 Room Air 11/23/17 16:46 97 Room Air 11/23/17 16:33 Room Air 11/23/17 16:26 103.6 89 20 189/85 (119) 98 I/O 11/23/17 11/23/17 11/23/17 11/24/17 11/24/17 11/24/17 07:00 15:00 23:00 07:00 15:00 23:00 Intake Total 1580 ml 300 ml Balance 1580 ml 300 ml Intake Oral 480 ml IV Total 1100 ml 300 ml # Voids 1 Result Diagram: 11/24/17 0632 11/24/17 0632 Imaging Last Impressions Chest X-Ray 11/23/17 1641 Signed Impressions: CONCLUSION: No acute abnormality is seen. Abdomen/Pelvis CT 11/23/17 1641 Signed Impressions: CONCLUSION: 1. Dense focal airspace consolidation with air bronchograms in the right lung base consistent with pneumonia or aspiration in the appropriate clinical settin g. 2. No acute CT abnormality in the abdomen or pelvis to explain patient's abdom inal pain. Specifically, no radiopaque renal calculi or obstructive uropathy. N ormal appendix. 3. Stable ancillary findings, as above. Objective Remarks GENERAL: This is a well-nourished, well-developed patient, in no apparent distress. SKIN: No rashes, ecchymoses or lesions. Warm and dry. CARDIOVASCULAR: Regular rate and rhythm without murmurs, gallops, or rubs. No JVD. RESPIRATORY: Clear to auscultation. Breath sounds equal bilaterally. No wheezes , rales, or rhonchi. GASTROINTESTINAL: Abdomen soft, non-tender, nondistended. No guarding. MUSCULOSKELETAL: Extremities without clubbing, cyanosis, or edema. Right BKA NEUROLOGICAL: Awake and alert. Cranial nerves II through XII intact. No focal neurological deficits. Normal speech. A/P Problem List: (1) Sepsis ICD Code: A41.9 - Sepsis, unspecified organism Status: Acute (2) Pneumonia ICD Code: J18.9 - Pneumonia, unspecified organism Status: Acute (3) Type 2 diabetes mellitus ICD Code: E11.9 - Type 2 diabetes mellitus Status: Acute (4) ESRD (end stage renal disease) ICD Code: N18.6 - ESRD (end stage renal disease) Status: Acute Assessment and Plan Ms. Spencer is a pleasant 57-year-old female with a history of ESRD, diabetes mellitus who presents to the emergency department due to fever and chills. She reports generalized body ache but no runny nose. She also reports some dry cough. Denies any risk factors for aspiration pneumonia including dysphagia or odynophagia. CT abdomen pelvis indicated right-sided pneumonia. Sepsis (patient meets SIRS criteria with fever, leukocytosis and known infection pneumonia) Right-sided pneumonia, healthcare associated pneumonia -We will keep patient on Zosyn and azithromycin for atypical coverage and Tamiflu. Obtain pneumococcal and Legionella urinary antigen -Blood cultures pending. If fever is persistent, will consider infectious disease consultation. ESRD - Consult Nephrology (Dr. Jalloh) for HD. Diabetes mellitus - Sliding scale insulin and Levemir 7 units QHS. Hypertension Hyperlipidemia Hypothyroidism - Continue amlodipine 10 mg daily, atorvastatin 20 mg nightly, levothyroxine 137 mcg p.o. daily Full code. Heparin subcutaneous. Discharge Planning Not stable for discharge still with fever Stuart Burns MD November 24, 2017 11:35
[2017-11-24] MEDS: EPOETIN ALFA 10,000 UNITS/ML VIAL IV PUSH PRN (11:48)
[2017-11-24] MEDS: AZITHROMYCIN 250 MG TAB PO SCH (12:35)
[2017-11-24] MEDS: ACETAMINOPHEN 325 MG TAB PO PRN ×2 (12:59→20:24)
[2017-11-24] MEDS ORDERED: RESP: ALBUTEROL 0.63 MG/3 ML NEB (PRN) NEB (13:15)
[2017-11-24] MEDS: CALCIUM ACETATE 667 MG CAP PO SCH ×2 (13:31→17:26)
[2017-11-24] MEDS: RESP: ALBUTEROL 2.5 MG/IPRATROPIUM 0.5 MG NEB (SCH) NEB ×2 (16:11→19:29)
[2017-11-24] MEDS: GABAPENTIN 300 MG CAP PO SCH (20:24)
[2017-11-24] MEDS: CARVEDILOL 3.125 MG TAB PO SCH (20:25)
[2017-11-24] MEDS: ATORVASTATIN 20 MG TAB PO SCH (20:25)
[2017-11-24] MEDS: ZOLPIDEM TARTRATE 10 MG TAB PO PRN (20:26)
[2017-11-24] MEDS: INSULIN DETEMIR 100 UNITS/ML VIAL SQ SCH (20:27)
[2017-11-25] VITALS (7 sets, daily range): BP systolic 110–142; BP diastolic 52–63; PULSE 61–105; RESP 18–20; TEMP 98.2–102.9; O2SAT 83–96
[2017-11-25] MEDS: PIPERACIL-TAZO 2.25 GM PREMIX 50 ML IV SCH ×2 (02:58→12:00)
[2017-11-25] MEDS: LEVOTHYROXINE SODIUM 25 MCG TAB PO SCH (05:55)
[2017-11-25] MEDS: LEVOTHYROXINE SODIUM 112 MCG TAB PO SCH (05:57)
[2017-11-25] MEDS ORDERED: LEVOTHYROXINE SODIUM 88 MCG TAB PO SCH (06:00)
[2017-11-25] MEDS: RESP: ALBUTEROL 2.5 MG/IPRATROPIUM 0.5 MG NEB (SCH) NEB ×4 (07:51→20:00)
--- NOTE | 2017-11-25 08:22 | EKG ---
Date Performed: 11/23/2017 Time Performed: 17:18:15 PTAGE: 57 years EKG: Sinus rhythm MARKED LEFT AXIS DEVIATION LEFT VENTRICULAR HYPERTROPHY AND ST-T CHANGE ABNORMAL ECG INTERPRETATION BASED ON A DEFAULT AGE OF 38 YEARS NO PREVIOUS TRACING DOCTOR: Brendon Dao Interpretating Date/Time 11/25/2017 08:16:20
[2017-11-25] MEDS: SODIUM CHLORIDE 0.9% FLUSH 10 ML FLUSH IV FLUSH SCH (09:00)
[2017-11-25] MEDS ORDERED: OSELTAMIVIR PHOSPHATE 30 MG/5 ML ORAL SYRINGE PO SCH (09:00)
[2017-11-25] MEDS: ASPIRIN 81 MG CHEW TAB CHEW SCH (09:18)
[2017-11-25] MEDS: ISOSORBIDE MONONITRATE 20 MG TAB PO SCH (09:18)
[2017-11-25] MEDS: CALCIUM ACETATE 667 MG CAP PO SCH ×3 (09:18→17:56)
[2017-11-25] MEDS: CARVEDILOL 3.125 MG TAB PO SCH (09:19)
[2017-11-25] MEDS: AZITHROMYCIN 250 MG TAB PO SCH (09:19)
[2017-11-25] MEDS: HEPARIN SODIUM - SQ 10,000 UNITS/ML VIAL SQ SCH (09:20)
[2017-11-25] MEDS: INSULIN ASPART SUPPLEMENTAL SCALE SQ SCH ×4 (09:20→21:00)
--- NOTE | 2017-11-25 09:21 | HHI.NPPN ---
Subjective Renal Failure: Chronic Interval History Feels better today. Tolerated dialysis without issues. (Ekta Vega) Review of Systems General Constitutional: Fever, Chills (Ekta Vega) Objective Data Data Vital Signs Date Time Temp Pulse Resp B/P (MAP) Pulse Ox O2 Delivery O2 Flow Rate FiO2 11/25/17 07:53 93 21 11/25/17 07:15 100.1 83 18 142/63 (89) 93 11/25/17 03:08 102.9 105 18 112/52 (72) 83 11/24/17 22:52 99.5 73 18 101/99 (100) 96 11/24/17 20:00 Room Air 21 11/24/17 19:29 100.2 86 20 117/68 (84) 87 11/24/17 19:28 97 11/24/17 15:51 97.5 85 16 125/60 (81) 95 11/24/17 13:38 18 11/24/17 13:38 18 11/24/17 13:02 101.1 94 18 118/55 (76) 95 (Ekta Vega) -: 11/24/17 0632 11/24/17 0632 Microbiology 11/24/17 Legionella Antigen, Received Pending 11/24/17 Streptococcus pneumoniae Antigen (M, Received Pending Imaging Last 72 hours Impressions Chest X-Ray 11/23/17 1641 Signed Impressions: CONCLUSION: No acute abnormality is seen. Abdomen/Pelvis CT 11/23/17 1641 Signed Impressions: CONCLUSION: 1. Dense focal airspace consolidation with air bronchograms in the right lung base consistent with pneumonia or aspiration in the appropriate clinical settin g. 2. No acute CT abnormality in the abdomen or pelvis to explain patient's abdom inal pain. Specifically, no radiopaque renal calculi or obstructive uropathy. N ormal appendix. 3. Stable ancillary findings, as above. (Ekta Vega) Physical Exam General Appearance: Well Developed, Well Nourished, Comfortable (Ekta Vega) Eyes Eye Exam: Pupils Equal, Pupils Reactive (Ekta Vega) Pulmonary Resp Exam: No Distress, Crackles, Decreased Bases (Ekta Vega) Cardiology CV Exam: Regular, Normal Sinus Rhythm, Good Perfusion (Ekta Vega) Gastrointestinal/Abdomen GI Exam: Soft, Non-Tender, Bowel Sounds Present (Ekta Vega) Musculoskeletal MS Exam: Joints Intact, Normal Tone MS Remarks s/p BKA (Ekta Vega) Integumentary Skin Exam: Clear, Warm, Dry, Intact (Ekta Vega) Extremeties Extremities Exam: No Edema, Pedal Pulses Palpable (Ekta Vega) Neurologic Neuro Exam: Alert, Awake, Oriented, Speech Clear, Moving All Extremities (Ekta Vega) Psychiatric Psych Exam: Appropriate Responses (Ekta Vega) Assessment/Plan Discussed Condition With: Patient Assessment Summary: Anemia of CKD, Proteinuria, Hypertension, Diabetes Mellitus Problem List: (1) ESRD (end stage renal disease) ICD Codes: N18.6 - ESRD (end stage renal disease) Status: Acute Plan: Continue HD TTS, due tomorrow Avoid IVF administration Protect left arm from procedures High protein diet encouraged. Cleared for discharge from renal perspective. Outpatient arrangements in place at [place]. (2) Pneumonia ICD Codes: J18.9 - Pneumonia, unspecified organism Status: Acute Plan: On PO Zithromax and IV Zosyn Monitor the patient, clinically improved Flu negative, however Tamiflu started empirically blood cultures negative to date (3) Type 2 diabetes mellitus ICD Codes: E11.9 - Type 2 diabetes mellitus Status: Acute Plan: Maintain glucose 140-180 mg/dL while hospitalized. (4) Anemia ICD Codes: D64.9 - Anemia, unspecified Status: Acute Plan: Epogen was ordered (5) Metabolic bone disease ICD Codes: E88.9 - Metabolic disorder, unspecified; M90.80 - Osteopathy in diseases classified elsewhere, unspecified site Status: Acute Plan: Calcium acetate with meals has been ordered Intermittently monitor phosphorous (6) Hypertension ICD Codes: I10 - Hypertension Status: Acute Plan: BP stable (Ekta Vega) Plan patient was seen and examined. Agree with above assessment and plan. (Ti Jalloh MD) Ekta Vega November 25, 2017 09:21 Ti Jalloh MD November 25, 2017 14:21
--- NOTE | 2017-11-25 10:21 | HHI.DCPOC ---
Discharge Care Plan Diagnosis: (1) Pneumonia Your Health Problems Are: Difficulty with ADL Exercise Tolerance Goals to Promote Your Health * To prevent worsening of your condition and complications * To maintain your health at the optimal level Directions to Meet Your Goals Take your medications as prescribed Follow your dietary instruction Follow activity as directed Keep your appointments as scheduled Take your immunizations and boosters as scheduled If your symptoms worsen call your PCP, if no PCP go to Urgent Care Center or Emergency Room Smoking is Dangerous to Your Health. Avoid second hand smoke Call the 24-hour hour crisis hotline for domestic abuse at Stuart Burns MD November 25, 2017 10:21
--- NOTE | 2017-11-25 10:26 | HHI.PR ---
Subjective Remarks Follow-up pneumonia. States she is feeling better continues to have generalized pain. She wants to sign out AGAINST MEDICAL ADVICE because she is not getting the food that she desires. Patient counseled. She is not medically stable for discharge still spiking temperature Objective Vitals Vital Signs Date Time Temp Pulse Resp B/P (MAP) Pulse Ox O2 Delivery O2 Flow Rate FiO2 11/25/17 07:53 93 21 11/25/17 07:15 100.1 83 18 142/63 (89) 93 11/25/17 03:08 102.9 105 18 112/52 (72) 83 11/24/17 22:52 99.5 73 18 101/99 (100) 96 11/24/17 20:00 Room Air 21 11/24/17 19:29 100.2 86 20 117/68 (84) 87 11/24/17 19:28 97 11/24/17 15:51 97.5 85 16 125/60 (81) 95 11/24/17 13:38 18 11/24/17 13:38 18 11/24/17 13:02 101.1 94 18 118/55 (76) 95 I/O 11/24/17 11/24/17 11/24/17 11/25/17 11/25/17 11/25/17 07:00 15:00 23:00 07:00 15:00 23:00 Intake Total 300 ml Output Total 3000 ml Balance 300 ml -3000 ml IV Total 300 ml Output Hemodialysis 3000 ml # Voids 2 Result Diagram: 11/24/17 0632 11/24/17 0632 Imaging Last Impressions Chest X-Ray 11/23/17 1641 Signed Impressions: CONCLUSION: No acute abnormality is seen. Abdomen/Pelvis CT 11/23/17 1641 Signed Impressions: CONCLUSION: 1. Dense focal airspace consolidation with air bronchograms in the right lung base consistent with pneumonia or aspiration in the appropriate clinical settin g. 2. No acute CT abnormality in the abdomen or pelvis to explain patient's abdom inal pain. Specifically, no radiopaque renal calculi or obstructive uropathy. N ormal appendix. 3. Stable ancillary findings, as above. Objective Remarks GENERAL: This is a well-nourished, well-developed patient, in no apparent distress. SKIN: No rashes, ecchymoses or lesions. Warm and dry. CARDIOVASCULAR: Regular rate and rhythm without murmurs, gallops, or rubs. No JVD. RESPIRATORY: Clear to auscultation. Breath sounds equal bilaterally. No wheezes , rales, or rhonchi. GASTROINTESTINAL: Abdomen soft, non-tender, nondistended. No guarding. MUSCULOSKELETAL: Extremities without clubbing, cyanosis, or edema. Right BKA NEUROLOGICAL: Awake and alert. Cranial nerves II through XII intact. No focal neurological deficits. Normal speech. Procedures none A/P Problem List: (1) Sepsis ICD Code: A41.9 - Sepsis, unspecified organism Status: Acute (2) Pneumonia ICD Code: J18.9 - Pneumonia, unspecified organism Status: Acute (3) Type 2 diabetes mellitus ICD Code: E11.9 - Type 2 diabetes mellitus Status: Acute (4) ESRD (end stage renal disease) ICD Code: N18.6 - ESRD (end stage renal disease) Status: Acute Assessment and Plan Ms. Spencer is a pleasant 57-year-old female with a history of ESRD, diabetes mellitus who presents to the emergency department due to fever and chills. She reports generalized body ache but no runny nose. She also reports some dry cough. Denies any risk factors for aspiration pneumonia including dysphagia or odynophagia. CT abdomen pelvis indicated right-sided pneumonia. Sepsis (patient meets SIRS criteria with fever, leukocytosis and known infection pneumonia) Right-sided pneumonia, healthcare associated pneumonia -We will keep patient on Zosyn and azithromycin for atypical coverage and Tamiflu. Negative pneumococcal and Legionella urinary antigen -Blood cultures NGTD. If fever is persistent, will consider infectious disease consultation. ESRD - Consult Nephrology (Dr. Jalloh) for HD. Diabetes mellitus - Sliding scale insulin and Levemir 7 units QHS. Hypertension Hyperlipidemia Hypothyroidism - Continue amlodipine 10 mg daily, atorvastatin 20 mg nightly, levothyroxine 137 mcg p.o. daily Full code. Heparin subcutaneous. Patient is not medically stable for discharge she continues to spike temperature. She is signing out AGAINST MEDICAL ADVICE Discharge Planning Not stable for discharge still with fever Discharge patient to home - AMA Condition on discharge: Guarded Regular Diet as tolerated Ad Agnes activity Rx written: Augmentin and Tamiflu Follow-up with primary care physician and nephrology Stuart Burns MD November 25, 2017 10:26
[2017-11-25] MEDS: ACETAMINOPHEN 325 MG TAB PO PRN (11:59)
[2017-11-25] MEDS: OSELTAMIVIR PHOSPHATE 30 MG CAP PO SCH (11:59)
[2017-11-25] MEDS: INSULIN DETEMIR 100 UNITS/ML VIAL SQ SCH (21:00)
[2017-11-26] VITALS (7 sets, daily range): BP systolic 96–158; BP diastolic 48–74; PULSE 57–90; RESP 16–18; TEMP 97.8–99; O2SAT 90–100
[2017-11-26] MEDS: SODIUM CHLORIDE 0.9% FLUSH 10 ML FLUSH IV FLUSH SCH ×3 (00:17→19:58)
[2017-11-26] MEDS: CARVEDILOL 3.125 MG TAB PO SCH ×3 (00:17→19:58)
[2017-11-26] MEDS: HEPARIN SODIUM - SQ 10,000 UNITS/ML VIAL SQ SCH ×3 (00:18→19:58)
[2017-11-26] MEDS: GABAPENTIN 300 MG CAP PO SCH ×2 (00:18→19:56)
[2017-11-26] MEDS: ATORVASTATIN 20 MG TAB PO SCH ×2 (00:18→19:57)
[2017-11-26] MEDS: ACETAMINOPHEN 325 MG TAB PO PRN ×2 (00:30→18:29)
[2017-11-26] MEDS: PIPERACIL-TAZO 2.25 GM PREMIX 50 ML IV SCH ×3 (00:48→12:45)
[2017-11-26] MEDS: LEVOTHYROXINE SODIUM 25 MCG TAB PO SCH (06:12)
[2017-11-26] MEDS: LEVOTHYROXINE SODIUM 112 MCG TAB PO SCH (06:12)
[2017-11-26 07:46] LABS: AUTOMATED NEUTROPHIL # 8.3 TH/MM3 (1.8-7.7); BASOPHIL % 0.3 % (0.0-2.0); EOSINOPHIL # 0.2 TH/MM3 (0-0.4); EOSINOPHIL % 1.4 % (0.0-4.0); HEMATOCRIT 29.8 % (35.0-46.0); HEMOGLOBIN 9.7 GM/DL (11.6-15.3); LYMPH % 17.5 % (9.0-44.0); LYMPHOCYTE # 2.1 TH/MM3 (1.0-4.8); MEAN CELL VOLUME 97.3 FL (80.0-100.0); MEAN CORPUSCULAR HEMOGLOBIN 31.5 PG (27.0-34.0); MEAN CORPUSCULAR HGB CONC 32.4 % (32.0-36.0); MEAN PLATELET VOLUME 8.7 FL (7.0-11.0); MONOCYTE # 1.3 TH/MM3 (0-0.9); NEUT % 69.8 % (16.0-70.0); PLATELET COUNT 220 TH/MM3 (150-450); RED BLOOD COUNT 3.06 MIL/MM3 (4.00-5.30); RED CELL DISTRIBUTION WIDTH 14.2 % (11.6-17.2); WHITE BLOOD COUNT 11.9 TH/MM3 (4.0-11.0)
[2017-11-26] MEDS: INSULIN ASPART SUPPLEMENTAL SCALE SQ SCH ×4 (08:00→19:57)
[2017-11-26] MEDS: RESP: ALBUTEROL 2.5 MG/IPRATROPIUM 0.5 MG NEB (SCH) NEB ×4 (08:00→19:32)
[2017-11-26] MEDS: CALCIUM ACETATE 667 MG CAP PO SCH ×3 (08:03→18:26)
[2017-11-26 08:26] LABS: BICARBONATE 27.5 MEQ/L (21.0-32.0); CALCIUM 8.6 MG/DL (8.5-10.1); CREATININE 8.24 MG/DL (0.50-1.00); MAGNESIUM 2.2 MG/DL (1.5-2.5)
[2017-11-26] MEDS ORDERED: FLUCONAZOLE 100 MG TAB PO ONE (08:30)
--- NOTE | 2017-11-26 08:31 | HHI.PR ---
Subjective Remarks Follow-up pneumonia. Still having intermittent fever though curve is better. Improving generalized aches. Denies chills, cough, shortness of breath, UTI symptoms and diarrhea. Requesting yeast medication she is complaining of vaginal itching but no discharge Objective Vitals Vital Signs Date Time Temp Pulse Resp B/P (MAP) Pulse Ox O2 Delivery O2 Flow Rate FiO2 11/26/17 07:58 98.2 90 18 158/74 (102) 96 11/26/17 03:57 99.0 64 18 112/54 (73) 93 11/25/17 23:00 101.8 76 18 113/54 (73) 95 11/25/17 19:28 99.3 61 20 110/62 (78) 94 11/25/17 15:47 98.2 64 20 118/58 (78) 94 11/25/17 11:36 102.0 79 18 120/54 (76) 96 11/25/17 09:20 Room Air I/O 11/25/17 11/25/17 11/25/17 11/26/17 11/26/17 11/26/17 07:00 15:00 23:00 07:00 15:00 23:00 Intake Total 50 ml Balance 50 ml IV Total 50 ml # Voids 2 Result Diagram: 11/26/17 0515 11/24/17 0632 Imaging Last Impressions Chest X-Ray 11/23/17 1641 Signed Impressions: CONCLUSION: No acute abnormality is seen. Abdomen/Pelvis CT 11/23/17 1641 Signed Impressions: CONCLUSION: 1. Dense focal airspace consolidation with air bronchograms in the right lung base consistent with pneumonia or aspiration in the appropriate clinical settin g. 2. No acute CT abnormality in the abdomen or pelvis to explain patient's abdom inal pain. Specifically, no radiopaque renal calculi or obstructive uropathy. N ormal appendix. 3. Stable ancillary findings, as above. Objective Remarks GENERAL: This is a well-nourished, well-developed patient, in no apparent distress. SKIN: No rashes, ecchymoses or lesions. Warm and dry. CARDIOVASCULAR: Regular rate and rhythm without murmurs, gallops, or rubs. No JVD. RESPIRATORY: Clear to auscultation. Breath sounds equal bilaterally. No wheezes , rales, or rhonchi. GASTROINTESTINAL: Abdomen soft, non-tender, nondistended. No guarding. MUSCULOSKELETAL: Extremities without clubbing, cyanosis, or edema. Right BKA NEUROLOGICAL: Awake and alert. Cranial nerves II through XII intact. No focal neurological deficits. Normal speech. Procedures none A/P Problem List: (1) Sepsis ICD Code: A41.9 - Sepsis, unspecified organism Status: Acute (2) Pneumonia ICD Code: J18.9 - Pneumonia, unspecified organism Status: Acute (3) Type 2 diabetes mellitus ICD Code: E11.9 - Type 2 diabetes mellitus Status: Acute (4) ESRD (end stage renal disease) ICD Code: N18.6 - ESRD (end stage renal disease) Status: Acute Assessment and Plan Ms. Spencer is a pleasant 57-year-old female with a history of ESRD, diabetes mellitus who presents to the emergency department due to fever and chills. She reports generalized body ache but no runny nose. She also reports some dry cough. Denies any risk factors for aspiration pneumonia including dysphagia or odynophagia. CT abdomen pelvis indicated right-sided pneumonia. Sepsis (patient meets SIRS criteria with fever, leukocytosis and known infection pneumonia) Right-sided pneumonia, healthcare associated pneumonia -We will keep patient on Zosyn and azithromycin for atypical coverage and Tamiflu. Negative pneumococcal and Legionella urinary antigen -Blood cultures NGTD. Persistent fever will consult infectious disease. -Diflucan 1 patient complaining of vaginal itching history of yeast vaginitis ESRD - Consult Nephrology (Dr. Jalloh) for HD. Diabetes mellitus - Sliding scale insulin and Levemir 7 units QHS. Hypertension Hyperlipidemia Hypothyroidism - Continue amlodipine 10 mg daily, atorvastatin 20 mg nightly, levothyroxine 137 mcg p.o. daily Full code. Heparin subcutaneous. Patient decided to stay she is not signing out AGAINST MEDICAL ADVICE Stuart Burns MD November 26, 2017 08:31
[2017-11-26] MEDS ORDERED: PILL SPLITTER OTHER PRN (08:45)
--- NOTE | 2017-11-26 10:27 | HHI.NPPN ---
Subjective Renal Failure: Chronic Review of Systems General Constitutional: Fever, Chills Objective Data Data Vital Signs Date Time Temp Pulse Resp B/P (MAP) Pulse Ox O2 Delivery O2 Flow Rate FiO2 11/26/17 08:00 Room Air 11/26/17 07:58 98.2 90 18 158/74 (102) 96 11/26/17 03:57 99.0 64 18 112/54 (73) 93 11/25/17 23:00 101.8 76 18 113/54 (73) 95 11/25/17 19:28 99.3 61 20 110/62 (78) 94 11/25/17 15:47 98.2 64 20 118/58 (78) 94 11/25/17 11:36 102.0 79 18 120/54 (76) 96 -: 11/26/17 0515 11/26/17 0515 Physical Exam General Appearance: Well Developed, Well Nourished, Comfortable Eyes Eye Exam: Pupils Equal, Pupils Reactive Pulmonary Resp Exam: No Distress, Crackles, Decreased Bases Cardiology CV Exam: Regular, Normal Sinus Rhythm, Good Perfusion Gastrointestinal/Abdomen GI Exam: Soft, Non-Tender, Bowel Sounds Present Musculoskeletal MS Exam: Joints Intact, Normal Tone Integumentary Skin Exam: Clear, Warm, Dry, Intact Extremeties Extremities Exam: No Edema, Pedal Pulses Palpable Neurologic Neuro Exam: Alert, Awake, Oriented, Speech Clear, Moving All Extremities Psychiatric Psych Exam: Appropriate Responses Assessment/Plan Discussed Condition With: Patient Assessment Summary: Anemia of CKD, Proteinuria, Hypertension, Diabetes Mellitus Problem List: (1) ESRD (end stage renal disease) ICD Codes: N18.6 - ESRD (end stage renal disease) Status: Acute Plan: Continue HD TTS, due tomorrow seen during dialysis 3 L UF Cleared for discharge from renal perspective. Outpatient arrangements in place at [place]. (2) Pneumonia ICD Codes: J18.9 - Pneumonia, unspecified organism Status: Acute Plan: On PO Zithromax and IV Zosyn Monitor the patient, clinically improved Flu negative, however Tamiflu started empirically blood cultures negative to date (3) Type 2 diabetes mellitus ICD Codes: E11.9 - Type 2 diabetes mellitus Status: Acute Plan: Maintain glucose 140-180 mg/dL while hospitalized. (4) Anemia ICD Codes: D64.9 - Anemia, unspecified Status: Acute Plan: Epogen was ordered (5) Metabolic bone disease ICD Codes: E88.9 - Metabolic disorder, unspecified; M90.80 - Osteopathy in diseases classified elsewhere, unspecified site Status: Acute Plan: Calcium acetate with meals has been ordered Intermittently monitor phosphorous (6) Hypertension ICD Codes: I10 - Hypertension Status: Acute Plan: BP stable Plan patient was seen and examined. Agree with above assessment and plan. Julisa Brush MD November 26, 2017 10:27
[2017-11-26] MEDS: EPOETIN ALFA 10,000 UNITS/ML VIAL IV PUSH PRN (11:33)
[2017-11-26] MEDS: ASPIRIN 81 MG CHEW TAB CHEW SCH (12:42)
[2017-11-26] MEDS: OSELTAMIVIR PHOSPHATE 30 MG CAP PO SCH (12:42)
[2017-11-26] MEDS: ISOSORBIDE MONONITRATE 20 MG TAB PO SCH (12:43)
[2017-11-26] MEDS: AZITHROMYCIN 250 MG TAB PO SCH (12:44)
--- NOTE | 2017-11-26 13:14 | PD.CONS ---
History of Present Illness Service Infectious disease Consult Requested By Dr Sonia Burns Reason for Consult Evaluate patient with fever and pneumonia Primary Care Physician Clifton Hernandez M.D. Diagnoses: History of Present Illness Patient seen and examined. Records reviewed. Patient is a 57-year-old female, presented to the hospital complaining of several day history of fever. She also has had some diffuse body aches, fatigue , and generalized malaise. She denies any cough or any sore throat or any kind of chest congestion. She has had some nausea but no pavel vomiting. Denies any diarrhea or any urinary problem. She mentions some abdominal pain to the ED. CT of the abdomen and pelvis did not show any intra-abdominal process, but it did show air bronchograms in the right lung base. Her admission chest x-ray did not show any acute process. LFTs were normal. Urinalysis fairly unremarkable. Urine culture has staph epidermidis. Influenza testing is negative. Urine for Legionella and pneumococcal antigen are negative. Patient was initially febrile up to 103, and her temperatures have improved. She still has temperature up to 101, but the frequency has markedly improved. Her white count also has improved. Patient currently still having body aches. Overall she is a little bit better. She has been getting Zithromax, and Zosyn, as well as Tamiflu. Infectious disease consultation has been requested to evaluate the patient. Review of Systems Constitutional: COMPLAINS OF: Fatigue, Fever, Chills Eyes: DENIES: Eye pain Ears, nose, mouth, throat: DENIES: Nasal discharge, Oral lesions, Throat pain, Ear Pain Respiratory: DENIES: Cough, Shortness of breath Cardiovascular: DENIES: Chest pain, Palpitations, Syncope, Dyspnea on Exertion Gastrointestinal: COMPLAINS OF: Abdominal pain, Nausea, DENIES: Diarrhea, Vomiting, Difficulty Swallowing Genitourinary: DENIES: Urinary frequency, Dysuria Musculoskeletal: COMPLAINS OF: Muscle aches, DENIES: Joint pain, Joint Swelling Integumentary: DENIES: Rash Hematologic/lymphatic: DENIES: Lymphadenopathy Neurologic: DENIES: Headache, Localized weakness Psychiatric: DENIES: Hallucinations Past Family Social History Allergies: Coded Allergies: morphine (Verified Allergy, Intermediate, 08/21/17) "ITCHING EVERYWHERE" Past Medical History Arthritis ESRD Diabetes mellitus Sleep apnea Thyroid disorder. Secondary hyperparathyroidism Metabolic bone disorder Hypertension Anemia Past Surgical History Tubal ligation Right below-knee amputation D&C left brachiocephalic AVF (10/2016) with revision/second step 12/08/16 PermCath placement (multiple) with removal Active Ordered Medications Current Medications Medications (Trade) Dose Ordered Sig/Ezekiel Route Start Time Stop Time Status Last Admin (NS Flush) 2 ml UNSCH PRN IV FLUSH 11/23/17 20:00 (NS Flush) 2 ml BID IV FLUSH 11/23/17 21:00 11/26/17 12:42 (Tylenol) 650 mg Q4H PRN PO 11/23/17 21:00 11/26/17 00:30 (Heparin Inj) 5,000 units Q12HR SQ 11/23/17 21:00 11/26/17 12:44 (Narcan Inj) 0.4 mg UNSCH PRN IV PUSH 11/23/17 20:00 (Milk Of Magnesia Liq) 30 ml Q12HR PRN PO 11/23/17 21:00 (Senokot) 17.2 mg Q12HR PRN PO 11/23/17 21:00 (Dulcolax Supp) 10 mg DAILY PRN RECTAL 11/23/17 21:00 (Lactulose Liq) 30 ml DAILY PRN PO 11/23/17 21:00 11/25/17 09:19 Piperacillin Sod/ Tazobactam Sod 50 ml @ 100 mls/hr Q8H IV 11/24/17 04:00 11/26/17 12:45 (Norvasc) 10 mg DAILY PO 11/24/17 09:00 11/26/17 12:44 (Lipitor) 20 mg HS PO 11/23/17 21:00 11/26/17 00:18 (Neurontin) 300 mg HS PO 11/23/17 21:30 11/26/17 00:18 (Ambien) 10 mg HS PRN PO 11/23/17 21:00 11/24/17 20:26 (Roxicodone) 5 mg Q6H PRN PO 11/23/17 21:00 11/26/17 12:42 (Synthroid) 112 mcg DAILY@0600 PO 11/24/17 06:00 11/26/17 06:12 (Synthroid) 25 mcg DAILY@0600 PO 11/24/17 06:00 11/26/17 06:12 (D50w (Vial) Inj) 50 ml UNSCH PRN IV PUSH 11/24/17 01:30 (Glucagon Inj) 1 mg UNSCH PRN OTHER 11/24/17 01:30 (NovoLOG SUPPLEMENTAL SCALE) 1 ACHS SLIDING SCALE SQ 11/24/17 08:00 11/25/17 17:56 (Levemir Inj) 7 units HS SQ 11/24/17 21:00 11/24/17 20:27 Sodium Chloride 1,000 ml @ 0 mls/hr Q0M PRN OTHER 11/24/17 07:55 (Heparin Inj) 8,000 units UNSCH PRN IV FLUSH 11/24/17 08:00 Sodium Chloride 1,000 ml @ 200 mls/hr Q5H PRN IV 11/24/17 07:55 Sodium Chloride 1,000 ml @ 0 mls/hr Q0M PRN OTHER 11/24/17 07:55 (Mannitol Inj) 12.5 gm UNSCH PRN IV 11/24/17 08:00 Albumin Human 100 ml @ 60 mls/hr UNSCH PRN IV 11/24/17 08:00 (NS Flush) 5 ml UNSCH PRN IV FLUSH 11/24/17 08:00 (Heparin Inj) UNSCH PRN .XX 11/24/17 08:00 (Gentamicin Inj) 20 mg UNSCH PRN OTHER 11/24/17 08:00 (Tylenol) 650 mg UNSCH PRN PO 11/24/17 08:00 11/25/17 03:13 (Benadryl) 25 mg UNSCH PRN PO 11/24/17 08:00 (Nitrostat Sl) 0.4 mg UNSCH PRN SL 11/24/17 08:00 (Catapres) 0.1 mg UNSCH PRN PO 11/24/17 08:00 (Epogen Inj) 4,000 units UNSCH PRN IV PUSH 11/24/17 08:00 11/26/17 11:33 (Gelfoam 12 Mm/7 Mm Top) 1 foam UNSCH PRN TOP 11/24/17 08:00 11/26/17 11:33 (Zithromax) 250 mg DAILY PO 11/24/17 13:00 11/28/17 12:59 11/26/17 12:44 (Aspirin Chew) 81 mg DAILY CHEW 11/25/17 09:00 11/26/17 12:42 (Phoslo) 2,001 mg TID PO 11/24/17 13:00 11/25/17 17:56 (Coreg) 3.125 mg Q12HR PO 11/24/17 21:00 11/26/17 00:17 (Ismo) 10 mg DAILY PO 11/25/17 09:00 11/26/17 12:43 (Duoneb Neb) 1 ampule QID NEB NEB 11/24/17 16:00 11/25/17 15:38 (Albuterol Neb) 0.63 mg Q4HR NEB PRN NEB 11/24/17 13:15 (Tamiflu) 30 mg DAILY PO 11/25/17 11:00 11/26/17 12:42 (Pill Splitter) 1 ea UNSCH PRN OTHER 11/26/17 08:45 Family History DM II, HTN Social History former smoker; no ETOH by history , lives with she uses wheelchair 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 SKIN: Warm and dry. No generalized rash, no ecchymoses and no evidence of embolic lesions. HEAD: Atraumatic. Normocephalic. No temporal wasting, or tenderness. EYES: [place] conjunctiva. No petechia or hemorrhage. Pupils equal, round and reactive to light. Extraocular movements full and intact. No scleral icterus. No injection or drainage. EARS, NOSE AND THROAT: Nose without bleeding or purulent nasal discharge. No sinus tenderness. Mucous membranes pink and moist. No oral lesions noted. No exudate. No oral thrush. NECK: Trachea midline. Supple and not tender, no meningeal signs CARDIOVASCULAR: Regular rate and rhythm. No murmurs, rubs or gallops heard RESPIRATORY: Clear to auscultation. Breath sounds equal bilaterally. No rales , wheezing or rhonchi ABDOMEN: Soft, non-tender, nondistended. Bowel sounds present and normoactive. No guarding. No rebound. No organomegaly. EXTREMITIES: No clubbing, cyanosis, or edema.No joint effusion, has good ROM. No calf tenderness. Well perfused and warm. NEUROLOGICAL: Awake and alert. Cranial nerves grossly intact. Motor grossly within normal limits. PSYCHIATRIC: Normal affect, calm and cooperative. LINE: No evidence of infection Laboratory Laboratory Tests Test 11/26/17 05:15 White Blood Count 11.9 Red Blood Count 3.06 Hemoglobin 9.7 Hematocrit 29.8 Mean Corpuscular Volume 97.3 Mean Corpuscular Hemoglobin 31.5 Mean Corpuscular Hemoglobin Concent 32.4 Red Cell Distribution Width 14.2 Platelet Count 220 Mean Platelet Volume 8.7 Neutrophils (%) (Auto) 69.8 Lymphocytes (%) (Auto) 17.5 Monocytes (%) (Auto) 11.0 Eosinophils (%) (Auto) 1.4 Basophils (%) (Auto) 0.3 Neutrophils # (Auto) 8.3 Lymphocytes # (Auto) 2.1 Monocytes # (Auto) 1.3 Eosinophils # (Auto) 0.2 Basophils # (Auto) 0.0 CBC Comment DIFF FINAL Differential Comment Blood Urea Nitrogen 57 Creatinine 8.24 Random Glucose 171 Calcium Level 8.6 Magnesium Level 2.2 Sodium Level 133 Potassium Level 4.3 Chloride Level 93 Carbon Dioxide Level 27.5 Anion Gap 13 Estimat Glomerular Filtration Rate 5 Date/Time Source Procedure Growth Status 11/23/17 16:50 Blood Peripheral Aerobic Blood Culture - Preliminary NO GROWTH IN 3 DAYS Resulted 11/23/17 16:50 Blood Peripheral Anaerobic Blood Culture - Preliminary NO GROWTH IN 3 DAYS Resulted 11/23/17 16:50 Nasal Aspirate Influenza Types A,B Antigen (JOSÉ MANUEL) - Final NEGATIVE FOR FLU A AND B ANTIGEN.... Complete 11/24/17 20:30 Urine Random Urine Legionella Antigen - Final PRESUMPTIVE NEGATIVE FOR LEGIONELLA P... Complete 11/24/17 20:30 Urine Random Urine Streptococcus pneumoniae Antigen (M - Final PRESUMPTIVE NEGATIVE FOR STREPTOCOCCU... Complete Result Diagram: 11/26/17 0515 11/26/17 0515 Imaging RADIOLOGY STUDIES/FILMS REVIEWED Last Impressions Chest X-Ray 11/23/17 1641 Signed Impressions: CONCLUSION: No acute abnormality is seen. Abdomen/Pelvis CT 11/23/17 1641 Signed Impressions: CONCLUSION: 1. Dense focal airspace consolidation with air bronchograms in the right lung base consistent with pneumonia or aspiration in the appropriate clinical settin g. 2. No acute CT abnormality in the abdomen or pelvis to explain patient's abdom inal pain. Specifically, no radiopaque renal calculi or obstructive uropathy. N ormal appendix. 3. Stable ancillary findings, as above. Assessment and Plan Assessment and Plan IMPRESSION Febrile illness, non-localizing complaints - has PNA seen on CT A/P - temps seem to be trending down UC with Staph epi ESRD on HD ?Influenza - has symptoms of flu; Ag negative (?False negative) RECOMMENDATION Change to Levaquin Give another dose of Vanco Repeat CXR Check adult resp panel Follow temps Repeat LFT Follow C/S Follow temps Monitor progress I will determine course of Abx once work-up completed I will follow along with you Thank you for this consultation Tabby Rodríguez MD November 26, 2017 13:14
[2017-11-26] MEDS ORDERED: VANCOMYCIN INJ 1,000 MG in SODIUM CHLOR 0.9% 250 ML INJ 250 ML IV ONE (13:15)
[2017-11-26 13:40] LABS: ALBUMIN 2.5 GM/DL (3.4-5.0); DIRECT BILIRUBIN ADULT 0.1 MG/DL (0.0-0.2)
[2017-11-26] MEDS: LEVOFLOXACIN 250 MG TAB PO SCH (14:05)
[2017-11-26 14:07] LABS: INDIRECT BILIRUBIN 0.2 MG/DL (0.0-0.8); TOTAL BILIRUBIN ADULT 0.3 MG/DL (0.2-1.0); TOTAL PROTEIN 6.8 GM/DL (6.4-8.2)
[2017-11-26] MEDS: INSULIN DETEMIR 100 UNITS/ML VIAL SQ SCH (20:04)
[2017-11-26] MEDS: ZOLPIDEM TARTRATE 10 MG TAB PO PRN (21:58)
[2017-11-27] VITALS: BP 120/58; PULSE 62; RESP 20; TEMP 97.8; O2SAT 93
[2017-11-27 04:00] VITALS: BP 113/54; PULSE 62; RESP 18; TEMP 98.1; O2SAT 94
[2017-11-27] MEDS: LEVOTHYROXINE SODIUM 112 MCG TAB PO SCH (05:49)
[2017-11-27] MEDS: LEVOTHYROXINE SODIUM 25 MCG TAB PO SCH (05:49)
[2017-11-27] MEDS: INSULIN ASPART SUPPLEMENTAL SCALE SQ SCH ×2 (08:00→11:54)
[2017-11-27 08:12] VITALS: BP 114/55; PULSE 56; RESP 18; TEMP 98.1; O2SAT 98
[2017-11-27] MEDS: RESP: ALBUTEROL 2.5 MG/IPRATROPIUM 0.5 MG NEB (SCH) NEB ×2 (08:28→11:38)
[2017-11-27 08:32] VITALS: O2SAT 98
[2017-11-27] MEDS: CALCIUM ACETATE 667 MG CAP PO SCH ×2 (08:53→13:45)
[2017-11-27] MEDS: CARVEDILOL 3.125 MG TAB PO SCH (08:53)
[2017-11-27] MEDS: ASPIRIN 81 MG CHEW TAB CHEW SCH (08:53)
[2017-11-27] MEDS: HEPARIN SODIUM - SQ 10,000 UNITS/ML VIAL SQ SCH (08:54)
[2017-11-27] MEDS: ISOSORBIDE MONONITRATE 20 MG TAB PO SCH (08:54)
[2017-11-27] MEDS: SODIUM CHLORIDE 0.9% FLUSH 10 ML FLUSH IV FLUSH SCH (08:57)
[2017-11-27] MEDS: OSELTAMIVIR PHOSPHATE 30 MG CAP PO SCH (09:00)
--- NOTE | 2017-11-27 09:21 | RADRPT ---
EXAM DATE: 11/27/2017 9:13 AM EDT AGE/SEX: 57 years / Female INDICATIONS: Pneumonia CLINICAL DATA: This is the patient's subsequent encounter. Patient reports that signs and symptoms h ave been present for 4 - 6 days and indicates a pain score of 0/10. MEDICAL/SURGICAL HISTORY: Hypertension. None. COMPARISON: [facility] [place] & LAT, 11/23/2017. . FINDINGS: PA and lateral views of the chest demonstrate the lungs to be symmetrically aerated without evidence of mass, infiltrate or effusion. The heart is mildly prominent but stable.. Osseous structures are in tact and stable. CONCLUSION: No acute intrathoracic disease. Stable examination. Electronically signed by: Neal Guevara MD 11/27/2017 9:20 AM EDT
[2017-11-27 10:32] LABS: BASOPHIL % 0.5 % (0.0-2.0); EOSINOPHIL # 0.3 TH/MM3 (0-0.4); HEMATOCRIT 31.1 % (35.0-46.0); HEMOGLOBIN 10.2 GM/DL (11.6-15.3); LYMPH % 25.1 % (9.0-44.0); LYMPHOCYTE # 2.2 TH/MM3 (1.0-4.8); MEAN CELL VOLUME 97.5 FL (80.0-100.0); MEAN CORPUSCULAR HEMOGLOBIN 31.9 PG (27.0-34.0); MEAN CORPUSCULAR HGB CONC 32.7 % (32.0-36.0); MEAN PLATELET VOLUME 8.6 FL (7.0-11.0); MONO % 14.2 % (0.0-8.0); MONOCYTE # 1.2 TH/MM3 (0-0.9); NEUT % 57.2 % (16.0-70.0); PLATELET COUNT 239 TH/MM3 (150-450); RED BLOOD COUNT 3.19 MIL/MM3 (4.00-5.30); WHITE BLOOD COUNT 8.7 TH/MM3 (4.0-11.0)
[2017-11-27 11:08] LABS: BICARBONATE 30.4 MEQ/L (21.0-32.0); CALCIUM 8.8 MG/DL (8.5-10.1); CREATININE 6.74 MG/DL (0.50-1.00); MAGNESIUM 2.4 MG/DL (1.5-2.5)
--- NOTE | 2017-11-27 12:24 | HHI.IDPN ---
Subjective Subjective Remarks Patient is a 57-year-old female, presented to the hospital complaining of several day history of fever. She also has had some diffuse body aches, fatigue , and generalized malaise. She denies any cough or any sore throat or any kind of chest congestion. She has had some nausea but no pavel vomiting. Denies any diarrhea or any urinary problem. She mentions some abdominal pain to the ED. CT of the abdomen and pelvis did not show any intra-abdominal process, but it did show air bronchograms in the right lung base. Her admission chest x-ray did not show any acute process. LFTs were normal. Urinalysis fairly unremarkable. Urine culture has staph epidermidis. Influenza testing is negative. Urine for Legionella and pneumococcal antigen are negative. Patient was initially febrile up to 103, and her temperatures have improved. She still has temperature up to 101, but the frequency has markedly improved. Her white count also has improved. Patient currently still having body aches. Overall she is a little bit better. She has been getting Zithromax, and Zosyn, as well as Tamiflu. Infectious disease consultation has been requested to evaluate the patient. Notes reviewed Afebrile >24 hours now Body aches much better Repeat CXR same Feels much improved LFT ok Antibiotics Levaquin Current Medications Medications (Trade) Dose Ordered Sig/Ezekiel Route Start Time Stop Time Status Last Admin (NS Flush) 2 ml UNSCH PRN IV FLUSH 11/23/17 20:00 (NS Flush) 2 ml BID IV FLUSH 11/23/17 21:00 11/27/17 08:57 (Tylenol) 650 mg Q4H PRN PO 11/23/17 21:00 11/26/17 18:29 (Heparin Inj) 5,000 units Q12HR SQ 11/23/17 21:00 11/27/17 08:54 (Narcan Inj) 0.4 mg UNSCH PRN IV PUSH 11/23/17 20:00 (Milk Of Magnesia Liq) 30 ml Q12HR PRN PO 11/23/17 21:00 (Senokot) 17.2 mg Q12HR PRN PO 11/23/17 21:00 (Dulcolax Supp) 10 mg DAILY PRN RECTAL 11/23/17 21:00 (Lactulose Liq) 30 ml DAILY PRN PO 11/23/17 21:00 11/25/17 09:19 (Norvasc) 10 mg DAILY PO 11/24/17 09:00 11/27/17 08:53 (Lipitor) 20 mg HS PO 11/23/17 21:00 11/26/17 19:57 (Neurontin) 300 mg HS PO 11/23/17 21:30 11/26/17 19:56 (Ambien) 10 mg HS PRN PO 11/23/17 21:00 11/26/17 21:58 (Roxicodone) 5 mg Q6H PRN PO 11/23/17 21:00 11/27/17 03:48 (Synthroid) 112 mcg DAILY@0600 PO 11/24/17 06:00 11/27/17 05:49 (Synthroid) 25 mcg DAILY@0600 PO 11/24/17 06:00 11/27/17 05:49 (D50w (Vial) Inj) 50 ml UNSCH PRN IV PUSH 11/24/17 01:30 (Glucagon Inj) 1 mg UNSCH PRN OTHER 11/24/17 01:30 (NovoLOG SUPPLEMENTAL SCALE) 1 ACHS SLIDING SCALE SQ 11/24/17 08:00 11/26/17 19:57 (Levemir Inj) 7 units HS SQ 11/24/17 21:00 11/26/17 20:04 Sodium Chloride 1,000 ml @ 0 mls/hr Q0M PRN OTHER 11/24/17 07:55 (Heparin Inj) 8,000 units UNSCH PRN IV FLUSH 11/24/17 08:00 Sodium Chloride 1,000 ml @ 200 mls/hr Q5H PRN IV 11/24/17 07:55 Sodium Chloride 1,000 ml @ 0 mls/hr Q0M PRN OTHER 11/24/17 07:55 (Mannitol Inj) 12.5 gm UNSCH PRN IV 11/24/17 08:00 Albumin Human 100 ml @ 60 mls/hr UNSCH PRN IV 11/24/17 08:00 (NS Flush) 5 ml UNSCH PRN IV FLUSH 11/24/17 08:00 (Heparin Inj) UNSCH PRN .XX 11/24/17 08:00 (Gentamicin Inj) 20 mg UNSCH PRN OTHER 11/24/17 08:00 (Tylenol) 650 mg UNSCH PRN PO 11/24/17 08:00 11/25/17 03:13 (Benadryl) 25 mg UNSCH PRN PO 11/24/17 08:00 (Nitrostat Sl) 0.4 mg UNSCH PRN SL 11/24/17 08:00 (Catapres) 0.1 mg UNSCH PRN PO 11/24/17 08:00 (Epogen Inj) 4,000 units UNSCH PRN IV PUSH 11/24/17 08:00 11/26/17 11:33 (Gelfoam 12 Mm/7 Mm Top) 1 foam UNSCH PRN TOP 11/24/17 08:00 11/26/17 11:33 (Aspirin Chew) 81 mg DAILY CHEW 11/25/17 09:00 11/27/17 08:53 (Phoslo) 2,001 mg TID PO 11/24/17 13:00 11/27/17 08:53 (Coreg) 3.125 mg Q12HR PO 11/24/17 21:00 11/26/17 19:58 (Ismo) 10 mg DAILY PO 11/25/17 09:00 11/27/17 08:54 (Duoneb Neb) 1 ampule QID NEB NEB 11/24/17 16:00 11/27/17 08:28 (Albuterol Neb) 0.63 mg Q4HR NEB PRN NEB 11/24/17 13:15 (Tamiflu) 30 mg DAILY PO 11/25/17 11:00 11/26/17 12:42 (Pill Splitter) 1 ea UNSCH PRN OTHER 11/26/17 08:45 (Levaquin) 250 mg Q24H PO 11/26/17 14:00 11/26/17 14:05 Lines No evid of infection Past Medical History Arthritis ESRD Diabetes mellitus Sleep apnea Thyroid disorder. Secondary hyperparathyroidism Metabolic bone disorder Hypertension Anemia Past Surgical History Tubal ligation Right below-knee amputation D&C left brachiocephalic AVF (10/2016) with revision/second step 12/08/16 PermCath placement (multiple) with removal Allergies: Coded Allergies: morphine (Verified Allergy, Intermediate, 08/21/17) "ITCHING EVERYWHERE" Objective . Vital Signs Date Time Temp Pulse Resp B/P (MAP) Pulse Ox O2 Delivery O2 Flow Rate FiO2 11/27/17 08:32 98 11/27/17 08:12 98.1 56 18 114/55 (74) 98 11/27/17 08:00 Room Air 11/27/17 04:00 98.1 62 18 113/54 (73) 94 11/27/17 04:00 Room Air 11/27/17 00:00 Room Air 11/27/17 00:00 97.8 62 20 120/58 (78) 93 11/26/17 21:27 97.8 58 18 116/56 (76) 94 11/26/17 20:39 98.6 57 18 128/58 (81) 97 11/26/17 20:30 Room Air 11/26/17 19:38 16 11/26/17 19:37 Room Air 11/26/17 19:20 95 11/26/17 16:49 97.9 62 18 108/60 (76) 100 . Laboratory Tests Test 11/26/17 05:15 11/27/17 10:00 White Blood Count 11.9 TH/MM3 8.7 TH/MM3 Red Blood Count 3.06 MIL/MM3 3.19 MIL/MM3 Hemoglobin 9.7 GM/DL 10.2 GM/DL Hematocrit 29.8 % 31.1 % Mean Corpuscular Volume 97.3 FL 97.5 FL Mean Corpuscular Hemoglobin 31.5 PG 31.9 PG Mean Corpuscular Hemoglobin Concent 32.4 % 32.7 % Red Cell Distribution Width 14.2 % 14.0 % Platelet Count 220 TH/MM3 239 TH/MM3 Mean Platelet Volume 8.7 FL 8.6 FL Neutrophils (%) (Auto) 69.8 % 57.2 % Lymphocytes (%) (Auto) 17.5 % 25.1 % Monocytes (%) (Auto) 11.0 % 14.2 % Eosinophils (%) (Auto) 1.4 % 3.0 % Basophils (%) (Auto) 0.3 % 0.5 % Neutrophils # (Auto) 8.3 TH/MM3 5.0 TH/MM3 Lymphocytes # (Auto) 2.1 TH/MM3 2.2 TH/MM3 Monocytes # (Auto) 1.3 TH/MM3 1.2 TH/MM3 Eosinophils # (Auto) 0.2 TH/MM3 0.3 TH/MM3 Basophils # (Auto) 0.0 TH/MM3 0.0 TH/MM3 CBC Comment DIFF FINAL DIFF FINAL Differential Comment Laboratory Tests Test 11/26/17 05:15 11/27/17 10:00 Blood Urea Nitrogen 57 MG/DL 50 MG/DL Creatinine 8.24 MG/DL 6.74 MG/DL Random Glucose 171 MG/DL 111 MG/DL Calcium Level 8.6 MG/DL 8.8 MG/DL Magnesium Level 2.2 MG/DL 2.4 MG/DL Sodium Level 133 MEQ/L 135 MEQ/L Potassium Level 4.3 MEQ/L 4.1 MEQ/L Chloride Level 93 MEQ/L 94 MEQ/L Carbon Dioxide Level 27.5 MEQ/L 30.4 MEQ/L Anion Gap 13 MEQ/L 11 MEQ/L Estimat Glomerular Filtration Rate 5 ML/MIN 6 ML/MIN Total Bilirubin 0.3 MG/DL Direct Bilirubin 0.1 MG/DL Indirect Bilirubin 0.2 MG/DL Aspartate Amino Transf (AST/SGOT) 15 U/L Alanine Aminotransferase (ALT/SGPT) 15 U/L Alkaline Phosphatase 51 U/L Total Protein 6.8 GM/DL Albumin 2.5 GM/DL Microbiology Date/Time Source Procedure Growth Status 11/24/17 20:30 Urine Random Urine Legionella Antigen - Final PRESUMPTIVE NEGATIVE FOR LEGIONELLA P... Complete 11/24/17 20:30 Urine Random Urine Streptococcus pneumoniae Antigen (M - Final PRESUMPTIVE NEGATIVE FOR STREPTOCOCCU... Complete Imaging Last Impressions Chest X-Ray 11/27/17 0000 Signed Impressions: CONCLUSION: No acute intrathoracic disease. Stable examination. Abdomen/Pelvis CT 11/23/17 1641 Signed Impressions: CONCLUSION: 1. Dense focal airspace consolidation with air bronchograms in the right lung base consistent with pneumonia or aspiration in the appropriate clinical settin g. 2. No acute CT abnormality in the abdomen or pelvis to explain patient's abdom inal pain. Specifically, no radiopaque renal calculi or obstructive uropathy. N ormal appendix. 3. Stable ancillary findings, as above. Physical Exam GENERAL: awake and alert, not in respiratory distress. SKIN: Warm and dry. No generalized rash, no ecchymoses and no evidence of embolic lesions. HEAD: Atraumatic. Normocephalic. No temporal wasting, or tenderness. EYES: [place] conjunctiva. No petechia or hemorrhage. Pupils equal, round and reactive to light. Extraocular movements full and intact. No scleral icterus. No injection or drainage. EARS, NOSE AND THROAT: Nose without bleeding or purulent nasal discharge. No sinus tenderness. Mucous membranes pink and moist. No oral lesions noted. NECK: Trachea midline. Supple and not tender, no meningeal signs CARDIOVASCULAR: Regular rate and rhythm. No murmurs, rubs or gallops heard RESPIRATORY: Clear to auscultation. Breath sounds equal bilaterally. No rales , wheezing or rhonchi ABDOMEN: Soft, non-tender, nondistended. Bowel sounds present and normoactive. No guarding. No rebound. No organomegaly. EXTREMITIES: No clubbing, cyanosis, or edema.No joint effusion, has good ROM. No calf tenderness. Well perfused and warm. NEUROLOGICAL: Awake and alert. Cranial nerves grossly intact. Motor grossly within normal limits. PSYCHIATRIC: Normal affect, calm and cooperative. LINE: No evidence of infection Assessment & Plan Remarks IMPRESSION Febrile illness, non-localizing complaints - has PNA seen on CT A/P - temps seem to be trending down UC with Staph epi ESRD on HD ?Influenza - has symptoms of flu; Ag negative (?False negative) RECOMMENDATION Give 7 days Levaquin OK for D/C from ID standpoint Explained plan to the patient Tabby Rodríguez MD November 27, 2017 12:24
[2017-11-27 12:25] VITALS: BP 106/53; PULSE 56; RESP 20; TEMP 98.1; O2SAT 95
--- NOTE | 2017-11-27 13:32 | HHI.PR ---
Subjective Remarks Patient says she is feeling well. Denies any chest pain or shortness of breath. Denies nausea or vomiting. Feels like going home. Objective Vital Signs Date Time Temp Pulse Resp B/P (MAP) Pulse Ox O2 Delivery O2 Flow Rate FiO2 11/27/17 08:32 98 11/27/17 08:12 98.1 56 18 114/55 (74) 98 11/27/17 08:00 Room Air 11/27/17 04:00 98.1 62 18 113/54 (73) 94 11/27/17 04:00 Room Air 11/27/17 00:00 Room Air 11/27/17 00:00 97.8 62 20 120/58 (78) 93 11/26/17 21:27 97.8 58 18 116/56 (76) 94 11/26/17 20:39 98.6 57 18 128/58 (81) 97 11/26/17 20:30 Room Air 11/26/17 19:38 16 11/26/17 19:37 Room Air 11/26/17 19:20 95 11/26/17 16:49 97.9 62 18 108/60 (76) 100 I/O 11/26/17 11/26/17 11/26/17 11/27/17 11/27/17 11/27/17 07:00 15:00 23:00 07:00 15:00 23:00 Intake Total 50 ml 50 ml 250 ml Output Total 3500 ml 450 ml Balance 50 ml -3450 ml 250 ml -450 ml IV Total 50 ml 50 ml 250 ml Output Urine Total 450 ml Hemodialysis 3500 ml Result Diagram: 11/27/17 1000 11/27/17 1000 Objective Remarks GENERAL: Patient sitting up in bed. Appears comfortable. SKIN: Warm and dry. HEAD: Normocephalic. EYES: No scleral icterus. No injection or drainage. NECK: Supple, trachea midline. No JVD. CARDIOVASCULAR: Regular rate and rhythm without murmurs, gallops, or rubs. RESPIRATORY: Breath sounds equal bilaterally. No accessory muscle use. GASTROINTESTINAL: Abdomen soft, non-tender, nondistended. MUSCULOSKELETAL: No cyanosis, or edema. BKA as before. BACK: Nontender without obvious deformity. No CVA tenderness. A/P Assessment and Plan Ms. Spencer is a pleasant 57-year-old female with a history of ESRD, diabetes mellitus who presents to the emergency department due to fever and chills. She reports generalized body ache but no runny nose. She also reports some dry cough. Denies any risk factors for aspiration pneumonia including dysphagia or odynophagia. CT abdomen pelvis indicated right-sided pneumonia. //Sepsis (patient meets SIRS criteria with fever, leukocytosis and known infection pneumonia) //Right-sided pneumonia, healthcare associated pneumonia -We will keep patient on Zosyn and azithromycin for atypical coverage and Tamiflu. Negative pneumococcal and Legionella urinary antigen -Blood cultures NGTD. Persistent fever will consult infectious disease. -Diflucan 1 patient complaining of vaginal itching history of yeast vaginitis = Urine culture was staph epidermidis. Likely contaminant. Infectious disease has approved discharge home with Levaquin to complete treatment course. Appreciate assistance. //ESRD - Consult Nephrology (Dr. Jalloh) for HD. Hemodialysis as outpatient. //Diabetes mellitus - Sliding scale insulin and Levemir 7 units QHS. //Hypertension //Hyperlipidemia //Hypothyroidism - Continue amlodipine 10 mg daily, atorvastatin 20 mg nightly, levothyroxine 137 mcg p.o. daily //Full code. Heparin subcutaneous. Discharge Planning Discharge home with Levaquin to complete treatment course. Davin Wesley MD November 27, 2017 13:32
[2017-11-27] MEDS ORDERED: LEVA250T14 PO (13:34)
--- NOTE | 2017-11-27 13:37 | HHI.DS ---
Discharge Summary Admission Date November 23, 2017 at 20:01 Discharge Date: November 27, 2017 Admitting Diagnosis Pneumonia, sepsis (1) Sepsis ICD Code: A41.9 - Sepsis, unspecified organism Status: Acute (2) Pneumonia ICD Code: J18.9 - Pneumonia, unspecified organism Status: Acute (3) Type 2 diabetes mellitus ICD Code: E11.9 - Type 2 diabetes mellitus Status: Acute (4) ESRD (end stage renal disease) ICD Code: N18.6 - ESRD (end stage renal disease) Status: Acute Procedures none Brief History - From Admission Ms. Spencer is a 57-year-old female with a history of ESRD, diabetes mellitus, hypertension who presents to the emergency department due to fever. Her symptoms started approximately 2-3 days ago with associated body pain, fatigue, nausea as well as sore throat with dry cough. She received 1 dose of vancomycin during dialysis on 11/22/2017. She denies any dysphagia or odynophagia that would put her at higher risk for aspiration pneumonia. Denies any changes in bowel or bladder habits. On arrival temperature 103.6F, pulse 89, respiration 20, blood pressure 189/85. WBC 12.4, lactic acid 1.7. Chest x- ray unremarkable. However, CT abdomen pelvis shows dense focal airspace consolidation with air bronchograms in the right lung base consistent with pneumonia. Of note, she has received both flu shot as well as pneumococcal vaccine. CBC/BMP: 11/27/17 1000 11/27/17 1000 Significant Findings Laboratory Tests Test 11/26/17 05:15 11/27/17 08:50 11/27/17 10:00 White Blood Count 11.9 TH/MM3 (4.0-11.0) Red Blood Count 3.06 MIL/MM3 (4.00-5.30) 3.19 MIL/MM3 (4.00-5.30) Hemoglobin 9.7 GM/DL (11.6-15.3) 10.2 GM/DL (11.6-15.3) Hematocrit 29.8 % (35.0-46.0) 31.1 % (35.0-46.0) Monocytes (%) (Auto) 11.0 % (0.0-8.0) 14.2 % (0.0-8.0) Neutrophils # (Auto) 8.3 TH/MM3 (1.8-7.7) Monocytes # (Auto) 1.3 TH/MM3 (0-0.9) 1.2 TH/MM3 (0-0.9) Blood Urea Nitrogen 57 MG/DL (7-18) 50 MG/DL (7-18) Creatinine 8.24 MG/DL (0.50-1.00) 6.74 MG/DL (0.50-1.00) Random Glucose 171 MG/DL (74-106) 111 MG/DL (74-106) Sodium Level 133 MEQ/L (136-145) 135 MEQ/L (136-145) Chloride Level 93 MEQ/L (98-107) 94 MEQ/L (98-107) Estimat Glomerular Filtration Rate 5 ML/MIN (>89) 6 ML/MIN (>89) Albumin 2.5 GM/DL (3.4-5.0) Imaging Last Impressions Chest X-Ray 11/27/17 0000 Signed Impressions: CONCLUSION: No acute intrathoracic disease. Stable examination. Abdomen/Pelvis CT 11/23/17 1641 Signed Impressions: CONCLUSION: 1. Dense focal airspace consolidation with air bronchograms in the right lung base consistent with pneumonia or aspiration in the appropriate clinical settin g. 2. No acute CT abnormality in the abdomen or pelvis to explain patient's abdom inal pain. Specifically, no radiopaque renal calculi or obstructive uropathy. N ormal appendix. 3. Stable ancillary findings, as above. PE at Discharge GENERAL: This is a well-nourished, well-developed patient, in no apparent distress. SKIN: No rashes, ecchymoses or lesions. Warm and dry. CARDIOVASCULAR: Regular rate and rhythm without murmurs, gallops, or rubs. No JVD. RESPIRATORY: Clear to auscultation. Breath sounds equal bilaterally. No wheezes , rales, or rhonchi. GASTROINTESTINAL: Abdomen soft, non-tender, nondistended. No guarding. MUSCULOSKELETAL: Extremities without clubbing, cyanosis, or edema. Right BKA NEUROLOGICAL: Awake and alert. Cranial nerves II through XII intact. No focal neurological deficits. Normal speech. Hospital Course Ms. Spencer is a pleasant 57-year-old female with a history of ESRD, diabetes mellitus who presents to the emergency department due to fever and chills. She reports generalized body ache but no runny nose. She also reports some dry cough. Denies any risk factors for aspiration pneumonia including dysphagia or odynophagia. CT abdomen pelvis indicated right-sided pneumonia. Patient was treated with broad-spectrum antibiotics with improvement, however continued fevers. Infectious disease was consulted, recommends treatment with Levaquin 250 mg daily for 7 days. Fevers have resolved. Urinalysis with staph epidermidis, however this is likely contaminant. For problem based summary from most recent progress note, please see below. //Sepsis (patient meets SIRS criteria with fever, leukocytosis and known infection pneumonia) //Right-sided pneumonia, healthcare associated pneumonia -We will keep patient on Zosyn and azithromycin for atypical coverage and Tamiflu. Negative pneumococcal and Legionella urinary antigen -Blood cultures NGTD. Persistent fever will consult infectious disease. -Diflucan 1 patient complaining of vaginal itching history of yeast vaginitis = Urine culture was staph epidermidis. Likely contaminant. Infectious disease has approved discharge home with Levaquin to complete treatment course. Appreciate assistance. //ESRD - Consult Nephrology (Dr. Jalloh) for HD. Hemodialysis as outpatient. //Diabetes mellitus - Sliding scale insulin and Levemir 7 units QHS. //Hypertension //Hyperlipidemia //Hypothyroidism - Continue amlodipine 10 mg daily, atorvastatin 20 mg nightly, levothyroxine 137 mcg p.o. daily //Full code. Heparin subcutaneous. Discharge Planning Discharge home with Levaquin to complete treatment course. Pt Condition on Discharge: Good Discharge Disposition: Discharge Home Discharge Time: > 30 minutes Discharge Instructions DIET: Follow Instructions for: Diabetic Diet, Renal Failure Diet Activities you can perform: Regular-No Restrictions Follow up Referrals: Nephrology - 1 Week PCP Follow-up - 1 Week New Orders: X-RAY CHEST PA & LAT - 6 Weeks New Medications: Levofloxacin (Levaquin) 250 Mg Tablet 250 MG PO Q24H for Infection for 7 Days, #7 TAB Continued Medications: Amlodipine (Norvasc) 10 Mg Tab 10 MG PO DAILY for Blood Pressure Management, #30 TAB 0 Refills Aspirin (Aspirin) 81 Mg Chew 81 MG CHEW DAILY, TAB 0 Refills Atorvastatin (Lipitor) 20 Mg Tab 20 MG PO HS for Cholesterol Management for 30 Days, TAB 1 Refill Bumetanide (Bumetanide) 1 Mg Tab 2 MG PO BID, #60 TAB 0 Refills Calcium Acetate (Phosphate Binder) (Calcium Acetate (Phosphate Binder)) 667 Mg Cap 2001 MG PO TID for Hyperphosphatemia, #270 CAP 0 Refills TAKES EXTRA CAPS FOR EACH SNACK PER DAY ALSO Carvedilol (Coreg) 3.125 Mg Tab 3.125 MG PO Q12HR for Blood Pressure Management, #60 TAB 1 Refill Gabapentin (Gabapentin) 100 Mg Cap 300 MG PO HS, #30 CAP 0 Refills Glipizide (Glipizide) 10 Mg Tab 10 MG PO BIDAC for Blood Sugar Management, #60 TAB 0 Refills Take 30 minutes before a meal Isosorbide Mononitrate (Isosorbide Mononitrate) 10 Mg Tab 10 MG PO DAILY for Prevent Chest Pain, #60 TAB Take 2 doses 7 hours apart. Levothyroxine (Synthroid) 88 Mcg Tab 0.137 MCG PO DAILY for Thyroid, #30 TAB 0 Refills Oxycodone (Oxycodone) 5 Mg Cap 5 MG PO Q4H PRN for PAIN for 7 Days, #30 CAP 0 Refills Zolpidem (Zolpidem) 5 Mg Tab 10 MG PO HS PRN for INSOMNIA, TAB 0 Refills Davin Wesley MD November 27, 2017 13:37
[2017-11-27] MEDS: LEVOFLOXACIN 250 MG TAB PO SCH (13:45)
--- NOTE | 2017-11-27 14:19 | HHI.NPPN ---
Subjective Renal Failure: Chronic Review of Systems General Constitutional: Fever, Chills Objective Data Data Vital Signs Date Time Temp Pulse Resp B/P (MAP) Pulse Ox O2 Delivery O2 Flow Rate FiO2 11/27/17 12:25 98.1 56 20 106/53 (70) 95 11/27/17 08:32 98 11/27/17 08:12 98.1 56 18 114/55 (74) 98 11/27/17 08:00 Room Air 11/27/17 04:00 98.1 62 18 113/54 (73) 94 11/27/17 04:00 Room Air 11/27/17 00:00 Room Air 11/27/17 00:00 97.8 62 20 120/58 (78) 93 11/26/17 21:27 97.8 58 18 116/56 (76) 94 11/26/17 20:39 98.6 57 18 128/58 (81) 97 11/26/17 20:30 Room Air 11/26/17 19:38 16 11/26/17 19:37 Room Air 11/26/17 19:20 95 11/26/17 16:49 97.9 62 18 108/60 (76) 100 -: 11/27/17 1000 11/27/17 1000 Physical Exam General Appearance: Well Developed, Well Nourished, Comfortable Eyes Eye Exam: Pupils Equal, Pupils Reactive Pulmonary Resp Exam: No Distress, Crackles, Decreased Bases Cardiology CV Exam: Regular, Normal Sinus Rhythm, Good Perfusion Gastrointestinal/Abdomen GI Exam: Soft, Non-Tender, Bowel Sounds Present Musculoskeletal MS Exam: Joints Intact, Normal Tone Integumentary Skin Exam: Clear, Warm, Dry, Intact Extremeties Extremities Exam: No Edema, Pedal Pulses Palpable Neurologic Neuro Exam: Alert, Awake, Oriented, Speech Clear, Moving All Extremities Psychiatric Psych Exam: Appropriate Responses Assessment/Plan Discussed Condition With: Patient Assessment Summary: Anemia of CKD, Proteinuria, Hypertension, Diabetes Mellitus Problem List: (1) ESRD (end stage renal disease) ICD Codes: N18.6 - ESRD (end stage renal disease) Status: Acute Plan: Continue HD TTS,done yesterday Cleared for discharge from renal perspective. Outpatient arrangements in place at [facility]. (2) Pneumonia ICD Codes: J18.9 - Pneumonia, unspecified organism Status: Acute Plan: On PO Zithromax and IV Zosyn Monitor the patient, clinically improved Flu negative, however Tamiflu started empirically blood cultures negative to date (3) Type 2 diabetes mellitus ICD Codes: E11.9 - Type 2 diabetes mellitus Status: Acute Plan: Maintain glucose 140-180 mg/dL while hospitalized. (4) Anemia ICD Codes: D64.9 - Anemia, unspecified Status: Acute Plan: Epogen was ordered (5) Metabolic bone disease ICD Codes: E88.9 - Metabolic disorder, unspecified; M90.80 - Osteopathy in diseases classified elsewhere, unspecified site Status: Acute Plan: Calcium acetate with meals has been ordered Intermittently monitor phosphorous (6) Hypertension ICD Codes: I10 - Hypertension Status: Acute Plan: BP stable Plan patient was seen and examined. Agree with above assessment and plan. Julisa Brush MD November 27, 2017 14:19
== END 2017-11-27 15:57 | disposition home or self-care (01) | DRG 871 ==
LOC: NEPC 16:19 → UNDOADMIN 19:52 → NEDA 19:52 → NEPFCDU 20:46 → N04A 11-26 21:45
PROVIDERS: ADMIT Internal Medicine; ATTEND Internal Medicine
PROC: 5A1D70Z Performance of Urinary Filtration, Intermittent, Less than 6 Hours Per Day (ICD-10-PCS; principal; 2017-11-24)
DX: A41.9 Sepsis, unspecified organism (principal); N18.6 End stage renal disease; E87.2 Acidosis; J18.9 Pneumonia, unspecified organism; N25.81 Secondary hyperparathyroidism of renal origin; E11.22 Type 2 diabetes mellitus with diabetic chronic kidney disease; I12.0 Hypertensive chronic kidney disease with stage 5 chronic kidney disease or end stage renal disease; B37.3 Candidiasis of vulva and vagina; Z68.42 Body mass index [BMI] 45.0-49.9, adult; G47.33 Obstructive sleep apnea (adult) (pediatric); D63.1 Anemia in chronic kidney disease; E78.5 Hyperlipidemia, unspecified; E03.9 Hypothyroidism, unspecified; M90.80 Osteopathy in diseases classified elsewhere, unspecified site; E66.9 Obesity, unspecified; M15.9 Polyosteoarthritis, unspecified; Y95 Nosocomial condition; Z79.84 Long term (current) use of oral hypoglycemic drugs; Z83.3 Family history of diabetes mellitus; Z82.49 Family history of ischemic heart disease and other diseases of the circulatory system; Z87.891 Personal history of nicotine dependence; Z88.5 Allergy status to narcotic agent; Z89.511 Acquired absence of right leg below knee; Z99.2 Dependence on renal dialysis
CPT/HCPCS: 71046; 74176; 76937; 80048; 80053; 80076; 81001; 82948; 83605; 83690; 83735; 85025; 86403; 87040; 87077; 87086; 87186; 87449; 87633; 87804; 90935; 93005; 94640; 94664; 96361; 96365; 96368; 96374; G8987-GP; G8988-GP; J1644; J1815; J2543; J3370; J7030; J7050; Q4081

== ENCOUNTER 2018-07-12 09:21 | Inpatient (IN) ==
[2018-07-12] MEDS ORDERED: Calcium Chloride Inj 1 GM/10 ML Syringe IV.PUSH ONE (09:32)
[2018-07-12] MEDS ORDERED: Sodium Bicarbonate 8.4% Inj 50 MEQ/50 ML Syringe IV.PUSH ONE (09:32)
--- NOTE | 2018-07-12 09:40 | ED ---
HPI General Chief complaint: Arrhythmia / Palpitations Stated complaint: Emergent Time Seen by Provider: 07/12/18 09:32 Source: patient and EMS Mode of arrival: EMS History of Present Illness HPI Narrative: 57 year old female with ESRD on dialysis last dialyzed 07/08/18 was in vascular clinic today for clotted fistula when she was found to be bradycardic to the 30's. Patient complains of nausea and vomiting for past 1-2 days, as well as right upper abdominal pain. MD complaint: Reports nausea and vomiting Onset (ago): day(s) Description of Diarrhea: none Location of pain: Reports RUQ Severity: moderate Quality: Reports aching Pain Consistency: constant Relieving factors: none Exacerbating factors: none Associated symptoms: Reports nausea/vomiting; Denies chest pain, cough, diaphoresis, fever/chills, shortness of breath, syncope and altered mental status Related Data Home Medications Medication Instructions Recorded Confirmed alprazolam [Xanax] 0.25 mg PO BID PRN 07/12/18 07/12/18 aspirin 81 mg PO DAILY 07/12/18 07/12/18 atorvastatin 20 mg PO DAILY 07/12/18 07/12/18 bumetanide 2 mg PO BID 07/12/18 07/12/18 carvedilol [Coreg] 12.5 mg PO DAILY 07/12/18 07/12/18 docusate sodium [Colace] 100 mg PO DAILY 07/12/18 07/12/18 ferric citrate [Auryxia] 420 mg PO TIDWM 07/12/18 07/12/18 gabapentin 100 mg PO BID 07/12/18 07/12/18 gentamicin 1 applic TOPICAL DIRECTED 07/12/18 07/12/18 glipizide 10 mg PO DAILY 07/12/18 07/12/18 hydrocodone-acetaminophen 1 tab PO DAILY PRN 07/12/18 07/12/18 isosorbide mononitrate 30 mg PO DAILY 07/12/18 07/12/18 levothyroxine 137 mcg PO DAILY 07/12/18 07/12/18 oxycodone 10 mg PO Q6H PRN 07/12/18 07/12/18 sennosides [senna] 8.6 mg PO BID PRN 07/12/18 07/12/18 zolpidem 10 mg PO HS PRN 07/12/18 07/12/18 Allergies Allergy/AdvReac Type Severity Reaction Status Date / Time morphine Allergy Intermediate itch Verified 07/10/18 04:36 vancomycin Allergy Urinary Verified 07/12/18 09:26 Freq (Inc/Dec) Review of Systems ROS Unobtainable ROS Unobtainable: unobtainable due to mental condition [facility] Medical History Medical History History of end stage renal disease (Acute) History of high blood pressure (Acute) History of renal dialysis (Acute) History of right below knee amputation (Acute) Hx of diabetes mellitus (Acute) Social History Social History Substance History: No History of Abuse Smoking Status: Former smoker Tobacco Type: Cigarettes How Often Do You Have a Drink Containing Alcohol: Never Recent Travel in [facility] within the Last 8 Weeks: No Recent Out of Country Travel within the Last 8 Weeks: No Immunization History Tetanus Immunization: >5 Years Exam Narrative Exam Narrative: GENERAL: Chronically ill appearing, no acute distress SKIN: Focused skin assessment warm/dry. HEAD: Atraumatic. Normocephalic. EYES: Pupils equal and round. No scleral icterus. No injection or drainage. ENT: No nasal bleeding or discharge. Mucous membranes pink and moist. NECK: Trachea midline. No JVD. CARDIOVASCULAR: Bradycardic, regular RESPIRATORY: No accessory muscle use. Clear to auscultation. Breath sounds equal bilaterally. GASTROINTESTINAL: Abdomen soft, tender to palpation in right upper quadrant, nondistended MUSCULOSKELETAL: Right below-knee amputation. No clubbing. No cyanosis. No edema. NEUROLOGICAL: Awake and alert. No obvious cranial nerve deficits. Motor grossly within normal limits. Normal speech. PSYCHIATRIC: Appropriate mood and affect; insight and judgment normal. Course Initial Documented Vital Signs Temperature 97.7 F 07/12/18 09:26 Pulse Rate 33 L 07/12/18 09:26 Respiratory Rate 18 07/12/18 09:26 Blood Pressure 127/64 07/12/18 09:26 Pulse Oximetry 97 07/12/18 09:26 Last Documented Vital Signs Temperature 97.7 F 07/12/18 09:26 Pulse Rate 41 L 07/12/18 10:33 Respiratory Rate 20 07/12/18 10:33 Blood Pressure 127/58 L 07/12/18 10:33 Pulse Oximetry 97 07/12/18 10:33 Medical Decision Making MDM Narrative Medical decision making narrative: 57-year-old female with end-stage renal disease on dialysis who has not had dialysis in 5 days presents for evaluation of nausea and bradycardia which on EKG is a junctional wide complex rhythm. This is most likely due to hyperkalemia which was confirmed on laboratory blood work. Patient empirically treated with bicarbonate, calcium gluconate, albuterol, insulin and dextrose. Renal consulted who recommended ICU consult for emergent dialysis catheter placement. Dr. Cárdenas from ICU placed a central line for dialysis and patient admitted to the intensive care unit for dialysis. Patient also underwent a right upper quadrant ultrasound which did not show any stones however did show small amount of pericholecystic fluid. However patient did not have an elevated white blood cell count or sonographic Pierre sign and I suspect her symptoms of nausea could be related to her hyperkalemia. We will hold off on any treatment as I do not think patient has cholecystitis. Aggregate critical care time was 60 minutes. Time to perform other separately billable procedures was not included in the critical care time. My time did not include minutes spent treating any other patients simultaneously or on activities that did not directly contribute to the patient's treatment. The services I provided to this patient were to treat and/or prevent clinically significant deterioration that could result in: 60 I provided critical care services requiring my management, as noted below: Chart data review, documentation time, medication orders and management, vital sign assessments/reviewing monitor data, ordering and reviewing lab tests, ordering and interpreting/reviewing x-rays and diagnostic studies, care of the patient and discussion of the patient with the admitting physicians. Medical Screen Exam Complete: Yes Emergency Medical Condition: Yes Lab Data Lab results reviewed: Yes I reviewed the patient's lab results. Result diagrams: 07/12/18 09:30 07/12/18 09:30 Lab Results 07/12/18 07/12/18 07/12/18 Range/Units 09:30 09:30 10:10 WBC 9.3 (4.0-11.0) th/mm3 RBC 3.43 L (4.00-5.30) mil/mm3 Hgb 11.9 (11.6-15.3) gm/dL Hct 36.9 (35.0-46.0) % MCV 107.6 H (80.0-100.0) fL MCH 34.7 H (27.0-34.0) pg MCHC 32.3 (32.0-36.0) % RDW 18.1 H (11.6-17.2) % Plt Count 71 L (150-450) th/mm3 MPV 10.2 (7.0-11.0) fL Prelim Diff (Auto) Slide review pending Neut % (Auto) 62.9 (16.0-70.0) % Lymph % (Auto) 26.1 (9.0-44.0) % [place] % (Auto) 9.2 H (0.0-8.0) % Eos % (Auto) 1.3 (0.0-4.0) % Baso % (Auto) 0.5 (0.0-2.0) % Neut # (Auto) 5.9 (1.8-7.7) th/mm3 Lymph # (Auto) 2.4 (1.0-4.8) th/mm3 [place] # (Auto) 0.9 (0.0-0.9) th/mm3 Eos # (Auto) 0.1 (0.0-0.4) th/mm3 Baso # (Auto) 0.0 (0.0-0.2) th/mm3 WBC Differential Manual diff final Seg Neuts % (Manual) 61 (16-70) % Lymphocytes % (Manual) 26 (9-44) % Monocytes % (Manual) 7 (0-8) % Eosinophils % (Manual) 3 (0-4) % Basophils % (Manual) 2 (0-2) % Myelocytes % (Man) 1 H (0-0) % Abs Neuts (Manual) 5.8 (1.8-7.7) th/mm3 Differential Comment . Platelet Estimate Low L (Normal) Platelet Morphology Normal (Normal) [place] Bodies Present H (None) Sodium 129 L (136-145) meq/L Potassium 7.3 H* (3.5-5.1) meq/L Chloride 100 (98-107) meq/L Carbon Dioxide 20.6 L (21.0-32.0) meq/L Anion Gap 8 (5-15) meq/L BUN 61 H (7-18) mg/dL Creatinine 12.63 H* (0.50-1.00) mg/dL Estimated GFR 3 L (>89) mL/min Random Glucose 57 L (74-106) mg/dL Lactic Acid 0.9 (0.4-2.0) mmol/L Calcium 9.0 (8.5-10.1) mg/dL Magnesium 2.8 H (1.5-2.5) mg/dL Total Bilirubin 0.4 (0.2-1.0) mg/dL AST 40 H (15-37) U/L ALT 25 (10-53) U/L Alkaline Phosphatase 55 (45-117) U/L Total Protein 7.2 (6.4-8.2) g/dL Albumin 3.5 (3.4-5.0) g/dL Lipase 181 (73-393) U/L Imaging Data Radiologist's impression: Gallbladder Ultrasound 07/12/18 09:32 CONCLUSION: 1. Abnormal gallbladder appearance. 2. Bidirectional flow in the main portal vein consistent with significant portal hypertension Discharge Plan Discharge Disposition Patient Disposition: ED Admit(ED Internal Use Only) Discharge Condition Condition: Critical Discharge Order Discharge Orders: ED Use Only Admit Order (Routine); Ordered 07/12/18 Ordered By: Sabine Lama Discharge Details Diagnosis: Acute hyperkalemia Physicians Team ED Provider: Sabine Lama Primary Care Provider: Clifton Hernandez Attending Provider: Blaise Esquivel Discharge Interventions Interventions: Vital Signs Last Done: 07/12/18 10:33 Status ED Status: Admitted Patient
[2018-07-12 10:00] LABS: Baso % (Auto) 0.5 % (0.0-2.0); Eos # (Auto) 0.1 th/mm3 (0.0-0.4); Eos % (Auto) 1.3 % (0.0-4.0); Hematocrit 36.9 % (35.0-46.0); Hemoglobin 11.9 gm/dL (11.6-15.3); Lymph # (Auto) 2.4 th/mm3 (1.0-4.8); Lymph % (Auto) 26.1 % (9.0-44.0); Mean Corpuscular HGB Conc 32.3 % (32.0-36.0); Mean Corpuscular Hemoglobin 34.7 pg (27.0-34.0); Mean Corpuscular Volume 107.6 fL (80.0-100.0); Mean Platelet Volume 10.2 fL (7.0-11.0); Mono # (Auto) 0.9 th/mm3 (0.0-0.9); Mono % (Auto) 9.2 % (0.0-8.0); Neut # (Auto) 5.9 th/mm3 (1.8-7.7); Neut % (Auto) 62.9 % (16.0-70.0); Platelet Count 71 th/mm3 (150-450); Red Blood Count 3.43 mil/mm3 (4.00-5.30); Red Cell Distribution Width 18.1 % (11.6-17.2); White Blood Count 9.3 th/mm3 (4.0-11.0)
[2018-07-12 10:16] LABS: Alanine Aminotransferase 25 U/L (10-53); Albumin 3.5 g/dL (3.4-5.0); Anion Gap 8 meq/L (5-15); Aspartate Aminotransferase 40 U/L (15-37); Blood Urea Nitrogen 61 mg/dL (7-18); Carbon Dioxide 20.6 meq/L (21.0-32.0); Chloride 100 meq/L (98-107); Glomerular Filtration Rate 3 mL/min (>89); Glucose,Random 57 mg/dL (74-106); Lipase 181 U/L (73-393); Magnesium 2.8 mg/dL (1.5-2.5); Sodium 129 meq/L (136-145)
[2018-07-12 10:20] LABS: Potassium 7.3 meq/L (3.5-5.1)
[2018-07-12 10:23] LABS: Alkaline Phosphatase 55 U/L (45-117); Total Protein 7.2 g/dL (6.4-8.2)
--- NOTE | 2018-07-12 10:26 | US ---
EXAM DATE: 07/12/2018 10:16 AM EST AGE/SEX: 57 years / Female INDICATIONS: Right upper quadrant pain. CLINICAL DATA: This is the patient's initial encounter. Patient reports that signs and symptoms have been present for 3 weeks and indicates a pain score of 8/10. MEDICAL/SURGICAL HISTORY: Hypertension. Diabetes. Renal disease, end stage. section. Right below knee amputation. Dialysis. COMPARISON: [facility] – [place] ABDOMEN & PELVIS W/O CONTRAST, 11/23/2017. . MEASUREMENTS: Liver:__ 18.7 cm. Common Bile Duct:__ 5mm. FINDINGS: Liver: Increased echogenicity without focal lesion or ductal dilatation. Portal Vein: Biphasic flow seen in portal vein. Common Duct: No intraluminal mass or stone visualized. Gallbladder: Minimally distended, however with wall thickening with slight pericholecystic fluid. 7 mm wall adherent focus which may be a small polyp. No definite mobile stones. Pancreas: Not well visualized. Right Kidney: Normal echogenicity and cortical thickness. No mass or hydronephrosis. Other: None. CONCLUSION: 1. Abnormal gallbladder appearance. 2. Bidirectional flow in the main portal vein consistent with significant portal hypertension Electronically signed by: Hipolito Benson MD Board Certified Radiologist 07/12/2018 10:25 AM EST
[2018-07-12 10:56] LABS: Eosinophils 3 % (0-4); Lymphocytes 26 % (9-44); Monocytes 7 % (0-8); Myelocytes 1 % (0-0)
[2018-07-12 10:57] LABS: Howell-Jolly Bodies Present; Platelet Morphology Normal (Normal)
--- NOTE | 2018-07-12 11:25 | P.PCN ---
Date of procedure: 07/12/18 Procedure: Central Line Procedure Note Right IJ 14 Macedonian 20 cm dialysis catheter Diagnosis: Severe life-threatening hyperkalemia Indications: Severe life-threatening hyperkalemia refractory to medical management Consent: Emergent Anesthesia: No anesthesia was required, 1% lidocaine locally Description of the Procedure: The patient was placed in the supine, mild- Trendelenburg position. The area was prepped and draped sterilely. A 19g needle was inserted under negative pressure aspiration and dark venous blood was obtained. A guidewire was inserted easily without resistance. A small incision was made using a #11 blade. Using a modified Seldinger technique, the dilators and 14 Macedonian, 20 cm catheter were advanced over the guidewire without resistance. All ports were aspirated and flushed, and had brisk blood return. The line was secured at the skin using 2-0 silk interrupted sutures. Suture was used instead of a non-suture StatLock device due to the size and configuration of the catheter. A Biopatch and Transparent sterile dressing were applied. There were no immediate complications noted. There was minimal EBL. The patient tolerated the procedure well. Ultrasound Guidance: Ultrasound guidance was used to identify the right internal jugular vein. The vascular anatomy was not normal. The venous anatomy of the anterior neck was quite atretic and a very small jugular vein was noted medially to the carotid artery. This vein was patent and collapsible and was followed down to the central circulation. The vessel was cannulated under direct, real-time ultrasound visualization. After placement of the guidewire, confirmation of the guidewire in the lumen of the vessel was made using ultrasound visualization, before dilation of the tract. A Chest x-ray has been ordered. I personally performed the procedure.
--- NOTE | 2018-07-12 11:25 | P.HPCC ---
History of Present Illness Service: Critical care medicine Primary Care Physician: Clifton Hernandez MD Chief Complaint: fatigue, bradycardia History of Present Illness: This is a 57-year-old female with a history of end-stage renal disease on intermittent hemodialysis who presented to her outpatient nephrology appointment today with complaints of new onset fatigue and nausea was found to have a heart rate of 30. She was emergently sent to the emergency department where she was found to have a potassium of 7.3, sodium of 129. Despite IV calcium, insulin, D50, bicarb, albuterol, she persisted in symptomatic bradycardia with a wide complex QRS. I immediately went to the bedside and evaluated the patient who complains of fatigue, nausea, lethargy, presyncope. I discussed the case with nephrology and we plan for emergent dialysis. I placed emergent right IJ dialysis catheter, see separate procedure note for details. She was moved to the intensive care unit emergently and dialyzed. The remainder of the brief review of systems is negative. Specifically she denies chest pain, shortness of breath, fever, chills, abdominal pain. Review of systems is quite limited due to her presyncope and distress from symptom medic bradycardia. Inpatient Certification: I certify that the inpatient services were ordered in accordance with Medicare regulations governing the order. This includes certification that hospital inpatient services are reasonable and necessary and in the case of services not specified as inpatient-only under 42 CFR 419.22(n), that they are appropriately provided as inpatient services in accordance to with the 2-midnight benchmark under 43 CFR 412.3(e) Review of Systems unobtainable due to mental status PMFSH - History History Provided By: Patient, Medical Record - Medical History Medical History: Medical History (Last Reviewed 07/12/18 @ 16:31 by Blaise Esquivel MD) History of end stage renal disease History of high blood pressure History of renal dialysis History of right below knee amputation Hx of diabetes mellitus - Family History Family History: Family History (Last Updated 07/12/18 @ 16:31 by Blaise Esquivel MD) Other Family history non-contributory - Social History I have reviewed the patient's Social History: Yes - Tobacco History Smoking Status: Former smoker Tobacco Type: Cigarettes - Alcohol History How Often Do You Have a Drink Containing Alcohol: Never - Substance Use History Substance History: No History of Abuse - Travel History Recent Travel in the [facility] Within the Last 8 Weeks: No Recent Travel Out of the Country Within the Last 8 Weeks: No - Immunization History Tetanus Immunization: >5 Years Medications and Allergies Active Medications: Active Medications Sodium Chloride (Ns Flush) 2 ml IV.FLUSH PRN PRN PRN Reason: FLUSH AFTER USING IV ACCESS Allergies Allergy/AdvReac Type Severity Reaction Status Date / Time morphine Allergy Intermediate itch Verified 07/10/18 04:36 vancomycin Allergy Urinary Verified 07/12/18 09:26 Freq (Inc/Dec) Home Medications Medication Instructions Recorded Confirmed Type alprazolam [Xanax] 0.25 mg PO BID PRN 07/12/18 07/12/18 History aspirin 81 mg PO DAILY 07/12/18 07/12/18 History atorvastatin 20 mg PO DAILY 07/12/18 07/12/18 History bumetanide 2 mg PO BID 07/12/18 07/12/18 History carvedilol [Coreg] 12.5 mg PO DAILY 07/12/18 07/12/18 History docusate sodium [Colace] 100 mg PO DAILY 07/12/18 07/12/18 History ferric citrate [Auryxia] 420 mg PO TIDWM 07/12/18 07/12/18 History gabapentin 100 mg PO BID 07/12/18 07/12/18 History gentamicin 1 applic TOPICAL DIRECTED 07/12/18 07/12/18 History glipizide 10 mg PO DAILY 07/12/18 07/12/18 History hydrocodone-acetaminophen 1 tab PO DAILY PRN 07/12/18 07/12/18 History isosorbide mononitrate 30 mg PO DAILY 07/12/18 07/12/18 History levothyroxine 137 mcg PO DAILY 07/12/18 07/12/18 History oxycodone 10 mg PO Q6H PRN 07/12/18 07/12/18 History sennosides [senna] 8.6 mg PO BID PRN 07/12/18 07/12/18 History zolpidem 10 mg PO HS PRN 07/12/18 07/12/18 History Results - Labs CBC & Chem 7: 07/12/18 09:30 07/12/18 13:20 Labs: Short CBC 07/12/18 Range/Units 09:30 WBC 9.3 (4.0-11.0) th/mm3 Hgb 11.9 (11.6-15.3) gm/dL Hct 36.9 (35.0-46.0) % Plt Count 71 L (150-450) th/mm3 BMP 07/12/18 09:30 Sodium 129 L Potassium 7.3 H* Chloride 100 Carbon Dioxide 20.6 L BUN 61 H Creatinine 12.63 H* Calcium 9.0 Liver Function 07/12/18 Range/Units 09:30 Total Bilirubin 0.4 (0.2-1.0) mg/dL AST 40 H (15-37) U/L ALT 25 (10-53) U/L Alkaline Phosphatase 55 (45-117) U/L Albumin 3.5 (3.4-5.0) g/dL - Imaging Impressions Gallbladder Ultrasound 07/12/18 09:32 CONCLUSION: 1. Abnormal gallbladder appearance. 2. Bidirectional flow in the main portal vein consistent with significant portal hypertension Exam Vital signs: Vital Signs 07/12/18 09:26 07/12/18 09:33 07/12/18 10:04 Temperature 36.5 C Pulse Rate 33 L 30 L 29 L Respiratory Rate 18 20 12 Blood Pressure 127/64 127/64 Pulse Oximetry 97 95 07/12/18 10:33 Temperature Pulse Rate 41 L Respiratory Rate 20 Blood Pressure 127/58 L Pulse Oximetry 97 Intake & Output 07/11/18 07/12/18 07/12/18 18:59 06:59 18:59 Weight 108.862 kg Narrative: GENERAL: Morbidly obese middle-aged female who appears older than stated age, lying in bed in distress HEENT: Normocephalic. Atraumatic. Pupils equal, round, reactive, conjugate. Mucous membranes are moist NECK: Trachea is midline. Large neck prevents accurate assessment of JVD. CHEST: Equal chest rise. Tachypneic. Nasal cannula oxygen. CARDIOVASCULAR: Bradycardic rate of 30, regular rhythm with a wide QRS complex. ABDOMEN: Morbidly obese, soft, nontender, nondistended. No guarding. MUSCULOSKELETAL: Pulses 2+. 2+ peripheral edema. NEUROLOGICAL: RASS -1/-2. In distress. Follows commands. No focal deficits. Caprini VTE Risk Assessment Caprini VTE Risk Assessment: Moderate/High Risk (score >= 2) Caprini Risk Assessment Model: Point Value = 1 Point Value = 2 Point Value = 3 Point Value = 5 Age 41-60 Minor surgery BMI > 25 kg/m2 Swollen legs Varicose veins or History of unexplained or recurrent spontaneous Oral contraceptives or hormone replacement Sepsis (< 1 month) Serious lung disease, including pneumonia (< 1 month) Abnormal pulmonary function Acute myocardial infarction Congestive heart failure (< 1 month) History of inflammatory bowel disease Medical patient at bed rest Age 61-74 Arthroscopic surgery Major open surgery (> 45 min) Laparoscopic surgery (> 45 min) Malignancy Confined to bed (> 72 hours) Immobilizing plaster cast Central venous access Age >= 75 History of VTE Family history of VTE Factor V Leiden Prothrombin [id number] Lupus anticoagulant Anticardiolipin antibodies Elevated serum homocysteine Heparin-induced thrombocytopenia Other congenital or acquired thrombophilia Stroke (< 1 month) Elective arthroplasty Hip, pelvis, or leg fracture Acute spinal cord injury (< 1 month) Prophylaxis Regimen: Total Risk Factor Score Risk Level Prophylaxis Regimen 0-1 Low Early ambulation 2 Moderate Order ONE of the following: *Sequential Compression Device (SCD) *Heparin 5000 units SQ BID 3-4 Higher Order ONE of the following medications: *Heparin 5000 units SQ TID *Enoxaparin/Lovenox 40 mg SQ daily (WT < 150 kg, CrCl > 30 mL/min) *Enoxaparin/Lovenox 30 mg SQ daily (WT < 150 kg, CrCl > 10-29 mL/min) *Enoxaparin/Lovenox 30 mg SQ BID (WT < 150 kg, CrCl > 30 mL/min) AND/OR *Sequential Compression Device (SCD) 5 or more Highest Order ONE of the following medications: *Heparin 5000 units SQ TID (Preferred with Epidurals) *Enoxaparin/Lovenox 40 mg SQ daily (WT < 150 kg, CrCl > 30 mL/min) *Enoxaparin/Lovenox 30 mg SQ daily (WT < 150 kg, CrCl > 10-29 mL/min) *Enoxaparin/Lovenox 30 mg SQ BID (WT < 150 kg, CrCl > 30 mL/min) AND *Sequential Compression Device (SCD) Assessment and Plan - Assessment and Plan Plan: Assessment: 57-year-old female with symptomatic bradycardia secondary to severe life-threatening hyperkalemia which is refractory to noninvasive medical therapies. We will proceed with emergent dialysis. Complicating acute medical conditions also include acute intravascular volume overload leading to pulmonary edema with acute hypoxemia requiring nasal cannula oxygen therapy. She remains critically ill this time. Active problems: Severe symptomatic bradycardia Presyncope Acute metabolic encephalopathy Severe life-threatening hyperkalemia, refractory to noninvasive medical therapy Acute hypoxemia requiring supplemental oxygen therapy Acute intravascular volume overload Acute pulmonary edema Acute hyponatremia secondary to hypervolemia Acute metabolic acidosis Plan: Admit ICU Place emergent dialysis catheter Emergent dialysis Volume removal with HD Send electrolytes postdialysis Continue noninvasive therapies. May require transcutaneous pacing until dialysis improves electrolytes Nephrology consultation SCDs Renal diet I have spoken with Dr. Hernandez, her home head bone grinder, who asked that we leave her temporary dialysis catheter in place and he will transition this to a permacath and evaluate and manage her thrombosed AV fistula as an outpatient. This patient remains critically ill with one or more organ systems which are or may become a threat to life. I have spent in excess of 44 minutes discontinuously in the care and management of this patient. This time is exclusive of procedures, and includes, but is not limited to, evaluation of the patient, review of the medical record, discussions with family, consultants, nursing staff, or respiratory therapy, and documentation in the medical record.
[2018-07-12] MEDS ORDERED: Acetaminophen 325 MG Tablet PO PRN ×2 (11:27→12:47)
[2018-07-12] MEDS ORDERED: Bisacodyl 10 MG Supp RECTAL PRN (11:27)
[2018-07-12] MEDS ORDERED: Dextrose 50% in Water 50 ML Vial IV.PUSH PRN (11:31)
--- NOTE | 2018-07-12 11:54 | XR ---
EXAM DATE: 07/12/2018 11:18 AM EST AGE/SEX: 57 years / Female INDICATIONS: Status post Line placement. CLINICAL DATA: This is the patient's initial encounter. Patient reports that signs and symptoms have been present for 1 day and indicates a pain score of 0/10. MEDICAL/SURGICAL HISTORY: Hypertension. None. COMPARISON: [facility] [place], CHEST PA & LAT, 11/27/2017. . FINDINGS: Dialysis catheter entering from the right IJ approach is in the right atrium. The heart is enlarged. Moderate interstitial edema is present. There is no pneumothorax. CONCLUSION: Line in right atrium. Negative for pneumothorax Electronically signed by: Rodriguez Hou MD Board Certified Radiologist 07/12/2018 11:52 AM EST
[2018-07-12] MEDS ORDERED: Insulin NovoLIN Regular Correctional Sugar Inj SQ SCH (12:00)
[2018-07-12 12:30] VITALS: TEMP 97.6
[2018-07-12] MEDS ORDERED: Gelatin 12 MM/7 MM Topical Foam TOPICAL PRN (12:47)
[2018-07-12] MEDS ORDERED: Sod Chloride 0.9% Inj 1,000 ML IV.CONT PRN (12:47)
[2018-07-12] MEDS ORDERED: Albumin Human 25% Inj 100 ML IV.SIG PRN (12:47)
[2018-07-12] MEDS ORDERED: Sod Chloride 0.9% Inj 1,000 ML OTHER PRN ×2 (12:47)
[2018-07-12] MEDS ORDERED: Heparin 10,000 UNITS/10 ML Vial (for IV use) OTHER PRN ×2 (12:47)
[2018-07-12 13:55] LABS: Activated Partial Thrombo Time 25.2 sec (23.4-31.7); INR 1.2 Ratio; Prothrombin Time 12.5 sec (9.8-11.6)
--- NOTE | 2018-07-12 14:05 | P.CONNP ---
<Mitzy Méndez - Last Filed: 07/12/18 15:02> History of Present Illness Reason for Consult: ESRD on dialysis Primary Care Provider: Clifton Hernandez MD History of Present Illness: Patient is a 57 year old female who came to the ED from Dr. Hernandez's vascular clinic when she was bradycardic in the 30's. Patient was at the clinic for a clotted AVF. Patient gets dialysis TTS at [facility]. PMH includes: ESRD on dialysis, DM, HTN. Before admission patient last dialyzed 07/08/18. EKG in ED showed a junctional wide complex rhythm. Patient's K was 7.3. Patient treated in ED with bicarbonate, calcium gluconate, albuterol, insulin and dextrose. Patient was transferred to the ICU where a VasCath was placed for dialysis. Patient was seen on dialysis, 350 ml/min, on 1K, UF goal of 3.3 L. Patient had complaints of nausea and vomiting for past 1-2 days before admission but no current complaints. Patient is a former tobacco smoker who denied alcohol and illicit drug use. Patient was mildly lethargic and wouldn't answer all questions, could not get family history. Review of Systems All other systems reviewed negative except as stated in HPI PMFSH - History History Provided By: Patient - Medical History Medical History: Medical History (Last Reviewed 07/12/18 @ 10:01 by Sabine Lama MD) History of end stage renal disease History of high blood pressure History of renal dialysis History of right below knee amputation Hx of diabetes mellitus - Tobacco History Smoking Status: Former smoker Tobacco Type: Cigarettes - Alcohol History How Often Do You Have a Drink Containing Alcohol: Never - Substance Use History Substance History: No History of Abuse - Travel History Recent Travel in the [facility] Within the Last 8 Weeks: No Recent Travel Out of the Country Within the Last 8 Weeks: No - Immunization History Tetanus Immunization: >5 Years Medications and Allergies Allergies Allergy/AdvReac Type Severity Reaction Status Date / Time morphine Allergy Intermediate itch Verified 07/10/18 04:36 vancomycin Allergy Urinary Verified 07/12/18 09:26 Freq (Inc/Dec) Home Medications Medication Instructions Recorded Confirmed Type alprazolam [Xanax] 0.25 mg PO BID PRN 07/12/18 07/12/18 History aspirin 81 mg PO DAILY 07/12/18 07/12/18 History atorvastatin 20 mg PO DAILY 07/12/18 07/12/18 History bumetanide 2 mg PO BID 07/12/18 07/12/18 History carvedilol [Coreg] 12.5 mg PO DAILY 07/12/18 07/12/18 History docusate sodium [Colace] 100 mg PO DAILY 07/12/18 07/12/18 History ferric citrate [Auryxia] 420 mg PO TIDWM 07/12/18 07/12/18 History gabapentin 100 mg PO BID 07/12/18 07/12/18 History gentamicin 1 applic TOPICAL DIRECTED 07/12/18 07/12/18 History glipizide 10 mg PO DAILY 07/12/18 07/12/18 History hydrocodone-acetaminophen 1 tab PO DAILY PRN 07/12/18 07/12/18 History isosorbide mononitrate 30 mg PO DAILY 07/12/18 07/12/18 History levothyroxine 137 mcg PO DAILY 07/12/18 07/12/18 History oxycodone 10 mg PO Q6H PRN 07/12/18 07/12/18 History sennosides [senna] 8.6 mg PO BID PRN 07/12/18 07/12/18 History zolpidem 10 mg PO HS PRN 07/12/18 07/12/18 History Active Medications: Active Medications Acetaminophen (Tylenol) 650 mg PO Q6H PRN PRN Reason: temp > 101 or pain 1-10 Acetaminophen (Tylenol) 650 mg PO UNSCH X1 PRN PRN Reason: SEE LABEL COMMENTS Albuterol (Duoneb Neb (Prn)) 1 ampul NEB Q2HR NEB PRN PRN Reason: WHEEZING Bisacodyl (Dulcolax Supp) 10 mg RECTAL DAILY PRN PRN Reason: if no BM in last 24h Chlorhexidine Gluconate (Chlorhexidine 2% Cloth) 3 pack TOPICAL DAILY@0400 NATALIIA Stop: 07/18/18 03:59 Chlorhexidine Gluconate (Chlorhexidine 2% Cloth) 3 pack TOPICAL DAILY@0400 PRN PRN Reason: Extra cloth needed Stop: 07/18/18 03:59 Clonidine HCl (Catapres) 0.1 mg PO UNSCH X1 PRN PRN Reason: SEE LABEL COMMENTS Dextrose (D50w Vial) 50 ml IV.PUSH UNSCH PRN PRN Reason: PER HYPOGLYCEMIA PROTOCOL Diphenhydramine HCl (Benadryl) 25 mg PO UNSCH PRN PRN Reason: SEE LABEL COMMENTS Epoetin Hernandez (Epogen Inj) 10,000 unit IV.PUSH UNSCH PRN PRN Reason: SEE LABEL COMMENTS Gelatin (Gelfoam 12 Mm/7 Mm Topical) 1 foam TOPICAL UNSCH PRN PRN Reason: help stop bleeding from site Gentamicin Sulfate (Gentamicin Inj) 20 mg OTHER WITH DIALYSIS PRN PRN Reason: Dwell Gentamycin Lock Glucagon (Glucagon Inj) 1 mg OTHER PRN PRN PRN Reason: for Hypoglycemia Protocol Heparin Sodium (Porcine) (Heparin Inj) 8,000 units OTHER WITH DIALYSIS PRN PRN Reason: for machine prime Heparin Sodium (Porcine) (Heparin Inj) 1,000 units OTHER WITH DIALYSIS PRN PRN Reason: Dwell Heparin to Fill Catheter Albumin Human (Flexbumin 25% Inj) 100 mls @ 60 mls/hr IV.SIG WITH DIALYSIS PRN PRN Reason: hypotension / volume replace Sodium Chloride (Ns Inj) 1,000 mls @ 0 mls/hr OTHER .Q0M PRN PRN Reason: for prime and rinse back Sodium Chloride (Ns Inj) 1,000 mls @ 200 mls/hr OTHER .Q5H PRN PRN Reason: for dialyzer flush PRN Sodium Chloride (Ns Inj) 1,000 mls @ 0 mls/hr IV.CONT .Q0M PRN PRN Reason: hypotension / volume replace Insulin Human Regular (Novolin R Correctional Sugar Inj) 0 units SQ ACHS AND 3AM NATALIIA; Protocol Last Admin: 07/12/18 11:57 Dose: Not Given Lactulose (Lactulose Liq) 30 ml PO BID NATALIIA Mannitol (Mannitol Inj) 12.5 gm IV.PUSH UNSCH PRN PRN Reason: hypotension / volume replace Nitroglycerin (Nitrostat Sl) 0.4 mg SL Q5M PRN PRN Reason: CHEST PAIN Ondansetron HCl (Zofran Inj) 4 mg IV.PUSH Q6H PRN PRN Reason: NAUSEA OR VOMITING Ondansetron HCl (Zofran Inj) 4 mg IV.PUSH UNSCH X1 PRN PRN Reason: NAUSEA OR VOMITING Polyethylene Glycol (Miralax) 17 gm PO BID NATALIIA Senna/Docusate Sodium (Lanny-Colace) 1 tab PO BID NATALIIA Sodium Chloride (Ns Flush) 2 ml IV.FLUSH UNSCH PRN PRN Reason: FLUSH AFTER USING IV ACCESS Sodium Chloride (Ns Flush) 5 ml IV.FLUSH UNSCH PRN PRN Reason: flush each lumen during HD Exam Vital signs: Vital Signs 07/12/18 09:26 07/12/18 09:33 07/12/18 10:04 Temperature 97.7 F Pulse Rate 33 L 30 L 29 L Respiratory Rate 18 20 12 Blood Pressure 127/64 127/64 Pulse Oximetry 97 95 07/12/18 10:33 07/12/18 11:22 07/12/18 11:27 Temperature Pulse Rate 41 L 33 L 32 L Respiratory Rate 20 21 21 Blood Pressure 127/58 L 151/63 H Pulse Oximetry 97 93 L 97 07/12/18 11:30 07/12/18 11:36 07/12/18 11:46 Temperature 97.6 F Pulse Rate 38 L 35 L 37 L Respiratory Rate 28 H 16 15 Blood Pressure 151/63 H 100/49 L 120/56 L Pulse Oximetry 95 95 98 07/12/18 12:00 07/12/18 12:01 07/12/18 12:16 Temperature Pulse Rate 39 L 39 L 39 L Respiratory Rate 15 15 20 Blood Pressure 112/60 124/57 L Pulse Oximetry 95 95 99 07/12/18 12:30 07/12/18 12:46 07/12/18 13:00 Temperature Pulse Rate 45 L 48 L 53 L Respiratory Rate 15 14 26 H Blood Pressure 115/57 L 125/60 Pulse Oximetry 97 97 95 07/12/18 13:01 07/12/18 13:16 Temperature Pulse Rate 53 L 53 L Respiratory Rate 31 H 12 Blood Pressure 125/61 128/59 L Pulse Oximetry 96 98 Intake & Output 07/11/18 07/12/18 07/12/18 18:59 06:59 18:59 Weight 109.5 kg Other: Date of Last Bowel Movement 07/11/18 Weight On Admission 109.5 kg Narrative: GENERAL: Lethargic, no acute distress, on dialysis. SKIN: warm/dry. HEAD: Atraumatic. Normocephalic. EYES: EOMI. No injection or drainage. ENT: No nasal bleeding or discharge. Mucous membranes pink and moist. NECK: Trachea midline. No JVD. CARDIOVASCULAR: Bradycardic, RRR. RESPIRATORY: Clear to auscultation. Breath sounds equal bilaterally. GASTROINTESTINAL: Abdomen soft, nondistended MUSCULOSKELETAL: Right below-knee amputation. No clubbing. No cyanosis. No edema. NEUROLOGICAL: No obvious cranial nerve deficits. Results - Lab Results 07/12/18 09:30 07/12/18 13:20 Most recent lab results Calcium 9.0 mg/dL (8.5-10.1) 07/12/18 09:30 Magnesium 2.8 mg/dL (1.5-2.5) H 07/12/18 09:30 Assessment and Plan - Assessment (1) ESRD (end stage renal disease) on dialysis Code(s): N18.6 - End stage renal disease; Z99.2 - Dependence on renal dialysis Status: Acute Plan: Patient usually gets dialysis TTS at [facility]. VasCath was placed for dialysis. Patient was seen on dialysis, 350 ml/min, on 1K , UF goal of 3.3 L. Avoid blood draws or BP measurements in arm with AVF. Monitor fluid and electrolytes. Monitor phosphorus intermittently. Phosphorus lab pending, may need to be started a phosphorus binder pending result. (2) Acute hyperkalemia Code(s): E87.5 - Hyperkalemia Status: Acute Plan: K was 7.3 on admission. Patient treated in ED with bicarbonate, calcium gluconate, albuterol, insulin and dextrose. Patient's K should improve with dialysis. Repeat BMP is pending. (3) Hypertension Code(s): I10 - Essential (primary) hypertension Status: Acute Plan: Monitor BP. Patient has been hypotensive and bradycardic. Patient's BP improving but still bradycardic. (4) Diabetes Code(s): E11.9 - Type 2 diabetes mellitus without complications Status: Acute Plan: Insulin coverage to maintain blood glucose levels between 140 and 180 while hospitalized. Hypoglycemia noted. <Ti Jalloh - Last Filed: 07/13/18 08:14> History of Present Illness Primary Care Provider: Clifton Hernandez MD [facility] - Medical History Medical History: Medical History (Last Reviewed 07/12/18 @ 10:01 by Sabine Lama MD) History of end stage renal disease History of high blood pressure History of renal dialysis History of right below knee amputation Hx of diabetes mellitus Exam Vital signs: Vital Signs 07/12/18 09:26 07/12/18 09:33 07/12/18 10:04 Temperature 97.7 F Pulse Rate 33 L 30 L 29 L Respiratory Rate 18 20 12 Blood Pressure 127/64 127/64 Pulse Oximetry 97 95 07/12/18 10:33 07/12/18 11:22 07/12/18 11:27 Temperature Pulse Rate 41 L 33 L 32 L Respiratory Rate 20 21 21 Blood Pressure 127/58 L 151/63 H Pulse Oximetry 97 93 L 97 07/12/18 11:30 07/12/18 11:36 07/12/18 11:46 Temperature 97.6 F Pulse Rate 38 L 35 L 37 L Respiratory Rate 28 H 16 15 Blood Pressure 151/63 H 100/49 L 120/56 L Pulse Oximetry 95 95 98 07/12/18 12:00 07/12/18 12:01 07/12/18 12:16 Temperature Pulse Rate 39 L 39 L 39 L Respiratory Rate 15 15 20 Blood Pressure 112/60 124/57 L Pulse Oximetry 95 95 99 07/12/18 12:30 07/12/18 12:46 07/12/18 13:00 Temperature Pulse Rate 45 L 48 L 53 L Respiratory Rate 15 14 26 H Blood Pressure 115/57 L 125/60 Pulse Oximetry 97 97 95 07/12/18 13:01 07/12/18 13:16 07/12/18 13:30 Temperature Pulse Rate 53 L 53 L 53 L Respiratory Rate 31 H 12 14 Blood Pressure 125/61 128/59 L 124/61 Pulse Oximetry 96 98 93 L 07/12/18 13:45 07/12/18 14:00 07/12/18 14:16 Temperature Pulse Rate 56 L 57 L 57 L Respiratory Rate 15 19 26 H Blood Pressure 130/64 136/67 128/60 Pulse Oximetry 99 95 97 07/12/18 14:34 07/12/18 14:46 07/12/18 15:00 Temperature Pulse Rate 59 L 61 62 Respiratory Rate 15 22 17 Blood Pressure 129/99 H 138/60 Pulse Oximetry 97 98 98 07/12/18 15:01 07/12/18 16:00 Temperature 97.6 F Pulse Rate 62 63 Respiratory Rate 20 45 H Blood Pressure 117/56 L Pulse Oximetry 98 88 L Intake & Output 07/12/18 07/13/18 07/13/18 18:59 06:59 18:59 Output Total 3300 / 3300 Balance -3300 / -3300 Weight 109.5 kg Output: Hemodialysis Amount 3300 / 3300 Other: Date of Last Bowel Movement 07/11/18 Weight On Admission 109.5 kg Results - Lab Results 07/12/18 09:30 07/12/18 13:20 Most recent lab results Calcium 8.2 mg/dL (8.5-10.1) L D 07/12/18 13:20 Phosphorus 2.8 mg/dL (2.5-4.9) 07/12/18 13:20 Magnesium 2.3 mg/dL (1.5-2.5) 07/12/18 13:20 Assessment and Plan - Assessment (1) ESRD (end stage renal disease) on dialysis Code(s): N18.6 - End stage renal disease; Z99.2 - Dependence on renal dialysis Status: Acute (2) Acute hyperkalemia Code(s): E87.5 - Hyperkalemia Status: Acute (3) Hypertension Code(s): I10 - Essential (primary) hypertension Status: Acute (4) Diabetes Code(s): E11.9 - Type 2 diabetes mellitus without complications Status: Acute - Attending Attestation patient was seen and examined in the ER on 07/12/17. She was bradycardic, hypotensive. Stat labs were drawn. Discussed with ER physician. Very high potassium. Stat dialysis ordered. Admitted to ICU.
[2018-07-12 14:06] LABS: Calcium 8.2 mg/dL (8.5-10.1); Carbon Dioxide 28.9 meq/L (21.0-32.0); Magnesium 2.3 mg/dL (1.5-2.5); Phosphorus 2.8 mg/dL (2.5-4.9); Potassium 3.2 meq/L (3.5-5.1)
[2018-07-12 15:21] VITALS: BP 117/56
[2018-07-12 16:39] VITALS: PULSE 63; RESP 45; O2SAT 88
--- NOTE | 2018-07-12 18:41 | ECG ---
Date Performed: 07/12/2018 Time Performed: 09:26:16 PTAGE: 57 years EKG: JUNCTIONAL ESCAPE RHYTHM MARKED LEFT AXIS DEVIATION INTRAVENTRICULAR CONDUCTION DELAY ABNOR MAL ECG PREVIOUS TRACING : 11/23/2017 17.18 Compared to previous tracing, NSR no longer present DOCTOR: Philip Davis Interpretating Date/Time 07/12/2018 18:41:25
[2018-07-12] MEDS ORDERED: Polyethylene Glycol 3350 17 GM Packet PO SCH (21:00)
[2018-07-12] MEDS ORDERED: Senna/Docusate Sodium 8.6/50 MG Tablet PO SCH (21:00)
[2018-07-13] MEDS ORDERED: Chlorhexidine Gluconate 2% 1 Pack (2 Cloths) TOPICAL SCH (04:00)
[2018-07-13] MEDS ORDERED: Chlorhexidine Gluconate 2% 1 Pack (2 Cloths) TOPICAL PRN (04:00)
[2018-07-13] MEDS ORDERED: Vitamin B Complex/Vit C/Folic Tablet PO SCH (09:00)
== END 2018-07-12 16:40 | disposition home or self-care (01) | DRG 640 ==
LOC: NEPE 09:21 → NEDA 10:27 → HIMC 11:20
PROVIDERS: ADMIT Internal Medicine Critical Care Medicine; ATTEND Internal Medicine Critical Care Medicine
CPT/HCPCS: 71010; 71045; 76705; 76937; 80048; 80053; 82948; 82962; 83605; 83690; 83735; 84100; 85025; 85610; 85730; 87641; 90772; 93005; 94664; 96372; 99283; J1580; J1644; J1815; J2360; J2405

== ENCOUNTER 2018-08-17 09:24 | Inpatient (IN) ==
[~2018-08-17 09:24] MED LIST changes: -AMLO10 PO; -ASPI-516 CHEW; -BUME1TAB PO; -CALC1CAP PO; -CARV3.125 PO; -GABA100C4 PO; -GLIP10TA6 PO; -ISOS10TA3 PO; -LIPI20TA PO; -OXYC1CAP PO; -SYNT88TA PO; -ZOLP5TAB3 PO; +[UNRECOGNIZED DRUG - OTHER] ONE
[2018-08-17] MEDS ORDERED: Metoprolol Tartrate 25 MG Tablet PO ONE (10:00)
[2018-08-17] MEDS ORDERED: Atropine 1% Opth Drops 2 ML Bottle LEFT EYE SCH (10:00)
[2018-08-17] MEDS ORDERED: Sodium Chlor 0.9% Inj 500 ML IV.CONT ONE ×2 (10:00→12:37)
[2018-08-17] MEDS ORDERED: Chlorhexidine Gluconate 2% 1 Pack (2 Cloths) TOPICAL ONE (10:00)
[2018-08-17 10:21] LABS: Baso % (Auto) 0.7 % (0.0-2.0); Eos # (Auto) 0.2 th/mm3 (0.0-0.4); Hematocrit 35.4 % (35.0-46.0); Hemoglobin 11.4 gm/dL (11.6-15.3); Lymph # (Auto) 0.7 th/mm3 (1.0-4.8); Lymph % (Auto) 14.4 % (9.0-44.0); Mean Corpuscular HGB Conc 32.2 % (32.0-36.0); Mean Corpuscular Hemoglobin 33.9 pg (27.0-34.0); Mean Corpuscular Volume 105.3 fL (80.0-100.0); Mean Platelet Volume 8.5 fL (7.0-11.0); Mono # (Auto) 0.4 th/mm3 (0.0-0.9); Mono % (Auto) 7.8 % (0.0-8.0); Neut # (Auto) 3.8 th/mm3 (1.8-7.7); Neut % (Auto) 74.1 % (16.0-70.0); Platelet Count 173 th/mm3 (150-450); Red Blood Count 3.36 mil/mm3 (4.00-5.30); Red Cell Distribution Width 17.2 % (11.6-17.2); White Blood Count 5.2 th/mm3 (4.0-11.0)
[2018-08-17] MEDS: Tropicamide 1% Opth Drops 15 ML Bottle LEFT EYE SCH ×4 (10:30→11:24)
[2018-08-17] MEDS: Phenylephrine 2.5% Opth Drops 2 ML Bottle LEFT EYE SCH ×4 (10:30→11:22)
[2018-08-17] MEDS: Cyclopentolate 1% Opth Drops 2 ML Bottle LEFT EYE SCH ×4 (10:32→11:23)
[2018-08-17] MEDS: Atropine 1% Opth Drops 5 ML Bottle LEFT EYE SCH ×4 (10:33→11:23)
[2018-08-17] MEDS ORDERED: Glycopyrrolate Inj 1 MG/5 ML Syringe IV.PUSH ONE (12:37)
[2018-08-17] MEDS ORDERED: Neostigmine Inj 5 MG/5 ML Syringe IV.PUSH ONE (12:37)
[2018-08-17] MEDS ORDERED: Lidocaine PF 1% Inj 5 ML Syringe INFILTRATN ONE (12:37)
[2018-08-17] MEDS ORDERED: Phenylephrine/NS 1000 MCG/10ML Syringe IV.PUSH ONE (12:37)
[2018-08-17] MEDS ORDERED: Sodium Chlor 0.9% Inj 250 ML IV.CONT ONE (12:37)
[2018-08-17] MEDS ORDERED: fentaNYL Citrate Inj 100 MCG/2 ML Ampul ONE (15:05)
[2018-08-17] MEDS ORDERED: *Ondansetron Inj 4 MG/2 ML Vial PERIprocedural Use ONLY ONE (15:18)
[2018-08-17] MEDS ORDERED: Acetaminophen 500 MG Tablet PO PRN (16:18)
--- NOTE | 2018-08-17 16:28 | XR ---
EXAM DATE: 08/17/2018 4:20 PM EST AGE/SEX: 57 years / Female INDICATIONS: Short of breath. CLINICAL DATA: This is the patient's initial encounter. Patient reports that signs and symptoms have been present for 1 day and indicates a pain score of 0/10. MEDICAL/SURGICAL HISTORY: . Hypertension. Diabetes mellitus type II. None. COMPARISON: [facility] [place], CHEST 1V SINGLE AP, 07/19/2018. . FINDINGS: A single AP erect portable view the chest was obtained and demonstrates new alveolar opacities throug hout both lungs. There are air bronchograms. The heart size is mildly prominent. There is no distinct effusion. The bony thorax is intact. Multiple overlying retrocardiac gram leads are present. CONCLUSION: New bilateral alveolar opacities of concern for pulmonary edema. This may be cardiogenic or noncardio genic in origin. Electronically signed by: Mansoor Dupree MD Board Certified Radiologist 08/17/2018 4:27 PM EST
--- NOTE | 2018-08-17 16:38 | MP ---
cc: Simi Brooke MD DATE OF OPERATION: 08/17/2018 PREOPERATIVE DIAGNOSES: Severe proliferative diabetic retinopathy with traction, retinal detachment, and nonclearing vitreous hemorrhage of left eye. POSTOPERATIVE DIAGNOSES: Severe proliferative diabetic retinopathy with traction, retinal detachment, and nonclearing vitreous hemorrhage of left eye. PROCEDURE: Trans-pars plana vitrectomy with membranectomy, panretinal photocoagulation and gas-fluid exchange to left eye. SURGEON: Simi Brooke MD ANESTHESIA: General endotracheal tube anesthesia. INDICATIONS: Ms. Spencer is a 57-year-old woman with a history of suspicion of severe proliferative diabetic retinopathy who developed traction detachments and vitreous hemorrhage in her left eye. Her visual acuity was counting fingers at 5 feet and she wished to proceed electively with surgery. An Avastin intravitreal injection was given a week preop to try and minimize the amount of bleeding from the neovascular fronds. The risks and benefits of surgery were discussed with the patient including the possible progression of her preexisting cataract. She wished to proceed electively. Informed consent was obtained and no guarantee was made as to visual outcome. DESCRIPTION OF PROCEDURE: She was brought to [facility] operating room #1 on the eye stretcher. Appropriate anesthesia monitoring devices were applied and she was placed under general anesthesia using of endotracheal tube. The left eye was identified as the operative site and prepped and draped in the usual sterile fashion. A lid speculum was placed. The microscope was brought around and adjusted. At this point, an appropriate timeout was called with the surgical team agreeing to the proposed surgical site and planned procedure. Using the Ignacio 23-gauge vitrectomy system, the trocar cannulas were placed 4 mm posterior to the limbus after first displacing the conjunctiva and with the beveled scleral entrance. The first one was placed at approximately 3 o'clock and verified to be in the posterior chamber. An infusion cannula was affixed to it and turned on. Two additional ones were placed in a similar fashion at 10 and 2 o'clock. The infusion had already had 3 mL of D50 added because she was phakic and diabetic. A core vitrectomy was carried out using the flat contact lens. Vitreous hemorrhage was removed. There was fibro-vascularization along the posterior hyaloid, 2 epicenters at the optic nerve in the nasal mid periphery and the superonasal mid periphery, and a large patch along the superotemporal arcade. All of these were methodically dissected using the vitrectomy cutter, the horizontal scissors and the vertical scissors along with the Carlo's pick when needed. After these epicenters were dissected, the BIOM wide-angle viewing system was used to remove the peripheral cortical vitreous and posterior hyaloid. A soft-tipped linear extrusion needle was used to vacuum preretinal hemorrhage off the retinal surface. The endolaser lighted flexible probe was used to deliver 1397 scatter laser panretinal photocoagulation around the mid periphery and remaining epicenters using a power of 300 milliwatts and 0.1 second exposure. An air-fluid exchange was performed and then the air was exchanged for a 12% mixture of C3F8 gas. The trocar cannulas were removed one by one and closed with interrupted 7-0 Vicryl, leaving the eye with good pressure and no visible air leaks. Atropine drops were placed on the cornea, followed by subconjunctival injections of Ancef 125 mg in 0.5 mL and Decadron 2 mg in 0.5 mL. The lid speculum was removed and the patient was undraped. TobraDex ointment was placed on the cornea and then the left eye was patched and shielded. The patient did have the endotracheal tube removed in the room and was positioned on her right side for her return to the recovery room. When awake and alert, she will be asked to assume face-down positioning. MD RAISA Braswell/piedad , 03:21 PM , 03:32 PM
[2018-08-17] MEDS ORDERED: *HYDROmorphone PF Inj 1 MG/ML Ampul PERIprocedural Use ONLY ONE (16:54)
[2018-08-17] MEDS ORDERED: Phenylephrine Inj 40 MG in Dextrose 5% in Water Inj 496 ML IV.CONT PRN ×2 (19:00)
--- NOTE | 2018-08-17 19:39 | P.CONCC ---
History of Present Illness Service: Critical care medicine Consult date: 08/17/18 Requesting Physician: Simi Brooke Reason for Consult: hypoxia Primary Care Provider: No Primary Care Physician Chief Complaint: shortness of breath History of Present Illness: 57yF ESRD who presented today for outpatient retinal surgery. uncomplicated procedure, but post-op had significant hypoxia requiring NRB. CXR demonstrates severe bilateral infiltrates consistent with pulmonary edema. Discussed the case with Dr. Jalloh who agrees likely volume overload requiring urgent IHD. plan to dialyze. patient states she did have IHD today with 3.5L removed. patient endorses shortness of breath but denies any additional symptoms. denies chest pain, nausea, vomiting, headache. endorses sore throat. ROS otherwise negative. Review of Systems All other systems reviewed negative except as stated in HPI PMFSH - History History Provided By: Patient - Medical History Medical History: Medical History (Last Reviewed 08/17/18 @ 20:06 by Blaise Esquivel MD) History of right below knee amputation (Acute) History of end stage renal disease History of high blood pressure History of renal dialysis Hx MRSA infection Hx of diabetes mellitus - Surgical History Surgical History: Surgical History (Last Reviewed 08/17/18 @ 20:06 by Blaise Esquivel MD) History of arteriovenous shunt Hx of section Hx of dilation and curettage - Family History Family History: Family History (Last Reviewed 08/17/18 @ 20:06 by Blaise Esquivel MD) Other Diabetes Family history non-contributory - Social History I have reviewed the patient's Social History: Yes - Tobacco History Second Hand Smoke Exposure: Yes Tobacco Use In Past 30 Days: No Smoking Status: Former smoker Tobacco Type: Cigarettes - Alcohol History How Often Do You Have a Drink Containing Alcohol: Never - Substance Use History Substance History: No History of Abuse - Travel History Recent Travel in the [place] Within the Last 8 Weeks: No Recent Travel Out of the Country Within the Last 8 Weeks: No Medications and Allergies Active Medications: Active Medications Acetaminophen (Tylenol) 500 mg PO Q4HR PRN PRN Reason: FOR PAIN SCALE 1-4 Lactated Ringer's (Lr 1000 Ml Inj) 1,000 mls @ 30 mls/hr IV.CONT .Q24H ONE Stop: 08/18/18 09:59 Last Admin: 08/17/18 10:29 Dose: Not Given Sodium Chloride (Ns Inj) 500 mls @ 30 mls/hr IV.CONT .[id number] ONE Stop: 08/18/18 02:39 Last Admin: 08/17/18 10:29 Dose: 30 mls/hr Phenylephrine HCl 40 mg/ (Dextrose) 500 mls @ 30 mls/hr IV.CONT TITRATE PRN; Protocol PRN Reason: Per Protocol Miscellaneous Information ([facility] [place] [facility]) 1 each OTHER UNSCH PRN PRN Reason: SEE LABEL COMMENTS Stop: 08/18/18 14:55 Terbutaline Sulfate (Brethine Inj) 1 mg SQ UNSCH PRN PRN Reason: For Extravasation Allergies Allergy/AdvReac Type Severity Reaction Status Date / Time morphine Allergy Intermediate itch Verified 08/17/18 10:08 vancomycin Allergy DUE TO Verified 08/16/18 12:02 KIDNEY FAILURE SHOULD NEVER TAKE PER MANAGER OUTPATIENT Home Medications Medication Instructions Recorded Confirmed Type alprazolam [Xanax] 0.25 mg PO BID PRN 07/12/18 08/17/18 History atorvastatin 20 mg PO DAILY 07/12/18 08/17/18 History bumetanide 2 mg PO BID 07/12/18 08/17/18 History docusate sodium [Colace] 100 mg PO DAILY 07/12/18 08/17/18 History gabapentin 100 mg PO BID 07/12/18 08/17/18 History glipizide 10 mg PO DAILY 07/12/18 08/17/18 History hydrocodone-acetaminophen 1 tab PO DAILY 07/12/18 08/17/18 History levothyroxine 137 mcg PO DAILY 07/12/18 08/17/18 History sennosides [senna] 8.6 mg PO DAILY PRN 07/12/18 08/17/18 History zolpidem 10 mg PO HS 07/12/18 08/17/18 History amlodipine 10 mg PO DAILY 07/19/18 08/17/18 History Physical Exam Vital signs: Vital Signs 08/17/18 10:22 08/17/18 15:17 08/17/18 15:30 Temperature 37.3 C 36.7 C Pulse Rate 87 85 75 Respiratory Rate 20 28 H 28 H Blood Pressure 109/55 L 124/58 L 105/55 L Pulse Oximetry 95 91 L 85 L 08/17/18 15:45 08/17/18 16:00 02/14/19 16:15 Temperature Pulse Rate 72 66 81 Respiratory Rate 25 H 22 22 Blood Pressure 105/52 L 90/52 L 88/47 L Pulse Oximetry 89 L 100 22 L 08/17/18 16:30 08/17/18 16:45 08/17/18 17:00 Temperature 37.3 C Pulse Rate 79 81 78 Respiratory Rate 24 22 21 Blood Pressure 86/48 L 91/53 L 99/58 L Pulse Oximetry 99 100 100 08/17/18 17:15 08/17/18 17:30 08/17/18 17:54 Temperature Pulse Rate 78 79 Respiratory Rate 21 21 Blood Pressure 93/51 L 100/57 L 117/57 L Pulse Oximetry 100 98 97 08/17/18 18:00 08/17/18 18:19 08/17/18 19:00 Temperature Pulse Rate 79 68 Respiratory Rate Blood Pressure 114/55 L 126/58 L Pulse Oximetry 99 100 96 Intake & Output 08/17/18 08/17/18 08/18/18 06:59 18:59 06:59 Intake Total 300 / 300 Balance 300 / 300 Weight 105 kg Intake: Anesthesia Amount 300 / 300 Other: Weight On Admission 105 kg Narrative: GENERAL: Middle-aged morbidly obese female, lying bed, in respiratory distress HEENT: Normocephalic. There is a patch over the left eye. Mucous membranes are moist NECK: Trachea is midline. Large neck circumference prevents the accurate assessment of JVD. CHEST: Labored. Tachypneic. Hypoxic. SPO2 95% on a nonrebreather mask. Using accessory muscles to breathe. CARDIOVASCULAR: Normal rate, regular rhythm. Appears to be sinus by telemetry. ABDOMEN: Soft, nontender, nondistended. No guarding. MUSCULOSKELETAL: Pulses 2+. 2+ peripheral edema. Evidence of remote BKA. Left arm fistula with positive thrill. NEUROLOGICAL: RASS +1. In respiratory distress. Moves all extremities and follows commands. Assessment and Plan - Assessment and Plan Plan: Assessment: 57yF POD 0 s/p left eye retinal surgery now with acute hypoxic respiratory failure secondary to volume overload. Discussed with meat puller and planned for emergent dialysis. Critically ill with new life-threatening hypoxemia. Acute hypoxic respiratory failure Pulmonary Edema- severe, acute Acute intravascular volume overload - emergent HD - likely volume overload from ESRD - Nephrology consult - NRB - wean fio2 for goal spo2 > 90% ESRD - nephrology consulted s/p retinal surgery 08/17 - management per ophthalmology - lie flat per ophtho orders. Admit to ICU. critically ill with respiratory failure. Critical care time: 40 minutes, exclusive of separately billable procedures.
[2018-08-17] MEDS ORDERED: Acetaminophen 325 MG Tablet PO PRN (19:50)
[2018-08-17] MEDS ORDERED: Sod Chloride 0.9% Inj 1,000 ML IV.CONT PRN (19:50)
[2018-08-17] MEDS ORDERED: Albumin Human 25% Inj 100 ML IV.SIG PRN (19:50)
[2018-08-17] MEDS ORDERED: Heparin 10,000 UNITS/10 ML Vial (for IV use) OTHER PRN ×2 (19:50)
[2018-08-17] MEDS ORDERED: Sod Chloride 0.9% Inj 1,000 ML OTHER PRN ×2 (19:50)
[2018-08-17] MEDS ORDERED: Gelatin 12 MM/7 MM Topical Foam TOPICAL PRN (19:50)
[2018-08-18] MEDS ORDERED: Levothyroxine 112 MCG Tablet PO SCH (06:00)
--- NOTE | 2018-08-18 07:07 | P.PNCC ---
Subjective Subjective Remarks/Hospital Course: Hospital Course: 57yF ESRD who presented today for outpatient retinal surgery. uncomplicated procedure, but post-op had significant hypoxia requiring NRB. CXR demonstrates severe bilateral infiltrates consistent with pulmonary edema. Discussed the case with Dr. Jalloh who agrees likely volume overload requiring urgent IHD. plan to dialyze. patient states she did have IHD today with 3.5L removed. patient endorses shortness of breath but denies any additional symptoms. denies chest pain, nausea, vomiting, headache. endorses sore throat. ROS otherwise negative. Subjective: 08/18: on room air. s/p HD yesterday. doing well. complains of pains all over, stable and chronic. wants to go home. Objective Vital Signs / I&O: Vital Signs 08/17/18 10:22 08/17/18 15:17 08/17/18 15:30 Temperature 37.3 C 36.7 C Pulse Rate 87 85 75 Respiratory Rate 20 28 H 28 H Blood Pressure 109/55 L 124/58 L 105/55 L Pulse Oximetry 95 91 L 85 L 08/17/18 15:45 08/17/18 16:00 08/17/18 16:15 Temperature Pulse Rate 72 66 81 Respiratory Rate 25 H 22 22 Blood Pressure 105/52 L 90/52 L 88/47 L Pulse Oximetry 89 L 100 22 L 08/17/18 16:30 08/17/18 16:45 08/17/18 17:00 Temperature 37.3 C Pulse Rate 79 81 78 Respiratory Rate 24 22 21 Blood Pressure 86/48 L 91/53 L 99/58 L Pulse Oximetry 99 100 100 08/17/18 17:15 08/17/18 17:30 08/17/18 17:54 Temperature Pulse Rate 78 79 Respiratory Rate 21 21 Blood Pressure 93/51 L 100/57 L 117/57 L Pulse Oximetry 100 98 97 08/17/18 18:00 08/17/18 18:19 08/17/18 19:00 Temperature Pulse Rate 79 68 Respiratory Rate Blood Pressure 114/55 L 126/58 L Pulse Oximetry 99 100 96 08/17/18 19:56 08/17/18 19:58 08/17/18 20:00 Temperature 37.2 C Pulse Rate 66 64 Respiratory Rate 27 H Blood Pressure 111/52 L Pulse Oximetry 96 98 08/17/18 20:45 08/17/18 21:00 08/17/18 21:15 Temperature Pulse Rate 61 92 H 86 Respiratory Rate 25 H 25 H Blood Pressure 101/63 137/60 122/56 L Pulse Oximetry 100 100 100 08/17/18 21:30 08/17/18 21:45 08/17/18 22:00 Temperature Pulse Rate 87 91 H 94 H Respiratory Rate 23 16 16 Blood Pressure 127/58 L 124/58 L 121/59 L Pulse Oximetry 100 100 100 08/17/18 22:15 08/17/18 22:30 08/17/18 22:45 Temperature Pulse Rate 92 H 92 H 92 H Respiratory Rate 20 23 19 Blood Pressure 107/57 L 115/57 L 110/51 L Pulse Oximetry 100 100 100 08/17/18 23:00 08/17/18 23:11 08/17/18 23:41 Temperature 37.1 C Pulse Rate 92 H 93 H 90 Respiratory Rate 24 20 Blood Pressure 112/57 L 107/59 L 101/54 L Pulse Oximetry 100 100 100 08/18/18 00:00 08/18/18 00:10 08/18/18 00:40 Temperature Pulse Rate 89 88 86 Respiratory Rate 21 18 30 H Blood Pressure 92/50 L 99/50 L Pulse Oximetry 100 100 100 08/18/18 01:00 08/18/18 01:10 08/18/18 01:40 Temperature Pulse Rate 90 90 89 Respiratory Rate 28 H Blood Pressure 105/53 L 103/59 L Pulse Oximetry 100 100 100 08/18/18 02:00 08/18/18 02:10 08/18/18 02:22 Temperature Pulse Rate 86 84 86 Respiratory Rate 17 16 15 Blood Pressure 86/51 L 91/52 L Pulse Oximetry 100 100 100 08/18/18 02:40 08/18/18 03:00 08/18/18 03:10 Temperature Pulse Rate 85 82 81 Respiratory Rate 29 H 23 17 Blood Pressure 91/50 L 83/46 L Pulse Oximetry 100 100 100 08/18/18 03:34 08/18/18 03:38 08/18/18 03:39 Temperature 36.6 C Pulse Rate 81 88 Respiratory Rate 27 H 25 H Blood Pressure 101/52 L Pulse Oximetry 100 08/18/18 03:40 08/18/18 04:00 08/18/18 04:10 Temperature Pulse Rate 89 80 78 Respiratory Rate 16 29 H Blood Pressure 92/55 L 88/50 L Pulse Oximetry 100 100 100 08/18/18 04:40 08/18/18 04:42 08/18/18 05:00 Temperature Pulse Rate 76 77 75 Respiratory Rate 26 H 15 Blood Pressure 88/49 L 97/52 L Pulse Oximetry 100 100 96 08/18/18 05:11 08/18/18 05:41 08/18/18 05:44 Temperature Pulse Rate 76 74 75 Respiratory Rate 29 H 21 Blood Pressure 152/64 H 140/63 Pulse Oximetry 95 95 08/18/18 06:00 08/18/18 06:11 Temperature Pulse Rate 76 72 Respiratory Rate 25 H Blood Pressure 97/51 L Pulse Oximetry 97 97 Intake & Output 08/17/18 08/18/18 08/18/18 18:59 06:59 18:59 Intake Total 300 / 300 100 / 100 Output Total 2500 / 2500 Balance 300 / 300 -2400 / -2400 Weight 105 kg 103.9 kg Intake: Oral 100 / 100 Anesthesia Amount 300 / 300 Output: Hemodialysis Amount 2500 / 2500 Other: # Voids 0 Date of Last Bowel Movement 08/16/18 Weight On Admission 105 kg Result Diagrams: 08/17/18 10:00 08/17/18 10:00 Objective Remarks: GENERAL: Middle-aged morbidly obese female, lying bed, unlabored HEENT: Normocephalic. There is a patch over the left eye. Mucous membranes are moist NECK: Trachea is midline. Large neck circumference prevents the accurate assessment of JVD. CHEST: unlabored. room air. no distress. equal chest rise. CARDIOVASCULAR: Normal rate, regular rhythm. Appears to be sinus by telemetry. ABDOMEN: Soft, nontender, nondistended. No guarding. MUSCULOSKELETAL: Pulses 2+. 2+ peripheral edema. Evidence of remote BKA. Left arm fistula with positive thrill. NEUROLOGICAL: RASS 0. Moves all extremities and follows commands. Assessment and Plan - Assessment and Plan Plan: Assessment: 57yF POD 1 s/p left eye retinal surgery with acute hypoxic respiratory failure secondary to volume overload which has now completely resolved s/p HD overnight. stable for discharge home. Acute hypoxic respiratory failure- resolved Pulmonary Edema- severe, acute- resolved Acute intravascular volume overload- resolved - emergent HD overnight. - likely volume overload from ESRD - Nephrology consult ESRD - nephrology consulted s/p retinal surgery 08/17 - management per ophthalmology - lie flat per ophtho orders. stable to discharge home. follow up with nephrology within 1 week.
[2018-08-18] MEDS ORDERED: Gabapentin 100 MG Capsule PO SCH (09:00)
[2018-08-18] MEDS ORDERED: amLODIPine 10 MG Tablet PO SCH (09:00)
[2018-08-18] MEDS ORDERED: Docusate Sodium 100 MG Capsule PO SCH (09:00)
--- NOTE | 2018-08-18 09:44 | P.CONNP ---
<Mitzy Méndez - Last Filed: 08/18/18 11:38> History of Present Illness Reason for Consult: ESRD on hemodialysis Primary Care Provider: No Primary Care Physician Chief Complaint: shortness of breath History of Present Illness: Patient is a 57 year old female with ESRD who had outpatient retinal surgery yesterday and post-op had significant hypoxia. Chest x-ray showed bilateral infiltrates consistent with pulmonary edema. Patient had emergent hemodialysis where 2.5 L was removed. Patient stated prior to outpatient procedure she underwent HD at [facility] where 3.5 L was removed. Patient stated her cough has improved a lot today and patient denies shortness of breath. Patient was resting comfortably on room air. PMH includes: ESRD on dialysis, DM, HTN. Patient is a former tobacco smoker who denied alcohol and illicit drug use. Patient is being discharged today and will go to [facility] tomorrow for her regularly scheduled HD session. Patient gets dialysis TTS at [facility]. Review of Systems All other systems reviewed negative except as stated in HPI PMFSH - History History Provided By: Patient - Medical History Medical History: Medical History (Last Reviewed 08/17/18 @ 20:06 by Blaise Esquivel MD) History of right below knee amputation (Acute) History of end stage renal disease History of high blood pressure History of renal dialysis Hx MRSA infection Hx of diabetes mellitus - Surgical History Surgical History: Surgical History (Last Reviewed 08/17/18 @ 20:06 by Blaise Esquivel MD) History of arteriovenous shunt Hx of section Hx of dilation and curettage - Family History Family History: Family History (Last Reviewed 08/17/18 @ 20:06 by Blaise Esquivel MD) Other Diabetes Family history non-contributory - Tobacco History Second Hand Smoke Exposure: Yes Tobacco Use In Past 30 Days: No Smoking Status: Former smoker Tobacco Type: Cigarettes - Alcohol History How Often Do You Have a Drink Containing Alcohol: Never - Substance Use History Substance History: No History of Abuse - Travel History Recent Travel in the [place] Within the Last 8 Weeks: No Recent Travel Out of the Country Within the Last 8 Weeks: No Medications and Allergies Allergies Allergy/AdvReac Type Severity Reaction Status Date / Time morphine Allergy Intermediate itch Verified 08/17/18 10:08 vancomycin Allergy DUE TO Verified 08/16/18 12:02 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 Medication Instructions Recorded Confirmed Type alprazolam [Xanax] 0.25 mg PO BID PRN 07/12/18 08/17/18 History atorvastatin 20 mg PO DAILY 07/12/18 08/17/18 History bumetanide 2 mg PO BID 07/12/18 08/17/18 History docusate sodium [Colace] 100 mg PO DAILY 07/12/18 08/17/18 History gabapentin 100 mg PO BID 07/12/18 08/17/18 History glipizide 10 mg PO DAILY 07/12/18 08/17/18 History hydrocodone-acetaminophen 1 tab PO DAILY 07/12/18 08/17/18 History levothyroxine 137 mcg PO DAILY 07/12/18 08/17/18 History sennosides [senna] 8.6 mg PO DAILY PRN 07/12/18 08/17/18 History zolpidem 10 mg PO HS 07/12/18 08/17/18 History amlodipine 10 mg PO DAILY 07/19/18 08/17/18 History Active Medications: Active Medications Acetaminophen (Tylenol) 500 mg PO Q4HR PRN PRN Reason: FOR PAIN SCALE 1-4 Acetaminophen (Tylenol) 650 mg PO UNSCH PRN PRN Reason: SEE LABEL COMMENTS Hydrocodone Bitart/Acetaminophen (Bokeelia 7.5/325) 1 tab PO Q6H PRN PRN Reason: pain Last Admin: 08/18/18 08:14 Dose: 1 tab Amlodipine Besylate (Norvasc) 10 mg PO DAILY [facility] Last Admin: 08/18/18 08:10 Dose: 10 mg Atorvastatin Calcium (Lipitor) 20 mg PO DAILY [facility] Last Admin: 08/18/18 08:10 Dose: 20 mg Bumetanide (Bumex) 2 mg PO BID [facility] Last Admin: 08/18/18 08:10 Dose: 2 mg Clonidine HCl (Catapres) 0.1 mg PO UNSCH PRN PRN Reason: SEE LABEL COMMENTS Diphenhydramine HCl (Benadryl) 25 mg PO UNSCH PRN PRN Reason: SEE LABEL COMMENTS Docusate Sodium (Colace) 100 mg PO DAILY [facility] Last Admin: 08/18/18 08:10 Dose: 100 mg Gabapentin (Neurontin) 100 mg PO BID [facility] Last Admin: 08/18/18 08:10 Dose: 100 mg Gelatin (Gelfoam 12 Mm/7 Mm Topical) 1 foam TOPICAL PRN PRN PRN Reason: help stop bleeding from site Gentamicin Sulfate (Gentamicin Inj) 20 mg OTHER WITH DIALYSIS PRN PRN Reason: Dwell Gentamycin Lock Heparin Sodium (Porcine) (Heparin Inj) 1,000 units OTHER WITH DIALYSIS PRN PRN Reason: Dwell Heparin to Fill Catheter Heparin Sodium (Porcine) (Heparin Inj) 8,000 units OTHER WITH DIALYSIS PRN PRN Reason: for machine prime Lactated Ringer's (Lr 1000 Ml Inj) 1,000 mls @ 30 mls/hr IV.CONT .Q24H ONE Stop: 08/18/18 09:59 Last Admin: 08/17/18 10:29 Dose: Not Given Phenylephrine HCl 40 mg/ (Dextrose) 500 mls @ 30 mls/hr IV.CONT TITRATE PRN; Protocol PRN Reason: Per Protocol Albumin Human (Flexbumin 25% Inj) 100 mls @ 60 mls/hr IV.SIG WITH DIALYSIS PRN PRN Reason: hypotension / volume replace Sodium Chloride (Ns Inj) 1,000 mls @ 0 mls/hr OTHER .Q0M PRN PRN Reason: for prime and rinse back Sodium Chloride (Ns Inj) 1,000 mls @ 200 mls/hr OTHER .Q5H PRN PRN Reason: for dialyzer flush PRN Sodium Chloride (Ns Inj) 1,000 mls @ 0 mls/hr IV.CONT .Q0M PRN PRN Reason: hypotension / volume replace Levothyroxine Sodium (Synthroid) 112 mcg PO DAILY@0600 [facility] Last Admin: 08/18/18 05:54 Dose: 112 mcg Levothyroxine Sodium (Synthroid) 25 mcg PO DAILY@0600 [facility] Last Admin: 08/18/18 05:54 Dose: 25 mcg Mannitol (Mannitol Inj) 12.5 gm IV.PUSH UNSCH PRN PRN Reason: hypotension / volume replace Miscellaneous Information ([facility] [place] [facility]) 1 each OTHER UNSCH PRN PRN Reason: SEE LABEL COMMENTS Stop: 08/18/18 14:55 Nitroglycerin (Nitrostat Sl) 0.4 mg SL Q5M PRN PRN Reason: CHEST PAIN Sennosides (Senokot) 8.6 mg PO DAILY PRN PRN Reason: Constipation Sodium Chloride (Ns Flush) 5 ml IV.FLUSH PRN PRN PRN Reason: flush each lumen during HD Terbutaline Sulfate (Brethine Inj) 1 mg SQ UNSCH PRN PRN Reason: For Extravasation Zolpidem Tartrate (Ambien) 10 mg PO HS [facility] Last Admin: 08/18/18 00:10 Dose: Not Given Exam Vital signs: Vital Signs 08/17/18 10:22 08/17/18 15:17 08/17/18 15:30 Temperature 99.1 F 98.1 F Pulse Rate 87 85 75 Respiratory Rate 20 28 H 28 H Blood Pressure 109/55 L 124/58 L 105/55 L Pulse Oximetry 95 91 L 85 L 08/17/18 15:45 08/17/18 16:00 08/17/18 16:15 Temperature Pulse Rate 72 66 81 Respiratory Rate 25 H 22 22 Blood Pressure 105/52 L 90/52 L 88/47 L Pulse Oximetry 89 L 100 22 L 08/17/18 16:30 08/17/18 16:45 08/17/18 17:00 Temperature 99.1 F Pulse Rate 79 81 78 Respiratory Rate 24 22 21 Blood Pressure 86/48 L 91/53 L 99/58 L Pulse Oximetry 99 100 100 08/17/18 17:15 08/17/18 17:30 08/17/18 17:54 Temperature Pulse Rate 78 79 Respiratory Rate 21 21 Blood Pressure 93/51 L 100/57 L 117/57 L Pulse Oximetry 100 98 97 08/17/18 18:00 08/17/18 18:19 08/17/18 19:00 Temperature Pulse Rate 79 68 Respiratory Rate Blood Pressure 114/55 L 126/58 L Pulse Oximetry 99 100 96 08/17/18 19:56 08/17/18 19:58 08/17/18 20:00 Temperature 98.9 F Pulse Rate 66 64 Respiratory Rate 27 H Blood Pressure 111/52 L Pulse Oximetry 96 98 08/17/18 20:45 08/17/18 21:00 08/17/18 21:15 Temperature Pulse Rate 61 92 H 86 Respiratory Rate 25 H 25 H Blood Pressure 101/63 137/60 122/56 L Pulse Oximetry 100 100 100 08/17/18 21:30 08/17/18 21:45 08/17/18 22:00 Temperature Pulse Rate 87 91 H 94 H Respiratory Rate 23 16 16 Blood Pressure 127/58 L 124/58 L 121/59 L Pulse Oximetry 100 100 100 08/17/18 22:15 08/17/18 22:30 08/17/18 22:45 Temperature Pulse Rate 92 H 92 H 92 H Respiratory Rate 20 23 19 Blood Pressure 107/57 L 115/57 L 110/51 L Pulse Oximetry 100 100 100 08/17/18 23:00 08/17/18 23:11 08/17/18 23:41 Temperature 98.7 F Pulse Rate 92 H 93 H 90 Respiratory Rate 24 20 Blood Pressure 112/57 L 107/59 L 101/54 L Pulse Oximetry 100 100 100 08/18/18 00:00 08/18/18 00:10 08/18/18 00:40 Temperature Pulse Rate 89 88 86 Respiratory Rate 21 18 30 H Blood Pressure 92/50 L 99/50 L Pulse Oximetry 100 100 100 08/18/18 01:00 08/18/18 01:10 08/18/18 01:40 Temperature Pulse Rate 90 90 89 Respiratory Rate 28 H Blood Pressure 105/53 L 103/59 L Pulse Oximetry 100 100 100 08/18/18 02:00 08/18/18 02:10 08/18/18 02:22 Temperature Pulse Rate 86 84 86 Respiratory Rate 17 16 15 Blood Pressure 86/51 L 91/52 L Pulse Oximetry 100 100 100 08/18/18 02:40 08/18/18 03:00 08/18/18 03:10 Temperature Pulse Rate 85 82 81 Respiratory Rate 29 H 23 17 Blood Pressure 91/50 L 83/46 L Pulse Oximetry 100 100 100 08/18/18 03:34 08/18/18 03:38 08/18/18 03:39 Temperature 97.8 F Pulse Rate 81 88 Respiratory Rate 27 H 25 H Blood Pressure 101/52 L Pulse Oximetry 100 08/18/18 03:40 08/18/18 04:00 08/18/18 04:10 Temperature Pulse Rate 89 80 78 Respiratory Rate 16 29 H Blood Pressure 92/55 L 88/50 L Pulse Oximetry 100 100 100 08/18/18 04:40 08/18/18 04:42 08/18/18 05:00 Temperature Pulse Rate 76 77 75 Respiratory Rate 26 H 15 Blood Pressure 88/49 L 97/52 L Pulse Oximetry 100 100 96 08/18/18 05:11 08/18/18 05:41 08/18/18 05:44 Temperature Pulse Rate 76 74 75 Respiratory Rate 29 H 21 Blood Pressure 152/64 H 140/63 Pulse Oximetry 95 95 08/18/18 06:00 08/18/18 06:11 08/18/18 06:41 Temperature Pulse Rate 76 72 72 Respiratory Rate 25 H 19 Blood Pressure 97/51 L 95/50 L Pulse Oximetry 97 97 100 08/18/18 07:00 08/18/18 07:11 08/18/18 08:00 Temperature Pulse Rate 76 74 75 Respiratory Rate 31 H 36 H 25 H Blood Pressure 89/53 L Pulse Oximetry 90 L 100 08/18/18 08:14 08/18/18 08:15 Temperature 97.7 F Pulse Rate Respiratory Rate Blood Pressure Pulse Oximetry 89 L 95 Intake & Output 08/17/18 08/18/18 08/18/18 18:59 06:59 18:59 Intake Total 300 / 300 100 / 100 Output Total 2500 / 2500 Balance 300 / 300 -2400 / -2400 Weight 105 kg 103.9 kg Intake: Oral 100 / 100 Anesthesia Amount 300 / 300 Output: Hemodialysis Amount 2500 / 2500 Other: # Voids 0 Date of Last Bowel Movement 08/16/18 08/16/18 Weight On Admission 105 kg - Constitutional no acute distress, obese - Routine HEENT Exam Head: Present: normocephalic Eye: Present: EOMI ENT: Present: mucous membranes moist - Routine Neck Exam Present: supple - Routine Respiratory Exam Absent: accessory muscle use, respiratory distress, diminished air movement - Routine Cardiovascular Exam Present: S1, S2 - Routine Abdominal Exam Present: soft, normoactive bowel sounds. Absent: tenderness - Routine Extremities Exam Present: amputation, AV fistula Comments: Left AVF - Routine Neurological Exam Present: alert, oriented X3 Results - Lab Results 08/17/18 10:00 08/17/18 10:00 Assessment and Plan - Assessment (1) ESRD (end stage renal disease) on dialysis Code(s): N18.6 - End stage renal disease; Z99.2 - Dependence on renal dialysis Status: Acute Plan: Patient gets HD TTS. Patient had emergent hemodialysis yesterday where 2.5 L was removed. Patient is being discharged today and will go to [facility] tomorrow for her regularly scheduled HD session. Avoid BP measurements or blood draws in left arm due to AVF. (2) Hypertension Code(s): I10 - Essential (primary) hypertension Status: Acute Plan: Monitor BP. Continue medications. (3) Diabetes Code(s): E11.9 - Type 2 diabetes mellitus without complications Status: Acute Plan: Insulin coverage to maintain blood glucose levels between 140 and 180 while hospitalized. <Ti Jalloh - Last Filed: 08/18/18 14:38> History of Present Illness Primary Care Provider: No Primary Care Physician [facility] - Medical History Medical History: Medical History (Last Reviewed 08/17/18 @ 20:06 by Blaise Esquivel MD) History of right below knee amputation (Acute) History of end stage renal disease History of high blood pressure History of renal dialysis Hx MRSA infection Hx of diabetes mellitus - Surgical History Surgical History: Surgical History (Last Reviewed 08/17/18 @ 20:06 by Blaise Esquivel MD) History of arteriovenous shunt Hx of section Hx of dilation and curettage - Family History Family History: Family History (Last Reviewed 08/17/18 @ 20:06 by Blaise Esquivel MD) Other Diabetes Family history non-contributory Exam Vital signs: Vital Signs 08/17/18 15:17 08/17/18 15:30 08/17/18 15:45 Temperature 98.1 F Pulse Rate 85 75 72 Respiratory Rate 28 H 28 H 25 H Blood Pressure 124/58 L 105/55 L 105/52 L Pulse Oximetry 91 L 85 L 89 L 08/17/18 16:00 08/17/18 16:15 08/17/18 16:30 Temperature Pulse Rate 66 81 79 Respiratory Rate 22 22 24 Blood Pressure 90/52 L 88/47 L 86/48 L Pulse Oximetry 100 22 L 99 08/17/18 16:45 08/17/18 17:00 08/17/18 17:15 Temperature 99.1 F Pulse Rate 81 78 78 Respiratory Rate 22 21 21 Blood Pressure 91/53 L 99/58 L 93/51 L Pulse Oximetry 100 100 100 08/17/18 17:30 08/17/18 17:54 08/17/18 18:00 Temperature Pulse Rate 79 79 Respiratory Rate 21 Blood Pressure 100/57 L 117/57 L 114/55 L Pulse Oximetry 98 97 99 08/17/18 18:19 08/17/18 19:00 08/17/18 19:56 Temperature 98.9 F Pulse Rate 68 Respiratory Rate Blood Pressure 126/58 L Pulse Oximetry 100 96 96 08/17/18 19:58 08/17/18 20:00 08/17/18 20:45 Temperature Pulse Rate 66 64 61 Respiratory Rate 27 H 25 H Blood Pressure 111/52 L 101/63 Pulse Oximetry 98 100 08/17/18 21:00 08/17/18 21:15 08/17/18 21:30 Temperature Pulse Rate 92 H 86 87 Respiratory Rate 25 H 23 Blood Pressure 137/60 122/56 L 127/58 L Pulse Oximetry 100 100 100 08/17/18 21:45 08/17/18 22:00 08/17/18 22:15 Temperature Pulse Rate 91 H 94 H 92 H Respiratory Rate 16 16 20 Blood Pressure 124/58 L 121/59 L 107/57 L Pulse Oximetry 100 100 100 08/17/18 22:30 08/17/18 22:45 08/17/18 23:00 Temperature Pulse Rate 92 H 92 H 92 H Respiratory Rate 23 19 24 Blood Pressure 115/57 L 110/51 L 112/57 L Pulse Oximetry 100 100 100 08/17/18 23:11 08/17/18 23:41 08/18/18 00:00 Temperature 98.7 F Pulse Rate 93 H 90 89 Respiratory Rate 20 21 Blood Pressure 107/59 L 101/54 L Pulse Oximetry 100 100 100 08/18/18 00:10 08/18/18 00:40 08/18/18 01:00 Temperature Pulse Rate 88 86 90 Respiratory Rate 18 30 H Blood Pressure 92/50 L 99/50 L Pulse Oximetry 100 100 100 08/18/18 01:10 08/18/18 01:40 08/18/18 02:00 Temperature Pulse Rate 90 89 86 Respiratory Rate 28 H 17 Blood Pressure 105/53 L 103/59 L Pulse Oximetry 100 100 100 08/18/18 02:10 08/18/18 02:22 08/18/18 02:40 Temperature Pulse Rate 84 86 85 Respiratory Rate 16 15 29 H Blood Pressure 86/51 L 91/52 L 91/50 L Pulse Oximetry 100 100 100 08/18/18 03:00 08/18/18 03:10 08/18/18 03:34 Temperature 97.8 F Pulse Rate 82 81 81 Respiratory Rate 23 17 27 H Blood Pressure 83/46 L 101/52 L Pulse Oximetry 100 100 100 08/18/18 03:38 08/18/18 03:39 08/18/18 03:40 Temperature Pulse Rate 88 89 Respiratory Rate 25 H Blood Pressure 92/55 L Pulse Oximetry 100 08/18/18 04:00 08/18/18 04:10 08/18/18 04:40 Temperature Pulse Rate 80 78 76 Respiratory Rate 16 29 H Blood Pressure 88/50 L 88/49 L Pulse Oximetry 100 100 100 08/18/18 04:42 08/18/18 05:00 08/18/18 05:11 Temperature Pulse Rate 77 75 76 Respiratory Rate 26 H 15 29 H Blood Pressure 97/52 L 152/64 H Pulse Oximetry 100 96 95 08/18/18 05:41 08/18/18 05:44 08/18/18 06:00 Temperature Pulse Rate 74 75 76 Respiratory Rate 21 Blood Pressure 140/63 Pulse Oximetry 95 97 08/18/18 06:11 08/18/18 06:41 08/18/18 07:00 Temperature Pulse Rate 72 72 76 Respiratory Rate 25 H 19 31 H Blood Pressure 97/51 L 95/50 L Pulse Oximetry 97 100 90 L 08/18/18 07:11 08/18/18 08:00 08/18/18 08:14 Temperature 97.7 F Pulse Rate 74 75 Respiratory Rate 36 H 25 H Blood Pressure 89/53 L Pulse Oximetry 100 89 L 08/18/18 08:15 08/18/18 11:38 Temperature 98.4 F Pulse Rate 69 Respiratory Rate 18 Blood Pressure 109/54 L Pulse Oximetry 95 Intake & Output 08/17/18 08/18/18 08/18/18 18:59 06:59 18:59 Intake Total 300 / 300 100 / 100 Output Total 2500 / 2500 Balance 300 / 300 -2400 / -2400 Weight 105 kg 103.9 kg Intake: Oral 100 / 100 Anesthesia Amount 300 / 300 Output: Hemodialysis Amount 2500 / 2500 Other: # Voids 0 Date of Last Bowel Movement 08/16/18 08/16/18 Weight On Admission 105 kg Results - Lab Results 08/17/18 10:00 08/17/18 10:00 Assessment and Plan - Assessment (1) ESRD (end stage renal disease) on dialysis Code(s): N18.6 - End stage renal disease; Z99.2 - Dependence on renal dialysis Status: Acute (2) Hypertension Code(s): I10 - Essential (primary) hypertension Status: Acute (3) Diabetes Code(s): E11.9 - Type 2 diabetes mellitus without complications Status: Acute - Attending Attestation patient was seen and examined. Agree with above assessment and plan. Symptoms improved after emergent dialysis last night.
== END 2018-08-18 11:50 | disposition home or self-care (01) | DRG 628 ==
LOC: HSDC 09:24 → HSDI 17:17 → N03 17:48
PROVIDERS: ADMIT Ophthalmology; ATTEND Ophthalmology
CPT/HCPCS: 71010; 71045; 82948; 82962; 84132; 85025; 87641; 90935; J0171; J0690; J1100; J1170; J2250; J2370; J2405; J2704; J2710; J3010; J3300; J7040; J7050